=== PATIENT | male | born 1960 | race Caucasian/White ===

== ENCOUNTER 2018-02-04 12:48 | Inpatient (IN) | payer OTHER ==
[~2018-02-04] VITALS: Ht 162.6 cm; Wt 67.6 kg
[~2018-02-04 12:48] MED LIST: AMOX-358 PO; ATOR40TA70 PO; BENZ-13 PO; CITALOPRAM; FLUT9.9S NS; GEMF600T3 PO; GLIP5TAB26 PO; HCTZ; HYDR25TA4 PO; LORA1TAB59 PO; MECL12.579 PO; METFORMIN; PARVASTATIN
--- NOTE | 2018-02-04 13:12 | Diagnostic Imaging Report ---
INDICATION: Slurred speech and dizziness with right-sided weakness. TECHNIQUE: Axial imaging through the brain was performed without contrast. COMPARISON: Correlation is made with prior head CT from 10/13/2010. FINDINGS: Ventricular size is stable. There is some subtle low density identified in the left batres radiata, more prominent than prior CT. Acuity is indeterminate. No sulcal effacement is seen. There is no midline shift. No acute intra-axial or extra-axial hemorrhage is detected. IMPRESSION: No acute intracranial hemorrhage is seen. There is a small area of low density in the left batres radiata. Possibility of subacute ischemia at this location cannot be entirely excluded, and MRI of the brain could be performed for further evaluation. Dictated by: Dictated on workstation # [id number]
[2018-02-04 13:27] LABS: BASOPHILS # (AUTO) 0.1 10^3/uL (0.0-0.1); BASOPHILS % (AUTO) 1 % (0-10); EOSINOPHILS # (AUTO) 0.1 10^3/uL (0.0-0.3); EOSINOPHILS % (AUTO) 1 % (0-10); HEMATOCRIT 51 % (40-54); HEMOGLOBIN 18.3 G/DL (13.3-17.7); LYMPHOCYTES # (AUTO) 1.8 X 10^3 (1.0-4.0); LYMPHOCYTES % (AUTO) 19 % (12-44); MEAN CORPUSCULAR HEMOGLOBIN 31 PG (25-34); MEAN CORPUSCULAR HGB CONC 36 G/DL (32-36); MEAN CORPUSCULAR VOLUME 85 FL (80-99); MEAN PLATELET VOLUME 9.8 FL (7.4-10.4); MONOCYTES # (AUTO) 0.6 X 10^3 (0.0-1.0); MONOCYTES % (AUTO) 6 % (0-12); NEUTROPHILS # (AUTO) 7.2 X 10^3 (1.8-7.8); NEUTROPHILS % (AUTO) 74 % (42-75); PLATELET COUNT 348 10^3/uL (130-400); RED BLOOD COUNT 5.95 10^6/uL (4.35-5.85); RED CELL DISTRIBUTION WIDTH 12.8 % (10.0-14.5); WHITE BLOOD COUNT 9.8 10^3/uL (4.3-11.0)
[2018-02-04 13:37] LABS: INR 0.9 (0.8-1.4); PROTHROMBIN TIME PATIENT 12.5 SEC (12.2-14.7)
[2018-02-04 13:40] LABS: FIBRIN DEGRADATION PRODUCTS 0.29 UG/ML (0.00-0.49)
[2018-02-04 13:43] LABS: ALANINE AMINOTRANSFERASE 26 U/L (0-55); ALBUMIN 4.4 GM/DL (3.2-4.5); ALKALINE PHOSPHATASE 132 U/L (40-136); BILIRUBIN,TOTAL 0.7 MG/DL (0.1-1.0); BUN/CREATININE RATIO 11; CALCIUM 9.6 MG/DL (8.5-10.1); CARBON DIOXIDE 23 MMOL/L (21-32); CHLORIDE 104 MMOL/L (98-107); CREATININE SERUM 0.93 MG/DL (0.60-1.30); GFR ESTIMATED > 60; GLUCOSE 327 MG/DL (70-105); SODIUM 137 MMOL/L (135-145); TOTAL PROTEIN 7.7 GM/DL (6.4-8.2)
--- NOTE | 2018-02-04 13:49 | Diagnostic Imaging Report ---
INDICATION: Dizziness and right-sided weakness. TIME OF EXAM: 1:27 p.m. COMPARISON: Comparison is made with prior study from 09/20/2011. FINDINGS: The heart size is normal. The pulmonary vascularity is unremarkable. The lungs are clear. No infiltrate, effusion or pneumothorax is detected. IMPRESSION: No acute cardiopulmonary process is detected. Dictated by: Dictated on workstation # [id number]
[2018-02-04 14:05] LABS: BILIRUBIN,URINE NEGATIVE (NEGATIVE); CLARITY,URINE CLEAR; COLOR,URINE YELLOW; GLUCOSE, URINE (UA) 4+ (NEGATIVE); KETONES,URINE NEGATIVE (NEGATIVE); LEUKOCYTE ESTERASE ,URINE 1+ (NEGATIVE); NITRITE,URINE NEGATIVE (NEGATIVE); PH,URINE 5 (5-9); PROTEIN,URINE 2+ (NEGATIVE); UROBILINOGEN,URINE NORMAL (NORMAL)
[2018-02-04] MEDS ORDERED: NS 250 ML (IVPB) BAG IV ONE (14:30)
[2018-02-04] MEDS ORDERED: IOHEXOL 350 MG/ML 100 ML (OMNIPAQUE 350) VIAL IV ONE (14:30)
[2018-02-04] MEDS ORDERED: CATHETER FLUSH 10 ML SYR IV PRN (14:30)
[2018-02-04 14:31] LABS: BACTERIA,URINE NEGATIVE /HPF; WBC,URINE RARE /HPF
--- NOTE | 2018-02-04 15:12 | Diagnostic Imaging Report ---
PROCEDURE: MR imaging of the brain without contrast. TECHNIQUE: Multiplanar, multisequence MR imaging of the brain was performed without contrast. INDICATION: Slurred speech and weakness. COMPARISON: Correlation is made with CT study of the brain performed earlier the same day. FINDINGS: Diffusion-weighted images do show a small area of diffusion restriction in the left batres radiata, corresponding with the area of low density on CT earlier the same day. This measures approximately 13 mm. No other areas of diffusion restriction are seen. The normal expected flow-voids within the carotid siphons are seen. There is no midline shift. No acute intra-axial or extra-axial hemorrhage is detected. Corpus callosum is unremarkable. The sella and parasellar structures are unremarkable. 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 No acute intracranial hemorrhage is detected. Results were called to Dr. Rick prior to this dictation. Dictated by: Dictated on workstation # [id number]
--- NOTE | 2018-02-04 15:19 | ED Neurological Problem ---
General Chief Complaint: Neuro-Stroke Like Symptoms Stated Complaint: DIZZY, R ARM PAIN Nursing Triage Note: BROUGHT BACK TO ROOM 03 BY ADAM LIM. PT STATES WHEN HE LEFT WORK YESTERDAY AT 1500 HE WS DIZZY WITH SOME RIGHT SIDED WEAKNESS AND SLURRED SPEECH THAT SEEMS TO HAVE GOTTEN WORSE. Nursing Sepsis Screen: No Definite Risk Source: patient Exam Limitations: no limitations History of Present Illness Date Seen by Provider: Feb 04, 2018 Time Seen by Provider: 12:56 Initial Comments This 57-year-old gentleman presents to the emergency room with complaints of dizziness, right arm weakness, slurred speech, and disequilibrium. He first noticed symptoms around 13:00 yesterday when he was going home from work. Symptoms seem to have worsened since then. He is now having difficulty walking. He denies any drug or alcohol use. Stroke activation was paged. Allergies and Home Medications Allergies Coded Allergies: No Known Drug Allergies (Verified , 08/14/08) Home Medications Amoxicillin/Potassium Clav 1 Each Tablet, 1 EACH PO BID Prescribed by: MARSHA ELLIOTT on 09/15/17757 Benzonatate 100 Mg Capsule, 1-2 TAB PO TID Prescribed by: MARSHA ELLIOTT on 09/15/17757 Fluticasone Propionate 9.9 Ml Wilson.susp, 2 SPRAYS NS BID Prescribed by: MARSHA ELLIOTT on 09/15/17757 Loratadine/Pseudoephedrine 1 Each Tab.er.12h, 1 EACH PO BID Prescribed by: MARSHA ELLIOTT on 09/15/17757 Patient Home Medication List Home Medication List Reviewed: Yes Constitutional: no symptoms reported Eyes: No Symptoms Reported Ears, Nose, Mouth, Throat: no symptoms reported Respiratory: no symptoms reported Cardiovascular: no symptoms reported Gastrointestinal: no symptoms reported Genitourinary: no symptoms reported Musculoskeletal: no symptoms reported Skin: no symptoms reported Psychiatric/Neurological: See HPI Endocrine: No Symptoms Reported Past Lxircho-Mogoqp-Spwiki Hx Patient Social History Alcohol Use: Rarely Uses Alcohol Beverage of Choice: Beer Recreational Drug Use: No Smoking Status: Current Everyday Smoker Type Used: Cigarettes Recent Foreign Travel: No Contact w/Someone Who Travel: No Recent Infectious Disease Expo: No Immunizations Up To Date Date of Influenza Vaccine: Aug 08, 2017 Surgeries History of Surgeries: Yes (RIGHT KNEE SCOPE) Surgeries: Abdominal, Adenoidectomy, Tonsillectomy Respiratory History of Respiratory Disorde: Yes (Tobaccoism) Cardiovascular History of Cardiac Disorders: Yes Cardiac Disorders: Hypertension Neurological History of Neurological Disord: No Reproductive System Hx Reproductive Disorders: No Sexually Transmitted Disease: No Genitourinary History of Genitourinary Disor: No Gastrointestinal History of Gastrointestinal Di: No Musculoskeletal History of Musculoskeletal Dis: No Endocrine History of Endocrine Disorders: Yes (Borderline diabetes, not treated) Cancer History of Cancer: No Psychosocial History of Psychiatric Problem: No Integumentary History of Skin or Integumenta: No Blood Transfusions History of Blood Disorders: No Physical Exam Vital Signs Vital Signs - First Documented 02/04/18 12:55 Temp 98.0 Pulse 97 B/P (MAP) 110/99 (103) Pulse Ox 99 Capillary Refill : Less Than 3 Seconds General Appearance: WD/WN, no apparent distress HEENT: PERRL/EOMI, normal ENT inspection, pharynx normal Neck: normal inspection Respiratory: lungs clear, normal breath sounds, no respiratory distress, no accessory muscle use Cardiovascular: no edema, no murmur, tachycardia Gastrointestinal: non tender, soft Extremities: normal inspection, no pedal edema Neurologic/Psychiatric: alert, normal mood/affect, oriented x 3, motor weakness (Right upper extremity) Crainal Nerves: normal hearing, PERRL, abnormal speech (Subtle slurring of speech) Coordination/Gait: abnormal gait (Disequilibrium), ABN nose to finger (R) Motor/Sensory: no sensory deficit, weak motor strength LUE, weak motor strength RLE Skin: normal color, warm/dry Stroke NIH Stroke Scale Assessment Select: Initial Level of Consciousness: 0=Alert (0), Level of Consciousness- Questions: 0=Answers both month/age (0), LOC Commands: 0=Performs both tasks (0) , Visual Camara: 0=No visual loss (0), Facial Movement (Facial Paresis): 0= Normal symmetrical mnt (0), Motor Function-Arms Right: 0=No drift (0), Motor Function-Arms Left: 0=No drift (0), Motor Function-Legs Right: 0=No drift (0), Motor Function-Legs Left: 0=No drift (0), Limb Ataxia: 1=Present in one limb (1) , Sensory: 0=Normal:no loss (0), Best Language: 0=No aphasia (0), Dysarthria: 1= Mild to moderate loss (1), Extinction & Inattention: 0=No abnormality (0), Total : 2 Progress/Results/Core Measures Results/Orders Lab Results Laboratory Tests Test 02/04/18 13:11 02/04/18 13:19 02/04/18 14:00 Range/Units White Blood Count 9.8 4.3-11.0 10^3/uL Red Blood Count 5.95 H 4.35-5.85 10^6/uL Hemoglobin 18.3 H 13.3-17.7 G/DL Hematocrit 51 40-54 % Mean Corpuscular Volume 85 80-99 FL Mean Corpuscular Hemoglobin 31 25-34 PG Mean Corpuscular Hemoglobin Concent 36 32-36 G/DL Red Cell Distribution Width 12.8 10.0-14.5 % Platelet Count 348 130-400 10^3/uL Mean Platelet Volume 9.8 7.4-10.4 FL Neutrophils (%) (Auto) 74 42-75 % Lymphocytes (%) (Auto) 19 12-44 % Monocytes (%) (Auto) 6 0-12 % Eosinophils (%) (Auto) 1 0-10 % Basophils (%) (Auto) 1 0-10 % Neutrophils # (Auto) 7.2 1.8-7.8 X 10^3 Lymphocytes # (Auto) 1.8 1.0-4.0 X 10^3 Monocytes # (Auto) 0.6 0.0-1.0 X 10^3 Eosinophils # (Auto) 0.1 0.0-0.3 10^3/uL Basophils # (Auto) 0.1 0.0-0.1 10^3/uL Prothrombin Time 12.5 12.2-14.7 SEC INR Comment 0.9 0.8-1.4 Activated Partial Thromboplast Time 35 24-35 SEC D-Dimer 0.29 0.00-0.49 UG/ML Sodium Level 137 135-145 MMOL/L Potassium Level 4.0 3.6-5.0 MMOL/L Chloride Level 104 98-107 MMOL/L Carbon Dioxide Level 23 21-32 MMOL/L Anion Gap 10 5-14 MMOL/L Blood Urea Nitrogen 10 7-18 MG/DL Creatinine 0.93 0.60-1.30 MG/DL Estimat Glomerular Filtration Rate > 60 BUN/Creatinine Ratio 11 Glucose Level 327 H 70-105 MG/DL Calcium Level 9.6 8.5-10.1 MG/DL Total Bilirubin 0.7 0.1-1.0 MG/DL Aspartate Amino Transf (AST/SGOT) 15 5-34 U/L Alanine Aminotransferase (ALT/SGPT) 26 0-55 U/L Alkaline Phosphatase 132 40-136 U/L Troponin I < 0.30 <0.30 NG/ML Total Protein 7.7 6.4-8.2 GM/DL Albumin 4.4 3.2-4.5 GM/DL Glucometer 294 H 70-110 MG/DL Urine Color YELLOW Urine Clarity CLEAR Urine pH 5 5-9 Urine Specific [place] 1.020 1.016-1.022 Urine Protein 2+ H NEGATIVE Urine Glucose (UA) 4+ H NEGATIVE Urine Ketones NEGATIVE NEGATIVE Urine Nitrite NEGATIVE NEGATIVE Urine Bilirubin NEGATIVE NEGATIVE Urine Urobilinogen NORMAL NORMAL MG/DL Urine Leukocyte Esterase 1+ H NEGATIVE Urine RBC (Auto) 1+ H NEGATIVE Urine RBC NONE /HPF Urine WBC RARE /HPF Urine Squamous Epithelial Cells NONE /HPF Urine Crystals NONE /LPF Urine Bacteria NEGATIVE /HPF Urine Casts NONE /LPF Urine Mucus NEGATIVE /LPF Urine Culture Indicated NO My Orders Orders - CHIDI RICK MD Cbc With Automated Diff (02/04/18 12:56) Protime With Inr (02/04/18 12:56) Partial Thromboplastin Time (02/04/18 12:56) Comprehensive Metabolic Panel (02/04/18 12:56) Fibrin Degradation Products (02/04/18 12:56) Troponin I (02/04/18 12:56) Ua Culture If Indicated (02/04/18 12:56) Chest 1 View, Ap/Pa Only (02/04/18 12:56) Ekg Tracing (02/04/18 12:56) Nothing By Mouth (02/04/18 Dinner) Accucheck Stat ONCE (02/04/18 12:56) Saline Lock/Iv-Start (02/04/18 12:56) Saline Lock/Iv-Start (02/04/18 12:56) Vital Signs Stroke Patient Q15M (02/04/18 12:56) Ct Head Wo-R/O Stroke (02/04/18 12:56) O2 (02/04/18 12:56) Intake & Output 06,14,22 (02/04/18 12:56) Monitor-Rhythm Ecg Trace Only (02/04/18 12:56) Dysphagia Screening Tool (02/04/18 12:56) Mri Brain W/O Contrast (02/04/18 14:16) Ct Angio Head/Neck (02/04/18 14:16) Iohexol Injection (Omnipaque 350 Mg/Ml 1 (02/04/18 14:30) Sodium Chloride Flush (Catheter Flush Sy (02/04/18 14:30) Ns (Ivpb) (Sodium Chloride 0.9%) (02/04/18 14:30) Pharmacy Communication (Pharmacy Communi (02/04/18 14:20) Aspirin Tablet (Aspirin Tablet) (02/04/18 15:45) Ondansetron Injection (Zofran Injectio (02/04/18 18:19) Ns Iv 1000 Ml (Sodium Chloride 0.9%) (02/04/18 18:28) Ondansetron Injection (Zofran Injectio (02/04/18 18:45) Medications Given in ED Current Medications Medications Dose Ordered Sig/Dory Route Start Time Stop Time Status Last Admin Dose Admin Aspirin 325 mg ONCE ONCE PO 02/04/18 15:45 02/04/18 15:46 DC 02/04/18 15:46 325 MG Iohexol 100 ml ONCE ONCE IV 02/04/18 14:30 02/04/18 14:31 DC 02/04/18 15:25 75 ML Ondansetron HCl 4 mg ONCE ONCE IVP 02/04/18 18:30 02/04/18 18:31 DC 02/04/18 18:25 4 MG Ondansetron HCl 4 mg ONCE ONCE IVP 02/04/18 18:45 02/04/18 18:46 DC 02/04/18 18:47 4 MG Sodium Chloride 10 ml NEEDED PRN IV 02/04/18 14:30 02/04/18 15:25 10 ML Sodium Chloride 250 ml ONCE ONCE IV 02/04/18 14:30 02/04/18 14:31 DC 02/04/18 15:25 80 ML Vital Signs/I&O Vital Sign - Last 12Hours 02/04/18 02/04/18 12:55 17:53 Temp 98.0 Pulse 97 117 B/P (MAP) 110/99 (103) 125/89 (101) 108/45 (66) Pulse Ox 99 Blood Pressure Mean: 103 Point of Care Testing Finger Stick Blood Glucose: 294 Progress Note : Progress Note Stroke activation was paged upon patient assessment. Patient was not a TPA candidate as he was nearly 24 hours out from symptom onset and his NIH stroke score was very low. CT did suggest a possible stroke. See report for details. No intracranial hemorrhage was identified. I consulted Dr. Griffin, stroke neurologist at [facility]. She recommended further imaging with MRA of the head and neck and MRI of the brain. I discussed these options with Dr. Parikh in radiology. Based on equipment available at this facility, he believes CT angiogram of head and neck along with MRI of the brain would provide better images for interpretation. The studies were ordered. Stroke was confirmed but no large vessel thrombus was identified. CT angiogram of the neck revealed a left subclavian artery stenosis. This was severe in nature and blood pressures on each arm were checked. Blood pressure on the right was 125/89, on the left 108/45. Case was reviewed with Dr. Holland at [facility]. He states this does not need to be emergently addressed. However, a steal phenomenon from the vertebral artery may result with exertion of the left upper extremity. This was addressed on admission orders in regard to physical therapy. Outpatient referral is recommended. Patient did develop some of vomiting during his ER stay and was treated with Zofran. Patient was noted to be tachycardic. This may be related to hypovolemia from diuresing secondary to hyperglycemia. IV fluids were initiated. Despite instructing patient on not attempting to move without assistance. He did fall in the bathroom. He injured his head against the wall and his left shoulder. Imaging of the left shoulder and CT of the head were obtained. No acute injuries were identified. ECG Initial ECG Impression Date: Feb 04, 2018 Initial ECG Impression Time: 13:02 Initial ECG Rate: 118 Initial ECG Rhythm: S.Tach Comment Sinus tachycardia with no ST elevation or depression. No abnormal intervals or axis deviation. Diagnostic Imaging Diagonstic Imaging: CT Plain Films/CT/US/NM/MRI: head Comments CT head viewed by me and report reviewed. See report below: NAME: CORBIN JACINTO [facility] REC#: [id number] PT STATUS: REG ER : 1960 PHYSICIAN: CHIDI RICK MD ADMIT DATE: 02/04/18/ER Signed Date of Exam: 02/04/18 CT HEAD WO-R/O STROKE INDICATION: Slurred speech and dizziness with right-sided weakness. TECHNIQUE: Axial imaging through the brain was performed without contrast. COMPARISON: Correlation is made with prior head CT from 10/13/2010. FINDINGS: Ventricular size is stable. There is some subtle low density identified in the left batres radiata, more prominent than prior CT. Acuity is indeterminate. No sulcal effacement is seen. There is no midline shift. No acute intra-axial or extra-axial hemorrhage is detected. IMPRESSION: No acute intracranial hemorrhage is seen. There is a small area of low density in the left batres radiata. Possibility of subacute ischemia at this location cannot be entirely excluded, and MRI of the brain could be performed for further evaluation. Dictated by: Dictated on workstation # [id number] Dict: 02/04/18 1306 Trans: 02/04/18 1317 Interpreted by: JONES PARIKH MD Electronically signed by: JONES PARIKH MD 02/04/18 1317 Diagonstic Imaging: Xray Plain Films/CT/US/NM/MRI: chest Comments Chest x-ray viewed by me and report reviewed. See report below: NAME: CORBIN JACINTO [facility] REC#: [id number] PT STATUS: REG ER : 1960 PHYSICIAN: CHIDI RICK MD ADMIT DATE: 02/04/18/ER Signed Date of Exam:02/04/18 CHEST 1 VIEW, AP/PA ONLY INDICATION: Dizziness and right-sided weakness. TIME OF EXAM: 1:27 p.m. COMPARISON: Comparison is made with prior study from 09/20/2011. FINDINGS: The heart size is normal. The pulmonary vascularity is unremarkable. The lungs are clear. No infiltrate, effusion or pneumothorax is detected. IMPRESSION: No acute cardiopulmonary process is detected. Dictated by: Dictated on workstation # [id number] Dict: 02/04/18 1347 Trans: 02/04/18 1407 [id number] Interpreted by: JONES PARIKH MD Electronically signed by: JONES PARIKH MD 02/04/18 1407 Diagonstic Imaging: MRI Plain Films/CT/US/NM/MRI: head Comments MRI brain discussed with the radiologist and report reviewed. See report below: NAME: CORBIN JACINTO [facility] REC#: [id number] PT STATUS: REG ER : 1960 PHYSICIAN: CHIDI RICK MD ADMIT DATE: 02/04/18/ER Draft Date of Exam:02/04/18 MRI BRAIN W/O CONTRAST PROCEDURE: MR imaging of the brain without contrast. TECHNIQUE: Multiplanar, multisequence MR imaging of the brain was performed without contrast. INDICATION: Slurred speech and weakness. COMPARISON: Correlation is made with CT study of the brain performed earlier the same day. FINDINGS: Diffusion-weighted images do show a small area of diffusion restriction in the left batres radiata, corresponding with the area of low density on CT earlier the same day. This measures approximately 13 mm. No other areas of diffusion restriction are seen. The normal expected flow-voids within the carotid siphons are seen. There is no midline shift. No acute intra-axial or extra-axial hemorrhage is detected. Corpus callosum is unremarkable. The sella and parasellar structures are unremarkable. 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 No acute intracranial hemorrhage is detected. Results were called to Dr. Rick prior to this dictation. Dictated on workstation # [id number] Dict: 02/04/18 1505 Trans: 02/04/18 1512 [facility] [id number] Interpreted by: JONES PARIKH MD Diagonstic Imaging: CT Plain Films/CT/US/NM/MRI: other (Angiogram head and neck) Comments CT angiogram head and neck report reviewed. See report below: NAME: CORBIN JACINTO [facility] REC#: [id number] PT STATUS: REG ER : 1960 PHYSICIAN: CHIDI RICK MD ADMIT DATE: 02/04/18/ER Signed Date of Exam: 02/04/18 CT ANGIO HEAD/NECK CLINICAL INDICATION: Patient with slurred speech, dizziness and right-sided weakness. 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 EXAMS: 1: Head CT with and without IV contrast. 2: CT angiogram of the head and neck performed with 100 cc of Omnipaque 350 IV contrast. Sagittal and coronal MIP reformations were created for better visualization of vascular anatomy. COMPARISON: MRI of the brain performed without IV contrast and head CT without contrast dated 02/04/2018. FINDINGS: Head CT: There is interval evolution of the small area of low attenuation in the posterior limb of left internal capsule/batres radiata related to the patient's history of acute cerebral infarct. There is no abnormal IV contrast enhancement. There are no other areas concerning for acute cerebral infarct. The brain parenchymal volume appears appropriate for patient's age. There is no hydrocephalus or intraventricular hemorrhage. Basal cisterns are unremarkable. Extracranial soft tissue, skull, and orbits are unremarkable. There is minimal mucosal thickening involving the left maxillary sinuses. Temporal bone structures show no significant abnormality. CT angiogram: There is dense contrast bolus within the right subclavian vein and superior vena cava which obscures portions of the mediastinum and adjacent vessels. 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 There is a roughly 1.4 cm segment of severe stenosis involving the proximal left subclavian artery. Distally, the remainder of the left subclavian artery is patent. There is suspected artifact involving the proximal right CCA versus mural thrombus causing mild narrowing seen on series 8, images 35 through 37. Remainder of the right CCA, cervical right ICA, and right ECA are patent. The left CCA is patent. There is less than 50% stenosis involving the proximal left ICA bulb region. The remainder of the left ICA is patent. The cervical bilateral vertebral arteries are patent. Relatively dominant right vertebral artery is seen. The bilateral petrous and cavernous carotid artery portions of the bilateral ICA are patent. Prominent bilateral posterior communicating arteries are seen. There is slightly smaller caliber bilateral P1 [employer] seen. The bilateral [employer], SCA, basilar artery, and intradural vertebral arteries are patent. There is slightly smaller caliber post PICA left vertebral artery seen. The bilateral A1 ACAs, anterior communicating artery, and A2 ACAs and their distal branches are patent. The visualized [place] vascular structures are patent. The bilateral MCA and their branches are patent. The dural venous sinuses show no significant abnormality. The neck soft tissue structures show no significant abnormality. There is emphysematous lung disease seen. There is cervical spine degenerative disease with levoscoliosis of the upper thoracic spine. There is no significant bony central spinal canal or neuroforaminal narrowing. IMPRESSION: 1: Interval evolution of the small acute cerebral infarct involving the left posterior internal capsule region/bartes radiata. There is no associated IV contrast enhancement. 2: CT angiogram of the neck shows a short segment of severe stenosis involving the proximal left subclavian artery. 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 The right subclavian artery and right vertebral artery is patent. 3: There is motion artifact versus vascular plaque involving the proximal right CCA with mild narrowing. 4: Otherwise, the remainder of the [place] and neck major arteries shows no significant abnormality. Dictated by: Dictated on workstation # [id number] Dict: 02/04/181658 Trans: 02/04/181729 Interpreted by: SIENA NICE MD Electronically signed by: SIENA NICE MD 02/04/181729 Diagonstic Imaging: Xray Comments Shoulder x-ray viewed by me and report reviewed. See report below: NAME: CORBIN JACINTO [facility] REC#: [id number] PT STATUS: REG ER : 1960 PHYSICIAN: ARELY WARNER ADMIT DATE: 02/04/18/ER Signed Date of Exam: 02/04/18 SHOULDER, LEFT, 3 VIEWS EXAM: Shoulder, left, 3 views. INDICATION: Fall. Left shoulder injury. COMPARISON: None. FINDINGS: No fracture or malalignment. Mild degenerative changes in the left acromioclavicular and glenohumeral joints. Soft tissue shadows are unremarkable. IMPRESSION: No acute radiographic findings in the left shoulder. Dictated by: Dictated on workstation # [id number] Dict: 02/04/18 1718 Trans: 02/04/181816 Interpreted by: GWEN DUMONT MD Electronically signed by: GWEN DUMONT MD 02/04/181816 Diagonstic Imaging: CT Plain Films/CT/US/NM/MRI: c-spine, head Comments CT head and cervical spine report reviewed. See report below: NAME: CORBIN JACINTO [facility] REC#: [id number] PT STATUS: REG ER : 1960 PHYSICIAN: ARELY WARNER ADMIT DATE: 02/04/18/ER Signed Date of Exam: 02/04/18 CT HEAD/CERVICAL SPINE WO PROCEDURE: CT head and CT cervical spine without contrast. TECHNIQUE: Multiple contiguous axial images were obtained through the brain and cervical spine without the use of intravenous contrast. Sagittal and coronal reformations through the cervical spine were then performed. INDICATION: Fall. Head injury. COMPARISON: CT head without contrast 10/13/2010. FINDINGS: CT head: No CT evidence of acute infarction. No intracranial hemorrhage, mass effect, hydrocephalus or extra-axial fluid collection. Osseous structures are intact. The paranasal sinuses and mastoids are clear. Intracranial vascular calcifications. CT cervical spine: Moderate right apex cervical curvature may be positional. There is minimal anterolisthesis of C4 on C5. Facet arthropathy is greatest at this level. Alignment is otherwise unremarkable. Vertebral body heights are preserved. No fractures. No high-grade spinal canal narrowing is evident on this noncontrast exam. Mild scattered neuroforaminal narrowing. Visualized paravertebral soft tissues are unremarkable. IMPRESSION: No acute intracranial CT or cervical spine findings. Dictated by: Dictated on workstation # [id number] Dict: 02/04/181705 Trans: 02/04/181816 Interpreted by: GWEN DUMONT MD Electronically signed by: GWEN DUMONT MD 02/04/181816 Departure Communication (Admissions) Time/Spoke to Admitting Phy: 18:[address] Kahn Impression Impression: Primary Impression: CVA (cerebral vascular accident) Qualified Codes: I63.40 - Cerebral infarction due to embolism of unspecified cerebral artery Additional Impressions: Right sided weakness Dysarthria Hyperglycemia Stenosis of left subclavian artery Fall on same level Qualified Codes: W18.30XA - Fall on same level, unspecified, initial encounter Disposition: ADMITTED INPATIENT Condition: Stable Admissions Decision to Admit Reason: Admit from ER (General) Decision to Admit/Date: Feb 04, 2018 Time/Decision to Admit Time: 18:20 Departure-Patient Inst. Referrals: CORBIN MENDOZA MD (PCP/Family) Primary Care Physician CHIDI RICK MD Feb 04, 2018 15:19
[2018-02-04] MEDS ORDERED: ASPIRIN 325 MG (5 GR) TABLET PO ONE (15:45)
--- NOTE | 2018-02-04 17:15 | Diagnostic Imaging Report ---
PROCEDURE: CT head and CT cervical spine without contrast. TECHNIQUE: Multiple contiguous axial images were obtained through the brain and cervical spine without the use of intravenous contrast. Sagittal and coronal reformations through the cervical spine were then performed. INDICATION: Fall. Head injury. COMPARISON: CT head without contrast 10/13/2010. FINDINGS: CT head: No CT evidence of acute infarction. No intracranial hemorrhage, mass effect, hydrocephalus or extra-axial fluid collection. Osseous structures are intact. The paranasal sinuses and mastoids are clear. Intracranial vascular calcifications. CT cervical spine: Moderate right apex cervical curvature may be positional. There is minimal anterolisthesis of C4 on C5. Facet arthropathy is greatest at this level. Alignment is otherwise unremarkable. Vertebral body heights are preserved. No fractures. No high-grade spinal canal narrowing is evident on this noncontrast exam. Mild scattered neuroforaminal narrowing. Visualized paravertebral soft tissues are unremarkable. IMPRESSION: No acute intracranial CT or cervical spine findings. Dictated by: Dictated on workstation # [id number]
--- NOTE | 2018-02-04 17:22 | Diagnostic Imaging Report ---
EXAM: Shoulder, left, 3 views. INDICATION: Fall. Left shoulder injury. COMPARISON: None. FINDINGS: No fracture or malalignment. Mild degenerative changes in the left acromioclavicular and glenohumeral joints. Soft tissue shadows are unremarkable. IMPRESSION: No acute radiographic findings in the left shoulder. Dictated by: Dictated on workstation # [id number]
--- NOTE | 2018-02-04 17:23 | Diagnostic Imaging Report ---
CLINICAL INDICATION: Patient with slurred speech, dizziness and right-sided weakness. 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 EXAMS: 1: Head CT with and without IV contrast. 2: CT angiogram of the head and neck performed with 100 cc of Omnipaque 350 IV contrast. Sagittal and coronal MIP reformations were created for better visualization of vascular anatomy. COMPARISON: MRI of the brain performed without IV contrast and head CT without contrast dated 02/04/2018. FINDINGS: Head CT: There is interval evolution of the small area of low attenuation in the posterior limb of left internal capsule/batres radiata related to the patient's history of acute cerebral infarct. There is no abnormal IV contrast enhancement. There are no other areas concerning for acute cerebral infarct. The brain parenchymal volume appears appropriate for patient's age. There is no hydrocephalus or intraventricular hemorrhage. Basal cisterns are unremarkable. Extracranial soft tissue, skull, and orbits are unremarkable. There is minimal mucosal thickening involving the left maxillary sinuses. Temporal bone structures show no significant abnormality. CT angiogram: There is dense contrast bolus within the right subclavian vein and superior vena cava which obscures portions of the mediastinum and adjacent vessels. 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 There is a roughly 1.4 cm segment of severe stenosis involving the proximal left subclavian artery. Distally, the remainder of the left subclavian artery is patent. There is suspected artifact involving the proximal right CCA versus mural thrombus causing mild narrowing seen on series 8, images 35 through 37. Remainder of the right CCA, cervical right ICA, and right ECA are patent. The left CCA is patent. There is less than 50% stenosis involving the proximal left ICA bulb region. The remainder of the left ICA is patent. The cervical bilateral vertebral arteries are patent. Relatively dominant right vertebral artery is seen. The bilateral petrous and cavernous carotid artery portions of the bilateral ICA are patent. Prominent bilateral posterior communicating arteries are seen. There is slightly smaller caliber bilateral P1 LOG TUMBLER seen. The bilateral LOG TUMBLER, SCA, basilar artery, and intradural vertebral arteries are patent. There is slightly smaller caliber post PICA left vertebral artery seen. The bilateral A1 ACAs, anterior communicating artery, and A2 ACAs and their distal branches are patent. The visualized [place] vascular structures are patent. The bilateral MCA and their branches are patent. The dural venous sinuses show no significant abnormality. The neck soft tissue structures show no significant abnormality. There is emphysematous lung disease seen. There is cervical spine degenerative disease with levoscoliosis of the upper thoracic spine. There is no significant bony central spinal canal or neuroforaminal narrowing. IMPRESSION: 1: Interval evolution of the small acute cerebral infarct involving the left posterior internal capsule region/batres radiata. There is no associated IV contrast enhancement. 2: CT angiogram of the neck shows a short segment of severe stenosis involving the proximal left subclavian artery. 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 The right subclavian artery and right vertebral artery is patent. 3: There is motion artifact versus vascular plaque involving the proximal right CCA with mild narrowing. 4: Otherwise, the remainder of the [place] and neck major arteries shows no significant abnormality. Dictated by: Dictated on workstation # [id number]
[2018-02-04 17:53] VITALS: BP_SYST 108; BP_SYST 125; BP_DIAS 45; BP_DIAS 89
[2018-02-04] MEDS ORDERED: ONDANSETRON 4 MG/2 ML (SDV) Z0FRAN ONE (18:19)
[2018-02-04] MEDS ORDERED: NS IV 1000 ML 1,000 ML IV SCH (18:28)
[2018-02-04] MEDS ORDERED: ONDANSETRON 4 MG/2 ML (SDV) Z0FRAN IVP ONE ×3 (18:30→20:45)
[2018-02-04 20:50] VITALS: BP_SYST 151; BP_SYST 157; BP_DIAS 83
[2018-02-04] MEDS ORDERED: MILK OF MAGNESIA 400 MG/5 ML 30 ML UDC NG PRN (21:15)
[2018-02-04] MEDS ORDERED: BISACODYL 10 MG SUPP (DULCOLAX) PR PRN (21:15)
[2018-02-04] MEDS ORDERED: ACETAMINOPHEN 650 MG SUPP (TYLENOL) PR PRN (21:15)
[2018-02-04] MEDS ORDERED: MILK OF MAGNESIA 400 MG/5 ML 30 ML UDC PO PRN (21:15)
[2018-02-04] MEDS: NS IV 1000 ML IV SCH (21:31)
[2018-02-04] MEDS: ONDANSETRON 4 MG/2 ML (SDV) Z0FRAN IV PRN (21:36)
[2018-02-05] VITALS (7 sets, daily range): BP systolic 101–122; BP diastolic 57–69
[2018-02-05] MEDS ORDERED: ACET-1783 PO (01:46)
[2018-02-05] MEDS ORDERED: ASPI500T15 PO (01:46)
[2018-02-05] MEDS: NS IV 1000 ML IV SCH ×2 (05:03→14:14)
[2018-02-05 06:33] LABS: BASOPHILS # (AUTO) 0.1 10^3/uL (0.0-0.1); BASOPHILS % (AUTO) 1 % (0-10); EOSINOPHILS # (AUTO) 0.1 10^3/uL (0.0-0.3); EOSINOPHILS % (AUTO) 1 % (0-10); HEMATOCRIT 48 % (40-54); LYMPHOCYTES # (AUTO) 1.9 X 10^3 (1.0-4.0); LYMPHOCYTES % (AUTO) 15 % (12-44); MEAN CORPUSCULAR HEMOGLOBIN 31 PG (25-34); MEAN CORPUSCULAR HGB CONC 36 G/DL (32-36); MEAN CORPUSCULAR VOLUME 88 FL (80-99); MEAN PLATELET VOLUME 10.3 FL (7.4-10.4); MONOCYTES # (AUTO) 0.7 X 10^3 (0.0-1.0); MONOCYTES % (AUTO) 6 % (0-12); NEUTROPHILS # (AUTO) 9.8 X 10^3 (1.8-7.8); NEUTROPHILS % (AUTO) 78 % (42-75); PLATELET COUNT 328 10^3/uL (130-400); RED BLOOD COUNT 5.46 10^6/uL (4.35-5.85); WHITE BLOOD COUNT 12.5 10^3/uL (4.3-11.0)
[2018-02-05] MEDS: inSUlin ASPART (NovoLOG) 1 UNIT/0.01 ML (CHARGE PER UNIT) SC SCH ×4 (06:36→22:00)
[2018-02-05 07:09] LABS: BUN/CREATININE RATIO 12; CALCIUM 8.2 MG/DL (8.5-10.1); CARBON DIOXIDE 24 MMOL/L (21-32); CHLORIDE 107 MMOL/L (98-107); CHOLESTEROL 233 MG/DL (< 200); CREATININE SERUM 0.78 MG/DL (0.60-1.30); GFR ESTIMATED > 60; GLUCOSE 237 MG/DL (70-105); HDL CHOLESTEROL 27 MG/DL (40-60); POTASSIUM 3.9 MMOL/L (3.6-5.0); SODIUM 137 MMOL/L (135-145); TRIGLYCERIDES 316 MG/DL (<150); VLDL CHOLESTEROL 63 MG/DL (5-40)
[2018-02-05] MEDS: ACETAMINOPHEN 325 MG TAB (TYLENOL) PO PRN (08:39)
[2018-02-05] MEDS: FAMOTIDINE 20 MG (PEPCID) TABLET PO SCH ×2 (08:39→20:31)
[2018-02-05] MEDS: DOCUSATE SODIUM 100 MG (COLACE) CAP PO SCH ×2 (08:39→20:32)
[2018-02-05] MEDS: ASPIRIN E.C. 325 MG (ECOTRIN) TABLET PO SCH (08:40)
--- NOTE | 2018-02-05 08:54 | History & Physicial (CHS) ---
HPI History of Present Illness: 57-year-old male presents to the emergency department during the p.m. of February 04, 2018 with worsening dizziness. He also was noted to have right arm weakness as well as slurred speech and not being very stable on his feet. He first noticed his symptoms at approximately 1300 on April 05, 2018 after he went home from work at [employer]. He has no history of stroke. He is seen by Dr. De León at [facility] Source: patient Exam Limitations: clinical condition Date seen by provider: Feb 05, 2018 Time Seen by Provider: 08:20 Attending Physician Chalino Mahmood MD PCP Corbin De León MD Consult Date of Admission Feb 04, 2018 at 20:17 Home Medications Home Medications Reviewed patient Home Medication Reconciliation performed by pharmacy medication reconciliations fire control technician b and/or nursing. Patients Allergies have been reviewed. Allergies Coded Allergies: No Known Drug Allergies (Verified , 08/14/08) [id number] Hx Patient Social History Marrital Status: single Alcohol Use: Rarely Uses Recreational Drug Use: No Smoking Status: Current Everyday Smoker Type Used: Cigarettes Recent Foreign Travel: No Contact w/other who traveled: No Recent Hopitalizations: Yes Recent Infectious Disease Expo: No Physical Abuse Screen: No Sexual Abuse: No Immunizations Up To Date Date of Influenza Vaccine: Aug 08, 2017 Family Medical History Family History: Congenital heart disease Diabetes mellitus 19 FATHER 19 MOTHER Review of Systems (CHC) Constitutional: see HPI Reviewed Test Results Reviewed Test Results Lab Laboratory Tests Test 02/04/18 13:11 02/04/18 13:19 02/04/18 14:00 02/05/18 06:07 Range/Units White Blood Count 9.8 4.3-11.0 10^3/uL Red Blood Count 5.95 H 4.35-5.85 10^6/uL Hemoglobin 18.3 H 13.3-17.7 G/DL Hematocrit 51 40-54 % Mean Corpuscular Volume 85 80-99 FL Mean Corpuscular Hemoglobin 31 25-34 PG Mean Corpuscular Hemoglobin Concent 36 32-36 G/DL Red Cell Distribution Width 12.8 10.0-14.5 % Platelet Count 348 130-400 10^3/uL Mean Platelet Volume 9.8 7.4-10.4 FL Neutrophils (%) (Auto) 74 42-75 % Lymphocytes (%) (Auto) 19 12-44 % Monocytes (%) (Auto) 6 0-12 % Eosinophils (%) (Auto) 1 0-10 % Basophils (%) (Auto) 1 0-10 % Neutrophils # (Auto) 7.2 1.8-7.8 X 10^3 Lymphocytes # (Auto) 1.8 1.0-4.0 X 10^3 Monocytes # (Auto) 0.6 0.0-1.0 X 10^3 Eosinophils # (Auto) 0.1 0.0-0.3 10^3/uL Basophils # (Auto) 0.1 0.0-0.1 10^3/uL Prothrombin Time 12.5 12.2-14.7 SEC INR Comment 0.9 0.8-1.4 Activated Partial Thromboplast Time 35 24-35 SEC D-Dimer 0.29 0.00-0.49 UG/ML Sodium Level 137 135-145 MMOL/L Potassium Level 4.0 3.6-5.0 MMOL/L Chloride Level 104 98-107 MMOL/L Carbon Dioxide Level 23 21-32 MMOL/L Anion Gap 10 5-14 MMOL/L Blood Urea Nitrogen 10 7-18 MG/DL Creatinine 0.93 0.60-1.30 MG/DL Estimat Glomerular Filtration Rate > 60 BUN/Creatinine Ratio 11 Glucose Level 327 H 70-105 MG/DL Calcium Level 9.6 8.5-10.1 MG/DL Total Bilirubin 0.7 0.1-1.0 MG/DL Aspartate Amino Transf (AST/SGOT) 15 5-34 U/L Alanine Aminotransferase (ALT/SGPT) 26 0-55 U/L Alkaline Phosphatase 132 40-136 U/L Troponin I < 0.30 <0.30 NG/ML Total Protein 7.7 6.4-8.2 GM/DL Albumin 4.4 3.2-4.5 GM/DL Glucometer 294 H 233 H 70-110 MG/DL Urine Color YELLOW Urine Clarity CLEAR Urine pH 5 5-9 Urine Specific [place] 1.020 1.016-1.022 Urine Protein 2+ H NEGATIVE Urine Glucose (UA) 4+ H NEGATIVE Urine Ketones NEGATIVE NEGATIVE Urine Nitrite NEGATIVE NEGATIVE Urine Bilirubin NEGATIVE NEGATIVE Urine Urobilinogen NORMAL NORMAL MG/DL Urine Leukocyte Esterase 1+ H NEGATIVE Urine RBC (Auto) 1+ H NEGATIVE Urine RBC NONE /HPF Urine WBC RARE /HPF Urine Squamous Epithelial Cells NONE /HPF Urine Crystals NONE /LPF Urine Bacteria NEGATIVE /HPF Urine Casts NONE /LPF Urine Mucus NEGATIVE /LPF Urine Culture Indicated NO Test 02/05/18 06:10 Range/Units White Blood Count 12.5 H 4.3-11.0 10^3/uL Red Blood Count 5.46 4.35-5.85 10^6/uL Hemoglobin 17.0 13.3-17.7 G/DL Hematocrit 48 40-54 % Mean Corpuscular Volume 88 80-99 FL Mean Corpuscular Hemoglobin 31 25-34 PG Mean Corpuscular Hemoglobin Concent 36 32-36 G/DL Red Cell Distribution Width 13.0 10.0-14.5 % Platelet Count 328 130-400 10^3/uL Mean Platelet Volume 10.3 7.4-10.4 FL Neutrophils (%) (Auto) 78 H 42-75 % Lymphocytes (%) (Auto) 15 12-44 % Monocytes (%) (Auto) 6 0-12 % Eosinophils (%) (Auto) 1 0-10 % Basophils (%) (Auto) 1 0-10 % Neutrophils # (Auto) 9.8 H 1.8-7.8 X 10^3 Lymphocytes # (Auto) 1.9 1.0-4.0 X 10^3 Monocytes # (Auto) 0.7 0.0-1.0 X 10^3 Eosinophils # (Auto) 0.1 0.0-0.3 10^3/uL Basophils # (Auto) 0.1 0.0-0.1 10^3/uL Sodium Level 137 135-145 MMOL/L Potassium Level 3.9 3.6-5.0 MMOL/L Chloride Level 107 98-107 MMOL/L Carbon Dioxide Level 24 21-32 MMOL/L Anion Gap 6 5-14 MMOL/L Blood Urea Nitrogen 9 7-18 MG/DL Creatinine 0.78 0.60-1.30 MG/DL Estimat Glomerular Filtration Rate > 60 BUN/Creatinine Ratio 12 Glucose Level 237 H 70-105 MG/DL Calcium Level 8.2 L 8.5-10.1 MG/DL Triglycerides Level 316 H <150 MG/DL Cholesterol Level 233 H < 200 MG/DL LDL Cholesterol Direct 159 H 1-129 MG/DL VLDL Cholesterol 63 H 5-40 MG/DL HDL Cholesterol 27 L 40-60 MG/DL Radiology NAME: CORBIN JACINTO [facility] REC#: [id number] PT STATUS: REG ER : 1960 PHYSICIAN: CHIDI VALVERDE MD ADMIT DATE: 02/04/18/ER Signed Date of Exam: 02/04/18 CT ANGIO HEAD/NECK CLINICAL INDICATION: Patient with slurred speech, dizziness and right-sided weakness. 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 EXAMS: 1: Head CT with and without IV contrast. 2: CT angiogram of the head and neck performed with 100 cc of Omnipaque 350 IV contrast. Sagittal and coronal MIP reformations were created for better visualization of vascular anatomy. COMPARISON: MRI of the brain performed without IV contrast and head CT without contrast dated 02/04/2018. FINDINGS: Head CT: There is interval evolution of the small area of low attenuation in the posterior limb of left internal capsule/batres radiata related to the patient's history of acute cerebral infarct. There is no abnormal IV contrast enhancement. There are no other areas concerning for acute cerebral infarct. The brain parenchymal volume appears appropriate for patient's age. There is no hydrocephalus or intraventricular hemorrhage. Basal cisterns are unremarkable. Extracranial soft tissue, skull, and orbits are unremarkable. There is minimal mucosal thickening involving the left maxillary sinuses. Temporal bone structures show no significant abnormality. CT angiogram: There is dense contrast bolus within the right subclavian vein and superior vena cava which obscures portions of the mediastinum and adjacent vessels. 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 There is a roughly 1.4 cm segment of severe stenosis involving the proximal left subclavian artery. Distally, the remainder of the left subclavian artery is patent. There is suspected artifact involving the proximal right CCA versus mural thrombus causing mild narrowing seen on series 8, images 35 through 37. Remainder of the right CCA, cervical right ICA, and right ECA are patent. The left CCA is patent. There is less than 50% stenosis involving the proximal left ICA bulb region. The remainder of the left ICA is patent. The cervical bilateral vertebral arteries are patent. Relatively dominant right vertebral artery is seen. The bilateral petrous and cavernous carotid artery portions of the bilateral ICA are patent. Prominent bilateral posterior communicating arteries are seen. There is slightly smaller caliber bilateral P1 FINANCIAL RETIREMENT PLAN SPECIALIST seen. The bilateral FINANCIAL RETIREMENT PLAN SPECIALIST, SCA, basilar artery, and intradural vertebral arteries are patent. There is slightly smaller caliber post PICA left vertebral artery seen. The bilateral A1 ACAs, anterior communicating artery, and A2 ACAs and their distal branches are patent. The visualized [place] vascular structures are patent. The bilateral MCA and their branches are patent. The dural venous sinuses show no significant abnormality. The neck soft tissue structures show no significant abnormality. There is emphysematous lung disease seen. There is cervical spine degenerative disease with levoscoliosis of the upper thoracic spine. There is no significant bony central spinal canal or neuroforaminal narrowing. IMPRESSION: 1: Interval evolution of the small acute cerebral infarct involving the left posterior internal capsule region/batres radiata. There is no associated IV contrast enhancement. 2: CT angiogram of the neck shows a short segment of severe stenosis involving the proximal left subclavian artery. 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 The right subclavian artery and right vertebral artery is patent. 3: There is motion artifact versus vascular plaque involving the proximal right CCA with mild narrowing. 4: Otherwise, the remainder of the [place] and neck major arteries shows no significant abnormality. Dictated by: Dictated on workstation # [id number] Dict: 02/04/18 1659 Trans: 02/04/181729 Interpreted by: SIENA NICE MD Electronically signed by: SIENA NICE MD 02/04/18 6526 Physical Exam-(CHC) Physical Exam Vital Signs VS - Last 72 Hours, by Label 02/04/18 02/04/18 02/04/18 02/04/18 12:55 17:53 20:50 20:50 Temp 98.0 99.1 Pulse 97 117 114 Resp 20 B/P (MAP) 110/99 (103) 125/89 (101) 157/83 (107) 108/45 (66) Pulse Ox 99 95 O2 Delivery Room Air Room Air 02/04/18 02/04/18 02/04/18 02/05/18 20:50 20:50 23:30 00:00 Temp 99.1 98.2 Pulse 114 113 114 Resp 20 20 18 B/P (MAP) 151/83 (105) 147/85 107/57 (74) Pulse Ox 95 95 94 O2 Delivery Room Air Room Air Room Air Room Air 02/05/18 02/05/18 02/05/18 01:00 04:00 07:00 Temp 97.6 Pulse 116 98 77 Resp 18 B/P (MAP) 101/67 (78) Pulse Ox 94 O2 Delivery Room Air Capillary Refill : Less Than 3 Seconds General Appearance: no apparent distress (And he does have slurred speech) Eyes: Bilateral Eye Normal Inspection HEENT: other (Tongue is offset) Neck: supple Respiratory: lungs clear Cardiovascular: regular rate, rhythm (And he has no ectopy) Gastrointestinal: soft Rectal: deferred Neurologic/Psychiatric: gusset ripper II-XII nml as tested, alert, oriented x 3, motor weakness (Of the right upper extremity especially with regard to the flexion and extension of forearm and lesser degree of the upper extremity arm) Assessment/Plan Assessment/Plan Admission Dx 1. CVA -Stroke unit at contacted by ER physician. He was beyond the intervention range. -Continue with daily aspirin 2. Right upper extremity weakness -Physical therapy and occupational therapy consultation 3. Dysarthria secondary to number 1 -Speech therapy if necessary 4. Hyperglycemia -Monitor glucose 5. Left subclavian steal -The ramifications of this were explained to patient on admission and he should avoid any strenuous activity of the left upper extremity to avoid any decreased blood flow to the cerebrum Admission Status: Observation Reason for Inpatient Admission: Further evaluation of a new onset CVA Assessment & Plan 1. CVA 2. Right upper extremity weakness 3. Dysarthria secondary to number 1 4. Hyperglycemia Clinical Quality Measures DVT/VTE Risk/Contraindication: Risk Factor Score Per Nursin RFS Level Per Nursing on Admit: 4+=Very High CHALINO MAHMOOD MD Feb 05, 2018 08:54
--- NOTE | 2018-02-05 09:28 | Occupational Therapy Eval ---
OT Evaluation-General/PLF Medical Diagnosis Admission Date Feb 04, 2018 at 20:17 Medical Diagnosis: CVA Onset Date: Feb 04, 2018 Therapy Diagnosis Therapy Diagnosis: weakness, impaired self care skills Height/Weight Height (Feet): 5 Height (Inches): 4.00 Weight (Pounds): 149 Weight (Ounces): 0.9 Precautions Precautions/Isolations: Fall Prevention, Standard Precautions Referral Physician: Femi Medical History Pertinent Medical History: HTN Additional Medical History right knee scope Current History Pt presented to ED with c/o dizziness, right UE weakness, and disequilibrium Reviewed History: Yes Social History Home: Apartment (2nd floor) Current Living Status: roommate Entry Into Home: Stairs With Railing Steps Into Home: 20 ADL-Prior Level of Function ADL PLOF Comments Pt reports being independent with self and mobility. 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 Does not use any assistive devices. DME/Equipment: Tub/Shower Drive Self: Yes OT Current Status Subjective Pt sitting in chair, agrees to treatment. Pt reports 4/10 pain in right UE. Mental Status/Objective Patient Orientation: Person, Place, Situation Attachments: IV Current Glasses/Contacts: Yes Hand Dominance: Right Upper Extremity ROM Pt is using left UE functionally. Right UE: active shoulder flexion/abduction ~60degrees; elbow flexion/extension grossly functional, but slow movement; mildly decreased forearm supination and wrist flex/ext. Pt able to flex/ext fingers functionally. All movements are slow with decreased coordination. Pt uses compensatory movements during ROM testing. Upper Extremity Coordination Decreased right UE Upper Extremity Sensation Pt reports "tingling" in right hand, but intact to light touch ADL-Treatment ADL-Current Pt sitting in chair. Able to doff sock with SBA, but requires assist to don right sock. Pt able to hold comb in right hand, but unable to reach head to comb hair. Uses left hand to comb hair, but requires minimal assistance to reach right side. Pt washes face with set up using left hand. Sit to stand with minimal assistance for safety, cues to push up from chair. Pt has decreased balance once standing. Pt sitting in chair with needs met and telesitter in room after session. Functional [place] Measure 0=Not Assessed/NA 4=Minimal Assistance 1=Total Assistance 5=Supervision or Setup 2=Maximal Assistance 6=Modified [place] 3=Moderate Assistance 7=Complete IndependenceIRFPAI Quality Coding Scale 6 Independent with activity with or without an assistive device 5 Patient requires set up or clean up by helper. Patient completes activity by themselves 4 Supervision or touching assist (CGA). [place] provide cues , steadying assist 3 The helper provides less than half the effort to complete the activity 2 The helper provides more than half the effort to complete the activity 1 Dependent. The helper does all the effort to complete an activity 7 Patient refused to complete or attempt activity 9 The patient did not perform the activity before the current illness or injury 88 Not attempted due to Medical conditions or safety concerns Education OT Patient Education: Rehab process Teaching Recipient: Patient Teaching Methods: Discussion Response to Teaching: Verbalize Understanding OT Short Term Goals Short Term Goals 1=Demonstrate adherence to instructed precautions during ADL tasks. 2=Patient will verbalize/demonstrate understanding of assistive devices/ modifications for ADL. 3=Patient will improve strength/tolerance for activity to enable patient to perform ADL's. OT Wardrobe Technician Goals Wardrobe Technician Goals Time Frame: Feb 19, 2018 Eating (FIM): 6 Grooming(FIM): 6 Upper Body Dressing(FIM): 6 Lower Body Dressing(FIM): 5 Toilet/Commode Transfer(FIM): 6 Additional Goals: 2-Verbalize Understanding, 3-ImproveStrength/[place] 1=Demonstrate adherence to instructed precautions during ADL tasks. 2=Patient will verbalize/demonstrate understanding of assistive devices/ modifications for ADL. 3=Patient will improve strength/tolerance for activity to enable patient to perform ADL's. OT Education/Plan Problem List/Assessment Assessment: Decreased UE Strength, Dependent Transfers, Impaired Coordination, Impaired Funct Balance, Impaired I ADL's, Impaired Self-Care Skills Pt demonstrates decreased active ROM/strength right UE impacting ability to perform functional tasks. Pt also has decreased balance. Pt to benefit from skilled OT intervention for ADL training, transfers, ROM/strengthening, and safety education to improve level of function and allow safe discharge. Discharge Recommendations Plan/Recommendations: Continue POC Treatment Plan/Plan of Care Patient would benefit from OT for education, treatment and training to promote independence in ADL's, mobility, safety and/or upper extremity function for ADL' s. Plan of Care: ADL Retraining, Functional Mobility, UE Funct Exercise/Act Treatment Duration: Feb 19, 2018 Frequency: 5 times per week Estimated Hrs Per Day: .25 hour per day Agreement: Yes Rehab Potential: Good Time/GCodes Start Time: 08:53 Stop Time: 09:14 Total Time Billed (hr/min): 21 Billed Treatment Time 1 visit, TAL(21minutes) BRENDAN VANG OT Feb 05, 2018 09:28
--- NOTE | 2018-02-05 10:05 | Physical Therapy Evaluation ---
PT Evaluation-General Medical Diagnosis Admission Date Feb 04, 2018 at 20:17 Medical Diagnosis: CVA Onset Date: Feb 04, 2018 Therapy Diagnosis Therapy Diagnosis: abnormality of gait Height/Weight Height (Feet): 5 Height (Inches): 4.00 Weight (Pounds): 149 Weight (Ounces): 0.9 Precautions Precautions/Isolations: Fall Prevention, Standard Precautions Weight Bear Status Right Lower Extremity: Right Weight Bearing/Tolerated Left Lower Extremity: Left Full Weight Bearing Referral Physician: Femi Reason for Referral: Evaluation/Treatment Medical History Pertinent Medical History: HTN Reviewed History: Yes Social History Home: Apartment Current Living Status: roommate Entry Into Home: Stairs With Railing PT Steps Into Home: 20 Prior/Core FIM Prior Level of Function Functional [place] Measure 0=Not Assessed/NA 4=Minimal Assistance 1=Total Assistance 5=Supervision or Setup 2=Maximal Assistance 6=Modified [place] 3=Moderate Assistance 7=Complete [place] Bed Mobility: 7 Transfers (B,C,W/C) (FIM): 7 Gait: 7 Locomotion: 7 PT Evaluation-Current Subjective Patient states that he had a stroke yesterday. States that he still has some dizziness. 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 (R) Strength Lower Extremities 4/5 Dorsiflexion on (R) Sensory Hand Dominance: Right Transfers Functional [place] Measure 0=Not Assessed/NA 4=Minimal Assistance 1=Total Assistance 5=Supervision or Setup 2=Maximal Assistance 6=Modified [place] 3=Moderate Assistance 7=Complete [place] Transfers (B, C, W/C) (FIM): 4 Scootin Rollin Supine to/from Sit: 4 Sit to/from Stand: 5 Gait Mode of Locomotion: Walk Anticipated Mode of Locomotion: Walk Gait (FIM): 1 Distance (FIM): 1=up to 49 ft Distance: 20' Gait Level of Assist: 4 Gait Persons Needed: 1 Gait Assistive Device: FWW Comments/Gait Description patient had considerable instability and had one episode of LOB that required min assist to keep from falling Balance Sitting Static: Normal Sitting Dynamic: Good Standing Static: Fair Standing Dynamic: Poor Assessment/Needs Patient with a diagnosis of CVA. He has significant weakness and pain in the right shoulder and arm. He also has gait and balance limitations with a high fall risk. Rehab Potential: Good PT Short Term Goals Short Term Goals Time Frame: Feb 12, 2018 Transfers (B,C,W/C) (FIM): 5 Gait (FIM): 5 Distance (FIM): 3=150 ft Gait Level of Assist: 5 Gait Assistive Device: FWW PT Correction Goals Excavating Machine Operator Goals PT Excavating Machine Operator Goals Time Frame: Feb 19, 2018 Transfers (B,C,W/C) (FIM): 6 Gait (FIM): 6 Gait distance (FIM): 3=150 ft Distance: 500' Gait Level of Assist: 6 Gait Assistive Device: FWW PT Plan Problem List Problem List: Activity Tolerance, Functional Strength, Safety, Balance, Gait, Transfer, Bed Mobility, ROM Treatment/Plan Treatment Plan: Continue Plan of Care Treatment Plan: Bed Mobility, Functional Activity Clark, Functional Strength, Gait, Safety, Therapeutic Exercise, Transfers Treatment Duration: Feb 19, 2018 Frequency: 11 times per week Estimated Hrs Per Day: .5 hour per day Patient and/or Family Agrees t: Yes Time/GCodes Time In: 934 Time Out: 954 Total Billed Treatment Time: 20 Total Billed Treatment 1Tamara low complexity VALERI WINSTON PT Feb 05, 2018 10:05
[2018-02-05] MEDS: ONDANSETRON 4 MG/2 ML (SDV) Z0FRAN IV PRN (20:31)
[2018-02-05] MEDS: ASPIRIN 300 MG (5 GR) SUPPOSITORY PR SCH (21:50)
[2018-02-05] MEDS: DOCUSATE SODIUM 10 MG/ML 10 ML UDC (COLACE) NG SCH ×2 (21:51→21:52)
[2018-02-06] MEDS: NS IV 1000 ML IV SCH (02:36)
--- OUTSIDE RECORDS SUMMARY | 2018-02-06 03:44 | XMS REPORT | Continuity of Care Document ---
Author Author [facility] Address Unknown Phone Unavailable Allergies Active Description Code Type Severity Reaction Onset Reported/Identified Relationship to Patient Clinical Status Yes No Known Drug Allergies [id number] Drug Allergy Unknown N/A 08/14/2008 Medications There is no data. Problems Date Dx Coded Attending Type Code Diagnosis Diagnosed By 04/20/2011 237.70 NEUROFIBROMATOSIS 04/20/2011 401.9 HYPERTENSION ( SYSTEMIC) 04/20/2011 CORBIN MENDOZA MD 237.70 NEUROFIBROMATOSIS 04/20/2011 CORBIN MENDOZA MD 401.9 HYPERTENSION (SYSTEMIC) 04/20/2011 CORBIN MENDOZA MD 237.70 NEUROFIBROMATOSIS 04/20/2011 CORBIN MENDOZA MD 401.9 HYPERTENSION (SYSTEMIC) 04/20/2011 CORBIN MENDOZA MD 237.70 NEUROFIBROMATOSIS 04/20/2011 CORBIN MENDOZA MD 401.9 HYPERTENSION (SYSTEMIC) 04/20/2011 CORBIN MENDOZA MD 237.70 NEUROFIBROMATOSIS 04/20/2011 CORBIN MENDOZA MD 401.9 HYPERTENSION (SYSTEMIC) 04/20/2011 CORBIN MENDOZA MD 237.70 NEUROFIBROMATOSIS 04/20/2011 CORBIN MENDOZA MD 401.9 HYPERTENSION (SYSTEMIC) 04/20/2011 CORBIN MENDOZA MD 237.70 NEUROFIBROMATOSIS 04/20/2011 CORBIN MENDOZA MD 401.9 HYPERTENSION (SYSTEMIC) 04/28/2011 790.29 Other Abnormal Glucose 04/28/2011 CORBIN MENDOZA MD 790.29 Other Abnormal Glucose 04/28/2011 CORBIN MENDOZA MD 790.29 Other Abnormal Glucose 04/28/2011 CORBIN MENDOZA MD 790.29 Other Abnormal Glucose 04/28/2011 CORBIN MENDOZA MD 790.29 Other Abnormal Glucose 04/28/2011 CORBIN MENDOZA MD 790.29 Other Abnormal Glucose 04/28/2011 CORBIN MENDOZA MD 790.29 Other Abnormal Glucose 04/29/2011 250.00 DIABETES MELLITUS TYPE 2 04/29/2011 REJI PERDOMO, CORBIN 250.00 DIABETES MELLITUS TYPE 2 04/29/2011 REJI PERDOMO, CORBIN 250.00 DIABETES MELLITUS TYPE 2 04/29/2011 REJI PERDOMO, CORBIN 250.00 DIABETES MELLITUS TYPE 2 04/29/2011 REJI PERDOMO, CORBIN 250.00 DIABETES MELLITUS TYPE 2 04/29/2011 REJI PERDOMO, CORBIN 250.00 DIABETES MELLITUS TYPE 2 04/29/2011 REJI PERDOMO, CORBIN 250.00 DIABETES MELLITUS TYPE 2 06/29/2011 272.4 OTHER AND UNSPECIFIED HYPERLIPIDEMIA 06/29/2011 311 DEPRESSIVE DISORDER NOT ELSEWHERE CLASSIFIED 06/29/2011 CORBIN MENDOZA MD 272.4 OTHER AND UNSPECIFIED HYPERLIPIDEMIA 06/29/2011 CORBIN MENDOZA MD 311 DEPRESSIVE DISORDER NOT ELSEWHERE CLASSIFIED 06/29/2011 CORBIN MENDOZA MD 272.4 OTHER AND UNSPECIFIED HYPERLIPIDEMIA 06/29/2011 CORBIN MENDOZA MD 311 DEPRESSIVE DISORDER NOT ELSEWHERE CLASSIFIED 06/29/2011 CORBIN MENDOZA MD 272.4 OTHER AND UNSPECIFIED HYPERLIPIDEMIA 06/29/2011 CORBIN MENDOZA MD 311 DEPRESSIVE DISORDER NOT ELSEWHERE CLASSIFIED 06/29/2011 CORBIN MENDOZA MD 272.4 OTHER AND UNSPECIFIED HYPERLIPIDEMIA 06/29/2011 CORBIN MENDOZA MD 311 DEPRESSIVE DISORDER NOT ELSEWHERE CLASSIFIED 06/29/2011 CORBIN MENDOZA MD 272.4 OTHER AND UNSPECIFIED HYPERLIPIDEMIA 06/29/2011 CORBIN MENDOZA MD 311 DEPRESSIVE DISORDER NOT ELSEWHERE CLASSIFIED 06/29/2011 CORBIN MENDOZA MD 272.4 OTHER AND UNSPECIFIED HYPERLIPIDEMIA 06/29/2011 CORBIN MENDOZA MD 311 DEPRESSIVE DISORDER NOT ELSEWHERE CLASSIFIED 09/21/2011 386.30 Labyrinthitis Unspecified 09/21/2011 CORBIN MENDOZA MD 386.30 Labyrinthitis Unspecified 09/21/2011 CORBIN MENDOZA MD 386.30 Labyrinthitis Unspecified 09/21/2011 CORBIN MENDOZA MD 386.30 Labyrinthitis Unspecified 09/21/2011 CORBIN MENDOZA MD 386.30 Labyrinthitis Unspecified 09/21/2011 CORBIN MENDOZA MD 386.30 Labyrinthitis Unspecified 09/21/2011 CORBIN MENDOZA MD 386.30 Labyrinthitis Unspecified 11/16/2011 465.9 Acute Upper Respiratory Infections Of Unspecified Site 11/16/2011 REJI PERDOMO, CORBIN 465.9 Acute Upper Respiratory Infections Of Unspecified Site 11/16/2011 CORBIN MENDOZA MD 465.9 Acute Upper Respiratory Infections Of Unspecified Site 11/16/2011 REJI PERDOMO, CORBIN 465.9 Acute Upper Respiratory Infections Of Unspecified Site 11/16/2011 REJI PERDOMO, CORBIN 465.9 Acute Upper Respiratory Infections Of Unspecified Site 11/16/2011 CORBIN MENDOZA MD 465.9 Acute Upper Respiratory Infections Of Unspecified Site 11/16/2011 CORBIN MENDOZA MD 465.9 Acute Upper Respiratory Infections Of Unspecified Site 10/04/2012 386.30 LABYRINTHITIS UNSPECIFIED 10/04/2012 REJI PERDOMO, CORBIN 386.30 LABYRINTHITIS UNSPECIFIED 10/04/2012 REJI PERDOMO, CORBIN 386.30 LABYRINTHITIS UNSPECIFIED 10/04/2012 REJI PERDOMO, CORBIN 386.30 LABYRINTHITIS UNSPECIFIED 10/04/2012 REJI PERDOMO, CORBIN 386.30 LABYRINTHITIS UNSPECIFIED 10/04/2012 REJI PERDOMO, CORBIN 386.30 LABYRINTHITIS UNSPECIFIED 10/04/2012 REJI PERDOMO, CORBIN 386.30 LABYRINTHITIS UNSPECIFIED 02/09/2014 CORBIN MENDOZA MD 578.1 BLOOD IN STOOL 02/09/2014 CORBIN MENDOZA MD 578.1 BLOOD IN STOOL 02/16/2014 LALO PERDOMO, RONNI Sewell Ot 211.3 BENIGN NEOPLASM LG BOWEL 02/16/2014 LALO PERDOMO, RONNI Sewell Ot 600.00 HYPERTROPHY (BENIGN) OF PROSTATE W/O URI 02/16/2014 LALO PERDOMO, RONNI Sewell Ot V76.51 SCREEN MAL NEOP-COLON 09/15/2017 MARSHA ELLIOTT DO Ot F17.210 NICOTINE DEPENDENCE, CIGARETTES, UNCOMPL 09/15/2017 MARSHA ELLIOTT DO Ot J06.9 ACUTE UPPER RESPIRATORY INFECTION, UNSPE 09/15/2017 MARSHA ELLIOTT DO Ot R05 COUGH 09/15/2017 MARSHA ELLIOTT DO Ot Z90.89 ACQUIRED ABSENCE OF OTHER ORGANS 09/15/2017 Ot 250.00 DIAB HARRY WO COMPL, TYPE II OR UNSPEC TY 09/15/2017 LALO PERDOMO, RONNI Sewell Ot V72.84 EXAM PRE-OPERATIVE NOS 09/17/2017 MARSHA ELLIOTT DO Ot F17.210 NICOTINE DEPENDENCE, CIGARETTES, UNCOMPL 09/17/2017 MARSHA ELLIOTT DO Ot J06.9 ACUTE UPPER RESPIRATORY INFECTION, UNSPE 09/17/2017 MARSHA ELLIOTT DO Ot R05 COUGH 09/17/2017 MARSHA ELLIOTT DO Ot Z90.89 ACQUIRED ABSENCE OF OTHER ORGANS Procedures Code Description [place] [address] A1C (IN-HOUSE) 10/04/2012 07197 MICRO ALBUMIN-IN HOUSE 01/23/2013 64360 A1C (IN-HOUSE) 01/23/2013 49393 ROUTINE VENIPUNCTURE 01/23/2013 78334 CMP 01/23/2013 22112 LIPID PANEL 01/23/2013 1897147 GFR CALC (RESULT ONLY) 01/23/2013 04792 ROUTINE VENIPUNCTURE 10/09/2013 51497 A1C (IN-HOUSE) 10/09/2013 2782995 GFR CALC (RESULT ONLY) 10/09/2013 63497 CMP 10/09/2013 36391 LIPID PANEL 10/09/2013 78171 ROUTINE VENIPUNCTURE 02/09/2014 35739 A1C (IN-HOUSE) 02/09/2014 29186 MICRO ALBUMIN-IN HOUSE 02/09/2014 Internal Gupta, Ronni 02/09/2014 52240 CBC 02/09/2014 85214 MICRO ALBUMIN-IN HOUSE 07/17/2014 82822 A1C (IN-HOUSE) 07/17/2014 Results Test Result Range Influenza virus A and B antigen detection - 09/15/17 07:25 FLU RESULT NEGATIVE FOR INFLUENZA A AND B ANTIGENS BY IA NRG Encounters ACCT No. Visit Date/Time Discharge Status Pt. Type Provider Facility Loc./Unit Complaint [id number] 07/17/2014 08:47:00 07/17/2014 23:59:59 CLS Outpatient CORBIN MENDOZA MD [id number] 02/09/2014 08:50:00 02/09/2014 23:59:59 CLS Outpatient CORBIN MENDOZA MD [id number] 10/09/2013 08:41:00 10/09/2013 23:59:59 CLS Outpatient CORBIN MENDOZA MD [id number] 05/15/2013 14:11:00 05/15/2013 23:59:59 CLS Outpatient CORBIN MENDOZA MD [id number] 01/23/2013 08:52:00 01/23/2013 23:59:59 CLS Outpatient CORBIN MENDOZA MD [id number] 10/04/2012 08:59:00 10/04/2012 23:59:59 CLS Outpatient [id number] 06/14/2012 08:51:00 06/14/2012 23:59:59 CLS Outpatient CORBIN MENDOZA MD [id number] 09/15/2017 07:04:00 09/15/2017 08:06:00 DIS Emergency LEXI DO, MARSHA K [facility] ER RUNNY NOSE,COUGH [id number] 04/06/2016 15:55:00 04/06/2016 23:59:59 CLS Outpatient MIMA AMES APRN [facility] QUICK [id number] 05/19/2015 12:09:00 05/19/2015 23:59:59 CLS Outpatient ARNALDO MAHMOOD [facility] QUICK [id number] 02/16/2014 07:41:00 02/16/2014 10:55:00 DIS Outpatient RONNI GUPTA MD [facility] SDC HEMATOCHEZIA [id number] 02/15/2014 07:18:00 02/15/2014 23:59:59 CLS Outpatient RONNI GUPTA MD [facility] PREOP HEMATOCHEZIA [id number] 09/01/2012 07:53:00 Document Registration
--- OUTSIDE RECORDS SUMMARY | 2018-02-06 04:01 | XMS REPORT | Continuity of Care Document ---
Author Author [facility] Address Unknown Phone Unavailable Allergies Active Description Code Type Severity Reaction Onset Reported/Identified Relationship to Patient Clinical Status Yes No Known Drug Allergies [id number] Drug Allergy Unknown N/A 08/14/2008 Medications There [...] Procedures Code Description [place] [address] A1C (IN-HOUSE) 10/04/2012 03856 MICRO ALBUMIN-IN HOUSE 01/23/2013 58787 A1C (IN-HOUSE) 01/23/2013 04674 ROUTINE VENIPUNCTURE 01/23/2013 06646 CMP 01/23/2013 58560 LIPID PANEL 01/23/2013 8431736 GFR CALC (RESULT ONLY) 01/23/2013 16181 ROUTINE VENIPUNCTURE 10/09/2013 49712 A1C (IN-HOUSE) 10/09/2013 8134139 GFR CALC (RESULT ONLY) 10/09/2013 08349 CMP 10/09/2013 27273 LIPID PANEL 10/09/2013 75707 ROUTINE VENIPUNCTURE 02/09/2014 41130 A1C (IN-HOUSE) 02/09/2014 99545 MICRO ALBUMIN-IN HOUSE 02/09/2014 Internal Gupta, Ronni 02/09/2014 39505 CBC 02/09/2014 34142 MICRO ALBUMIN-IN HOUSE 07/17/2014 32763 A1C (IN-HOUSE) 07/17/2014 Results Test Result Range Influenza virus A and B antigen detection - 09/15/17 07:25 FLU RESULT NEGATIVE FOR INFLUENZA A AND B ANTIGENS BY IA NRG Encounters ACCT No. Visit Date/Time Discharge Status Pt. Type Provider Facility Loc./Unit Complaint [id number] 07/17/2014 08:47:00 07/17/2014 23:59:59 CLS Outpatient CORBIN MENDOZA MD [id number] 02/09/2014 08:50:00 02/09/2014 23:59:59 CLS Outpatient CORBIN MENDOZA MD [id number] 10/09/2013 08:41:00 10/09/2013 23:59:59 CLS Outpatient CORBIN MENDOZA MD [id number] 05/15/2013 14:11:00 05/15/2013 23:59:59 CLS Outpatient CORBIN MENDOZA MD [id number] 01/23/2013 08:52:00 01/23/2013 23:59:59 CLS Outpatient CORBIN MENDOZA MD [id number] 10/04/2012 08:59:00 10/04/2012 23:59:59 CLS Outpatient [id number] 06/14/2012 08:51:00 06/14/2012 23:59:59 CLS Outpatient CORBIN MENDOZA MD [id number] 09/15/2017 07:04:00 09/15/2017 08:06:00 DIS Emergency LEXI DO, MARSHA K [facility] ER RUNNY NOSE,COUGH [id number] 04/06/2016 15:55:00 04/06/2016 23:59:59 CLS Outpatient MIMA AMES APRN [facility] QUICK [id number] 05/19/2015 12:09:00 05/19/2015 23:59:59 CLS Outpatient ARNALDO MAHMOOD [facility] QUICK [id number] 02/16/2014 07:41:00 02/16/2014 10:55:00 DIS Outpatient RONNI GUPTA MD [facility] SDC HEMATOCHEZIA [id number] 02/15/2014 07:18:00 02/15/2014 23:59:59 CLS Outpatient RONNI GUPTA MD [facility] PREOP HEMATOCHEZIA [id number] 09/01/2012 07:53:00 Document Registration
[2018-02-06 04:10] VITALS: BP 120/57
[2018-02-06] MEDS: inSUlin ASPART (NovoLOG) 1 UNIT/0.01 ML (CHARGE PER UNIT) SC SCH ×4 (06:00→19:27)
[2018-02-06] MEDS: ONDANSETRON 4 MG/2 ML (SDV) Z0FRAN IV PRN (06:32)
[2018-02-06 08:00] VITALS: BP 105/58
[2018-02-06] MEDS: ACETAMINOPHEN 325 MG TAB (TYLENOL) PO PRN (08:48)
[2018-02-06] MEDS: ASPIRIN E.C. 325 MG (ECOTRIN) TABLET PO SCH (08:48)
[2018-02-06] MEDS: FAMOTIDINE 20 MG (PEPCID) TABLET PO SCH ×2 (08:48→20:14)
[2018-02-06] MEDS: DOCUSATE SODIUM 100 MG (COLACE) CAP PO SCH ×2 (08:48→20:14)
--- NOTE | 2018-02-06 09:36 | Progress Note (SOAP) ---
Subjective Subjective/Events-last exam Patient did not sleep very well last night. He does not report any progression of upper extremity weakness especially on the right side. He is able to walk but he doesn't do by himself. Review of Systems Date Seen by Provider: Feb 06, 2018 Time Seen by Provider: 08:10 Objective Exam Last Set of Vital Signs Vital Signs Date Time Temp Pulse Resp B/P (MAP) Pulse Ox O2 Delivery O2 Flow Rate FiO2 02/06/18 07:00 104 02/06/18 04:10 98.0 16 120/57 (78) 94 Room Air Capillary Refill : NONE I&O Intake and Output 02/06/18 00:00 Intake Total 2195 ml Output Total 2100 ml Balance 95 ml Intake Oral 1195 ml IV Total 1000 ml Output Urine Total 2100 ml # Voids 1 # Bowel Movements 1 # Emeses 2 General: No Acute Distress Neck: Supple Lungs: Clear to Auscultation Heart: Regular Rate Extremities: Other Neuro: Other (Similar strength to the right upper extremity with regard to forearm flexion and extension as well as arm abduction) Results/Procedures Lab Laboratory Tests 02/05/18 11:18: Glucometer 394H 02/05/18 15:19: Glucometer 228H 02/05/18 21:23: Glucometer 223H 02/06/18 05:51: Glucometer 171H Radiology NAME: [facility]BIN [facility] REC#: [id number] PT STATUS: REG ER : 1960 PHYSICIAN: CHIDI VALVERDE MD ADMIT DATE: 02/04/18/ER Signed Date of Exam: 02/04/18 CT ANGIO HEAD/NECK CLINICAL INDICATION: Patient with slurred speech, dizziness and right-sided weakness. 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 EXAMS: 1: Head CT with and without IV contrast. 2: CT angiogram of the head and neck performed with 100 cc of Omnipaque 350 IV contrast. Sagittal and coronal MIP reformations were created for better visualization of vascular anatomy. COMPARISON: MRI of the brain performed without IV contrast and head CT without contrast dated 02/04/2018. FINDINGS: Head CT: There is interval evolution of the small area of low attenuation in the posterior limb of left internal capsule/batres radiata related to the patient's history of acute cerebral infarct. There is no abnormal IV contrast enhancement. There are no other areas concerning for acute cerebral infarct. The brain parenchymal volume appears appropriate for patient's age. There is no hydrocephalus or intraventricular hemorrhage. Basal cisterns are unremarkable. Extracranial soft tissue, skull, and orbits are unremarkable. There is minimal mucosal thickening involving the left maxillary sinuses. Temporal bone structures show no significant abnormality. CT angiogram: There is dense contrast bolus within the right subclavian vein and superior vena cava which obscures portions of the mediastinum and adjacent vessels. 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 There is a roughly 1.4 cm segment of severe stenosis involving the proximal left subclavian artery. Distally, the remainder of the left subclavian artery is patent. There is suspected artifact involving the proximal right CCA versus mural thrombus causing mild narrowing seen on series 8, images 35 through 37. Remainder of the right CCA, cervical right ICA, and right ECA are patent. The left CCA is patent. There is less than 50% stenosis involving the proximal left ICA bulb region. The remainder of the left ICA is patent. The cervical bilateral vertebral arteries are patent. Relatively dominant right vertebral artery is seen. The bilateral petrous and cavernous carotid artery portions of the bilateral ICA are patent. Prominent bilateral posterior communicating arteries are seen. There is slightly smaller caliber bilateral P1 VISCERA WASHER seen. The bilateral VISCERA WASHER, SCA, basilar artery, and intradural vertebral arteries are patent. There is slightly smaller caliber post PICA left vertebral artery seen. The bilateral A1 ACAs, anterior communicating artery, and A2 ACAs and their distal branches are patent. The visualized point lay ira of Martins vascular structures are patent. The bilateral MCA and their branches are patent. The dural venous sinuses show no significant abnormality. The neck soft tissue structures show no significant abnormality. There is emphysematous lung disease seen. There is cervical spine degenerative disease with levoscoliosis of the upper thoracic spine. There is no significant bony central spinal canal or neuroforaminal narrowing. IMPRESSION: 1: Interval evolution of the small acute cerebral infarct involving the left posterior internal capsule region/batres radiata. There is no associated IV contrast enhancement. 2: CT angiogram of the neck shows a short segment of severe stenosis involving the proximal left subclavian artery. 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 The right subclavian artery and right vertebral artery is patent. 3: There is motion artifact versus vascular plaque involving the proximal right CCA with mild narrowing. 4: Otherwise, the remainder of the point lay ira of Martins and neck major arteries shows no significant abnormality. Dictated by: Dictated on workstation # [id number] Dict: 02/04/18 1659 Trans: 02/04/18 1730 Interpreted by: SIENA NICE MD Electronically signed by: SIENA NICE MD 02/04/18 1738 Assessment/Plan Assessment/Plan Assessment & Plan 1. CVA -Patient was not in timeframe for any medication treatment other than aspirin 2. Right upper extremity weakness -PT and OT continue -Evaluate for rehabilitation 3. Dysarthria secondary to number 1 -May be slightly better today on February 06 -He is eating fairly well 4. Hyperglycemia 02/06 hemoglobin A1c is pending 5. Hyperlipidemia -Patient may possibly need to go on statin medications as he has taken these in the past. Clinical Quality Measures DVT/VTE Risk/Contraindication: Risk Factor Score Per Nursin RFS Level Per Nursing on Admit: 4+=Very High CORINA MAHMOOD MD Feb 06, 2018 09:36
[2018-02-06] MEDS: ASPIRIN 300 MG (5 GR) SUPPOSITORY PR SCH (10:15)
[2018-02-06] MEDS: DOCUSATE SODIUM 10 MG/ML 10 ML UDC (COLACE) NG SCH ×2 (10:15→20:15)
[2018-02-06 12:00] VITALS: BP 121/66
[2018-02-06] MEDS ORDERED: IBUPROFEN 600 MG (MOTRIN) TAB PO PRN (14:45)
[2018-02-06 16:50] VITALS: BP 105/61
[2018-02-06 21:20] VITALS: BP 115/70
[2018-02-06] MEDS: ZOLPIDEM 5 MG (AMBIEN) TAB PO PRN (22:09)
[2018-02-07] VITALS: BP 104/67
[2018-02-07 04:00] VITALS: BP 110/77
[2018-02-07] MEDS: inSUlin ASPART (NovoLOG) 1 UNIT/0.01 ML (CHARGE PER UNIT) SC SCH ×4 (06:24→20:59)
[2018-02-07 08:00] VITALS: BP 92/56
[2018-02-07] MEDS: FAMOTIDINE 20 MG (PEPCID) TABLET PO SCH ×2 (09:06→20:08)
[2018-02-07] MEDS: ASPIRIN E.C. 325 MG (ECOTRIN) TABLET PO SCH (09:06)
[2018-02-07] MEDS: DOCUSATE SODIUM 100 MG (COLACE) CAP PO SCH ×2 (09:06→20:08)
--- NOTE | 2018-02-07 09:41 | Physical Therapy Daily Note ---
PT Daily Note-Current Subjective Patient continues to c/o dizziness. Agrees to PT. Pain Numeric Pain Scale: 0-No Pain Location: No Pain Reported Mental Status Patient Orientation: Normal For Age Transfers Functional [place] Measure 0=Not Assessed/NA 4=Minimal Assistance 1=Total Assistance 5=Supervision or Setup 2=Maximal Assistance 6=Modified [place] 3=Moderate Assistance 7=Complete IndependenceIRFPAI Quality Coding Scale 6 Independent with activity with or without an assistive device 5 Patient requires set up or clean up by helper. Patient completes activity by themselves 4 Supervision or touching assist (CGA). [place] provide cues , steadying assist 3 The helper provides less than half the effort to complete the activity 2 The helper provides more than half the effort to complete the activity 1 Dependent. The helper does all the effort to complete an activity 7 Patient refused to complete or attempt activity 9 The patient did not perform the activity before the current illness or injury 88 Not attempted due to Medical conditions or safety concerns Transfers (B, C, W/C) (FIM): 4 Scootin Sit to/from Stand: 4 minimal assist due to right lean and decreased proprioception Weight Bearing Right Lower Extremity: Right Weight Bearing/Tolerated Left Lower Extremity: Left Full Weight Bearing Gait Training Gait (FIM): 4 Distance (FIM): 3=150 ft Distance: 175' Gait Level of Assist: 4 Gait Persons Needed: 1 Gait Assistive Device: FWW noted diminished proprioception and right lean. Increase c/o dizziness during gait with FWW requiring assistance to sit in w/c and return to room with RN present to perform vitals. Exercises Seated Therapy Exercises: Ankle pumps, Long arc quads, Hip flexion, Hip abd/add Seated Reps: 15 (2 sets ) Assessment Noted increase right LE and UE tone with mobility and exercise. Patient continues to c/o dizziness and is unstable in stand. From a PT standpoint, patient would benefit from ARU to ensure safe return to home. PT Short Term Goals Short Term Goals Time Frame: Feb 12, 2018 Transfers (B,C,W/C) (FIM): 5 Gait (FIM): 5 Distance (FIM): 3=150 ft Gait Level of Assist: 5 Gait Assistive Device: FWW PT Half-Way Goals Tool And Die Engineer Goals PT Half-Way Goals Time Frame: Feb 19, 2018 Transfers (B,C,W/C) (FIM): 6 Gait (FIM): 6 Gait distance (FIM): 3=150 ft Distance: 500' Gait Level of Assist: 6 Gait Assistive Device: FWW PT Plan Treatment/Plan Treatment Plan: Continue Plan of Care Treatment Plan: Bed Mobility, Functional Activity Clark, Functional Strength, Gait, Safety, Therapeutic Exercise, Transfers Treatment Duration: Feb 19, 2018 Frequency: 11 times per week Estimated Hrs Per Day: .5 hour per day Patient and/or Family Agrees t: Yes Discharge Recommendations Therapy D/C Recommendations: Acute Rehab Time/GCodes Time In: 840 Time Out: 903 Total Billed Treatment Time: 23 Total Billed Treatment 1 visit GT 15 min EX 8 min BEN RILEY PT Feb 07, 2018 09:41
[2018-02-07] MEDS: ONDANSETRON 4 MG/2 ML (SDV) Z0FRAN IV PRN (09:48)
[2018-02-07] MEDS: DOCUSATE SODIUM 10 MG/ML 10 ML UDC (COLACE) NG SCH ×2 (10:23→20:55)
[2018-02-07] MEDS: ASPIRIN 300 MG (5 GR) SUPPOSITORY PR SCH (10:23)
--- NOTE | 2018-02-07 11:20 | ST Cognitive Linguistic Eval ---
Speech Evaluation-General Medical Diagnosis CVA Onset Date: Feb 04, 2018 Therapy Diagnosis Therapy Diagnosis: Moderate Dysarthria Precautions Precautions/Isolations: Fall Prevention, Standard Precautions Referral Referring Physician: Dr. Kahn Reason for Referral: Evaluation/Treatment Speech and Language Evaluation Medical History Pertinent Medical History: HTN Current History The patient was admitted on 02/04/18 with a diagnosis of CVA. Upon admission, the patient was experienced slurred speech and right sided weakness. Reviewed History: Yes Social History Current Living Status: roommate Speech PLF-Current Status Prior Level of Function Per patient, "I have always had some speech problems but it is worse now." Subjective The patient was sitting upright in bed upon entrance. The patient greeted the clinician appropriately and was agreeable to participation in the speech and language evaluation. Language Eval: Auditory Comprehends Simple Yes/No Ques: Functional Indent/Objects Multiple [place]: Functional Ident/Pics in Multiple [place]: Functional Follows 1-Step Commands: Functional Follows General Conversations: Functional Language Eval: Verbal Language Completes Spontaneous Greeting: Functional Produces Auto, Serial Info: Functional Imitates Simple Words/Phrases: Functional Word Finding: Mild Requests Basic Needs: Functional States Basic Personal Info: Functional Language Evaluation: Reading The patient stated "I couldn't really read before this. So I can't read what I can't read" in response by a request by the clinician to read single words. Cognitive Patient Orientation The patient is independently oriented to self, location, month, day of week, and year. Objective Oral Motor/Speech Production The patient demonstrated mild right sided facial weakness, including reduced right labial retraction. Slight lingual deviation to the right was noted upon protrusion. The patient is approximately 80% intelligible in known contexts and demonstrates imprecise articulation. Impression Moderate dysarthria characterized by reduced right labial strength and imprecise articulation. Speech Short Term Goals Short Term Goals Short Term Goals 1. The patient will complete oromotor exercises with 80% accuracy and mild clinician verbal cueing. Time Frame-STG: Five Days Speech Driver License Technician Goals Assisted Goals 1. The patient will demonstrate improved expressive communication for increased comprehension by conversational partners. Time Frame: Three Weeks Speech-Plan Treatment Plan Speech Therapy Treatment Plan: Continue Plan of Care Continue skilled speech pathology to target functional oral motor strength. Treatment Duration: Feb 28, 2018 Frequency: 3 times per week Estimated Hrs Per Day: .25 hour per day Rehab Potential: Good Safety Risks/Education Teaching Recipient: Patient Teaching Methods: Discussion Response to Teaching: Verbalize Understanding Education Topics Provided: Results, Recommendations, Plan of Care Time Speech Therapy Time In: 10:45 Speech Therapy Time Out: 11:00 Total Billed Time: 15 Billed Treatment Time 1, SALVADOR SOTOMAYOR Feb 07, 2018 11:20
[2018-02-07 12:00] VITALS: BP 117/70
--- NOTE | 2018-02-07 12:59 | Occupational Ther Daily Note ---
OT Current Status-Daily Note Subjective Pt seen in room, up in recliner, agreeable to OT. No pain mentioned except some occasional discomfort in R shoulder. Appearance Alert, cooperative Mental Status/Objective Functional [place] Measure 0=Not Assessed/NA 4=Minimal Assistance 1=Total Assistance 5=Supervision or Setup 2=Maximal Assistance 6=Modified [place] 3=Moderate Assistance 7=Complete [place] ADL-Treatment Pt was able to take 5 bites from a banana placed in his R hand. He struggled a little to get his hand to his mouth but was able to hold on to banana with just a little assistance from his L hand. He was encouraged to try to get 5 bites per meal with R hand, depending on what he orders for meals. Functional [place] Measure 0=Not Assessed/NA 4=Minimal Assistance 1=Total Assistance 5=Supervision or Setup 2=Maximal Assistance 6=Modified [place] 3=Moderate Assistance 7=Complete IndependenceIRFPAI Quality Coding Scale 6 Independent with activity with or without an assistive device 5 Patient requires set up or clean up by helper. Patient completes activity by themselves 4 Supervision or touching assist (CGA). [place] provide cues , steadying assist 3 The helper provides less than half the effort to complete the activity 2 The helper provides more than half the effort to complete the activity 1 Dependent. The helper does all the effort to complete an activity 7 Patient refused to complete or attempt activity 9 The patient did not perform the activity before the current illness or injury 88 Not attempted due to Medical conditions or safety concerns Other Treatment Worked on active ROM with skilled facilitation to R UE. He was able to lift R arm to approx 90 degrees actively but was able to briefly hold R shoulder in full flexion and control arm coming back down. He demonstrated R elbow flex against gravity and elbow extension with gravity eliminated. He had difficulty with full supination but was able to isolate wrist extension with finger flexion and wrist flexion with finger extension (although not full range). Pt has increased tone in R UE and demonstrated some overflow movements with L side of body and some substitution. To increase functional use R UE for ADLs and other activities. Pt left up in recliner, all needs met. Education OT Patient Education: Purpose of tx/functional activities Teaching Recipient: Patient Teaching Methods: Discussion Response to Teaching: Verbalize Understanding OT Short Term Goals Short Term Goals Transfers (B,C,W/C) (FIM): 5 1=Demonstrate adherence to instructed precautions during ADL tasks. 2=Patient will verbalize/demonstrate understanding of assistive devices/ modifications for ADL. 3=Patient will improve strength/tolerance for activity to enable patient to perform ADL's. OT [place] Kiln Operator Goals Fpc Goals Time Frame: Feb 19, 2018 Eating (FIM): 6 Groomin Upper Body Dressing(FIM): 6 Lower Body Dressing(FIM): 5 Toilet/Commode Transfer(FIM): 6 Additional Goals: 2-Verbalize Understanding, 3-ImproveStrength/[place] 1=Demonstrate adherence to instructed precautions during ADL tasks. 2=Patient will verbalize/demonstrate understanding of assistive devices/ modifications for ADL. 3=Patient will improve strength/tolerance for activity to enable patient to perform ADL's. OT Education/Plan Problem List/Assessment Pt demonstrates decreased active ROM/strength right UE impacting ability to perform functional tasks. Pt also has decreased balance. Pt to benefit from skilled OT intervention for ADL training, transfers, ROM/strengthening, and safety education to improve level of function and allow safe discharge. Discharge Recommendations Plan/Recommendations: Continue POC Treatment Plan/Plan of Care Patient would benefit from OT for education, treatment and training to promote independence in ADL's, mobility, safety and/or upper extremity function for ADL' s. Plan of Care: ADL Retraining, Functional Mobility, UE Funct Exercise/Act Treatment Duration: Feb 19, 2018 Frequency: 5 times per week Estimated Hrs Per Day: .25 hour per day Agreement: Yes Rehab Potential: Good Time/GCodes Start Time: 12:30 Stop Time: 12:54 Total Time Billed (hr/min): 24 Billed Treatment Time visit, 24 minutes neuromotor BRADEN TRUJILLO OT Feb 07, 2018 12:59
[2018-02-07] MEDS ORDERED: ATOR40TA PO (13:00)
[2018-02-07] MEDS ORDERED: ASPI325T32 PO (13:00)
[2018-02-07] MEDS ORDERED: METF500T8 PO (13:00)
--- NOTE | 2018-02-07 13:09 | Progress Note (SOAP) ---
Subjective Subjective/Events-last exam Corbin is doing better day by day. He is still having quite a bit of right sided weakness. He got dizzy working with PT this morning and had to sit down briefly. Review of Systems Date Seen by Provider: Feb 07, 2018 Time Seen by Provider: 09:30 Pulmonary: No Dyspnea Cardiovascular: No: Chest Pain Objective Exam Last Set of Vital Signs Vital Signs Date Time Temp Pulse Resp B/P (MAP) Pulse Ox O2 Delivery O2 Flow Rate FiO2 02/07/18 12:00 98.1 93 20 117/70 (86) 94 Room Air Capillary Refill : NONE I&O Intake and Output 02/07/18 00:00 Intake Total 3330 ml Output Total 2200 ml Balance 1130 ml Intake Oral 1330 ml IV Total 2000 ml Output Urine Total 2200 ml # Voids 2 # Bowel Movements 1 General: Alert, Oriented X3, Cooperative, No Acute Distress Lungs: Clear to Auscultation, Normal Air Movement Heart: Regular Rate, Normal S1, Normal S2, No Murmurs, Gallops, Rubs Abdomen: Normal Bowel Sounds, Soft, No Tenderness, No Hepatosplenomegaly, No Masses Extremities: No Clubbing, No Cyanosis, No Edema Neuro: Other (significant right sided weakness, lalito the RUE) Psych/Mental Status: Mental Status NL, Mood NL Results/Procedures Lab Laboratory Tests 02/06/18 15:35: Glucometer 152H 02/06/18 17:40: Glucometer 194H 02/07/18 05:34: Glucometer 220H 02/07/18 10:34: Glucometer 272H Radiology NAME: CORBIN JACINTO MED REC#: [id number] PT STATUS: REG ER : 1960 PHYSICIAN: CHIDI VALVERDE MD ADMIT DATE: 02/04/18/ER Signed Date of Exam: 02/04/18 CT ANGIO HEAD/NECK CLINICAL INDICATION: Patient with slurred speech, dizziness and right-sided weakness. 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 EXAMS: 1: Head CT with and without IV contrast. 2: CT angiogram of the head and neck performed with 100 cc of Omnipaque 350 IV contrast. Sagittal and coronal MIP reformations were created for better visualization of vascular anatomy. COMPARISON: MRI of the brain performed without IV contrast and head CT without contrast dated 02/04/2018. FINDINGS: Head CT: There is interval evolution of the small area of low attenuation in the posterior limb of left internal capsule/batres radiata related to the patient's history of acute cerebral infarct. There is no abnormal IV contrast enhancement. There are no other areas concerning for acute cerebral infarct. The brain parenchymal volume appears appropriate for patient's age. There is no hydrocephalus or intraventricular hemorrhage. Basal cisterns are unremarkable. Extracranial soft tissue, skull, and orbits are unremarkable. There is minimal mucosal thickening involving the left maxillary sinuses. Temporal bone structures show no significant abnormality. CT angiogram: There is dense contrast bolus within the right subclavian vein and superior vena cava which obscures portions of the mediastinum and adjacent vessels. 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 There is a roughly 1.4 cm segment of severe stenosis involving the proximal left subclavian artery. Distally, the remainder of the left subclavian artery is patent. There is suspected artifact involving the proximal right CCA versus mural thrombus causing mild narrowing seen on series 8, images 35 through 37. Remainder of the right CCA, cervical right ICA, and right ECA are patent. The left CCA is patent. There is less than 50% stenosis involving the proximal left ICA bulb region. The remainder of the left ICA is patent. The cervical bilateral vertebral arteries are patent. Relatively dominant right vertebral artery is seen. The bilateral petrous and cavernous carotid artery portions of the bilateral ICA are patent. Prominent bilateral posterior communicating arteries are seen. There is slightly smaller caliber bilateral P1 NURSE RESEARCHER seen. The bilateral NURSE RESEARCHER, SCA, basilar artery, and intradural vertebral arteries are patent. There is slightly smaller caliber post PICA left vertebral artery seen. The bilateral A1 ACAs, anterior communicating artery, and A2 ACAs and their distal branches are patent. The visualized [place] vascular structures are patent. The bilateral MCA and their branches are patent. The dural venous sinuses show no significant abnormality. The neck soft tissue structures show no significant abnormality. There is emphysematous lung disease seen. There is cervical spine degenerative disease with levoscoliosis of the upper thoracic spine. There is no significant bony central spinal canal or neuroforaminal narrowing. IMPRESSION: 1: Interval evolution of the small acute cerebral infarct involving the left posterior internal capsule region/batres radiata. There is no associated IV contrast enhancement. 2: CT angiogram of the neck shows a short segment of severe stenosis involving the proximal left subclavian artery. 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 The right subclavian artery and right vertebral artery is patent. 3: There is motion artifact versus vascular plaque involving the proximal right CCA with mild narrowing. 4: Otherwise, the remainder of the [place] and neck major arteries shows no significant abnormality. Dictated by: Dictated on workstation # [id number] Dict: 02/04/18 1659 Trans: 02/04/18 173 Interpreted by: SIENA NICE MD Electronically signed by: SIENA NICE MD 02/04/18 5246 Assessment/Plan Assessment/Plan Assessment & Plan 1. CVA -Patient was not in timeframe for any medication treatment other than aspirin 4/2 - for secondary stroke prevention, will use aspirin 325mg; start atorvastatin 40mg HS 2. Right upper extremity weakness -PT and OT continue -Evaluate for rehabilitation 4/2 - plan for now is discharge to IRU in the morning 3. Dysarthria secondary to number 1 -May be slightly better today on February 06 -He is eating fairly well 4/2 - doing fairly well with this, will continue working with OT/speech 4. Hyperglycemia 02/06 hemoglobin A1c is pending /2 - hgb a1c still pending for some reason; he is on SSI Novolog; I added metformin xl 500mg BID, can be increased in the coming days/weeks; will need a diabetic visit for microalbumin, education, etc at clinic. 5. Hyperlipidemia -Patient may possibly need to go on statin medications as he has taken these in the past. 4/2 - atorvastatin started today Clinical Quality Measures DVT/VTE Risk/Contraindication: Risk Factor Score Per Nursin RFS Level Per Nursing on Admit: 4+=Very High Stroke: Quality Measures-Stroke Pt: Antithrombotic therapy by EOD 2, Assessed for Rehab (PT,OT,ARU,etc), D/C'd on Antithrombotic, D/C'd on statin (for LDL>=70), Lipid panel ordered, Smoking Cessation, VTE Pt refused Thrombolytic Therp: ADRIAN Kitchen MD Feb 07, 2018 1:09 pm
--- NOTE | 2018-02-07 13:19 | Physical Therapy Daily Note ---
PT Daily Note-Current Subjective Patient agrees to PT. Pain Numeric Pain Scale: 0-No Pain Location: No Pain Reported Mental Status Patient Orientation: Normal For Age Transfers Functional [place] Measure 0=Not Assessed/NA 4=Minimal Assistance 1=Total Assistance 5=Supervision or Setup 2=Maximal Assistance 6=Modified [place] 3=Moderate Assistance 7=Complete IndependenceIRFPAI Quality Coding Scale 6 Independent with activity with or without an assistive device 5 Patient requires set up or clean up by helper. Patient completes activity by themselves 4 Supervision or touching assist (CGA). [place] provide cues , steadying assist 3 The helper provides less than half the effort to complete the activity 2 The helper provides more than half the effort to complete the activity 1 Dependent. The helper does all the effort to complete an activity 7 Patient refused to complete or attempt activity 9 The patient did not perform the activity before the current illness or injury 88 Not attempted due to Medical conditions or safety concerns Transfers (B, C, W/C) (FIM): 4 Sit to/from Stand: 4 Weight Bearing Right Lower Extremity: Right Weight Bearing/Tolerated Left Lower Extremity: Left Full Weight Bearing Gait Training Gait (FIM): 4 Distance (FIM): 3=150 ft Distance: 150' Gait Level of Assist: 4 Gait Persons Needed: 1 Gait Assistive Device: FWW slightly improved gait sequence with FWW with minimal deviation to right Assessment Patient's lunch just arrived and he ceased treatment. PT to increase activity as tolerated by patient. PT Short Term Goals Short Term Goals Time Frame: Feb 12, 2018 Transfers (B,C,W/C) (FIM): 5 Gait (FIM): 5 Distance (FIM): 3=150 ft Gait Level of Assist: 5 Gait Assistive Device: FWW PT [facility] Goals [facility] Goals PT Make Up Man Goals Time Frame: Feb 19, 2018 Transfers (B,C,W/C) (FIM): 6 Gait (FIM): 6 Gait distance (FIM): 3=150 ft Distance: 500' Gait Level of Assist: 6 Gait Assistive Device: FWW PT Plan Treatment/Plan Treatment Plan: Continue Plan of Care Treatment Plan: Bed Mobility, Functional Activity [place], Functional Strength, Gait, Safety, Therapeutic Exercise, Transfers Treatment Duration: Feb 19, 2018 Frequency: 11 times per week Estimated Hrs Per Day: .5 hour per day Patient and/or Family Agrees t: Yes Discharge Recommendations Therapy D/C Recommendations: Acute Rehab Time/GCodes Time In: 1300 Time Out: 1313 Total Billed Treatment Time: 13 Total Billed Treatment 1 visit GT 13 min BEN RILEY PT Feb 07, 2018 13:19
[2018-02-07 16:35] VITALS: BP 115/56
[2018-02-07] MEDS: metFORMIN XR 500 MG (GLUCOPHAGE XR) TAB PO SCH (17:07)
[2018-02-07 20:05] VITALS: BP 109/52
[2018-02-07] MEDS: ATORVASTATIN 40 MG (LIPITOR) TABLET PO SCH (20:08)
[2018-02-07] MEDS: ZOLPIDEM 5 MG (AMBIEN) TAB PO PRN (22:20)
[2018-02-08] VITALS: BP 118/74
[2018-02-08 04:00] VITALS: BP 139/79
[2018-02-08] MEDS: inSUlin ASPART (NovoLOG) 1 UNIT/0.01 ML (CHARGE PER UNIT) SC SCH ×4 (05:58→20:21)
[2018-02-08] MEDS: metFORMIN XR 500 MG (GLUCOPHAGE XR) TAB PO SCH ×2 (06:09→16:51)
[2018-02-08 08:00] VITALS: BP 108/79
[2018-02-08] MEDS: ASPIRIN E.C. 325 MG (ECOTRIN) TABLET PO SCH (08:52)
[2018-02-08] MEDS: DOCUSATE SODIUM 100 MG (COLACE) CAP PO SCH ×2 (08:52→20:21)
[2018-02-08] MEDS: FAMOTIDINE 20 MG (PEPCID) TABLET PO SCH ×2 (08:52→20:21)
[2018-02-08] MEDS: DOCUSATE SODIUM 10 MG/ML 10 ML UDC (COLACE) NG SCH ×2 (10:00→19:46)
--- NOTE | 2018-02-08 10:44 | Physical Therapy Daily Note ---
PT Daily Note-Current Subjective Patient agrees to PT. Pain Numeric Pain Scale: 0-No Pain Location: No Pain Reported Mental Status Patient Orientation: Normal For Age Transfers Functional [place] Measure 0=Not Assessed/NA 4=Minimal Assistance 1=Total Assistance 5=Supervision or Setup 2=Maximal Assistance 6=Modified [place] 3=Moderate Assistance 7=Complete IndependenceIRFPAI Quality Coding Scale 6 Independent with activity with or without an assistive device 5 Patient requires set up or clean up by helper. Patient completes activity by themselves 4 Supervision or touching assist (CGA). [place] provide cues , steadying assist 3 The helper provides less than half the effort to complete the activity 2 The helper provides more than half the effort to complete the activity 1 Dependent. The helper does all the effort to complete an activity 7 Patient refused to complete or attempt activity 9 The patient did not perform the activity before the current illness or injury 88 Not attempted due to Medical conditions or safety concerns Transfers (B, C, W/C) (FIM): 4 Scootin Rollin Supine to/from Sit: 5 Sit to/from Stand: 4 Weight Bearing Right Lower Extremity: Right Weight Bearing/Tolerated Left Lower Extremity: Left Full Weight Bearing Gait Training Gait (FIM): 4 Distance (FIM): 3=150 ft Distance: 225' Gait Level of Assist: 4 Gait Persons Needed: 1 Gait Assistive Device: FWW unsteady gait sequence with ambulation with noted diminished proprioception and coordination right LE Exercises Supine Ex: Ankle pumps, Quad Set, Heel Slides, Straight leg raise, Hip abd/add Supine Reps: 15 Seated Therapy Exercises: Ankle pumps, Long arc quads Seated Reps: 15 Assessment Patient is progressing slowly with treatment plan. He continues c/o dizziness in stand. PT Short Term Goals Short Term Goals Time Frame: Feb 12, 2018 Transfers (B,C,W/C) (FIM): 5 Gait (FIM): 5 Distance (FIM): 3=150 ft Gait Level of Assist: 5 Gait Assistive Device: FWW PT Driver Trainer Goals Driver Trainer Goals PT Driver Trainer Goals Time Frame: Feb 19, 2018 Transfers (B,C,W/C) (FIM): 6 Gait (FIM): 6 Gait distance (FIM): 3=150 ft Distance: 500' Gait Level of Assist: 6 Gait Assistive Device: FWW PT Plan Treatment/Plan Treatment Plan: Continue Plan of Care Treatment Plan: Bed Mobility, Functional Activity [place], Functional Strength, Gait, Safety, Therapeutic Exercise, Transfers Treatment Duration: Feb 19, 2018 Frequency: 11 times per week Estimated Hrs Per Day: .5 hour per day Patient and/or Family Agrees t: Yes Time/GCodes Time In: 950 Time Out: 1013 Total Billed Treatment Time: 23 Total Billed Treatment 1 visit EX 10 min GT 13 min BEN RILEY PT Feb 08, 2018 10:44
--- NOTE | 2018-02-08 11:57 | Occupational Ther Daily Note ---
OT Current Status-Daily Note Subjective Pt agreeable to treatment. Mental Status/Objective Functional [place] Measure 0=Not Assessed/NA 4=Minimal Assistance 1=Total Assistance 5=Supervision or Setup 2=Maximal Assistance 6=Modified [place] 3=Moderate Assistance 7=Complete [place] ADL-Treatment Functional [place] Measure 0=Not Assessed/NA 4=Minimal Assistance 1=Total Assistance 5=Supervision or Setup 2=Maximal Assistance 6=Modified [place] 3=Moderate Assistance 7=Complete IndependenceIRFPAI Quality Coding Scale 6 Independent with activity with or without an assistive device 5 Patient requires set up or clean up by helper. Patient completes activity by themselves 4 Supervision or touching assist (CGA). [place] provide cues , steadying assist 3 The helper provides less than half the effort to complete the activity 2 The helper provides more than half the effort to complete the activity 1 Dependent. The helper does all the effort to complete an activity 7 Patient refused to complete or attempt activity 9 The patient did not perform the activity before the current illness or injury 88 Not attempted due to Medical conditions or safety concerns Other Treatment Pt supine to sit with supervision. Sit to stand and transfer to chair with minimal assistance using FWW. Pt worked on active ROM of right UE with skilled facilitation. Pt demonstrates active shoulder movement to about 90 degrees. but requires cues to decrease compensatory movements. AAROM to achieve functional shoulder ROM. Pt performed elbow flex/ext x10 reps. Pt able to fully pronate forearm, but requires assist for supination. Pt demonstrates active wrist flex/ ext, but not full ROM. Requires AAROM for wrist movements. Pt worked on finger flexion and extension, has some difficulty with extension. Pt has some increased tone in right UE. Pt worked on grasp/release with right hand. With increased time pt is able to machine pecan picker and release small bottle with right hand. Pt encouraged to attempt using right UE during functional tasks. Pt sitting in chair with needs met and telesitter in room after session. OT Short Term Goals Short Term Goals Transfers (B,C,W/C) (FIM): 5 1=Demonstrate adherence to instructed precautions during ADL tasks. 2=Patient will verbalize/demonstrate understanding of assistive devices/ modifications for ADL. 3=Patient will improve strength/tolerance for activity to enable patient to perform ADL's. OT Toll Operator Goals Toll Operator Goals Time Frame: Feb 19, 2018 Eating (FIM): 6 Groomin Upper Body Dressing(FIM): 6 Lower Body Dressing(FIM): 5 Toilet/Commode Transfer(FIM): 6 Additional Goals: 2-Verbalize Understanding, 3-ImproveStrength/[place] 1=Demonstrate adherence to instructed precautions during ADL tasks. 2=Patient will verbalize/demonstrate understanding of assistive devices/ modifications for ADL. 3=Patient will improve strength/tolerance for activity to enable patient to perform ADL's. OT Education/Plan Problem List/Assessment Pt demonstrates decreased active ROM/strength right UE impacting ability to perform functional tasks. Pt also has decreased balance. Pt to benefit from skilled OT intervention for ADL training, transfers, ROM/strengthening, and safety education to improve level of function and allow safe discharge. Discharge Recommendations Plan/Recommendations: Continue POC Treatment Plan/Plan of Care Patient would benefit from OT for education, treatment and training to promote independence in ADL's, mobility, safety and/or upper extremity function for ADL' s. Plan of Care: ADL Retraining, Functional Mobility, UE Funct Exercise/Act Treatment Duration: Feb 19, 2018 Frequency: 5 times per week Estimated Hrs Per Day: .25 hour per day Agreement: Yes Rehab Potential: Good Time/GCodes Start Time: 11:20 Stop Time: 11:44 Total Time Billed (hr/min): 24 Billed Treatment Time 1 visit, NM(24minutes) BRENDAN VANG OT Feb 08, 2018 11:57
[2018-02-08 12:00] VITALS: BP 134/83
--- NOTE | 2018-02-08 14:36 | Physical Therapy Daily Note ---
PT Daily Note-Current Subjective Patient agrees to PT. Review exercise program. Pain Numeric Pain Scale: 0-No Pain Location: No Pain Reported Mental Status Patient Orientation: Normal For Age Transfers Functional [place] Measure 0=Not Assessed/NA 4=Minimal Assistance 1=Total Assistance 5=Supervision or Setup 2=Maximal Assistance 6=Modified [place] 3=Moderate Assistance 7=Complete IndependenceIRFPAI Quality Coding Scale 6 Independent with activity with or without an assistive device 5 Patient requires set up or clean up by helper. Patient completes activity by themselves 4 Supervision or touching assist (CGA). [place] provide cues , steadying assist 3 The helper provides less than half the effort to complete the activity 2 The helper provides more than half the effort to complete the activity 1 Dependent. The helper does all the effort to complete an activity 7 Patient refused to complete or attempt activity 9 The patient did not perform the activity before the current illness or injury 88 Not attempted due to Medical conditions or safety concerns Transfers (B, C, W/C) (FIM): 4 Scootin Sit to/from Stand: 4 Weight Bearing Right Lower Extremity: Right Weight Bearing/Tolerated Left Lower Extremity: Left Full Weight Bearing Gait Training Gait (FIM): 4 Distance (FIM): 3=150 ft Distance: 225' Gait Level of Assist: 4 Gait Assistive Device: FWW patient continues to have NBOS due to diminished proprioception right side and increased tone Exercises Seated Therapy Exercises: Ankle pumps, Long arc quads Seated Reps: 20 Assessment Patient continues to make slow progress. PT to increase activity as tolerated by patient. Patient would benefit from ARU to ensure maximum recovery to return to home and work. PT Short Term Goals Short Term Goals Time Frame: Feb 12, 2018 Transfers (B,C,W/C) (FIM): 5 Gait (FIM): 5 Distance (FIM): 3=150 ft Gait Level of Assist: 5 Gait Assistive Device: FWW PT Mcfp Goals Estate Conservator Goals PT Mcfp Goals Time Frame: Feb 19, 2018 Transfers (B,C,W/C) (FIM): 6 Gait (FIM): 6 Gait distance (FIM): 3=150 ft Distance: 500' Gait Level of Assist: 6 Gait Assistive Device: FWW PT Plan Treatment/Plan Treatment Plan: Continue Plan of Care Treatment Plan: Bed Mobility, Functional Activity [place], Functional Strength, Gait, Safety, Therapeutic Exercise, Transfers Treatment Duration: Feb 19, 2018 Frequency: 11 times per week Estimated Hrs Per Day: .5 hour per day Patient and/or Family Agrees t: Yes Time/GCodes Time In: 1330 Time Out: 1341 Total Billed Treatment Time: 11 Total Billed Treatment 1 visit GT 11 min BEN RILEY PT Feb 08, 2018 14:36
[2018-02-08 16:28] VITALS: BP 100/60
[2018-02-08 19:27] VITALS: BP 133/53
[2018-02-08] MEDS: ATORVASTATIN 40 MG (LIPITOR) TABLET PO SCH (20:21)
[2018-02-08] MEDS: ZOLPIDEM 5 MG (AMBIEN) TAB PO PRN (20:21)
[2018-02-08] MEDS ORDERED: inSUlin DETERMIR 1 UNIT/0.01 ML (LEVEMIR) CHARGE PER UNIT SQ SCH (21:00)
--- NOTE | 2018-02-08 23:12 | Progress Note (SOAP) ---
Subjective Subjective/Events-last exam No new complaints. Working w/ PT/OT. Waiting on acceptance from IRF/waiting on approval from insurance. Review of Systems Date Seen by Provider: Feb 08, 2018 Time Seen by Provider: 13:55 Objective Exam Last Set of Vital Signs Vital Signs Date Time Temp Pulse Resp B/P (MAP) Pulse Ox O2 Delivery O2 Flow Rate FiO2 02/08/18 19:27 97.1 102 18 133/53 (79) 95 Room Air Capillary Refill : Less Than 3 Seconds I&O Intake and Output 02/08/18 00:00 Intake Total 1020 ml Output Total 1301 ml Balance -281 ml Intake Oral 1020 ml Output Urine Total 1300 ml Stool Total 1 ml General: Alert, Oriented X3, Cooperative, No Acute Distress Lungs: Clear to Auscultation Heart: Regular Rate Neuro: Other (R facial droop resulting in slurred speech) Psych/Mental Status: Mood NL Results/Procedures Lab Laboratory Tests 02/08/18 05:50: Glucometer 173H 02/08/18 09:39: Glucometer 319H 02/08/18 15:14: Glucometer 245H 02/08/18 19:31: Glucometer 258H Radiology NAME: CORBIN JACINTO MED REC#: [id number] PT STATUS: REG ER : 1960 PHYSICIAN: CHIDI VALVERDE MD ADMIT DATE: 02/04/18/ER Signed Date of Exam: 02/04/18 CT ANGIO HEAD/NECK CLINICAL INDICATION: Patient with slurred speech, dizziness and right-sided weakness. 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 EXAMS: 1: Head CT with and without IV contrast. 2: CT angiogram of the head and neck performed with 100 cc of Omnipaque 350 IV contrast. Sagittal and coronal MIP reformations were created for better visualization of vascular anatomy. COMPARISON: MRI of the brain performed without IV contrast and head CT without contrast dated 02/04/2018. FINDINGS: Head CT: There is interval evolution of the small area of low attenuation in the posterior limb of left internal capsule/batres radiata related to the patient's history of acute cerebral infarct. There is no abnormal IV contrast enhancement. There are no other areas concerning for acute cerebral infarct. The brain parenchymal volume appears appropriate for patient's age. There is no hydrocephalus or intraventricular hemorrhage. Basal cisterns are unremarkable. Extracranial soft tissue, skull, and orbits are unremarkable. There is minimal mucosal thickening involving the left maxillary sinuses. Temporal bone structures show no significant abnormality. CT angiogram: There is dense contrast bolus within the right subclavian vein and superior vena cava which obscures portions of the mediastinum and adjacent vessels. 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 There is a roughly 1.4 cm segment of severe stenosis involving the proximal left subclavian artery. Distally, the remainder of the left subclavian artery is patent. There is suspected artifact involving the proximal right CCA versus mural thrombus causing mild narrowing seen on series 8, images 35 through 37. Remainder of the right CCA, cervical right ICA, and right ECA are patent. The left CCA is patent. There is less than 50% stenosis involving the proximal left ICA bulb region. The remainder of the left ICA is patent. The cervical bilateral vertebral arteries are patent. Relatively dominant right vertebral artery is seen. The bilateral petrous and cavernous carotid artery portions of the bilateral ICA are patent. Prominent bilateral posterior communicating arteries are seen. There is slightly smaller caliber bilateral P1 COMMISSION ASSOCIATE seen. The bilateral COMMISSION ASSOCIATE, SCA, basilar artery, and intradural vertebral arteries are patent. There is slightly smaller caliber post PICA left vertebral artery seen. The bilateral A1 ACAs, anterior communicating artery, and A2 ACAs and their distal branches are patent. The visualized [place] vascular structures are patent. The bilateral MCA and their branches are patent. The dural venous sinuses show no significant abnormality. The neck soft tissue structures show no significant abnormality. There is emphysematous lung disease seen. There is cervical spine degenerative disease with levoscoliosis of the upper thoracic spine. There is no significant bony central spinal canal or neuroforaminal narrowing. IMPRESSION: 1: Interval evolution of the small acute cerebral infarct involving the left posterior internal capsule region/batres radiata. There is no associated IV contrast enhancement. 2: CT angiogram of the neck shows a short segment of severe stenosis involving the proximal left subclavian artery. 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 The right subclavian artery and right vertebral artery is patent. 3: There is motion artifact versus vascular plaque involving the proximal right CCA with mild narrowing. 4: Otherwise, the remainder of the [place] and neck major arteries shows no significant abnormality. Dictated by: Dictated on workstation # [id number] Dict: 02/04/18 165 Trans: 02/04/18 173 Interpreted by: SIENA NICE MD Electronically signed by: SIENA NICE MD 02/04/18 4433 Assessment/Plan Assessment/Plan Assessment & Plan 1. CVA -Patient was not in timeframe for any medication treatment other than aspirin 42 - for secondary stroke prevention, will use aspirin 325mg; start atorvastatin 40mg HS 2. Right upper extremity weakness -PT and OT continue -Evaluate for rehabilitation 02/07 - plan for now is discharge to IRU in the morning 02/08 - awaiting insurance approval for DC to IRU 3. Dysarthria secondary to number 1 -May be slightly better today on February 06 -He is eating fairly well 02/07 - doing fairly well with this, will continue working with OT/speech 4. DM Type 2 02/06 hemoglobin A1c is pending 02/07 - hgb a1c still pending for some reason; he is on SSI Novolog; I added metformin xl 500mg BID, can be increased in the coming days/weeks; will need a diabetic visit for microalbumin, education, etc at clinic. 02/08 - A1c 11.6%; start Levemir 30 units qhs and Novolg 10 units w/ meals; continue metformin and SSI Novolog for correction. 5. Hyperlipidemia -Patient may possibly need to go on statin medications as he has taken these in the past. 02/07 - atorvastatin started today Clinical Quality Measures DVT/VTE Risk/Contraindication: Risk Factor Score Per Nursin RFS Level Per Nursing on Admit: 4+=Very High Stroke: Quality Measures-Stroke Pt: Antithrombotic therapy by EOD 2, Assessed for Rehab (PT,OT,ARU,etc), D/C'd on Antithrombotic, D/C'd on statin (for LDL>=70), Lipid panel ordered, Smoking Cessation, VTE Pt refused Thrombolytic Therp: LINA Alvarado DO Feb 08, 2018 23:11
[2018-02-09] VITALS: BP 160/78
[2018-02-09 04:00] VITALS: BP 129/78
[2018-02-09] MEDS: inSUlin ASPART (NovoLOG) 1 UNIT/0.01 ML (CHARGE PER UNIT) SC SCH ×5 (06:44→15:29)
[2018-02-09] MEDS: metFORMIN XR 500 MG (GLUCOPHAGE XR) TAB PO SCH (06:44)
[2018-02-09 08:00] VITALS: BP 124/69
[2018-02-09] MEDS: DOCUSATE SODIUM 100 MG (COLACE) CAP PO SCH (08:49)
[2018-02-09] MEDS: FAMOTIDINE 20 MG (PEPCID) TABLET PO SCH (08:49)
[2018-02-09] MEDS: ASPIRIN E.C. 325 MG (ECOTRIN) TABLET PO SCH (08:49)
--- NOTE | 2018-02-09 10:49 | Physical Therapy Daily Note ---
PT Daily Note-Current Subjective "am I doing better?" Hopes to transfer to ARU soon. Mental Status Patient Orientation: Person, Place, Time, Situation Transfers Functional [place] Measure 0=Not Assessed/NA 4=Minimal Assistance 1=Total Assistance 5=Supervision or Setup 2=Maximal Assistance 6=Modified [place] 3=Moderate Assistance 7=Complete IndependenceIRFPAI Quality Coding Scale 6 Independent with activity with or without an assistive device 5 Patient requires set up or clean up by helper. Patient completes activity by themselves 4 Supervision or touching assist (CGA). [place] provide cues , steadying assist 3 The helper provides less than half the effort to complete the activity 2 The helper provides more than half the effort to complete the activity 1 Dependent. The helper does all the effort to complete an activity 7 Patient refused to complete or attempt activity 9 The patient did not perform the activity before the current illness or injury 88 Not attempted due to Medical conditions or safety concerns Transfers (B, C, W/C) (FIM): 4 Sit to/from Stand: 4 CGA with transfers with skilled cues for safety and sequencing; unsteady with initial standing and requires assist to maintain balance. Weight Bearing Right Lower Extremity: Right Weight Bearing/Tolerated Left Lower Extremity: Left Full Weight Bearing Gait Training Gait (FIM): 3 Distance (FIM): 3=150 ft Gait Assistive Device: FWW Pt ambulated x 200 ft with FWW requiring min assist consistently but occas mod assist for balance maintenance. Close min assist with turning due to balance deficits. Narrow [place]IO with occas scissoring of the right LE as well as unsteady gait. Pt also has to place right UE on the walker, unable to lift with just the right UE. Decreased safety awareness during gait and due to balance disturbance and uncoordinated use of the right LE, fall risk is noted. Assessment Current Status: Good Progress Gait distance is progressing but continues to require assist with transfers and with ambulation for safety purposes. Unable to ambulate or transfer without assist. PT Short Term Goals Short Term Goals Time Frame: Feb 12, 2018 Transfers (B,C,W/C) (FIM): 5 Gait (FIM): 5 Distance (FIM): 3=150 ft Gait Level of Assist: 5 Gait Assistive Device: FWW PT Medical Imaging Technologist Goals Medical Imaging Technologist Goals PT Medical Imaging Technologist Goals Time Frame: Feb 19, 2018 Transfers (B,C,W/C) (FIM): 6 Gait (FIM): 6 Gait distance (FIM): 3=150 ft Distance: 500' Gait Level of Assist: 6 Gait Assistive Device: FWW PT Plan Problem List Problem List: Activity Tolerance, Functional Strength, Safety, Balance, Gait, Transfer, Bed Mobility Treatment/Plan Treatment Plan: Continue Plan of Care Treatment Plan: Bed Mobility, Functional Activity [place], Functional Strength, Gait, Safety, Therapeutic Exercise, Transfers Treatment Duration: Feb 19, 2018 Frequency: 11 times per week Estimated Hrs Per Day: .5 hour per day Patient and/or Family Agrees t: Yes Safety Risks/Education Patient Education: Transfer Techniques, Safety Issues Teaching Recipient: Patient Teaching Methods: Discussion Response to Teaching: Reinforcement Needed Discharge Recommendations Therapy D/C Recommendations: Acute Rehab Time/GCodes Time In: 1025 Time Out: 1049 Total Billed Treatment Time: 23 Total Billed Treatment visit GT 23 ALEE HOWARD PT Feb 09, 2018 10:49
--- NOTE | 2018-02-09 11:41 | Occupational Ther Daily Note ---
OT Current Status-Daily Note Subjective Pt sitting in chair, agrees to treatment. States he feels he is doing a little better. Mental Status/Objective Functional [place] Measure 0=Not Assessed/NA 4=Minimal Assistance 1=Total Assistance 5=Supervision or Setup 2=Maximal Assistance 6=Modified [place] 3=Moderate Assistance 7=Complete [place] Other Treatment Pt completed right UE activity to promote increased active ROM and strength. Pt performed ROM exercises x10 reps. Pt demonstrates active shoulder ROM to ~90 degrees, but requires AAROM for remainder. Pt performed active elbow flex/ext with slow movement. Pronation/supination exercises with assist for increased supination. Pt does not have full active wrist flex/ext, but improved from previous treatment. Finger flex/ext x10 reps. Pt has full flexion, but requires minimal assistance to achieve extension. During exercises pt requires cues to decrease compensatory movements of right UE. Pt fatigues quickly and requires rest breaks during activity. Pt completed cone stacking activity to promote ROM, reaching, and grasp release skills. Pt able to stack 7 cones with increased time. Pt has decreased coordination of right UE. Pt tends to attempt assisting right UE with left UE. Pt has difficulty with grasp/release skills, requires minimal assistance to complete task. Pt sitting in chair with needs met after session, telesitter in room. OT Short Term Goals Short Term Goals Transfers (B,C,W/C) (FIM): 5 1=Demonstrate adherence to instructed precautions during ADL tasks. 2=Patient will verbalize/demonstrate understanding of assistive devices/ modifications for ADL. 3=Patient will improve strength/tolerance for activity to enable patient to perform ADL's. OT Custodial Goals Cable Machine Operator Goals Time Frame: Feb 19, 2018 Eating (FIM): 6 Grooming(FIM): 6 Upper Body Dressing(FIM): 6 Lower Body Dressing(FIM): 5 Toilet/Commode Transfer(FIM): 6 Additional Goals: 2-Verbalize Understanding, 3-ImproveStrength/[place] 1=Demonstrate adherence to instructed precautions during ADL tasks. 2=Patient will verbalize/demonstrate understanding of assistive devices/ modifications for ADL. 3=Patient will improve strength/tolerance for activity to enable patient to perform ADL's. OT Education/Plan Problem List/Assessment Pt demonstrates decreased active ROM/strength right UE impacting ability to perform functional tasks. Pt also has decreased balance. Pt to benefit from skilled OT intervention for ADL training, transfers, ROM/strengthening, and safety education to improve level of function and allow safe discharge. Discharge Recommendations Plan/Recommendations: Continue POC Treatment Plan/Plan of Care Patient would benefit from OT for education, treatment and training to promote independence in ADL's, mobility, safety and/or upper extremity function for ADL' s. Plan of Care: ADL Retraining, Functional Mobility, UE Funct Exercise/Act Treatment Duration: Feb 19, 2018 Frequency: 5 times per week Estimated Hrs Per Day: .25 hour per day Agreement: Yes Rehab Potential: Good Time/GCodes Start Time: 10:55 Stop Time: 11:20 Total Time Billed (hr/min): 25 Billed Treatment Time 1 visit, NMx2(25minutes) BRENDAN VANG OT Feb 09, 2018 11:41
[2018-02-09 12:00] VITALS: BP 112/52
[2018-02-09] MEDS ORDERED: INSU100V16 SC (14:52)
[2018-02-09] MEDS ORDERED: INSU100V5 SQ (14:52)
[2018-02-09] MEDS ORDERED: IBUP-1773 PO (14:52)
[2018-02-09] MEDS ORDERED: ACET325T49 PO (14:52)
--- NOTE | 2018-02-09 14:54 | Discharge Instructions ---
ADRIAN WELSH MD 02/07/18 1304: Discharge [facility] Discharge Medications New, Converted or Re-Newed RX: Transmitted to Pharmacy New Medications: Acetaminophen (Acetaminophen) 325 Mg Tablet 650 MG PO Q4H PRN for PAIN-MILD, #90 TAB 0 Refills Aspirin (Aspirin EC) 325 Mg Tablet. 325 MG PO DAILY, #30 TAB 1 Refill MAY PURCHASE OVER THE COUNTER. Atorvastatin Calcium (Lipitor) 40 Mg Tablet 40 MG PO HS, #30 TAB 1 Refill Ibuprofen (Ibuprofen) 600 Mg Tablet 600 MG PO Q6HR PRN for PAIN-MODERATE TO SEVERE, #60 TAB 0 Refills Insulin Aspart (Novolog) 100 Unit/1 Ml Susp 10 UNIT SC WM, #1 VIAL 3 Refills Insulin Determir (Levemir) 1,000 Units/10 Ml Soln 30 UNIT SQ HS, #1 EA 3 Refills Metformin HCl (Metformin HCl ER) 500 Mg Tab.er.24h 500 MG PO BID@07,17, #60 TAB 1 Refill Patient Instructions Goal/Follow Up Appt: [facility] WILL ARRANGE A FOLLOW UP APPOINTMENT WITH DR MENDOZA WHEN YOU ARE SOON TO BE DISCHARGED FROM THE INPATIENT REHAB UNIT. KINDLY ASK THE INPATIENT REHAB STAFF TO SCHEDULE AN APPOINTMENT FOR YOU PRIOR TO DISCHARGE. Patient Instructions: -YOU WILL NEED TO TAKE AN ASPIRIN 325MG EVERY DAY TO PREVENT FUTURE STROKES. "ENTERIC-COATED" ASPIRIN IS BEST IT IS LESS IRRITATING TO THE STOMACH LINING. -YOU HAVE HIGH CHOLESTEROL, SO ATORVASTATIN WAS STARTED. THIS WILL HELP PREVENT ANOTHER STROKE WELL. -YOU APPEAR TO HAVE DIABETES. WE HAVE STARTED METFORMIN. DR MENDOZA WILL DECIDE IF YOU NEED ADDITIONAL MEDICATIONS TO TREAT THE DIABETES AT YOUR FOLLOW UP APPOINTMENT. -YOU SHOULD SEE A VASCULAR SURGEON AT DISCHARGE; DR MENDOZA CAN MAKE THE REFERRAL FOR YOU. I RECOMMEND DR BALES AT [facility] IN [place]. HE HAS THE MOST EXPERIENCE FOR YOUR CONDITION. [facility] to [facility] --PER IRU STAFF Activity & Diet Discharge Diet: ADA Diet Activity as Tolerated: Yes Copy Copies To 1: CORBIN MENDOZA MD, LINDA K DO 02/09/18 1304: Discharge [facility] Discharge Medications New Medications: Acetaminophen (Acetaminophen) 325 Mg Tablet 650 MG PO Q4H PRN for PAIN-MILD, #90 TAB 0 Refills Aspirin (Aspirin EC) 325 Mg Tablet. 325 MG PO DAILY, #30 TAB 1 Refill MAY PURCHASE OVER THE COUNTER. Atorvastatin Calcium (Lipitor) 40 Mg Tablet 40 MG PO HS, #30 TAB 1 Refill Ibuprofen (Ibuprofen) 600 Mg Tablet 600 MG PO Q6HR PRN for PAIN-MODERATE TO SEVERE, #60 TAB 0 Refills Insulin Aspart (Novolog) 100 Unit/1 Ml Susp 10 UNIT SC WM, #1 VIAL 3 Refills Insulin Determir (Levemir) 1,000 Units/10 Ml Soln 30 UNIT SQ HS, #1 EA 3 Refills Metformin HCl (Metformin HCl ER) 500 Mg Tab.er.24h 500 MG PO BID@07,17, #60 TAB 1 Refill Copy Copies To 1: CORBIN MENDOZA MD, JULIE A MD Feb 07, 2018 13:04 LINA SEVILLA DO Feb 09, 2018 14:54
--- NOTE | 2018-02-09 14:56 | Discharge Summary ---
Diagnosis/Chief Complaint Date of Admission Feb 04, 2018 at 20:17 Date of Discharge Admission Diagnosis Admission Diagnosis 1. CVA 2. Right upper extremity weakness 3. Dysarthria secondary to number 1 4. Hyperglycemia Discharge Diagnosis 1. CVA -Patient was not in timeframe for any medication treatment other than aspirin 02/07 - for secondary stroke prevention, will use aspirin 325mg; start atorvastatin 40mg HS 2. Right upper extremity weakness -PT and OT continue -Evaluate for rehabilitation 02/07 - plan for now is discharge to IRU in the morning 02/08 - awaiting insurance approval for DC to IRU 02/09 - approved for transfer to IRU 3. Dysarthria secondary to number 1 -May be slightly better today on February 06 -He is eating fairly well 02/07 - doing fairly well with this, will continue working with OT/speech 4. DM Type 2 02/06 hemoglobin A1c is pending 02/07 - hgb a1c still pending for some reason; he is on SSI Novolog; I added metformin xl 500mg BID, can be increased in the coming days/weeks; will need a diabetic visit for microalbumin, education, etc at clinic. 02/08 - A1c 11.6%; start Levemir 30 units qhs and Novolg 10 units w/ meals; continue metformin and SSI Novolog for correction. 02/09 - BS improving on current dose; FBS this am 138; 2h pp 144 - continue current regimen. 5. Hyperlipidemia -Patient may possibly need to go on statin medications as he has taken these in the past. 02/07 - atorvastatin started today Disp: DC to IRU today. Will f/u with Dr. Mendoza when DC'd from IRU. Chief Complaint/HPI Chief Complaint/HPI 57-year-old male presents to the emergency department during the p.m. of February 04, 2018 with worsening dizziness. He also was noted to have right arm weakness as well as slurred speech and not being very stable on his feet. He first noticed his symptoms at approximately 1300 on April 05, 2018 after he went home from work at [employer]. He has no history of stroke. He is seen by Dr. Mendoza at [facility] Discharge Summary-Simple/Stand Consultations Discharge Physical Examination Allergies: Coded Allergies: No Known Drug Allergies (Verified , 08/14/08) Vitals & I&Os Vital Sign - Last 12Hours Date Time Temp Pulse Resp B/P (MAP) Pulse Ox O2 Delivery O2 Flow Rate FiO2 02/09/18 08:00 97.6 84 20 124/69 (87) 98 Room Air Intake and Output 02/09/18 00:00 Intake Total 1295 ml Output Total 525 ml Balance 770 ml General Appearance: Alert, Oriented X3, Cooperative Psych/Mental Status: Mood NL Hospital Course See final discharge diagnosis. Radiology Reviewed NAME: CORBIN JACINTO [facility] REC#: [id number] PT STATUS: REG ER : 1960 PHYSICIAN: CHIDI VALVERDE MD ADMIT DATE: 02/04/18/ER Signed Date of Exam: 02/04/18 CT ANGIO HEAD/NECK CLINICAL INDICATION: Patient with slurred speech, dizziness and right-sided weakness. 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 EXAMS: 1: Head CT with and without IV contrast. 2: CT angiogram of the head and neck performed with 100 cc of Omnipaque 350 IV contrast. Sagittal and coronal MIP reformations were created for better visualization of vascular anatomy. COMPARISON: MRI of the brain performed without IV contrast and head CT without contrast dated 02/04/2018. FINDINGS: Head CT: There is interval evolution of the small area of low attenuation in the posterior limb of left internal capsule/batres radiata related to the patient's history of acute cerebral infarct. There is no abnormal IV contrast enhancement. There are no other areas concerning for acute cerebral infarct. The brain parenchymal volume appears appropriate for patient's age. There is no hydrocephalus or intraventricular hemorrhage. Basal cisterns are unremarkable. Extracranial soft tissue, skull, and orbits are unremarkable. There is minimal mucosal thickening involving the left maxillary sinuses. Temporal bone structures show no significant abnormality. CT angiogram: There is dense contrast bolus within the right subclavian vein and superior vena cava which obscures portions of the mediastinum and adjacent vessels. 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 There is a roughly 1.4 cm segment of severe stenosis involving the proximal left subclavian artery. Distally, the remainder of the left subclavian artery is patent. There is suspected artifact involving the proximal right CCA versus mural thrombus causing mild narrowing seen on series 8, images 35 through 37. Remainder of the right CCA, cervical right ICA, and right ECA are patent. The left CCA is patent. There is less than 50% stenosis involving the proximal left ICA bulb region. The remainder of the left ICA is patent. The cervical bilateral vertebral arteries are patent. Relatively dominant right vertebral artery is seen. The bilateral petrous and cavernous carotid artery portions of the bilateral ICA are patent. Prominent bilateral posterior communicating arteries are seen. There is slightly smaller caliber bilateral P1 CHIEF PHYSICAL THERAPIST seen. The bilateral CHIEF PHYSICAL THERAPIST, SCA, basilar artery, and intradural vertebral arteries are patent. There is slightly smaller caliber post PICA left vertebral artery seen. The bilateral A1 ACAs, anterior communicating artery, and A2 ACAs and their distal branches are patent. The visualized [place] vascular structures are patent. The bilateral MCA and their branches are patent. The dural venous sinuses show no significant abnormality. The neck soft tissue structures show no significant abnormality. There is emphysematous lung disease seen. There is cervical spine degenerative disease with levoscoliosis of the upper thoracic spine. There is no significant bony central spinal canal or neuroforaminal narrowing. IMPRESSION: 1: Interval evolution of the small acute cerebral infarct involving the left posterior internal capsule region/batres radiata. There is no associated IV contrast enhancement. 2: CT angiogram of the neck shows a short segment of severe stenosis involving the proximal left subclavian artery. 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 The right subclavian artery and right vertebral artery is patent. 3: There is motion artifact versus vascular plaque involving the proximal right CCA with mild narrowing. 4: Otherwise, the remainder of the [place] and neck major arteries shows no significant abnormality. Dictated by: Dictated on workstation # [id number] Dict: 02/04/18 1659 Trans: 02/04/18 1730 Interpreted by: SIENA NICE MD Electronically signed by: SIENA NICE MD 02/04/18 1736 Discharge Instructions to patient/family Please see electronic discharge instructions given to patient. Discharge Medications Reviewed and agree with Discharge Medication list on patient's Discharge Instruction sheet Discharge Medications New Medications: Acetaminophen (Acetaminophen) 325 Mg Tablet 650 MG PO Q4H PRN for PAIN-MILD, #90 TAB 0 Refills MAY PURCHASE OVER THE COUNTER Aspirin (Aspirin EC) 325 Mg Tablet. 325 MG PO DAILY, #30 TAB 1 Refill MAY PURCHASE OVER THE COUNTER. Atorvastatin Calcium (Lipitor) 40 Mg Tablet 40 MG PO HS, #30 TAB 1 Refill Ibuprofen (Ibuprofen) 600 Mg Tablet 600 MG PO Q6HR PRN for PAIN-MODERATE TO SEVERE, #60 TAB 0 Refills MAY PURCHASE OVER THE COUNTER Insulin Aspart (Novolog) 100 Unit/1 Ml Susp 10 UNIT SC WM, #1 VIAL 3 Refills Insulin Determir (Levemir) 1,000 Units/10 Ml Soln 30 UNIT SQ HS, #1 EA 3 Refills Metformin HCl (Metformin HCl ER) 500 Mg Tab.er.24h 500 MG PO BID@07,17, #60 TAB 1 Refill Clinical Quality Measures DVT/VTE Risk/Contraindication: Risk Factor Score Per Nursin RFS Level Per Nursing on Admit: 4+=Very High Stroke: Quality Measures-Stroke Pt: Antithrombotic therapy by EOD 2, Assessed for Rehab (PT,OT,ARU,etc), D/C'd on Antithrombotic, D/C'd on statin (for LDL>=70), Lipid panel ordered, Smoking Cessation, VTE Pt refused Thrombolytic Therp: No Copy Copies To 1: CORBIN MENDOZA MD, LINDA K DO Feb 09, 2018 14:56
[2018-02-09 15:51] VITALS: BP 112/52
== END 2018-02-09 15:25 | DRG 66 ==
LOC: EDUNIT# 12:48 → ER 12:50 → 4TH 20:17
PROVIDERS: ADMIT Family Medicine; ATTEND Family Medicine
DX: I63.9 Cerebral infarction, unspecified (principal); G83.21 Monoplegia of upper limb affecting right dominant side; R47.1 Dysarthria and anarthria; I70.8 Atherosclerosis of other arteries; I10 Essential (primary) hypertension; E78.5 Hyperlipidemia, unspecified; E11.65 Type 2 diabetes mellitus with hyperglycemia; F17.210 Nicotine dependence, cigarettes, uncomplicated; S49.92XA Unspecified injury of left shoulder and upper arm, initial encounter; W01.0XXA Fall on same level from slipping, tripping and stumbling without subsequent striking against object, initial encounter; Y92.231 Patient bathroom in hospital as the place of occurrence of the external cause
CPT/HCPCS: 36415; 70450; 70496; 70498; 70551; 71045; 72125; 73030; 80048; 80053; 80061; 81000; 82962; 83036; 84484; 85025; 85379; 85610; 85730; 93005; 93041; 94664; 96361; 96374; 96376

== ENCOUNTER 2018-02-09 14:55 | Inpatient (IN) | payer OTHER ==
[~2018-02-09] VITALS: Ht 160 cm; Wt 68.5 kg
[~2018-02-09 14:55] MED LIST changes: +ACET-1783 PO; +ACET325T49 PO; +ASPI325T32 PO; +ASPI500T15 PO; +ATOR40TA PO; +IBUP-1773 PO; +INSU100V16 SC; +INSU100V5 SQ; +METF500T8 PO
--- NOTE | 2018-02-09 16:00 | Occupational Therapy Eval ---
OT Evaluation-General/PLF Medical Diagnosis Admission Date 02-09-18 Medical Diagnosis: CVA Onset Date: Feb 04, 2018 Therapy Diagnosis Therapy Diagnosis: Weakness, right sided Height/Weight Height (Feet): 5 Height (Inches): 4.00 Weight (Pounds): 149 Weight (Ounces): 0.9 Weight Bear Status Weight Bearing Restriction: Weight Bearing/Tolerated Referral Physician: Dr. ellsworth Referral Reason: Activity Tolerance, Self Care, Evaluation/Treatment, Strengthening/ROM Medical History Pertinent Medical History: HTN Current History Pt. states that he began to have trouble controlling his phone with his hand. Called a friend. Was able to walk down 20 stairs. Came to ER. Reviewed History: Yes Social History Home: Apartment Current Living Status: Roommate Entry Into Home: Stairs With Railing Steps Into Home: 20 ADL-Prior Level of Function ADL PLOF Comments Pt. was independent with daily tasks. 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 Appearance Pt. up in chair. Agrees to treatment. Mental Status/Objective Patient Orientation: Person, Place Attachments: IV Current Hand Dominance: Right Upper Extremity ROM Pt. able to exhibit 90 degrees right UE. Full ROM in left Upper Extremity Coordination Right- impaired Upper Extremity Sensation intact Upper Extremity Strength 3/5 right hand 2+/5 right shoulder 4/5 left UE ADL-Treatment Functional [place] Measure 0=Not Assessed/NA 4=Minimal Assistance 1=Total Assistance 5=Supervision or Setup 2=Maximal Assistance 6=Modified [place] 3=Moderate Assistance 7=Complete IndependenceIRFPAI Quality Coding Scale 6 Independent with activity with or without an assistive device 5 Patient requires set up or clean up by helper. Patient completes activity by themselves 4 Supervision or touching assist (CGA). [place] provide cues , steadying assist 3 The helper provides less than half the effort to complete the activity 2 The helper provides more than half the effort to complete the activity 1 Dependent. The helper does all the effort to complete an activity 7 Patient refused to complete or attempt activity 9 The patient did not perform the activity before the current illness or injury 88 Not attempted due to Medical conditions or safety concerns Lower Body Dressing (FIM): 2 (Max assist. Unable to reach feet to don socks.) Lower Body Dressing (QC): 2 On/Off Footwear (QC): 2 Other Treatments OT/PT co-treat for partial session. Pt. demonstrates weakness and decreased balance at times. OT facilitated UE strengthening with hand and arm exercises, as well as ADL training. PT facilitated transfer training and mobility. Education OT Patient Education: Correct positioning, Exercise program, Modified ADL techniques, Progress toward Goal/Update tx plan, Purpose of tx/functional activities, Reviewed precautions, Rehab process, Transfer techniques Teaching Recipient: Patient Teaching Methods: Demonstration Response to Teaching: Verbalize Understanding, Return Demonstration OT Short Term Goals Short Term Goals 1=Demonstrate adherence to instructed precautions during ADL tasks. 2=Patient will verbalize/demonstrate understanding of assistive devices/ modifications for ADL. 3=Patient will improve strength/tolerance for activity to enable patient to perform ADL's. OT Snf Goals Housing Officer Goals Time Frame: Feb 23, 2018 Eating (FIM): 6 Eating (QC): 6 Groomin Oral Hygiene (QC): 6 Bathing(FIM): 5 Shower/Bathe Self (QC): 4 Upper Body Dressing(FIM): 6 Upper Body Dressing (QC): 6 Lower Body Dressing(FIM): 6 Lower Body Dressing (QC): 6 On/Off Footwear (QC): 6 Toileting(FIM): 6 Toileting Hygiene (QC): 6 Transfers (B,C,W/C) (FIM): 6 Toilet/Commode Transfer(FIM): 6 Toilet/Commode Transfer (QC): 6 Shower Transfer(FIM): 5 Additional Goals: 1-Demonstrate ADL Tasks, 2-Verbalize Understanding, 3- ImproveStrength/[place] 1=Demonstrate adherence to instructed precautions during ADL tasks. 2=Patient will verbalize/demonstrate understanding of assistive devices/ modifications for ADL. 3=Patient will improve strength/tolerance for activity to enable patient to perform ADL's. OT Education/Plan Problem List/Assessment Assessment: Decreased Activ Tolerance, Decreased UE Strength, Dependent Transfers, Impaired Bed Mobility, Impaired Coordination, Impaired Funct Balance , Impaired I ADL's, Impaired Self-Care Skills, Restricted Funct UE ROM Discharge Recommendations Plan/Recommendations: Continue POC Therapy D/C Recommendations: Home w/ Family Support, Occupational Therapy Home Care, Scheduled Assistance Equpiment Recommendations-D/C: Extended Bath Bench, Hip Kit Target Placement Home with home health and roommate. Treatment Plan/Plan of Care Treatment,Training & Education: Yes Patient would benefit from OT for education, treatment and training to promote independence in ADL's, mobility, safety and/or upper extremity function for ADL' s. Plan of Care: ADL Retraining, Functional Mobility, UE Funct Exercise/Act Treatment Duration: Feb 23, 2018 Frequency: At least 5 of 7 days/Wk (IRF) Estimated Hrs Per Day: 1.5 hours per day Agreement: Yes Rehab Potential: Good Time/GCodes Start Time: 15:25 Stop Time: 16:20 Total Time Billed (hr/min): 45 Billed Treatment Time 3329-6412 1, EVM x 10minutes, FA x 15minutes [id number] PT eval, no charge [id number] FA x 20 minutes, co-treat- please see above note for designated roles. RASHEL RODRIGES OT Feb 09, 2018 16:00
--- NOTE | 2018-02-09 16:45 | Physical Therapy Evaluation ---
PT Evaluation-General Medical Diagnosis Admission Date 02/09/2018 Medical Diagnosis: CVA Onset Date: Feb 04, 2018 Therapy Diagnosis Therapy Diagnosis: weakness; abn gait Height/Weight Height (Feet): 5 Height (Inches): 3.00 Weight (Pounds): 150 Weight (Ounces): 0.0 Precautions Precautions/Isolations: Fall Prevention, Standard Precautions, Pressure Ulcer Referral Physician: Dr. ellsworth Reason for Referral: Evaluation/Treatment Medical History Pertinent Medical History: HTN Current History CVA on 02/04/2018; right sided weakness Reviewed History: Yes Social History Home: Apartment Current Living Status: Roommate Entry Into Home: Stairs With Railing PT Steps Into Home: 20 Prior/Core FIM Prior Level of Function Functional [place] Measure 0=Not Assessed/NA 4=Minimal Assistance 1=Total Assistance 5=Supervision or Setup 2=Maximal Assistance 6=Modified [place] 3=Moderate Assistance 7=Complete [place] Bed Mobility: 7 Transfers (B,C,W/C) (FIM): 7 Gait: 7 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 PT Evaluation-Current Subjective Agreeable to PT. No complaints at this time. Pain Numeric Pain Scale: 0-No Pain Location: No Pain Reported Objective Patient Orientation: Person, Place, Time, Situation Problem Solving: Fair ROM/Strength ROM Lower Extremities WFL Strenght Lower Extremities Left LE strength WNL Right LE strength: hip flexion 3/5, quads 3/5; hamstrings 3/5, DF 2/5 Integumentary/Posture Integumentary Intact Bowel Incontinence: No Bladder Incontinence: No Posture Normal and symmetrical; slight rounded shoulders Neuromuscular (Tone, Coordination, Reflexes) Decreased coordination right LE; reflexed symmetrical LE's but seem to be very brisk. Sensory Vision: Wears Glasses Hearing: Functional Hand Dominance: Right Sensation Right Lower Extremit: Intact Sensation Left Lower Extremity: Intact Transfers Functional [place] Measure 0=Not Assessed/NA 4=Minimal Assistance 1=Total Assistance 5=Supervision or Setup 2=Maximal Assistance 6=Modified [place] 3=Moderate Assistance 7=Complete IndependenceIRFPAI Quality Coding Scale 6 Independent with activity with or without an assistive device 5 Patient requires set up or clean up by helper. Patient completes activity by themselves 4 Supervision or touching assist (CGA). [place] provide cues , steadying assist 3 The helper provides less than half the effort to complete the activity 2 The helper provides more than half the effort to complete the activity 1 Dependent. The helper does all the effort to complete an activity 7 Patient refused to complete or attempt activity 9 The patient did not perform the activity before the current illness or injury 88 Not attempted due to Medical conditions or safety concerns Transfers (B, C, W/C) (FIM): 4 Roll Left to Right (QC): 4 Supine to/from Sit: 4 Sit to/from Stand: 4 bed t/f WC(FIM only if WC use): 4 Sit to Lying (QC): 4 Lying to Sitting/Side of Bed(Q: 5 Sit to Stand (QC): 4 Chair/Aqi-vq-Bgpuf Xfer(QC): 4 Car Transfer (QC): 3 Slightly impulsive; requires cues for safety. Needs min assist for balance with initial standing at times. Gait Does the Patient Walk?: Yes Mode of Locomotion: Walk Anticipated Mode of Locomotion: Walk Gait (FIM): 2 Distance (FIM): 2=371-24 ft Walk 10 feet (QC): 4 Walk 50 ft with 2 Turns(QC): 4 Walk 150 ft (QC): 88 Walking 10ft/uneven surface-QC: 4 Distance: 120 ft Gait Level of Assist: 4 Gait Persons Needed: 1 Gait Assistive Device: FWW Comments/Gait Description Narrow [place]DEL[place]IO with occas scissoring of R LE; unsteady at times with assist to maintain balance at times. Slightly impulsive. Wheelchair Training Does the Pt Use a Wheelchair?: No Stairs Stairs (FIM): 1 #of Steps: 1 Level of Assist: 3 1 Step (curb) (QC): 3 4 Steps (QC): 88 Assistive Device: Walker 12 Steps (QC): 88 Balance Sitting Static: Good Sitting Dynamic: Good Standing Static: Fair Standing Dynamic: Fair Picking up an Object (QC): 3 Treatment Co treat with OT to address functional safety with OT discussing self care and ADL"s as PT addressed functional balance and safety awareness. Worked on balance tasks which involved the skill of 2 clinicians to focus on the right UE as well as balance in standing. Assessment/Needs Post CVA with residual right sided weakness that impairs gait, balance, transfers and functional safety. He requires assist with transfers and gait and needs skilled cues for safety. He has an altered gait pattern that limits mobiltiy. 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 He is an excellent candidate for ARu to address deficits as a result of CVA. Rehab Potential: Good PT Short Term Goals Short Term Goals Time Frame: Feb 16, 2018 Transfers (B,C,W/C) (FIM): 5 Gait (FIM): 5 Stairs (FIM): 5 PT Half-Way Goals Bank Guard Goals PT Half-Way Goals Time Frame: Mar 02, 2018 Transfers (B,C,W/C) (FIM): 7 Sit to Lying (QC): 6 Lying-Sitting on Side/Bed(QC): 6 Sit to Stand (QC): 6 Rollin Roll Left to Right (QC): 6 Chair/Xnh-oz-Xrizj Xfer(QC): 6 Car Transfer (QC): 6 Does the Patient Walk: Yes Gait (FIM): 6 Gait distance (FIM): 3=150 ft Walk 10 feet (QC): 6 Walk 10ft-Uneven Surface(QC): 6 Walk 50ft with 2 Turns (QC): 6 Walk 150 ft (QC): 6 Gait Assistive Device: FWW Does the Pt use WC or Scooter?: No Stairs (FIM): 7 # of Steps: 20 1 Step (curb) (QC): 6 4 Steps (QC): 6 12 Steps (QC): 6 Stairs Level Of Assist: 6 Picking up an Object (QC): 6 PT Plan Problem List Problem List: Activity Tolerance, Functional Strength, Safety, Balance, Gait, Transfer, Bed Mobility Treatment/Plan Treatment Plan: Continue Plan of Care Treatment Plan: Bed Mobility, Education, Functional Activity [place], Functional Strength, Group Therapy, Gait, Safety, Therapeutic Exercise, Transfers Treatment Duration: Mar 02, 2018 Frequency: At least 5 of 7 days/Wk (IRF) Estimated Hrs Per Day: 1.5 hours per day Patient and/or Family Agrees t: Yes Safety Risks/Education Patient Education: Transfer Techniques, Safety Issues Teaching Recipient: Patient Teaching Methods: Discussion Response to Teaching: Reinforcement Needed Time/GCodes Time In: 1550 Time Out: 1620 Total Billed Treatment Time: 30 Total Billed Treatment visit EVM 10 FA 20 Co treat with OT 20 ALEE HOWARD PT Feb 09, 2018 16:45
--- OUTSIDE RECORDS SUMMARY | 2018-02-09 17:27 | XMS REPORT | Continuity of Care Document ---
Author Author [facility] of [facility] Address Unknown Phone Unavailable Allergies Active Description Code Type Severity Reaction Onset Reported/Identified Relationship to Patient Clinical Status Yes No Known Drug Allergies [id number] Drug Allergy Unknown N/A 08/14/2008 Medications There [...] Procedures Code [place] [address] A1C (IN-HOUSE) 10/04/2012 50293 MICRO ALBUMIN-IN HOUSE 01/23/2013 37123 A1C (IN-HOUSE) 01/23/2013 35545 ROUTINE VENIPUNCTURE 01/23/2013 49832 CMP 01/23/2013 41342 LIPID PANEL 01/23/2013 [id number] GFR CALC (RESULT ONLY) 01/23/2013 28768 ROUTINE VENIPUNCTURE 10/09/2013 13546 A1C (IN-HOUSE) 10/09/2013 [id number] GFR CALC (RESULT ONLY) 10/09/2013 30752 CMP 10/09/2013 00489 LIPID PANEL 10/09/2013 55392 ROUTINE VENIPUNCTURE 02/09/2014 87051 A1C (IN-HOUSE) 02/09/2014 40391 MICRO ALBUMIN-IN HOUSE 02/09/2014 Internal Gupta, Ronni 02/09/2014 86511 CBC 02/09/2014 57073 MICRO ALBUMIN-IN HOUSE 07/17/2014 00956 A1C (IN-HOUSE) 07/17/2014 Results Test Result Range Influenza virus A and B antigen detection - 09/15/17 07:25 FLU RESULT NEGATIVE FOR INFLUENZA A AND B ANTIGENS BY WI NR Complete blood count (CBC) with automated white blood cell (WBC) differential - 02/04/18 13:11 Blood leukocytes automated count (number/volume) 9.8 10*3/uL 4.3-11.0 Blood erythrocytes automated count (number/volume) 5.95 10*6/uL 4.35-5.85 Venous blood hemoglobin measurement (mass/volume) 18.3 g/dL 13.3-17.7 Blood hematocrit (volume fraction) 51 % 40-54 Automated erythrocyte mean corpuscular volume 85 [foz_us] 80-99 Automated erythrocyte mean corpuscular hemoglobin (mass per erythrocyte) 31 pg 25-34 Automated erythrocyte mean corpuscular hemoglobin concentration measurement ( mass/volume) 36 g/dL 32-36 Automated erythrocyte distribution width ratio 12.8 % 10.0-14.5 Automated blood platelet count (count/volume) 348 10*3/uL 130-400 Automated blood platelet mean volume measurement 9.8 [foz_us] 7.4-10.4 Automated blood neutrophils/100 leukocytes 74 % 42-75 Automated blood lymphocytes/100 leukocytes 19 % 12-44 Blood monocytes/100 leukocytes 6 % 0-12 Automated blood eosinophils/100 leukocytes 1 % 0-10 Automated blood basophils/100 leukocytes 1 % 0-10 Blood neutrophils automated count (number/volume) 7.2 10*3 1.8-7.8 Blood lymphocytes automated count (number/volume) 1.8 10*3 1.0-4.0 Blood monocytes automated count (number/volume) 0.6 10*3 0.0-1.0 Automated eosinophil count 0.1 10*3/uL 0.0-0.3 Automated blood basophil count (count/volume) 0.1 10*3/uL 0.0-0.1 PT panel in platelet poor plasma by coagulation assay - 02/04/18 13:11 Prothrombin time (PT) in platelet poor plasma by coagulation assay 12.5 s 12.2-14.7 INR in platelet poor plasma or blood by coagulation assay 0.9 0.8-1.4 Activated partial thromboplastin time (aPTT) in platelet poor plasma bycoagulation assay - 02/04/18 13:11 Activated partial thromboplastin time (aPTT) in platelet poor plasma bycoagulation assay 35 s 24-35 Fibrin D-dimer FEU measurement in platelet poor plasma (mass/volume) - 13:11 Fibrin D-dimer FEU measurement in platelet poor plasma (mass/volume) 0.29 ug/mL 0.00-0.49 Comprehensive metabolic panel - 02/04/18 13:11 Serum or plasma sodium measurement (moles/volume) 137 mmol/L 135-145 Serum or plasma potassium measurement (moles/volume) 4.0 mmol/L 3.6-5.0 Serum or plasma chloride measurement (moles/volume) 104 mmol/L 98-107 Carbon dioxide 23 mmol/L 21-32 Serum or plasma anion gap determination (moles/volume) 10 mmol/L 5-14 Serum or plasma urea nitrogen measurement (mass/volume) 10 mg/dL 7-18 Serum or plasma creatinine measurement (mass/volume) 0.93 mg/dL 0.60-1.30 Serum or plasma urea nitrogen/creatinine mass ratio 11 NRG Serum or plasma creatinine measurement with calculation of estimated glomerular filtration rate > NRG Serum or plasma glucose measurement (mass/volume) 327 mg/dL 70-105 Serum or plasma calcium measurement (mass/volume) 9.6 mg/dL 8.5-10.1 Serum or plasma total bilirubin measurement (mass/volume) 0.7 mg/dL 0.1-1.0 Serum or plasma alkaline phosphatase measurement (enzymatic activity/volume) 132 U/L 40-136 Serum or plasma aspartate aminotransferase measurement (enzymatic activity/ volume) 15 U/L 5-34 Serum or plasma alanine aminotransferase measurement (enzymatic activity/volume ) 26 U/L 0-55 Serum or plasma protein measurement (mass/volume) 7.7 g/dL 6.4-8.2 Serum or plasma albumin measurement (mass/volume) 4.4 g/dL 3.2-4.5 Serum or plasma troponin i.cardiac measurement (mass/volume) - 02/04/18 13:11 Serum or plasma troponin i.cardiac measurement (mass/volume) < ng/ mL <0.30 Capillary blood glucose measurement by glucometer (mass/volume) - 02/04/18 13: 19 Capillary blood glucose measurement by glucometer (mass/volume) 294 mg/dL 70-110 Complete urinalysis with reflex to culture - 02/04/18 14:00 Urine color determination YELLOW NRG Urine clarity determination CLEAR NRG Urine pH measurement by test strip 5 5-9 Specific gravity of urine by test strip 1.020 1.016- 1.022 Urine protein assay by test strip, semi-quantitative 2+ NEGATIVE Urine glucose detection by automated test strip 4+ NEGATIVE Erythrocytes detection in urine sediment by light microscopy 1+ NEGATIVE Urine ketones detection by automated test strip NEGATIVE NEGATIVE Urine nitrite detection by test strip NEGATIVE NEGATIVE Urine total bilirubin detection by test strip NEGATIVE NEGATIVE Urine urobilinogen measurement by automated test strip (mass/volume) NORMAL NORMAL Urine leukocyte esterase detection by dipstick 1+ NEGATIVE Automated urine sediment erythrocyte count by microscopy (number/high power field) NONE NRG Automated urine sediment leukocyte count by microscopy (number/high power field ) RARE NRG Bacteria detection in urine sediment by light microscopy NEGATIVE NRG Squamous epithelial cells detection in urine sediment by light microscopy NONE NRG Crystals detection in urine sediment by light microscopy NONE NRG Casts detection in urine sediment by light microscopy NONE NRG Mucus detection in urine sediment by light microscopy NEGATIVE NRG Complete urinalysis with reflex to culture NO NRG Capillary blood glucose measurement by glucometer (mass/volume) - 02/05/18 06: 07 Capillary blood glucose measurement by glucometer (mass/volume) 233 mg/dL 70-110 Complete blood count (CBC) with automated white blood cell (WBC) differential - 02/05/18 06:10 Blood leukocytes automated count (number/volume) 12.5 10*3/uL 4.3-11.0 Blood erythrocytes automated count (number/volume) 5.46 10*6/uL 4.35-5.85 Venous blood hemoglobin measurement (mass/volume) 17.0 g/dL 13.3-17.7 Blood hematocrit (volume fraction) 48 % 40-54 Automated erythrocyte mean corpuscular volume 88 [foz_us] 80-99 Automated erythrocyte mean corpuscular hemoglobin (mass per erythrocyte) 31 pg 25-34 Automated erythrocyte mean corpuscular hemoglobin concentration measurement ( mass/volume) 36 g/dL 32-36 Automated erythrocyte distribution width ratio 13.0 % 10.0-14.5 Automated blood platelet count (count/volume) 328 10*3/uL 130-400 Automated blood platelet mean volume measurement 10.3 [foz_us] 7.4-10.4 Automated blood neutrophils/100 leukocytes 78 % 42-75 Automated blood lymphocytes/100 leukocytes 15 % 12-44 Blood monocytes/100 leukocytes 6 % 0-12 Automated blood eosinophils/100 leukocytes 1 % 0-10 Automated blood basophils/100 leukocytes 1 % 0-10 Blood neutrophils automated count (number/volume) 9.8 10*3 1.8-7.8 Blood lymphocytes automated count (number/volume) 1.9 10*3 1.0-4.0 Blood monocytes automated count (number/volume) 0.7 10*3 0.0-1.0 Automated eosinophil count 0.1 10*3/uL 0.0-0.3 Automated blood basophil count (count/volume) 0.1 10*3/uL 0.0-0.1 Whole blood basic metabolic panel - 02/05/18 06:10 Serum or plasma sodium measurement (moles/volume) 137 mmol/L 135-145 Serum or plasma potassium measurement (moles/volume) 3.9 mmol/L 3.6-5.0 Serum or plasma chloride measurement (moles/volume) 107 mmol/L 98-107 Carbon dioxide 24 mmol/L 21-32 Serum or plasma anion gap determination (moles/volume) 6 mmol/L 5-14 Serum or plasma urea nitrogen measurement (mass/volume) 9 mg/dL 7-18 Serum or plasma creatinine measurement (mass/volume) 0.78 mg/dL 0.60-1.30 Serum or plasma urea nitrogen/creatinine mass ratio 12 NRG Serum or plasma creatinine measurement with calculation of estimated glomerular filtration rate > NRG Serum or plasma glucose measurement (mass/volume) 237 mg/dL 70-105 Serum or plasma calcium measurement (mass/volume) 8.2 mg/dL 8.5-10.1 Lipid 1996 panel - 02/05/18 06:10 Serum or plasma triglyceride measurement (mass/volume) 316 mg/dL <150 Serum or plasma cholesterol measurement (mass/volume) 233 mg/dL < 200 Serum or plasma cholesterol in HDL measurement (mass/volume) 27 mg/ dL 40-60 Cholesterol in LDL [mass/volume] in serum or plasma by direct assay 159 mg/dL 1-129 Serum or plasma cholesterol in VLDL measurement (mass/volume) 63 mg/ dL 5-40 Hemoglobin A1c - 02/05/18 06:10 Blood hemoglobin A1C measurement (mass/volume) 11.6 % 4.0 -5.6 MEAN BLOOD GLUCOSE 286 % <=126 Capillary blood glucose measurement by glucometer (mass/volume) - 02/05/18 11: 18 Capillary blood glucose measurement by glucometer (mass/volume) 394 mg/dL 70-110 Capillary blood glucose measurement by glucometer (mass/volume) - 02/05/18 15: 19 Capillary blood glucose measurement by glucometer (mass/volume) 228 mg/dL 70-110 Capillary blood glucose measurement by glucometer (mass/volume) - 02/05/18 21: 23 Capillary blood glucose measurement by glucometer (mass/volume) 223 mg/dL 70-110 Capillary blood glucose measurement by glucometer (mass/volume) - 02/06/18 05: 51 Capillary blood glucose measurement by glucometer (mass/volume) 171 mg/dL 70-110 Capillary blood glucose measurement by glucometer (mass/volume) - 02/06/18 11: 04 Capillary blood glucose measurement by glucometer (mass/volume) 220 mg/dL 70-110 Capillary blood glucose measurement by glucometer (mass/volume) - 02/06/18 15: 35 Capillary blood glucose measurement by glucometer (mass/volume) 152 mg/dL 70-110 Capillary blood glucose measurement by glucometer (mass/volume) - 02/06/18 17: 40 Capillary blood glucose measurement by glucometer (mass/volume) 194 mg/dL 70-110 Capillary blood glucose measurement by glucometer (mass/volume) - 02/07/18 05: 34 Capillary blood glucose measurement by glucometer (mass/volume) 220 mg/dL 70-110 Capillary blood glucose measurement by glucometer (mass/volume) - 02/07/18 10: 34 Capillary blood glucose measurement by glucometer (mass/volume) 272 mg/dL 70-110 Capillary blood glucose measurement by glucometer (mass/volume) - 02/07/18 14: 53 Capillary blood glucose measurement by glucometer (mass/volume) 279 mg/dL 70-110 Capillary blood glucose measurement by glucometer (mass/volume) - 02/07/18 20: 29 Capillary blood glucose measurement by glucometer (mass/volume) 206 mg/dL 70-110 Capillary blood glucose measurement by glucometer (mass/volume) - 02/08/18 05: 50 Capillary blood glucose measurement by glucometer (mass/volume) 173 mg/dL 70-110 Capillary blood glucose measurement by glucometer (mass/volume) - 02/08/18 09: 39 Capillary blood glucose measurement by glucometer (mass/volume) 319 mg/dL 70-110 Capillary blood glucose measurement by glucometer (mass/volume) - 02/08/18 15: 14 Capillary blood glucose measurement by glucometer (mass/volume) 245 mg/dL 70-110 Capillary blood glucose measurement by glucometer (mass/volume) - 02/08/18 19: 31 Capillary blood glucose measurement by glucometer (mass/volume) 258 mg/dL 70-110 Capillary blood glucose measurement by glucometer (mass/volume) - 02/09/18 05: 22 Capillary blood glucose measurement by glucometer (mass/volume) 138 mg/dL 70-110 Capillary blood glucose measurement by glucometer (mass/volume) - 02/09/18 11: 03 Capillary blood glucose measurement by glucometer (mass/volume) 144 mg/dL 70-110 Capillary blood glucose measurement by glucometer (mass/volume) - 02/09/18 15: 23 Capillary blood glucose measurement by glucometer (mass/volume) 148 mg/dL 70-110 Encounters ACCT No. Visit Date/Time Discharge Status Pt. Type Provider Facility Loc./Unit Complaint [id number] 07/17/2014 08:47:00 07/17/2014 23:59:59 CLS Outpatient CORBIN MENDOZA MD [id number] 02/09/2014 08:50:00 02/09/2014 23:59:59 CLS Outpatient CORBIN MENDOZA MD [id number] 10/09/2013 08:41:00 10/09/2013 23:59:59 CLS Outpatient CORBIN MENDOZA MD [id number] 05/15/2013 14:11:00 05/15/2013 23:59:59 CLS Outpatient CORBIN MENDOZA MD [id number] 01/23/2013 08:52:00 01/23/2013 23:59:59 CLS Outpatient CORBIN MENDOZA MD [id number] 10/04/2012 08:59:00 10/04/2012 23:59:59 CLS Outpatient [id number] 06/14/2012 08:51:00 06/14/2012 23:59:59 CLS Outpatient CORBIN MENDOZA MD [id number] 09/15/2017 07:04:00 09/15/2017 08:06:00 DIS Emergency LEXI MARSHA [facility] ER RUNNY NOSE,COUGH [id number] 04/06/2016 15:55:00 04/06/2016 23:59:59 CLS Outpatient MIMA AMES APRN [facility] QUICK [id number] 05/19/2015 12:09:00 05/19/2015 23:59:59 CLS Outpatient ARNALDO MAHMOOD [facility] QUICK [id number] 02/16/2014 07:41:00 02/16/2014 10:55:00 DIS Out[facility] [id number] 02/15/2014 07:18:00 02/15/2014 23:59:59 CLS Outpatient RONNI GUPTA MD [facility] PREOP HEMATOCHEZIA [id number] 02/04/2018 13:28:00 Document Registration [id number] 09/01/2012 07:53:00 Document Registration
--- NOTE | 2018-02-09 17:49 | HISTORY AND PHYSICAL ---
DATE OF SERVICE: 02/09/2018 ADMISSION HISTORY AND PHYSICAL CHIEF COMPLAINT: Difficulty with walking. 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 Stroke activation was activated. The patient was not a TPA candidate. CT did suggest a possible stroke. MRI of the brain was not done. A CT angiogram of the neck revealed the left subclavian artery stenosis. This was severe in nature and blood pressure in each arm was checked. It was not felt to be needed to be emergently addressed. The patient was felt clinically to have sustained a left middle cerebral artery distribution stroke with right hemiparesis and some word finding difficulty. The patient was admitted, therapy was begun. The patient was felt to be appropriate for inpatient rehabilitation. Currently, he requires assistance for his ADLs and mobility skills.He is max assist for lower body dressing.He is min assist for Transfers and gait with FWW. PAST MEDICAL HISTORY: Hypertension, diabetes mellitus, hyperlipidemia and nicotine dependence. PAST SURGICAL HISTORY: Noncontributory. ALLERGIES: No known medication allergies. FAMILY HISTORY: Noncontributory. SOCIAL HISTORY: Single, lives with a roommate in a second floor apartment in [place], [place]. 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 REVIEW OF SYSTEMS: Ten-point review of systems is significant for some difficulty with speech, dysarthria and right-sided weakness. MEDICATIONS: Tylenol 650 mg p.o. q.4 hours as needed for pain, ASA 325 mg p.o. daily, Lipitor 40 mg p.o. each day at bedtime, ibuprofen 600 mg p.o. q.6 hours p.r.n. pain, NovoLog insulin 30 units subcu with meals, Levemir insulin 30 units subcu at bedtime, metformin 500 mg p.o. b.i.d. PHYSICAL EXAMINATION: GENERAL: Significant for pleasant male, appearing his stated age, somewhat short stature, in no acute distress, sitting in a chair. VITAL SIGNS: Within normal limits. He is afebrile. HEENT: Vision, speech and hearing significant for mild dysarthria, word finding difficulty. Hearing and vision grossly intact. No oral lesion is noted. NECK: Supple without mass. HEART: Regular rhythm. CHEST: Clear. ABDOMEN: Obese, soft and benign. Bowel sounds present. EXTREMITIES: No leg edema, no calf tenderness. MUSCULOSKELETAL: He has functional passive range of motion in all 4 extremities. NEUROLOGIC: He has 4/5 strength LUE RT hand 3/5 RT shoulder 2+/5 LLE Functional strength RT LE 3/5 except DF 2/5. Cognition is grossly intact. Sensation grossly intact to touch.He is RT hand dominant IMPRESSION: 1. 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 2. Hypertension, controlled with medication. 3. Diabetes mellitus 2, controlled with medication. PLAN: The patient will have a comprehensive program of inpatient stroke rehabilitation with goal of maximizing level of functional independence prior to discharge home with home healthcare and roommate. The patient will have PT and OT 90 minutes per day each discipline, 5 days a week for 14 days for gait strengthening, conditioning, ADLs, any patient family caregiver training necessary, adaptive equipment and training necessary. Speech therapy to do speech, swallow, cognitive screen and treat as indicated 3 to 5 days a week for 1 to 2 weeks. Rehabilitation nursing to assist with bowel, bladder, skin care, medication administration and pain management. Social service to assist with discharge planning, community reentry. [facility] their schedule. Dr. De León is listed as PCP. ESTIMATED LENGTH OF STAY: 14 days. PROGNOSIS: Rehab prognosis appears good for goal of discharging home with home health and roommate, modified independent to supervision for ADLs and mobility skills. DIET: Carb consistent. CODE STATUS: Full code. Job ID: [id number] DocumentID: [id number] Dictated Date: 02/09/2018 16:44:24 Woodworking Machine Setter Date: 02/09/2018 17:30:21 Dictated By: NICOLAS WALLER MD [facility]
[2018-02-09] MEDS ORDERED: ACETAMINOPHEN 325 MG TABLET PO PRN (18:15)
[2018-02-09] MEDS ORDERED: ONDANSETRON 4 MG/2 ML (SDV) Z0FRAN IV PRN (18:15)
[2018-02-09] MEDS ORDERED: ACETAMINOPHEN 650 MG SUPP (TYLENOL) PR PRN (18:15)
[2018-02-09] MEDS ORDERED: BISACODYL 10 MG SUPP (DULCOLAX) PR PRN (18:15)
[2018-02-09] MEDS ORDERED: MILK OF MAGNESIA 400 MG/5 ML 30 ML UDC NG PRN (18:15)
[2018-02-09] MEDS ORDERED: IBUPROFEN 600 MG (MOTRIN) TAB PO PRN (18:15)
--- NOTE | 2018-02-09 18:15 | PM&R Post Admission Assessment ---
Post Admission Physician Asses The preadmission screen agrees with the post admission assessment that the patient is a good candidate for inpatient rehabilitation. The patient will have a comprehensive program of inpatient rehabilitation with a goal of maximizing level of functional independence prior to discharge home with [facility]. The patient will have PT/OT ninety minutes per day, each discipline , five days a week for gait, strengthening, conditioning, balance, ADLs, any patient/family/caregiver training as necessary. Speech therapy to do cognitive assessment and treat as indicated. Rehabilitation nursing to assist with bowel, bladder, skin, medication administration, pain management. Deployment Engineer to assist with discharge planning, community reentry. SCD's for DVT prophylaxis. He appears to be well motivated to participate in three hours of therapy a day. He should be able to tolerate three hours of therapy a day from a medical standpoint. He should benefit from the three hours of therapy a day. He has a reasonable discharge plan, reasonable discharge rehabilitation goals and a supportive family. He has various comorbidities that need to be closely monitored with medications and treatments adjusted on a daily basis as needed. These include: DM HTN Barriers to discharge for this patient who had been independent prior to this are for him to be modified independent to supervision for ADLs and mobility skills prior to discharge home with [facility], so as to lessen the burden of the caregivers. Risks for this patient include: 1. Fall 2. Fracture 3. DVT 4. Pulmonary embolism 5. Poorly controlled DM 6. Skin breakdown 7. Contractures 8. Poorly controlled pain 9. Urinary retention 10. UTI 11. Respiratory infection 12. Aspiration 13, Poorly controlled HTN Estimated Length of Stay: 18 days Prognosis: Rehab prognosis appears good for goal of discharge home with [facility] modified independent to supervision for ADLs and mobility skills. [facility] CODE 01.1 Etiologic DX Acute nonhemorragic infarct involving the left batres radiata NICOLAS WALLER MD Feb 09, 2018 18:15
[2018-02-09 18:58] VITALS: BP 93/71
[2018-02-09] MEDS: DOCUSATE SODIUM 100 MG (COLACE) CAP PO SCH (20:18)
[2018-02-09] MEDS: FAMOTIDINE 20 MG (PEPCID) TABLET PO SCH (20:19)
[2018-02-09] MEDS: ATORVASTATIN 40 MG (LIPITOR) TABLET PO SCH (20:19)
[2018-02-09] MEDS ORDERED: DOCUSATE SODIUM 10 MG/ML 10 ML UDC (COLACE) NG SCH (21:00)
[2018-02-09] MEDS: inSUlin DETERMIR 1 UNIT/0.01 ML (LEVEMIR) CHARGE PER UNIT SQ SCH (21:19)
[2018-02-09] MEDS: ZOLPIDEM 5 MG (AMBIEN) TAB PO PRN (23:57)
[2018-02-10] MEDS: metFORMIN XR 500 MG (GLUCOPHAGE XR) TAB PO SCH ×2 (06:28→17:48)
[2018-02-10] MEDS: inSUlin ASPART (NovoLOG) 1 UNIT/0.01 ML (CHARGE PER UNIT) SC SCH ×3 (06:29→17:49)
[2018-02-10 06:46] VITALS: BP 132/86
[2018-02-10] MEDS: ASPIRIN E.C. 325 MG (ECOTRIN) TABLET PO SCH (09:14)
[2018-02-10] MEDS: FAMOTIDINE 20 MG (PEPCID) TABLET PO SCH ×2 (09:14→20:46)
[2018-02-10] MEDS: DOCUSATE SODIUM 100 MG (COLACE) CAP PO SCH ×2 (09:14→20:46)
--- NOTE | 2018-02-10 10:48 | PM & R (SOAP) Progress Note ---
Subjective Time Seen by Provider: 09:40 Subjective/Events-last exam Patient was seen in his room this AM Patient Min assist for transfers Objective Exam Last Set of Vital Signs Vital Signs Date Time Temp Pulse Resp B/P (MAP) Pulse Ox O2 Delivery O2 Flow Rate FiO2 02/10/18 09:00 Room Air 02/10/18 06:46 97.8 94 18 132/86 (101) 95 Capillary Refill : I&O Intake and Output 02/10/18 00:00 Intake Total 500 ml Balance 500 ml Intake Oral 500 ml # Voids 2 Daily Weight Change No General: Alert, Oriented X3, Cooperative, No Acute Distress HEENT: Atraumatic, PERRLA, EOMI, Mucous Memb Moist/Swan Neck: Supple, No JVD Lungs: Clear to Auscultation Heart: Regular Rate Abdomen: Normal Bowel Sounds, Soft, No Tenderness Extremities: No Edema Neuro: Other (RT HP) Results Lab Laboratory Tests 02/09/18 21:01: Glucometer 278H 02/10/18 05:20: Glucometer 103 02/10/18 09:16: Glucometer 99 Assessment/Plan Assessment Left Cva with RT HP HTN DM Plan Continue PT/OT Progressing well with therapies F/U with [facility] NICOLAS Escudero MD Feb 10, 2018 10:48
--- NOTE | 2018-02-10 11:22 | Physical Therapy Daily Note ---
PT Daily Note-Current Subjective Pt reports he's feeling good and ready for therapy. Mental Status Patient Orientation: Normal For Age Transfers Functional [place] Measure 0=Not Assessed/NA 4=Minimal Assistance 1=Total Assistance 5=Supervision or Setup 2=Maximal Assistance 6=Modified [place] 3=Moderate Assistance 7=Complete IndependenceIRFPAI Quality Coding Scale 6 Independent with activity with or without an assistive device 5 Patient requires set up or clean up by helper. Patient completes activity by themselves 4 Supervision or touching assist (CGA). [place] provide cues , steadying assist 3 The helper provides less than half the effort to complete the activity 2 The helper provides more than half the effort to complete the activity 1 Dependent. The helper does all the effort to complete an activity 7 Patient refused to complete or attempt activity 9 The patient did not perform the activity before the current illness or injury 88 Not attempted due to Medical conditions or safety concerns Transfers (B, C, W/C) (FIM): 4 Gait Training Gait (FIM): 4 Distance: 200 Gait Level of Assist: 4 Gait Persons Needed: 1 Gait Assistive Device: FWW (worked on ambulation using FWW and (I) of device. Needs occasional steadying assist for balance when fatigued. ) Ambulated through slalom course, 180 degree turn both using device and no device. Stair Training Stair Training: Handrails/: 1 handrail #of Steps: 12 Stairs: Pattern: Step to Level of Assist: 4 needs verbal cues for sequence and to avoid toe drag Exercises Supine Ex: Bridging, Ankle pumps, Short Arc Quads, D1 F/E UE, D2 F/E UE Standing: Braiding, Floor clock, Heel/toe raises, 3 way Ex=Flex, Abd, Ext, Side steps Standing Reps: 10 NuStep Minutes: 10 NuStep Workload: 5 Assessment Current Status: Good Progress Patient progressing with gait stability and tolerance. He was progressed this visit to gait without assistive device. Currently a FWW is recommended but shows progress to advance to (I) gait. PT Short Term Goals Short Term Goals Time Frame: Feb 16, 2018 Transfers (B,C,W/C) (FIM): 5 Gait (FIM): 5 Stairs (FIM): 5 PT Head Of It Goals Head Of It Goals PT Mcfp Goals Time Frame: Mar 02, 2018 Transfers (B,C,W/C) (FIM): 7 Sit to Lying (QC): 6 Lying-Sitting on Side/Bed(QC): 6 Sit to Stand (QC): 6 Rollin Roll Left to Right (QC): 6 Chair/Vti-pj-Iealm Xfer(QC): 6 Car Transfer (QC): 6 Does the Patient Walk: Yes Gait (FIM): 6 Gait distance (FIM): 3=150 ft Walk 10 feet (QC): 6 Walk 10ft-Uneven Surface(QC): 6 Walk 50ft with 2 Turns (QC): 6 Walk 150 ft (QC): 6 Gait Assistive Device: FWW Does the Pt use WC or Scooter?: No Stairs (FIM): 7 # of Steps: 20 1 Step (curb) (QC): 6 4 Steps (QC): 6 12 Steps (QC): 6 Stairs Level Of Assist: 6 Picking up an Object (QC): 6 PT Plan Treatment/Plan Treatment Plan: Continue Plan of Care Treatment Plan: Bed Mobility, Education, Functional Activity Clark, Functional Strength, Group Therapy, Gait, Safety, Therapeutic Exercise, Transfers Treatment Duration: Mar 02, 2018 Frequency: At least 5 of 7 days/Wk (IRF) Estimated Hrs Per Day: 1.5 hours per day Patient and/or Family Agrees t: Yes Time/GCodes Time In: 1001 Time Out: 1105 Total Billed Treatment Time: 64 Total Billed Treatment visit, gait 30 min, ex 15 min, NM 15min SHADE MONTES PT Feb 10, 2018 11:22
--- NOTE | 2018-02-10 13:41 | Physical Therapy Daily Note ---
PT Daily Note-Current Subjective Patient agrees to PT. Pain Numeric Pain Scale: 0-No Pain Location: No Pain Reported Transfers Functional [place] Measure 0=Not Assessed/NA 4=Minimal Assistance 1=Total Assistance 5=Supervision or Setup 2=Maximal Assistance 6=Modified [place] 3=Moderate Assistance 7=Complete IndependenceIRFPAI Quality Coding Scale 6 Independent with activity with or without an assistive device 5 Patient requires set up or clean up by helper. Patient completes activity by themselves 4 Supervision or touching assist (CGA). [place] provide cues , steadying assist 3 The helper provides less than half the effort to complete the activity 2 The helper provides more than half the effort to complete the activity 1 Dependent. The helper does all the effort to complete an activity 7 Patient refused to complete or attempt activity 9 The patient did not perform the activity before the current illness or injury 88 Not attempted due to Medical conditions or safety concerns Transfers (B, C, W/C) (FIM): 4 Scootin Sit to/from Stand: 4 Sit to Stand (QC): 4 Gait Training Does the Patient Walk?: Yes Gait (FIM): 4 Distance (FIM): 3=150 ft Distance: 200' x 4 Walk 10 feet (QC): 4 Walk 50 ft with 2 Turns(QC): 4 Walk 150 ft (QC): 4 Gait Level of Assist: 4 Gait Assistive Device: FWW right LE lag with gait with skilled verbal instruction to clear foot Exercises Seated Therapy Exercises: Ankle pumps, Long arc quads, Hip flexion Seated Reps: 15 (2# weight bilaterally) Standing: Heel/toe raises, 3 way Ex=Flex, Abd, Ext, Marching, Mini squats Standing Reps: 15 (2# weight bilaterally) Assessment Patient is progressing with treatment plan. He continues to have some right neglect and diminished proprioception, however, is improving. PT Short Term Goals Short Term Goals Time Frame: Feb 16, 2018 Transfers (B,C,W/C) (FIM): 5 Gait (FIM): 5 Stairs (FIM): 5 PT Senior Care Goals Milking Machine Technician Goals PT Senior Care Goals Time Frame: Mar 02, 2018 Transfers (B,C,W/C) (FIM): 7 Sit to Lying (QC): 6 Lying-Sitting on Side/Bed(QC): 6 Sit to Stand (QC): 6 Rollin Roll Left to Right (QC): 6 Chair/Kuc-ax-Totnd Xfer(QC): 6 Car Transfer (QC): 6 Does the Patient Walk: Yes Gait (FIM): 6 Gait distance (FIM): 3=150 ft Walk 10 feet (QC): 6 Walk 10ft-Uneven Surface(QC): 6 Walk 50ft with 2 Turns (QC): 6 Walk 150 ft (QC): 6 Gait Assistive Device: FWW Does the Pt use WC or Scooter?: No Stairs (FIM): 7 # of Steps: 20 1 Step (curb) (QC): 6 4 Steps (QC): 6 12 Steps (QC): 6 Stairs Level Of Assist: 6 Picking up an Object (QC): 6 PT Plan Treatment/Plan Treatment Plan: Continue Plan of Care Treatment Plan: Bed Mobility, Education, Functional Activity Clark, Functional Strength, Group Therapy, Gait, Safety, Therapeutic Exercise, Transfers Treatment Duration: Mar 02, 2018 Frequency: At least 5 of 7 days/Wk (IRF) Estimated Hrs Per Day: 1.5 hours per day Patient and/or Family Agrees t: Yes Time/GCodes Time In: 1300 Time Out: 1330 Total Billed Treatment Time: 30 Total Billed Treatment 1 visit EX 15 min GT 15 min BEN RILEY PT Feb 10, 2018 13:41
--- NOTE | 2018-02-10 15:15 | Individualized Plan of Care ---
Individualized Plan of Care Rehab Nursing IPOC Order Admission Date Feb 09, 2018 at 16:30 Current Orders Orders Admission Order(Inpt,Obs,Sdc) (02/09/18 16:47) Admission Arrival Bed Request (02/09/18 16:47) Patient Visit (02/09/18 ) Pt Eval Moderate Complexity (02/09/18 ) Functional Activities, Ea 15 (02/09/18 ) Vital Signs: Routine (Ord) 08,16,00 (02/09/18 17:58) Sequential Compression Device 08,20 (02/09/18 17:58) Director Writing-Inpt Rehab (02/09/18 17:58) Rehab Nursing Orders-Ipoc (02/09/18 17:58) Physical Therapy Rehab Orders (02/09/18 17:58) Occupational Therapy Rehab Ord (02/09/18 17:58) Speech Therapy Rehab Orders (02/09/18 17:58) Turn And Reposition Q2HR (02/09/18 17:58) Intake & Output 06,14,22 (02/09/18 17:58) Weekly Weight (Lbs) WEEK (02/09/18 17:58) Code/Resuscitation (02/09/18 18:04) Accucheck 2 Hr Postpr & Fastin 0930,1430,1930 (02/09/18 18:04) Incentive Spirometry (Nursing) Q2H (02/09/18 18:04) Acetaminophen Tablet/Caplet (Tylenol T (02/09/18 18:15) Acetaminophen Suppository (Tylenol Suppo (02/09/18 18:15) Aspirin Enteric Coated Tablet (Ecotrin T (02/10/18 09:00) Atorvastatin Tablet (Lipitor) (02/09/18 21:00) Bisacodyl Suppository (Dulcolax Supposit (02/09/18 18:15) Docusate Sodium Capsule (Colace Capsule) (02/09/18 21:00) Docusate Sodium Oral Solution (Colace Or (02/09/18 21:00) Famotidine Tablet (Pepcid Tablet) (02/09/18 21:00) Ibuprofen Tablet (Motrin Tablet) (02/09/18 18:15) Magnesium Hydroxide Oral Susp (Mom Oral (02/09/18 18:15) Ondansetron Injection (Zofran Injectio (02/09/18 18:15) Zolpidem Tablet (Ambien Tablet) (02/09/18 18:15) Insulin Aspart (Novolog) (Novolog (Charg (02/10/18 07:00) Insulin Determir (Per Unit) (Levemir (Pe (02/09/18 21:00) Metformin Xr Tablet (Glucophage Xr Table (02/10/18 07:00) Pharmacy Communication (Pharmacy Communi (02/09/18 18:15) Consult Physician (02/09/18 18:08) Cho 60g/M 3snack (16-2000 Morgan) (02/09/18 Lunch) Patient Visit (02/10/18 ) Exercise Therap, Ea 15 Min (02/10/18 ) Ex Neuromuscular, Ea 15 Min (02/10/18 ) Gait Training, Ea 15 Min (02/10/18 ) Rehab Nursing Orders: Diseage Management, Edu in Press Rel Techn, Hydration Management, Nutrition Management, Pain Management Other Nursing Orders: Monitor for urinary retention and constipation PT IPOC Problem List: Activity Tolerance, Functional Strength, Safety, Balance, Gait, Transfer, Bed Mobility Treatment Plan: Continue Plan of Care Bed Mobility, Education, Functional Activity Clark, Functional Strength, Group Therapy, Gait, Safety, Therapeutic Exercise, Transfers Treatment Duration: Mar 02, 2018 Frequency: At least 5 of 7 days/Wk (IRF) Estimated Hrs Per Day: 1.5 hours per day OT IPOC Problems: Decreased Activ Tolerance, Decreased UE Strength, Dependent Transfers , Impaired Bed Mobility, Impaired Coordination, Impaired Funct Balance, Impaired I ADL's, Impaired Self-Care Skills, Restricted Funct UE ROM OT Treatment, Training and Edu: Yes Plan of Care: ADL Retraining, Functional Mobility, UE Funct Exercise/Act Treatment Duration: Feb 23, 2018 Frequency: At least 5 of 7 days/Wk (IRF) Estimated Hrs Per Day: 1.[address] IPOC Speech Therapy Treatment Plan: Continue Plan of Care Treatment Duration: Feb 14, 2018 Frequency: 1 time per week Estimated Hrs Per Day: .25 hour per day Director Writing/Case Mgmt Director Writing/Case Managemen: Discharge Planning, Patient/Family Counseling Physician IPOC Medical Issues being managed closely and that require the 24 hour availability of a physician: HTN DM IGC CODE 01.1 Etiologic DX 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 Medical Issues: Bowel/Bladder Function, DVT Prophylaxis, Falls Precautions, Infection Protection, Other (List) (as per above) Brief Synthesis of Preadmission Screen, Post-Admission Evaluation, and Therapy Evaluations: 57 yo male who had been Independent and 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
--- NOTE | 2018-02-10 15:40 | Occupational Ther Daily Note ---
OT Current Status-Daily Note Subjective No pain reported. Appearance Pt. sitting up in chair. Agrees to treatment. Mental Status/Objective Patient Orientation: Person, Place Functional [place] Measure 0=Not Assessed/NA 4=Minimal Assistance 1=Total Assistance 5=Supervision or Setup 2=Maximal Assistance 6=Modified [place] 3=Moderate Assistance 7=Complete [place] Attachments: IV ADL-Treatment Functional [place] Measure 0=Not Assessed/NA 4=Minimal Assistance 1=Total Assistance 5=Supervision or Setup 2=Maximal Assistance 6=Modified [place] 3=Moderate Assistance 7=Complete IndependenceIRFPAI Quality Coding Scale 6 Independent with activity with or without an assistive device 5 Patient requires set up or clean up by helper. Patient completes activity by themselves 4 Supervision or touching assist (CGA). [place] provide cues , steadying assist 3 The helper provides less than half the effort to complete the activity 2 The helper provides more than half the effort to complete the activity 1 Dependent. The helper does all the effort to complete an activity 7 Patient refused to complete or attempt activity 9 The patient did not perform the activity before the current illness or injury 88 Not attempted due to Medical conditions or safety concerns Grooming (FIM): 4 (Pt. required min assist to thoroughly brush hair.) Oral Hygiene (QC): 9 Bathing (FIM): 4 (Min assist to dry bottom.) Shower/Bathe Self (QC): 4 Upper Body (FIM): 3 (Mod assist to don shirt.) Upper Body Dressing (QC): 3 Lower Body Dressing (FIM): 3 (Mod assist overall to don his underwear and pants. Pt. able to don slipper socks.) Lower Body Dressing (QC): 3 On/Off Footwear (QC): 5 Transfers (B, C, W/C) (FIM): 4 (CGA to ambulate with walker.) Toilet/Commode Transfer (FIM): 4 Toilet Transfer (QC): 4 Shower Transfer(FIM): 4 Other Treatment After ADLs, pt. ambulated to therapy gym. Tolerated gentle PROM to right UE in all planes. OT ranged right shoulder to end point. Pt. does exhibit increased tone with movement. Ambulated back to room. All needs met. Education OT Patient Education: Correct positioning, Exercise program, Modified ADL techniques, Progress toward Goal/Update tx plan, Purpose of tx/functional activities, Reviewed precautions, Rehab process, Transfer techniques Teaching Recipient: Patient Teaching Methods: Demonstration, Discussion Response to Teaching: Verbalize Understanding, Return Demonstration OT Short Term Goals Short Term Goals Transfers (B,C,W/C) (FIM): 5 1=Demonstrate adherence to instructed precautions during ADL tasks. 2=Patient will verbalize/demonstrate understanding of assistive devices/ modifications for ADL. 3=Patient will improve strength/tolerance for activity to enable patient to perform ADL's. OT Senior Living Goals Senior Living Goals Time Frame: Feb 23, 2018 Eating (FIM): 7 Eating (QC): 6 Groomin Oral Hygiene (QC): 6 Bathing(FIM): 5 Shower/Bathe Self (QC): 4 Upper Body Dressing(FIM): 6 Upper Body Dressing (QC): 6 Lower Body Dressing(FIM): 6 Lower Body Dressing (QC): 6 On/Off Footwear (QC): 6 Toileting(FIM): 6 Toileting Hygiene (QC): 6 Transfers (B,C,W/C) (FIM): 6 Toilet/Commode Transfer(FIM): 6 Toilet/Commode Transfer (QC): 6 Shower Transfer(FIM): 5 Additional Goals: 1-Demonstrate ADL Tasks, 2-Verbalize Understanding, 3- ImproveStrength/Clark 1=Demonstrate adherence to instructed precautions during ADL tasks. 2=Patient will verbalize/demonstrate understanding of assistive devices/ modifications for ADL. 3=Patient will improve strength/tolerance for activity to enable patient to perform ADL's. OT Education/Plan Problem List/Assessment Assessment: Decreased Activ Tolerance, Decreased UE Strength, Dependent Transfers, Impaired Coordination, Impaired Funct Balance, Impaired I ADL's, Impaired Self-Care Skills, Restricted Funct UE ROM Discharge Recommendations Plan/Recommendations: Continue POC Therapy D/C Recommendations: Home Independently, Occupational Therapy Home Care Target Placement Pt. states that his goal is to return to apartment situation with his roommate. Treatment Plan/Plan of Care Treatment,Training & Education: Yes Patient would benefit from OT for education, treatment and training to promote independence in ADL's, mobility, safety and/or upper extremity function for ADL' s. Plan of Care: ADL Retraining, Functional Mobility, UE Funct Exercise/Act Treatment Duration: Feb 23, 2018 Frequency: At least 5 of 7 days/Wk (IRF) Estimated Hrs Per Day: 1.5 hours per day Agreement: Yes Rehab Potential: Good Time/GCodes Start Time: 08:15 Stop Time: 09:15 Total Time Billed (hr/min): 60 Billed Treatment Time 1, ADL x 45minutes, FA x 15minutes RASHEL RODRIGES OT Feb 10, 2018 15:40
--- NOTE | 2018-02-10 15:48 | Occupational Ther Daily Note ---
OT Current Status-Daily Note Subjective No pain reported. Appearance Pt. up in chair. Agrees to work with OT. Mental Status/Objective Patient Orientation: Person, Place, Time, Situation Functional [place] Measure 0=Not Assessed/NA 4=Minimal Assistance 1=Total Assistance 5=Supervision or Setup 2=Maximal Assistance 6=Modified [place] 3=Moderate Assistance 7=Complete [place] Attachments: IV ADL-Treatment Functional [place] Measure 0=Not Assessed/NA 4=Minimal Assistance 1=Total Assistance 5=Supervision or Setup 2=Maximal Assistance 6=Modified [place] 3=Moderate Assistance 7=Complete IndependenceIRFPAI Quality Coding Scale 6 Independent with activity with or without an assistive device 5 Patient requires set up or clean up by helper. Patient completes activity by themselves 4 Supervision or touching assist (CGA). [place] provide cues , steadying assist 3 The helper provides less than half the effort to complete the activity 2 The helper provides more than half the effort to complete the activity 1 Dependent. The helper does all the effort to complete an activity 7 Patient refused to complete or attempt activity 9 The patient did not perform the activity before the current illness or injury 88 Not attempted due to Medical conditions or safety concerns Transfers (B, C, W/C) (FIM): 4 (CGA to ambulate with walker.) Pt. ambulated with CGA to therapy gym. Completed fine motor tasks with picking up checkers with right hand. Pt. able to do this but it was slow and difficult. Pt. also ambulated back to room and tried on several different pairs of pants, as his friends had brought them in and he wanted to make sure they fit. Pt. required mod assist overall to don sweatpants and jeans. All needs met in room. Education OT Patient Education: Correct positioning, Exercise program, Modified ADL techniques, Progress toward Goal/Update tx plan, Purpose of tx/functional activities, Reviewed precautions, Rehab process, Transfer techniques Teaching Recipient: Patient Teaching Methods: Demonstration, Discussion Response to Teaching: Verbalize Understanding, Return Demonstration OT Short Term Goals Short Term Goals Transfers (B,C,W/C) (FIM): 5 1=Demonstrate adherence to instructed precautions during ADL tasks. 2=Patient will verbalize/demonstrate understanding of assistive devices/ modifications for ADL. 3=Patient will improve strength/tolerance for activity to enable patient to perform ADL's. OT Career Transition Specialist Goals Fdc Goals Time Frame: Feb 23, 2018 Eating (FIM): 7 Eating (QC): 6 Groomin Oral Hygiene (QC): 6 Bathing(FIM): 5 Shower/Bathe Self (QC): 4 Upper Body Dressing(FIM): 6 Upper Body Dressing (QC): 6 Lower Body Dressing(FIM): 6 Lower Body Dressing (QC): 6 On/Off Footwear (QC): 6 Toileting(FIM): 6 Toileting Hygiene (QC): 6 Transfers (B,C,W/C) (FIM): 6 Toilet/Commode Transfer(FIM): 6 Toilet/Commode Transfer (QC): 6 Shower Transfer(FIM): 5 Additional Goals: 1-Demonstrate ADL Tasks, 2-Verbalize Understanding, 3- ImproveStrength/[place] 1=Demonstrate adherence to instructed precautions during ADL tasks. 2=Patient will verbalize/demonstrate understanding of assistive devices/ modifications for ADL. 3=Patient will improve strength/tolerance for activity to enable patient to perform ADL's. OT Education/Plan Problem List/Assessment Assessment: Decreased Activ Tolerance, Dependent Transfers, Impaired Funct Balance, Impaired I ADL's, Impaired Self-Care Skills Discharge Recommendations Plan/Recommendations: Continue POC Therapy D/C Recommendations: Home Independently, Occupational Therapy Home Care Treatment Plan/Plan of Care Treatment,Training & Education: Yes Patient would benefit from OT for education, treatment and training to promote independence in ADL's, mobility, safety and/or upper extremity function for ADL' s. Plan of Care: ADL Retraining, Functional Mobility, UE Funct Exercise/Act Treatment Duration: Feb 23, 2018 Frequency: At least 5 of 7 days/Wk (IRF) Estimated Hrs Per Day: 1.5 hours per day Agreement: Yes Rehab Potential: Good Time/GCodes Start Time: 13:30 Stop Time: 14:00 Total Time Billed (hr/min): 30 Billed Treatment Time 1, ADL x 15minutes, Ex x 15minutes RASHEL RODRIGES OT Feb 10, 2018 15:48
--- NOTE | 2018-02-10 16:43 | Consultation (CH[facility]) ---
HPI History of Present Illness: Pt doing well with therapy. BS improved. Date seen by provider: Feb 10, 2018 Time Seen by Provider: 11:30 Attending Physician Suresh Mart MD PCP Devan De León MD Consult Date of Admission Feb 09, 2018 at 16:30 Home Medications Home Medications Reviewed patient Home Medication Reconciliation performed by pharmacy medication reconciliations centrifugal chiller technician and/or nursing. Patients Allergies have been reviewed. Allergies Coded Allergies: No Known Drug Allergies (Verified , 08/14/08) ABG-Rvfvdo-Dpbtbm Hx Patient Social History Alcohol Use: Occasionally Uses Recreational Drug Use: No Smoking Status: Current Everyday Smoker Type Used: Cigarettes Recent Foreign Travel: No Contact w/other who traveled: No Recent Hopitalizations: Yes Recent Infectious Disease Expo: No Physical Abuse Screen: No Sexual Abuse: No Immunizations Up To Date Date of Influenza Vaccine: Aug 08, 2017 Family Medical History Family History: Congenital heart disease Diabetes mellitus 19 FATHER 19 MOTHER Review of Systems ([facility]) Constitutional: see HPI Physical Exam-([facility]) Physical Exam Vital Signs VS - Last 72 Hours, by Label 02/09/18 02/09/18 02/09/18 02/09/18 16:49 18:58 19:07 21:00 Temp 98.3 Pulse 105 Resp 14 B/P (MAP) 93/71 (78) Pulse Ox 94 O2 Delivery Room Air Room Air Room Air 02/10/18 02/10/18 06:46 09:00 Temp 97.8 Pulse 94 Resp 18 B/P (MAP) 132/86 (101) Pulse Ox 95 O2 Delivery Room Air Room Air Capillary Refill : General Appearance: WD/WN, no apparent distress Neurologic/Psychiatric: alert, normal mood/affect, oriented x 3 Assessment/Plan Assessment/Plan Assessment & Plan 1. CVA -Patient was not in timeframe for any medication treatment other than aspirin 2 - for secondary stroke prevention, will use aspirin 325mg; start atorvastatin 40mg HS 02/10 - doing well with therapy in IRU 2. Right upper extremity weakness -PT and OT continue -Evaluate for rehabilitation 02/07 - plan for now is discharge to IRU in the morning 02/08 - awaiting insurance approval for DC to IRU 02/09 - approved for transfer to IRU 3. Dysarthria secondary to number 1 -May be slightly better today on February 06 -He is eating fairly well 02/07 - doing fairly well with this, will continue working with OT/speech 4. DM Type 2 02/06 hemoglobin A1c is pending 02/07 - hgb a1c still pending for some reason; he is on SSI Novolog; I added metformin xl 500mg BID, can be increased in the coming days/weeks; will need a diabetic visit for microalbumin, education, etc at clinic. 02/08 - A1c 11.6%; start Levemir 30 units qhs and Novolg 10 units w/ meals; continue metformin and SSI Novolog for correction. 02/09 - BS improving on current dose; FBS this am 138; 2h pp 144 - continue current regimen. 02/10 - continue current regimen and monitor BS 5. Hyperlipidemia -Patient may possibly need to go on statin medications as he has taken these in the past. 02/07 - atorvastatin started today Clinical Quality Measures DVT/VTE Risk/Contraindication: Risk Factor Score Per Nursin RFS Level Per Nursing on Admit: 4+=Very High LINA SEVILLA DO Feb 10, 2018 16:43
[2018-02-10 17:59] VITALS: BP 113/68
[2018-02-10] MEDS: ATORVASTATIN 40 MG (LIPITOR) TABLET PO SCH (20:46)
[2018-02-10] MEDS: inSUlin DETERMIR 1 UNIT/0.01 ML (LEVEMIR) CHARGE PER UNIT SQ SCH (20:46)
[2018-02-10] MEDS: ZOLPIDEM 5 MG (AMBIEN) TAB PO PRN (23:22)
[2018-02-11 06:00] VITALS: BP 110/70
[2018-02-11] MEDS: metFORMIN XR 500 MG (GLUCOPHAGE XR) TAB PO SCH ×2 (06:22→17:45)
[2018-02-11] MEDS: inSUlin ASPART (NovoLOG) 1 UNIT/0.01 ML (CHARGE PER UNIT) SC SCH ×3 (06:22→17:42)
--- NOTE | 2018-02-11 07:55 | PM & R (SOAP) Progress Note ---
Subjective Time Seen by Provider: 07:30 Subjective/Events-last exam Patient was seen in his room this AM Patient min assist for transfers Progressing well with therapies Accucheks noted Review of Systems Neurological: Weakness Objective Exam Last Set of Vital Signs Vital Signs Date Time Temp Pulse Resp B/P (MAP) Pulse Ox O2 Delivery O2 Flow Rate FiO2 02/11/18 06:00 96.9 73 16 110/70 (83) 100 Room Air Capillary Refill : I&O Intake and Output 02/11/18 00:00 Intake Total 450 ml Balance 450 ml Intake Oral 450 ml # Voids 2 General: Alert, Oriented X3, Cooperative, No Acute Distress HEENT: Atraumatic, PERRLA, EOMI, Mucous Memb Moist/[place] Neck: Supple, No JVD Lungs: Clear to Auscultation Heart: Regular Rate Abdomen: Normal Bowel Sounds, Soft, No Tenderness Extremities: No Edema Neuro: Other (RT HP) Results Lab Laboratory Tests 02/09/18 21:01: Glucometer 278H 02/10/18 05:20: Glucometer 103 02/10/18 09:16: Glucometer 99 02/10/18 14:23: Glucometer 119H 02/10/18 20:45: Glucometer 99 02/11/18 05:43: Glucometer 88 Assessment/Plan Assessment Left Cva with RT HP HTN DM Plan Continue PT/OT Progressing well with therapies F/U with [facility] prn Appreciate NICOLAS Mora MD Feb 11, 2018 07:55
[2018-02-11] MEDS: ASPIRIN E.C. 325 MG (ECOTRIN) TABLET PO SCH (09:08)
[2018-02-11] MEDS: DOCUSATE SODIUM 100 MG (COLACE) CAP PO SCH ×2 (09:08→21:34)
[2018-02-11] MEDS: FAMOTIDINE 20 MG (PEPCID) TABLET PO SCH ×2 (09:08→21:34)
--- NOTE | 2018-02-11 11:02 | Physical Therapy Daily Note ---
PT Daily Note-Current Subjective Patient just complete with OT. Pain Numeric Pain Scale: 0-No Pain Location: No Pain Reported Mental Status Patient Orientation: Normal For Age Transfers Functional [place] Measure 0=Not Assessed/NA 4=Minimal Assistance 1=Total Assistance 5=Supervision or Setup 2=Maximal Assistance 6=Modified [place] 3=Moderate Assistance 7=Complete IndependenceIRFPAI Quality Coding Scale 6 Independent with activity with or without an assistive device 5 Patient requires set up or clean up by helper. Patient completes activity by themselves 4 Supervision or touching assist (CGA). [place] provide cues , steadying assist 3 The helper provides less than half the effort to complete the activity 2 The helper provides more than half the effort to complete the activity 1 Dependent. The helper does all the effort to complete an activity 7 Patient refused to complete or attempt activity 9 The patient did not perform the activity before the current illness or injury 88 Not attempted due to Medical conditions or safety concerns Transfers (B, C, W/C) (FIM): 5 Scootin Rollin Roll Left to Right (QC): 6 Supine to/from Sit: 5 Sit to/from Stand: 5 Sit to Lying (QC): 5 Sit to Stand (QC): 5 Chair/Fmd-tw-Zdduh Xfer(QC): 5 Bed to/from Chair: 5 Car Transfer (QC): 5 Gait Training Does the Patient Walk?: Yes Gait (FIM): 5 Distance (FIM): 3=150 ft Distance: 800' x 2/250' x 2 Walk 10 feet (QC): 5 Walk 50 ft with 2 Turns(QC): 5 Walk 150 ft (QC): 5 Walking 10ft/uneven surface-QC: 5 Gait Level of Assist: 5 Gait Persons Needed: 1 Gait Assistive Device: FWW close SBA for safety. Patient continues to display right LE lag with self correction. Exercises Seated Therapy Exercises: Ankle pumps, Long arc quads Seated Reps: 25 (3 sets 2# bilaterally) Standin way Ex=Flex, Abd, Ext, Mini squats Standing Reps: 25 (3 sets with 2# weights bilaterally) NuStep Minutes: 10 NuStep Workload: 5 (to increase functional strength and mobility) Assessment Patient is progressing with treatment plan and is highly motivated with progress. PT to increase activity as tolerated by patient. PT Short Term Goals Short Term Goals Time Frame: Feb 16, 2018 Transfers (B,C,W/C) (FIM): 5 Gait (FIM): 5 Stairs (FIM): 5 PT Websphere Administrator Goals Alf Goals PT Websphere Administrator Goals Time Frame: Mar 02, 2018 Transfers (B,C,W/C) (FIM): 7 Sit to Lying (QC): 6 Lying-Sitting on Side/Bed(QC): 6 Sit to Stand (QC): 6 Rollin Roll Left to Right (QC): 6 Chair/Ixz-aq-Zsglm Xfer(QC): 6 Car Transfer (QC): 6 Does the Patient Walk: Yes Gait (FIM): 6 Gait distance (FIM): 3=150 ft Walk 10 feet (QC): 6 Walk 10ft-Uneven Surface(QC): 6 Walk 50ft with 2 Turns (QC): 6 Walk 150 ft (QC): 6 Gait Assistive Device: FWW Does the Pt use WC or Scooter?: No Stairs (FIM): 7 # of Steps: 20 1 Step (curb) (QC): 6 4 Steps (QC): 6 12 Steps (QC): 6 Stairs Level Of Assist: 6 Picking up an Object (QC): 6 PT Plan Treatment/Plan Treatment Plan: Continue Plan of Care Treatment Plan: Bed Mobility, Education, Functional Activity Clark, Functional Strength, Group Therapy, Gait, Safety, Therapeutic Exercise, Transfers Treatment Duration: Mar 02, 2018 Frequency: At least 5 of 7 days/Wk (IRF) Estimated Hrs Per Day: 1.5 hours per day Patient and/or Family Agrees t: Yes Time/GCodes Time In: 1000 Time Out: 1100 Total Billed Treatment Time: 60 Total Billed Treatment 1 visit EX x 2 30 min GT x 2 30 min BEN RILEY PT Feb 11, 2018 11:02
--- NOTE | 2018-02-11 13:35 | Occupational Ther Daily Note ---
OT Current Status-Daily Note Subjective Pt sitting in chair, agrees to treatment. No c/o pain. Mental Status/Objective Functional [place] Measure 0=Not Assessed/NA 4=Minimal Assistance 1=Total Assistance 5=Supervision or Setup 2=Maximal Assistance 6=Modified [place] 3=Moderate Assistance 7=Complete [place] ADL-Treatment Pt declined shower this morning, states "maybe tomorrow." Pt donned socks with set up and increased time, but requires assist to tie shoes. Sit to stand with supervision. Gait to restroom with FWW. Grooming tasks completed standing at sink. Pt washed face with SBA. Minimal assistance to thoroughly comb hair using left UE. Functional [place] Measure 0=Not Assessed/NA 4=Minimal Assistance 1=Total Assistance 5=Supervision or Setup 2=Maximal Assistance 6=Modified [place] 3=Moderate Assistance 7=Complete IndependenceIRFPAI Quality Coding Scale 6 Independent with activity with or without an assistive device 5 Patient requires set up or clean up by helper. Patient completes activity by themselves 4 Supervision or touching assist (CGA). [place] provide cues , steadying assist 3 The helper provides less than half the effort to complete the activity 2 The helper provides more than half the effort to complete the activity 1 Dependent. The helper does all the effort to complete an activity 7 Patient refused to complete or attempt activity 9 The patient did not perform the activity before the current illness or injury 88 Not attempted due to Medical conditions or safety concerns Grooming (FIM): 4 Other Treatment Gait to therapy gym with FWW, occasional cues for safety. Pt completed right UE exercises to increase AROM and strength. Pt performed shoulder ROM with assist to achieve full ROM. Pt completed active elbow flex/ext x10 with increased time. Assist required for forearm supination. Pt completed AAROM x10 for wrist flex/ext. Finger flex/ext x10 with minimal assistance to achieve full finger extension. Pt completed cone stacking activity with right UE to promote reaching , ROM, and grasp/release skills. Pt able to stack cones with increased time and effort. Arm arc activity on shortest setting with right UE to increase active ROM. Pt has some difficulty with task and requires cues to decreased compensatory movements, but does not require any assistance. Pt completed fine motor task of picking up checkers and placing in container using right hand. Pt has slow movements and has some difficulty task, but is able to complete with increased time. Pt performed tabletop peg activity with right hand to increase coordination/manipulation skills. Pt able to place large pegs into pegboard with increased time and effort. Pt fatigues with activity and requires occasional rest breaks throughout treatment. Pt returned to room, sitting in chair with needs met after session. OT Short Term Goals Short Term Goals Transfers (B,C,W/C) (FIM): 5 1=Demonstrate adherence to instructed precautions during ADL tasks. 2=Patient will verbalize/demonstrate understanding of assistive devices/ modifications for ADL. 3=Patient will improve strength/tolerance for activity to enable patient to perform ADL's. OT Half-Way Goals Engine Boss Goals Time Frame: Feb 23, 2018 Eating (FIM): 7 Eating (QC): 6 Groomin Oral Hygiene (QC): 6 Bathing(FIM): 5 Shower/Bathe Self (QC): 4 Upper Body Dressing(FIM): 6 Upper Body Dressing (QC): 6 Lower Body Dressing(FIM): 6 Lower Body Dressing (QC): 6 On/Off Footwear (QC): 6 Toileting(FIM): 6 Toileting Hygiene (QC): 6 Transfers (B,C,W/C) (FIM): 6 Toilet/Commode Transfer(FIM): 6 Toilet/Commode Transfer (QC): 6 Shower Transfer(FIM): 5 Additional Goals: 1-Demonstrate ADL Tasks, 2-Verbalize Understanding, 3- ImproveStrength/[place] 1=Demonstrate adherence to instructed precautions during ADL tasks. 2=Patient will verbalize/demonstrate understanding of assistive devices/ modifications for ADL. 3=Patient will improve strength/tolerance for activity to enable patient to perform ADL's. OT Education/Plan Discharge Recommendations Plan/Recommendations: Continue POC Treatment Plan/Plan of Care Patient would benefit from OT for education, treatment and training to promote independence in ADL's, mobility, safety and/or upper extremity function for ADL' s. Plan of Care: ADL Retraining, Functional Mobility, UE Funct Exercise/Act Treatment Duration: Feb 23, 2018 Frequency: At least 5 of 7 days/Wk (IRF) Estimated Hrs Per Day: 1.5 hours per day Agreement: Yes Rehab Potential: Good Time/GCodes Start Time: 09:00 Stop Time: 10:00 Total Time Billed (hr/min): 60 Billed Treatment Time 1 visit, ADL(15minutes), EX(15minutes), FAx2(30minutes) BRENDAN VANG OT Feb 11, 2018 13:35
--- NOTE | 2018-02-11 13:51 | ST Cognitive Linguistic Eval ---
Speech Evaluation-General Medical Diagnosis CVA Onset Date: Feb 04, 2018 Therapy Diagnosis Therapy Diagnosis: Mild Dysarthria; Mild Cognitive Impairment Precautions Precautions/Isolations: Fall Prevention, Standard Precautions, Pressure Ulcer Referral Referring Physician: Dr. Suresh Mart Reason for Referral: Evaluation/Treatment Cognitive Evaluation Medical History Pertinent Medical History: HTN Current History The patient experienced a CVA on 02/04/2018 and was admitted to [facility]. He was transferred to the rehabilitation unit for additional strengthening. Reviewed History: Yes Social History Current Living Status: Roommate Speech PLF-Current Status Prior Level of Function The patient reported "some problems with my speech" prior to the CVA. Subjective The patient was seated upright in recliner upon entrance. The patient greeted the clinician appropriately and was agreeable to participation in the cognitive , speech, and language evaluation. Language Eval: Auditory Comprehends Simple Yes/No Ques: Functional Indent/Objects Multiple [place]: Functional Ident/Pics in Multiple [place]: Functional Follows 1-Step Commands: Functional Follows Complex Directions: Mild (Repetition and additional time required for complex or multi-step direction following.) Follows General Conversations: Functional (Intermittent repetition required for increased comprehension of discussed material.) Language Eval: Verbal Language Completes Spontaneous Greeting: Functional Produces Auto, Serial Info: Functional Imitates Simple Words/Phrases: Functional Word Finding: Functional (The patient is able to name fifteen animals in a one minute time frame.) Requests Basic Needs: Functional States Basic Personal Info: Functional Expresses Complex Ideas: Mild Language Evaluation: Reading Per patient, "I couldn't read before, don't expect me to read now!" Cognitive Patient Orientation The patient is independently oriented to self, location, month, day of week, and month. Objective Cognitive Domain Attention: Mild (The patient requires redirection to task, as well as, conversational topic.) Memory: Mild (The patient required category cueing for recall of three of three items.) Problem Solving: Mild (The patient displays poor safety awareness, requiring consistent prompting for walker and standing safety.) Objective Oral Motor/Speech Production The patient displays minimal lingual deviation to the right upon protrusion. Additionally, a slightly right labial droop is noted. Imprecise articulation is observed throughout conversation. The patient is approximately 80% intelligible in known contexts and less than 50% intelligible in unknown contexts. To note, the patient is known to this department and displays a speech impairment with reduced intelligibility prior to the current CVA. Impression The patient displays mild dysarthria and mild cognitive impairment demonstrate through poor problem solving and reduced attention. Communication/Social Cognition Comprehension: 4 Expression: 5 Social Interaction: 5 Problem Solvin Memory: 4 Speech Patient Assess Expression of Ideas/Wants: Exhibits (3) Understanding [place] Content: Usually Understands (3) Brief Interview-Mental Status: Yes Repetition of Three Words: Three (3) Temporal Orientation: Year: Correct (3) Temporal Orientation: Month: Accurate within 5 days(2) Temporal Orientation: Day: Correct (1) Recall : Wear to say "Sock": Yes,after cueing (1) Recall : Color: Yes, no cue required (2) Recall : Bed: Yes, no cue required (2) Speech Short Term Goals Short Term Goals Short Term Goals 1. The patient will recall and demonstrate intelligibility strategies with 80% accuracy and mild clinician cueing. 2. The patient will demonstrate oral motor exercises with 80% accuracy and mild clinician verbal cueing and direct modeling. 3. The patient will recall safety strategies for mobility, transfers, and ambulation with 90% accuracy and mild clincian verbal cueing. Time Frame-STG: One Week Speech Usp Goals Usp Goals The patient will improve expressive communication and intelligibility to increase function and safety in the least restrictive setting. Time Frame: Two Weeks Comprehension: 5 Expression: 5 Social Interaction: 6 Problem Solvin Memory: 5 Speech-Plan Treatment Plan Speech Therapy Treatment Plan: Continue Plan of Care Continue skilled speech pathology to target functional expressive communication and safety problem solving/awareness. Treatment Duration: Feb 25, 2018 Frequency: 3 times per week Estimated Hrs Per Day: .5 hour per day Rehab Potential: Fair Safety Risks/Education Teaching Recipient: Patient Teaching Methods: Discussion Response to Teaching: Verbalize Understanding Education Topics Provided: Results, Recommendations, Plan of Care Time Speech Therapy Time In: 08:45 Speech Therapy Time Out: 09:00 Total Billed Time: 15 Billed Treatment Time 1, SALVADOR SOTOMAYOR Feb 11, 2018 13:50
--- NOTE | 2018-02-11 14:59 | Therapy Group Daily Note ---
Therapy Daily Group Note Patient Education Topic Energy Cons Exercises LE Seated Exercise, UE Exercise Other/Notes Pt ambulated with FWW to OT/PT group in [facility]. Group consisted of introductions (name, place living, word association with 'wind'), socialization , ARU description/expectation, seated UE/LE exercises, education topic energy conservation/work simplification, pt stories about medical diagnoses and words of encouragement. Pt was able to introduce self appropriately and actively listened to peers. Pt was able to complete UE/LE seated exercises. Pt contributed to conversations during discussions to demonstrated knowledge of educational topics. Pt was able to give one word of encouragement to fellow patients. After therapy, sat in recliner with call light/phone in reach. All needs met in room. Start Time: 13:00 Stop Time: 14:15 Total Billed Treatment Time: 75 Total Billed Treatment 1-GRP ALEE GILBERT Feb 11, 2018 14:59
[2018-02-11 18:40] VITALS: BP 110/72
[2018-02-11] MEDS: ATORVASTATIN 40 MG (LIPITOR) TABLET PO SCH (21:34)
[2018-02-11] MEDS: inSUlin DETERMIR 1 UNIT/0.01 ML (LEVEMIR) CHARGE PER UNIT SQ SCH (21:35)
[2018-02-11] MEDS: ZOLPIDEM 5 MG (AMBIEN) TAB PO PRN (23:29)
[2018-02-12 05:57] VITALS: BP 107/83
[2018-02-12] MEDS: inSUlin ASPART (NovoLOG) 1 UNIT/0.01 ML (CHARGE PER UNIT) SC SCH ×3 (06:20→17:19)
[2018-02-12] MEDS: metFORMIN XR 500 MG (GLUCOPHAGE XR) TAB PO SCH ×2 (06:20→17:19)
[2018-02-12] MEDS: ASPIRIN E.C. 325 MG (ECOTRIN) TABLET PO SCH (08:11)
[2018-02-12] MEDS: FAMOTIDINE 20 MG (PEPCID) TABLET PO SCH ×2 (08:11→21:14)
[2018-02-12] MEDS: DOCUSATE SODIUM 100 MG (COLACE) CAP PO SCH ×2 (08:11→21:14)
--- NOTE | 2018-02-12 09:54 | Physical Therapy Daily Note ---
PT Daily Note-Current Subjective Pt agreeable to treatment. Mental Status Patient Orientation: Normal For Age Transfers Functional [place] Measure 0=Not Assessed/NA 4=Minimal Assistance 1=Total Assistance 5=Supervision or Setup 2=Maximal Assistance 6=Modified [place] 3=Moderate Assistance 7=Complete IndependenceIRFPAI Quality Coding Scale 6 Independent with activity with or without an assistive device 5 Patient requires set up or clean up by helper. Patient completes activity by themselves 4 Supervision or touching assist (CGA). [place] provide cues , steadying assist 3 The helper provides less than half the effort to complete the activity 2 The helper provides more than half the effort to complete the activity 1 Dependent. The helper does all the effort to complete an activity 7 Patient refused to complete or attempt activity 9 The patient did not perform the activity before the current illness or injury 88 Not attempted due to Medical conditions or safety concerns Transfers (B, C, W/C) (FIM): 4 Gait Training Gait (FIM): 4 Distance (FIM): 3=150 ft Distance: 500 Gait Persons Needed: 1 Gait Assistive Device: FWW Worked on gait training with FWW for long distance up to 500ft including obstacles, turns, and approach to chairs. Gait without device 150ft x 10 trials including obstacles, turns, and approach to chairs. Stair Training Stair Training: Handrails/: 1 handrail Stairs (FIM): 4 #of Steps: 20 Exercises Supine Ex: Bridging, Ankle pumps, Rolling, Lower trunk rotation, Heel Slides, Knee to chest, Short Arc Quads, D1 F/E UE, D2 F/E UE, Hip abd/add Supine Reps: 20 NuStep Minutes: 10 Assessment Current Status: Excellent Progress Pt progressing in regard to balance and isolated LE movements. He continues to have intermittent loss of balance during gait and stairs. Pt will benefit from continued therapy. PT Short Term Goals Short Term Goals Time Frame: Feb 16, 2018 Transfers (B,C,W/C) (FIM): 5 Gait (FIM): 5 Stairs (FIM): 5 PT Social Media Designer Goals Social Media Designer Goals PT Halfway Goals Time Frame: Mar 02, 2018 Transfers (B,C,W/C) (FIM): 7 Sit to Lying (QC): 6 Lying-Sitting on Side/Bed(QC): 6 Sit to Stand (QC): 6 Rollin Roll Left to Right (QC): 6 Chair/Xva-ky-Vjzno Xfer(QC): 6 Car Transfer (QC): 6 Does the Patient Walk: Yes Gait (FIM): 6 Gait distance (FIM): 3=150 ft Walk 10 feet (QC): 6 Walk 10ft-Uneven Surface(QC): 6 Walk 50ft with 2 Turns (QC): 6 Walk 150 ft (QC): 6 Gait Assistive Device: FWW Does the Pt use WC or Scooter?: No Stairs (FIM): 7 # of Steps: 20 1 Step (curb) (QC): 6 4 Steps (QC): 6 12 Steps (QC): 6 Stairs Level Of Assist: 6 Picking up an Object (QC): 6 PT Plan Treatment/Plan Treatment Plan: Continue Plan of Care Treatment Plan: Bed Mobility, Education, Functional Activity [place], Functional Strength, Group Therapy, Gait, Safety, Therapeutic Exercise, Transfers Treatment Duration: Mar 02, 2018 Frequency: At least 5 of 7 days/Wk (IRF) Estimated Hrs Per Day: 1.5 hours per day Patient and/or Family Agrees t: Yes Time/GCodes Time In: 854 Time Out: 50 Total Billed Treatment Time: 55 Total Billed Treatment visit, gait 35 min, ex 20 min SHADE MONTES PT Feb 12, 2018 09:54
--- NOTE | 2018-02-12 11:46 | Occupational Ther Daily Note ---
OT Current Status-Daily Note Subjective Pt seen in room, up in recliner, agreeable to OT. No pain mentioned. Appearance Alert, cooperative. A little impulsive Mental Status/Objective Functional [place] Measure 0=Not Assessed/NA 4=Minimal Assistance 1=Total Assistance 5=Supervision or Setup 2=Maximal Assistance 6=Modified [place] 3=Moderate Assistance 7=Complete [place] ADL-Treatment Pt seemed motivated to use R UE during ADLs, including washing hair, washing L arm, holding on to grab bar - needed some cues and a little assistance at times for placement. Pt walked with CGA and FWW to bathroom, showered and then walked back to recliner to dress. Functional [place] Measure 0=Not Assessed/NA 4=Minimal Assistance 1=Total Assistance 5=Supervision or Setup 2=Maximal Assistance 6=Modified [place] 3=Moderate Assistance 7=Complete IndependenceIRFPAI Quality Coding Scale 6 Independent with activity with or without an assistive device 5 Patient requires set up or clean up by helper. Patient completes activity by themselves 4 Supervision or touching assist (CGA). [place] provide cues , steadying assist 3 The helper provides less than half the effort to complete the activity 2 The helper provides more than half the effort to complete the activity 1 Dependent. The helper does all the effort to complete an activity 7 Patient refused to complete or attempt activity 9 The patient did not perform the activity before the current illness or injury 88 Not attempted due to Medical conditions or safety concerns Grooming (FIM): 5 (brushed hair with setup. Used R hand to help wash hair in shower. Washed face and hands in shower. ) Bathing (FIM): 4 (Washed and dried all parts but neded CGA when standing to wash bottom. Cues to use R hand to wash L arm (able to hold onto washcloth) and to hold on to grab bar. Also used R hand to rinse with hand held shower. Shower bench, grab bar, hand held shower. ) Upper Body (FIM): 5 (Setup to don t-shirt, while sitting) Lower Body Dressing (FIM): 4 (CGA when standing to pull pants up, FWW. Followed modified technique. Some difficulty putting L sock on but was able to lean forward to get it started. ) Shower Transfer(FIM): 4 (CGA, some skilled cues for technique and hand placement. Shower bench, grab bar, FWW) Other Treatment Pt got up from recliner with CGA (cue for hand placement) and walked to gym with CGA, FWW, no LOB but cues to watch where he was going. Able to get in and out of chair with arms without help but with cues for hand placement. Pt did 10 minutes bilat UE activity with arm bike set at 10W resistance but focus was on bilateral integration of R UE and coordination of R hand. His hand came off the device at least five times and more likely if he became distracted. Pt walked back to room with ANGELES, FWW and was left up in recliner, all needs met, his sister visiting. Education OT Patient Education: Modified ADL techniques, Purpose of tx/functional activities, Safety issues, Transfer techniques Teaching Recipient: Patient Teaching Methods: Demonstration, Discussion Response to Teaching: Verbalize Understanding, Return Demonstration, Reinforcement Needed OT Short Term Goals Short Term Goals Transfers (B,C,W/C) (FIM): 5 1=Demonstrate adherence to instructed precautions during ADL tasks. 2=Patient will verbalize/demonstrate understanding of assistive devices/ modifications for ADL. 3=Patient will improve strength/tolerance for activity to enable patient to perform ADL's. OT Chcf Goals Change Room Attendant Goals Time Frame: Feb 23, 2018 Eating (FIM): 7 Eating (QC): 6 Groomin Oral Hygiene (QC): 6 Bathing(FIM): 5 Shower/Bathe Self (QC): 4 Upper Body Dressing(FIM): 6 Upper Body Dressing (QC): 6 Lower Body Dressing(FIM): 6 Lower Body Dressing (QC): 6 On/Off Footwear (QC): 6 Toileting(FIM): 6 Toileting Hygiene (QC): 6 Transfers (B,C,W/C) (FIM): 6 Toilet/Commode Transfer(FIM): 6 Toilet/Commode Transfer (QC): 6 Shower Transfer(FIM): 5 Comprehension(FIM): 5 Expression (FIM): 5 Social Interaction(FIM): 6 Problem Solving(FIM): 5 Memory(FIM): 5 Additional Goals: 1-Demonstrate ADL Tasks, 2-Verbalize Understanding, 3- ImproveStrength/[place] 1=Demonstrate adherence to instructed precautions during ADL tasks. 2=Patient will verbalize/demonstrate understanding of assistive devices/ modifications for ADL. 3=Patient will improve strength/tolerance for activity to enable patient to perform ADL's. OT Education/Plan Discharge Recommendations Plan/Recommendations: Continue POC Treatment Plan/Plan of Care Patient would benefit from OT for education, treatment and training to promote independence in ADL's, mobility, safety and/or upper extremity function for ADL' s. Plan of Care: ADL Retraining, Functional Mobility, UE Funct Exercise/Act Treatment Duration: Feb 23, 2018 Frequency: At least 5 of 7 days/Wk (IRF) Estimated Hrs Per Day: 1.5 hours per day Agreement: Yes Rehab Potential: Fair Time/GCodes Start Time: 10:15 Stop Time: 11:10 Total Time Billed (hr/min): 55 Billed Treatment Time visit, 30 minutes ADL, 25 minutes neuromotor BRADEN TRUJILLO OT Feb 12, 2018 11:46
[2018-02-12 17:45] VITALS: BP 109/73
[2018-02-12] MEDS: ATORVASTATIN 40 MG (LIPITOR) TABLET PO SCH (21:14)
[2018-02-12] MEDS: inSUlin DETERMIR 1 UNIT/0.01 ML (LEVEMIR) CHARGE PER UNIT SQ SCH (21:18)
[2018-02-12] MEDS: ZOLPIDEM 5 MG (AMBIEN) TAB PO PRN (22:49)
[2018-02-13 06:05] VITALS: BP 138/87
[2018-02-13] MEDS: metFORMIN XR 500 MG (GLUCOPHAGE XR) TAB PO SCH ×2 (07:10→17:36)
[2018-02-13] MEDS: inSUlin ASPART (NovoLOG) 1 UNIT/0.01 ML (CHARGE PER UNIT) SC SCH ×3 (07:11→17:37)
[2018-02-13] MEDS: FAMOTIDINE 20 MG (PEPCID) TABLET PO SCH ×2 (07:48→20:13)
[2018-02-13] MEDS: ASPIRIN E.C. 325 MG (ECOTRIN) TABLET PO SCH (07:48)
[2018-02-13] MEDS: DOCUSATE SODIUM 100 MG (COLACE) CAP PO SCH ×2 (07:48→19:38)
[2018-02-13 18:05] VITALS: BP 120/75
[2018-02-13] MEDS: ATORVASTATIN 40 MG (LIPITOR) TABLET PO SCH (20:12)
[2018-02-13] MEDS: inSUlin DETERMIR 1 UNIT/0.01 ML (LEVEMIR) CHARGE PER UNIT SQ SCH (20:13)
[2018-02-13] MEDS: ZOLPIDEM 5 MG (AMBIEN) TAB PO PRN (22:05)
[2018-02-14 05:50] VITALS: BP 101/72
[2018-02-14] MEDS: metFORMIN XR 500 MG (GLUCOPHAGE XR) TAB PO SCH ×2 (06:08→17:48)
[2018-02-14] MEDS: inSUlin ASPART (NovoLOG) 1 UNIT/0.01 ML (CHARGE PER UNIT) SC SCH ×3 (06:50→17:48)
[2018-02-14] MEDS: DOCUSATE SODIUM 100 MG (COLACE) CAP PO SCH ×3 (08:52→21:02)
[2018-02-14] MEDS: FAMOTIDINE 20 MG (PEPCID) TABLET PO SCH ×2 (08:52→21:02)
[2018-02-14] MEDS: ASPIRIN E.C. 325 MG (ECOTRIN) TABLET PO SCH (08:53)
--- NOTE | 2018-02-14 10:02 | Speech Therapy Daily Note ---
Speech Daily Progress Note Subjective Date Seen by Provider: Feb 14, 2018 Time Seen by Provider: 09:30 The patient was seated upright in recliner upon entrance. The patient greeted the clinician appropriately and was agreeable to participation in the speech and language treatment session. Objective Oral Motor Exercises: Oral Motor Exercises were initiated on this date. The patient performed ten repetitions of each exercise with moderate clinician verbal cueing, including an initial direct model. The patient was encouraged to practice the exercises for two additional sessions throughout his day. A handout was provided for the patient to use in the clinician's absence. Intelligibility Strategies: Intelligibility strategies were introduced on this date. The patient verbalized comprehension of the strategies. The clinician stressed the importance of reducing his rate of speech, as well as, over- articulating as these are his two largest difficulties at this time. Assessment Assessment Current Status: Good Progress Treatment Plan Continue Plan of Care Communication Comprehension: 4 Expression: 5 Social Cognition Social Interaction: 5 Problem Solvin Memory: 4 Speech Short Term Goals Short Term Goals Short Term Goals 1. The patient will recall and demonstrate intelligibility strategies with 80% accuracy and mild clinician cueing. 2. The patient will demonstrate oral motor exercises with 80% accuracy and mild clinician verbal cueing and direct modeling. 3. The patient will recall safety strategies for mobility, transfers, and ambulation with 90% accuracy and mild clincian verbal cueing. Time Frame-STG: One Week Speech Usp Goals Usp Goals The patient will improve expressive communication and intelligibility to increase function and safety in the least restrictive setting. Time Frame: Two Weeks Comprehension: 5 Expression: 5 Social Interaction: 6 Problem Solvin Memory: 5 Speech-Plan Treatment Plan Speech Therapy Treatment Plan: Continue Plan of Care Continue skilled speech pathology to target improved intelligibility. Treatment Duration: Feb 25, 2018 Frequency: 3 times per week Estimated Hrs Per Day: .5 hour per day Rehab Potential: Fair Safety Risks/Education Teaching Recipient: Patient Teaching Methods: Demonstration, Handout, Discussion Response to Teaching: Verbalize Understanding, Return Demonstration, Reinforcement Needed Education Topics Provided: Intelligibility Strategies, Oral Motor Exercises Time Speech Therapy Time In: 09:30 Speech Therapy Time Out: 10:00 Total Billed Time: 30 Billed Treatment Time BERHANE Bo ELIZABETH Feb 14, 2018 10:02
--- NOTE | 2018-02-14 13:26 | Physical Therapy Daily Note ---
PT Daily Note-Current Subjective Agreeable to PT. no complaints. Pain Numeric Pain Scale: 0-No Pain Location: No Pain Reported Mental Status Patient Orientation: Person, Place, Time, Situation Transfers Functional [place] Measure 0=Not Assessed/NA 4=Minimal Assistance 1=Total Assistance 5=Supervision or Setup 2=Maximal Assistance 6=Modified [place] 3=Moderate Assistance 7=Complete IndependenceIRFPAI Quality Coding Scale 6 Independent with activity with or without an assistive device 5 Patient requires set up or clean up by helper. Patient completes activity by themselves 4 Supervision or touching assist (CGA). [place] provide cues , steadying assist 3 The helper provides less than half the effort to complete the activity 2 The helper provides more than half the effort to complete the activity 1 Dependent. The helper does all the effort to complete an activity 7 Patient refused to complete or attempt activity 9 The patient did not perform the activity before the current illness or injury 88 Not attempted due to Medical conditions or safety concerns Transfers (B, C, W/C) (FIM): 5 (skilled cues for hand placment.) Sit to/from Stand: 5 Gait Training Does the Patient Walk?: Yes Gait (FIM): 4 Distance (FIM): 3=150 ft Distance: 200 ft x 6 reps Gait Assistive Device: FWW CGA for safety; as he tires (after approx 150 ft) he tends to have decreased clearance of his right toes with decreased DF noted. He does clear but there is decreased clearance. With rest, this improves and he is aware of it and the risk of falls. Up/down the ramp of approx 50 ft with FWW with CGA. Worked on eccentric control with going down the ramp Stair Training Stair Training: Handrails/: 1 handrail Stairs (FIM): 4 #of Steps: 8 Reciprocal to go up and step to for descent. Exercises Standing: Hip Abduction, Hamstring curls, Heel/toe raises, Marching, Mini squats Standing Reps: 15 (2 sets) Working on strength as well as hip stabilization during stance. Also focused on standing DF to increase DF strength for improved gait. Assessment Current Status: Good Progress As he fatigues, his gait pattern becomes less safe, but he is aware and works to accommodate. Pt's mobility and safety are improving. PT Short Term Goals Short Term Goals Time Frame: Feb 16, 2018 Transfers (B,C,W/C) (FIM): 5 (met) Gait (FIM): 5 Stairs (FIM): 5 PT Mcc Goals Mcc Goals PT Paper Twister Goals Time Frame: Mar 02, 2018 Transfers (B,C,W/C) (FIM): 7 Sit to Lying (QC): 6 Lying-Sitting on Side/Bed(QC): 6 Sit to Stand (QC): 6 Rollin Roll Left to Right (QC): 6 Chair/Gly-zd-Xohit Xfer(QC): 6 Car Transfer (QC): 6 Does the Patient Walk: Yes Gait (FIM): 6 Gait distance (FIM): 3=150 ft Walk 10 feet (QC): 6 Walk 10ft-Uneven Surface(QC): 6 Walk 50ft with 2 Turns (QC): 6 Walk 150 ft (QC): 6 Gait Assistive Device: FWW Does the Pt use WC or Scooter?: No Stairs (FIM): 7 # of Steps: 20 1 Step (curb) (QC): 6 4 Steps (QC): 6 12 Steps (QC): 6 Stairs Level Of Assist: 6 Picking up an Object (QC): 6 PT Plan Problem List Problem List: Activity Tolerance, Functional Strength, Safety, Balance, Gait, Transfer, Bed Mobility Treatment/Plan Treatment Plan: Continue Plan of Care Treatment Plan: Bed Mobility, Education, Functional Activity Clark, Functional Strength, Group Therapy, Gait, Safety, Therapeutic Exercise, Transfers Treatment Duration: Mar 02, 2018 Frequency: At least 5 of 7 days/Wk (IRF) Estimated Hrs Per Day: 1.5 hours per day Patient and/or Family Agrees t: Yes Safety Risks/Education Patient Education: Gait Training, Transfer Techniques, Safety Issues Teaching Recipient: Patient Teaching Methods: Demonstration, Discussion Response to Teaching: Reinforcement Needed Time/GCodes Time In: 1045 Time Out: 1145 Total Billed Treatment Time: 60 Total Billed Treatment visit GT 45 EX 15 ALEE HOWARD PT Feb 14, 2018 13:26
--- NOTE | 2018-02-14 14:05 | Occupational Ther Daily Note ---
OT Current Status-Daily Note Subjective No pain reported. Appearance Pt. is up in chair. Agrees to shower. Mental Status/Objective Patient Orientation: Person, Place Functional [place] Measure 0=Not Assessed/NA 4=Minimal Assistance 1=Total Assistance 5=Supervision or Setup 2=Maximal Assistance 6=Modified [place] 3=Moderate Assistance 7=Complete [place] ADL-Treatment Functional [place] Measure 0=Not Assessed/NA 4=Minimal Assistance 1=Total Assistance 5=Supervision or Setup 2=Maximal Assistance 6=Modified [place] 3=Moderate Assistance 7=Complete IndependenceIRFPAI Quality Coding Scale 6 Independent with activity with or without an assistive device 5 Patient requires set up or clean up by helper. Patient completes activity by themselves 4 Supervision or touching assist (CGA). [place] provide cues , steadying assist 3 The helper provides less than half the effort to complete the activity 2 The helper provides more than half the effort to complete the activity 1 Dependent. The helper does all the effort to complete an activity 7 Patient refused to complete or attempt activity 9 The patient did not perform the activity before the current illness or injury 88 Not attempted due to Medical conditions or safety concerns Grooming (FIM): 5 Bathing (FIM): 5 (SBA in shower.) Shower/Bathe Self (QC): 4 Upper Body (FIM): 5 Upper Body Dressing (QC): 4 Lower Body Dressing (FIM): 4 Lower Body Dressing (QC): 4 (Pt. required min assist to get left sock on.) On/Off Footwear (QC): 4 Transfers (B, C, W/C) (FIM): 4 (CGA at times in stance with walker.) Shower Transfer(FIM): 4 Other Treatment After ADLs, pt. agreed to ambulate to therapy gym. Tolerated gentle PROM to right UE in all planes. Noted decreased sensitivity with end range, and increased AROM in wrist and fingers. Pt. then tolerated fine motor task with putting loom checker pieces in container, as well as digging out small beads from putting using right hand. Pt.tolerated this well. Has demonstrated increased movement since beginning of treatment. Education OT Patient Education: Correct positioning, Exercise program, Modified ADL techniques, Progress toward Goal/Update tx plan, Purpose of tx/functional activities, Reviewed precautions, Rehab process, Transfer techniques Teaching Recipient: Patient Teaching Methods: Demonstration, Discussion Response to Teaching: Verbalize Understanding, Return Demonstration OT Short Term Goals Short Term Goals Transfers (B,C,W/C) (FIM): 5 (met) 1=Demonstrate adherence to instructed precautions during ADL tasks. 2=Patient will verbalize/demonstrate understanding of assistive devices/ modifications for ADL. 3=Patient will improve strength/tolerance for activity to enable patient to perform ADL's. OT Steeplechase Jockey Goals Retirement Goals Time Frame: Feb 23, 2018 Eating (FIM): 7 Eating (QC): 6 Groomin Oral Hygiene (QC): 6 Bathing(FIM): 5 Shower/Bathe Self (QC): 4 Upper Body Dressing(FIM): 6 Upper Body Dressing (QC): 6 Lower Body Dressing(FIM): 6 Lower Body Dressing (QC): 6 On/Off Footwear (QC): 6 Toileting(FIM): 6 Toileting Hygiene (QC): 6 Transfers (B,C,W/C) (FIM): 6 Toilet/Commode Transfer(FIM): 6 Toilet/Commode Transfer (QC): 6 Shower Transfer(FIM): 5 Comprehension(FIM): 5 Expression (FIM): 5 Social Interaction(FIM): 6 Problem Solving(FIM): 5 Memory(FIM): 5 Additional Goals: 1-Demonstrate ADL Tasks, 2-Verbalize Understanding, 3- ImproveStrength/Clark 1=Demonstrate adherence to instructed precautions during ADL tasks. 2=Patient will verbalize/demonstrate understanding of assistive devices/ modifications for ADL. 3=Patient will improve strength/tolerance for activity to enable patient to perform ADL's. OT Education/Plan Problem List/Assessment Assessment: Decreased Activ Tolerance, Decreased UE Strength, Dependent Transfers, Impaired Coordination, Impaired Funct Balance, Impaired I ADL's, Impaired Self-Care Skills, Restricted Funct UE ROM Discharge Recommendations Plan/Recommendations: Continue POC Therapy D/C Recommendations: Home w/ Family Support, Occupational Therapy Home Care Treatment Plan/Plan of Care Treatment,Training & Education: Yes Patient would benefit from OT for education, treatment and training to promote independence in ADL's, mobility, safety and/or upper extremity function for ADL' s. Plan of Care: ADL Retraining, Functional Mobility, UE Funct Exercise/Act Treatment Duration: Feb 23, 2018 Frequency: At least 5 of 7 days/Wk (IRF) Estimated Hrs Per Day: 1.5 hours per day Agreement: Yes Rehab Potential: Good Time/GCodes Start Time: 08:30 Stop Time: 09:30 Total Time Billed (hr/min): 60 Billed Treatment Time 1, ADL x 45minutes, Ex x 15minutes RASHEL RODRIGES OT Feb 14, 2018 14:05
--- NOTE | 2018-02-14 15:22 | Physical Therapy Daily Note ---
PT Daily Note-Current Subjective Agreeable. No complaints. Pain Numeric Pain Scale: 0-No Pain Location: No Pain Reported Mental Status Patient Orientation: Person, Place, Time, Situation Transfers Functional [place] Measure 0=Not Assessed/NA 4=Minimal Assistance 1=Total Assistance 5=Supervision or Setup 2=Maximal Assistance 6=Modified [place] 3=Moderate Assistance 7=Complete IndependenceIRFPAI Quality Coding Scale 6 Independent with activity with or without an assistive device 5 Patient requires set up or clean up by helper. Patient completes activity by themselves 4 Supervision or touching assist (CGA). [place] provide cues , steadying assist 3 The helper provides less than half the effort to complete the activity 2 The helper provides more than half the effort to complete the activity 1 Dependent. The helper does all the effort to complete an activity 7 Patient refused to complete or attempt activity 9 The patient did not perform the activity before the current illness or injury 88 Not attempted due to Medical conditions or safety concerns Transfers (B, C, W/C) (FIM): 5 Supine to/from Sit: 5 Sit to/from Stand: 5 Gait Training Does the Patient Walk?: Yes Gait (FIM): 4 Distance (FIM): 3=150 ft Distance: 200 ft x 2 Gait Assistive Device: FWW Pt also walked into his bathroom with FWW with CGA and toileted; SBA for toilet transfer and management of clothing with CGA. Pt required CGA as he stood at the sink to wash his hands. Exercises NuStep Minutes: 15 NuStep Workload: 2 Assessment Current Status: Good Progress Pt making functional gains in regards to transfers and gait. Continues to required CGA for safety with gait due to decreased safety and fall risk with DF strength deficits on the right. He has good follow through of learned information and is motivated to make progress. PT Short Term Goals Short Term Goals Time Frame: Feb 16, 2018 Transfers (B,C,W/C) (FIM): 5 (met) Gait (FIM): 5 Stairs (FIM): 5 PT Half-Way Goals Gear Coding Machine Operator Goals PT Gear Coding Machine Operator Goals Time Frame: Mar 02, 2018 Transfers (B,C,W/C) (FIM): 7 Sit to Lying (QC): 6 Lying-Sitting on Side/Bed(QC): 6 Sit to Stand (QC): 6 Rollin Roll Left to Right (QC): 6 Chair/Srf-ls-Cookb Xfer(QC): 6 Car Transfer (QC): 6 Does the Patient Walk: Yes Gait (FIM): 6 Gait distance (FIM): 3=150 ft Walk 10 feet (QC): 6 Walk 10ft-Uneven Surface(QC): 6 Walk 50ft with 2 Turns (QC): 6 Walk 150 ft (QC): 6 Gait Assistive Device: FWW Does the Pt use WC or Scooter?: No Stairs (FIM): 7 # of Steps: 20 1 Step (curb) (QC): 6 4 Steps (QC): 6 12 Steps (QC): 6 Stairs Level Of Assist: 6 Picking up an Object (QC): 6 PT Plan Problem List Problem List: Activity Tolerance, Functional Strength, Safety Treatment/Plan Treatment Plan: Continue Plan of Care Treatment Plan: Bed Mobility, Education, Functional Activity Clark, Functional Strength, Group Therapy, Gait, Safety, Therapeutic Exercise, Transfers Treatment Duration: Mar 02, 2018 Frequency: At least 5 of 7 days/Wk (IRF) Estimated Hrs Per Day: 1.5 hours per day Patient and/or Family Agrees t: Yes Time/GCodes Time In: 1430 Time Out: 1500 Total Billed Treatment Time: 30 Total Billed Treatment visit EX 15 GT 15 ALEE HOWARD PT Feb 14, 2018 15:22
[2018-02-14 16:14] VITALS: BP 102/68
--- NOTE | 2018-02-14 20:25 | PM & R (SOAP) Progress Note ---
Subjective Time Seen by Provider: 20:15 Subjective/Events-last exam Patient was seen in his room this evening Patient SBA for transfers Objective Exam Last Set of Vital Signs Vital Signs Date Time Temp Pulse Resp B/P (MAP) Pulse Ox O2 Delivery O2 Flow Rate FiO2 02/14/18 16:14 97.4 86 18 102/68 (79) 99 Room Air Capillary Refill : I&O Intake and Output 02/14/18 00:00 Intake Total 1100 ml Balance 1100 ml Intake Oral 1100 ml # Voids 7 # Bowel Movements 6 General: Alert, Oriented X3, Cooperative, No Acute Distress HEENT: Atraumatic, PERRLA, EOMI, Mucous Memb Moist/[place] Neck: Supple, No JVD Lungs: Clear to Auscultation Heart: Regular Rate Abdomen: Normal Bowel Sounds, Soft, No Tenderness Extremities: No Edema Neuro: Other (RT HP) Results Lab Laboratory Tests 02/12/18 05:15: Glucometer 103 02/12/18 09:50: Glucometer 84 02/12/18 14:36: Glucometer 64L 02/12/18 15:07: Glucometer 92 02/12/18 19:45: Glucometer 74 02/12/18 21:13: Glucometer 185H 02/13/18 05:15: Glucometer 65L 02/13/18 06:24: Glucometer 155H 02/13/18 10:19: Glucometer 80 02/13/18 14:25: Glucometer 89 02/13/18 20:11: Glucometer 204H 02/14/18 05:11: Glucometer 89 02/14/18 10:53: Glucometer 127H 02/14/18 15:04: Glucometer 88 Assessment/Plan Assessment Left Cva with RT HP HTN DM Dyspepsia Plan Continue PT/OT Progressing well with therapies [facility]n Appreciate Dr Corbett note Team Conference 02-16-18 NICOLAS WALLER MD Feb 14, 2018 20:25
[2018-02-14] MEDS: ATORVASTATIN 40 MG (LIPITOR) TABLET PO SCH (21:02)
[2018-02-14] MEDS: ANTACID SUSP 30 ML UDC (MYLANTA) PO PRN (21:02)
[2018-02-14] MEDS: inSUlin DETERMIR 1 UNIT/0.01 ML (LEVEMIR) CHARGE PER UNIT SQ SCH (21:03)
[2018-02-14] MEDS: ZOLPIDEM 5 MG (AMBIEN) TAB PO PRN (22:48)
[2018-02-15 06:00] VITALS: BP 98/67
[2018-02-15] MEDS: metFORMIN XR 500 MG (GLUCOPHAGE XR) TAB PO SCH ×2 (06:44→17:08)
[2018-02-15] MEDS: inSUlin ASPART (NovoLOG) 1 UNIT/0.01 ML (CHARGE PER UNIT) SC SCH ×3 (06:45→18:04)
[2018-02-15] MEDS: ASPIRIN E.C. 325 MG (ECOTRIN) TABLET PO SCH (08:01)
[2018-02-15] MEDS: FAMOTIDINE 20 MG (PEPCID) TABLET PO SCH ×2 (08:01→20:39)
[2018-02-15] MEDS: DOCUSATE SODIUM 100 MG (COLACE) CAP PO SCH ×2 (08:01→20:39)
--- NOTE | 2018-02-15 08:14 | PM & R (SOAP) Progress Note ---
Subjective Time Seen by Provider: 07:45 Subjective/Events-last exam Patient was seen in his room this AM Patient SBA for transfers Progressing well with therapies with good neurological return.Patient suurounded by snacks as his birthday was yesterday Objective Exam Last Set of Vital Signs Vital Signs Date Time Temp Pulse Resp B/P (MAP) Pulse Ox O2 Delivery O2 Flow Rate FiO2 02/15/18 06:00 97.7 86 18 98/67 (77) 98 Room Air Capillary Refill : I&O Intake and Output 02/15/18 00:00 Intake Total 1330 ml Balance 1330 ml Intake Oral 1330 ml # Voids 6 # Bowel Movements 1 General: Alert, Oriented X3, Cooperative, No Acute Distress HEENT: Atraumatic, PERRLA, EOMI, Mucous Memb Moist/[place] Neck: Supple, No JVD Lungs: Clear to Auscultation Heart: Regular Rate Abdomen: Normal Bowel Sounds, Soft, No Tenderness Extremities: No Edema Neuro: Other (RT HP) Results Lab Laboratory Tests 02/12/18 09:50: Glucometer 84 02/12/18 14:36: Glucometer 64L 02/12/18 15:07: Glucometer 92 02/12/18 19:45: Glucometer 74 02/12/18 21:13: Glucometer 185H 02/13/18 05:15: Glucometer 65L 02/13/18 06:24: Glucometer 155H 02/13/18 10:19: Glucometer 80 02/13/18 14:25: Glucometer 89 02/13/18 20:11: Glucometer 204H 02/14/18 05:11: Glucometer 89 02/14/18 10:53: Glucometer 127H 02/14/18 15:04: Glucometer 88 02/14/18 21:11: Glucometer 191H 02/15/18 06:42: Glucometer 89 Assessment/Plan Assessment Left Cva with RT HP HTN DM Dyspepsia-improved Plan Continue PT/OT Progressing well with therapies F/U with [facility] prn Appreciate Dr Corbett note Team Conference tomorrow 02-16-18 NICOLAS WALLER MD Feb 15, 2018 08:14
--- NOTE | 2018-02-15 12:00 | Occupational Ther Daily Note ---
OT Current Status-Daily Note Subjective Pt. reports no pain. Appearance Pt. is sitting in chair. Agrees to work with OT. Mental Status/Objective Patient Orientation: Person, Place Functional [place] Measure 0=Not Assessed/NA 4=Minimal Assistance 1=Total Assistance 5=Supervision or Setup 2=Maximal Assistance 6=Modified [place] 3=Moderate Assistance 7=Complete [place] ADL-Treatment Functional [place] Measure 0=Not Assessed/NA 4=Minimal Assistance 1=Total Assistance 5=Supervision or Setup 2=Maximal Assistance 6=Modified [place] 3=Moderate Assistance 7=Complete IndependenceIRFPAI Quality Coding Scale 6 Independent with activity with or without an assistive device 5 Patient requires set up or clean up by helper. Patient completes activity by themselves 4 Supervision or touching assist (CGA). [place] provide cues , steadying assist 3 The helper provides less than half the effort to complete the activity 2 The helper provides more than half the effort to complete the activity 1 Dependent. The helper does all the effort to complete an activity 7 Patient refused to complete or attempt activity 9 The patient did not perform the activity before the current illness or injury 88 Not attempted due to Medical conditions or safety concerns Upper Body Dressing (QC): 5 (Pt. changed shirt with set up.) Transfers (B, C, W/C) (FIM): 4 (CGA to ambulate with pt. using walker.) Pt. ambulated with walker to therapy gym. Tolerated 10 minutes on armbike to increase overall strength. Pt. then participated in series of fine motor tasks with right UE, including pegs in peg board and resistive clothespins. After this task, pt. completed right shoulder stretch and self range with putting pillow case on right hand, and flexing right shoulder at tabletop level. Pt. also practiced horizontal movements at tabletop level as well. Pt. then completed arm arc with moving rings on arc to increase overall strength and endurance. Tolerated treatment well. All needs met back in room. Education OT Patient Education: Correct positioning, Modified ADL techniques, Progress toward Goal/Update tx plan, Purpose of tx/functional activities, Reviewed precautions, Rehab process, Transfer techniques Teaching Recipient: Patient Teaching Methods: Demonstration, Discussion Response to Teaching: Verbalize Understanding, Return Demonstration OT Short Term Goals Short Term Goals Transfers (B,C,W/C) (FIM): 5 (met) 1=Demonstrate adherence to instructed precautions during ADL tasks. 2=Patient will verbalize/demonstrate understanding of assistive devices/ modifications for ADL. 3=Patient will improve strength/tolerance for activity to enable patient to perform ADL's. OT Software Development Leader Goals Software Development Leader Goals Time Frame: Feb 23, 2018 Eating (FIM): 7 Eating (QC): 6 Groomin Oral Hygiene (QC): 6 Bathing(FIM): 5 Shower/Bathe Self (QC): 4 Upper Body Dressing(FIM): 6 Upper Body Dressing (QC): 6 Lower Body Dressing(FIM): 6 Lower Body Dressing (QC): 6 On/Off Footwear (QC): 6 Toileting(FIM): 6 Toileting Hygiene (QC): 6 Transfers (B,C,W/C) (FIM): 6 Toilet/Commode Transfer(FIM): 6 Toilet/Commode Transfer (QC): 6 Shower Transfer(FIM): 5 Comprehension(FIM): 5 Expression (FIM): 5 Social Interaction(FIM): 6 Problem Solving(FIM): 5 Memory(FIM): 5 Additional Goals: 1-Demonstrate ADL Tasks, 2-Verbalize Understanding, 3- ImproveStrength/Clark 1=Demonstrate adherence to instructed precautions during ADL tasks. 2=Patient will verbalize/demonstrate understanding of assistive devices/ modifications for ADL. 3=Patient will improve strength/tolerance for activity to enable patient to perform ADL's. OT Education/Plan Problem List/Assessment Assessment: Decreased Activ Tolerance, Decreased UE Strength, Impaired Coordination, Impaired Funct Balance, Impaired I ADL's, Impaired Self-Care Skills, Restricted Funct UE ROM Discharge Recommendations Plan/Recommendations: Continue POC Therapy D/C Recommendations: Home w/ Family Support, Occupational Therapy Home Care Treatment Plan/Plan of Care Treatment,Training & Education: Yes Patient would benefit from OT for education, treatment and training to promote independence in ADL's, mobility, safety and/or upper extremity function for ADL' s. Plan of Care: ADL Retraining, Functional Mobility, UE Funct Exercise/Act Treatment Duration: Feb 23, 2018 Frequency: At least 5 of 7 days/Wk (IRF) Estimated Hrs Per Day: 1.5 hours per day Agreement: Yes Rehab Potential: Good Time/GCodes Start Time: 10:00 Stop Time: 11:00 Total Time Billed (hr/min): 60 Billed Treatment Time 1, Ex x 30minutes, FA x 30minutes RASHEL RODRIGES OT Feb 15, 2018 12:00
--- NOTE | 2018-02-15 12:02 | Physical Therapy Daily Note ---
PT Daily Note-Current Subjective Patient in recliner pre tx, agrees to PT, no complaints of pain. Appearance Patient in recliner post tx with nurse call, phone, tray, all needs met. Mental Status Patient Orientation: Person, Place, Situation Transfers Functional [place] Measure 0=Not Assessed/NA 4=Minimal Assistance 1=Total Assistance 5=Supervision or Setup 2=Maximal Assistance 6=Modified [place] 3=Moderate Assistance 7=Complete IndependenceIRFPAI Quality Coding Scale 6 Independent with activity with or without an assistive device 5 Patient requires set up or clean up by helper. Patient completes activity by themselves 4 Supervision or touching assist (CGA). [place] provide cues , steadying assist 3 The helper provides less than half the effort to complete the activity 2 The helper provides more than half the effort to complete the activity 1 Dependent. The helper does all the effort to complete an activity 7 Patient refused to complete or attempt activity 9 The patient did not perform the activity before the current illness or injury 88 Not attempted due to Medical conditions or safety concerns Transfers (B, C, W/C) (FIM): 5 Scootin Rollin Supine to/from Sit: 6 Sit to/from Stand: 5 Bed to/from Chair: 5 Gait Training Gait (FIM): 4 Distance: 500', 200' Gait Level of Assist: 4 Gait Persons Needed: 1 Gait Assistive Device: FWW Patient is SBA most of the time but needs CGA when turning or when he gets fatigued. When he gets fatigued he has a limp from decreased right LE stance time, has decreased foot clearance, and decreased knee flexion. Exercises Supine Ex: Ankle pumps, Quad Set, Glut sets, Heel Slides, Short Arc Quads, Straight leg raise, Hip abd/add Supine Reps: 20 LAQ alternating with 2# ankle weights for 5 min NuStep Minutes: 15 NuStep Workload: 5 Treatments bed mobility and transfers, ambulation, functional strengthening Assessment Current Status: Fair Progress improving endurance PT Short Term Goals Short Term Goals Time Frame: Feb 16, 2018 Transfers (B,C,W/C) (FIM): 5 (met) Gait (FIM): 5 Stairs (FIM): 5 PT Warehouse Assistant Goals Assisted Goals PT Warehouse Assistant Goals Time Frame: Mar 02, 2018 Transfers (B,C,W/C) (FIM): 7 Sit to Lying (QC): 6 Lying-Sitting on Side/Bed(QC): 6 Sit to Stand (QC): 6 Rollin Roll Left to Right (QC): 6 Chair/Equ-ej-Gzgck Xfer(QC): 6 Car Transfer (QC): 6 Does the Patient Walk: Yes Gait (FIM): 6 Gait distance (FIM): 3=150 ft Walk 10 feet (QC): 6 Walk 10ft-Uneven Surface(QC): 6 Walk 50ft with 2 Turns (QC): 6 Walk 150 ft (QC): 6 Gait Assistive Device: FWW Does the Pt use WC or Scooter?: No Stairs (FIM): 7 # of Steps: 20 1 Step (curb) (QC): 6 4 Steps (QC): 6 12 Steps (QC): 6 Stairs Level Of Assist: 6 Picking up an Object (QC): 6 PT Plan Problem List Problem List: Activity Tolerance, Functional Strength, Safety, Balance, Gait, Transfer Treatment/Plan Treatment Plan: Continue Plan of Care Treatment Plan: Bed Mobility, Education, Functional Activity Clark, Functional Strength, Group Therapy, Gait, Safety, Therapeutic Exercise, Transfers Treatment Duration: Mar 02, 2018 Frequency: At least 5 of 7 days/Wk (IRF) Estimated Hrs Per Day: 1.5 hours per day Patient and/or Family Agrees t: Yes Safety Risks/Education Patient Education: Gait Training, Transfer Techniques, Correct Positioning, Safety Issues Teaching Recipient: Patient Teaching Methods: Demonstration, Discussion Response to Teaching: Reinforcement Needed Time/GCodes Time In: 1100 Time Out: 1200 Total Billed Treatment Time: 60 Total Billed Treatment 1 visit GT 30' EX 30' ANA MARÍA SALAS PT Feb 15, 2018 12:02
--- NOTE | 2018-02-15 12:13 | Speech Therapy Daily Note ---
Speech Daily Progress Note Subjective Date Seen by Provider: Feb 15, 2018 Time Seen by Provider: 09:15 The pt was up in chair, pleasant and cooperative for all speech therapy tasks. Objective Pt completed OMEs 10x10 with min direction for correct completion. Pt able to recall 2/4 intelligibility strategies. Intelligibility task completed with use of strategies, pt required cues to slow-down and over-exaggerate sounds. POWERHOUSE HELPER requested repetition 4 times within a 5 minute time period to be understood by this POWERHOUSE HELPER. Communication Comprehension: 4 Expression: 5 Social Cognition Social Interaction: 5 Problem Solvin Memory: 4 Speech Short Term Goals Short Term Goals Short Term Goals 1. The patient will recall and demonstrate intelligibility strategies with 80% accuracy and mild clinician cueing. 2. The patient will demonstrate oral motor exercises with 80% accuracy and mild clinician verbal cueing and direct modeling. 3. The patient will recall safety strategies for mobility, transfers, and ambulation with 90% accuracy and mild clincian verbal cueing. Time Frame-STG: One Week Speech Quality Assurance/R&D Lab Technician Goals Longterm Goals The patient will improve expressive communication and intelligibility to increase function and safety in the least restrictive setting. Time Frame: Two Weeks Comprehension: 5 Expression: 5 Social Interaction: 6 Problem Solvin Memory: 5 Speech-Plan Treatment Plan Speech Therapy Treatment Plan: Continue Plan of Care Continue POC. Treatment Duration: Feb 25, 2018 Frequency: 3 times per week Estimated Hrs Per Day: .5 hour per day Rehab Potential: Good Time Speech Therapy Time In: 09:15 Speech Therapy Time Out: 09:45 Total Billed Time: 30 Billed Treatment Time 1, ANIYA VOSS Feb 15, 2018 12:13
--- NOTE | 2018-02-15 13:58 | Occupational Ther Daily Note ---
OT Current Status-Daily Note Subjective No pain reported. Appearance Pt. sitting up in chair. Agrees to treatment. Mental Status/Objective Patient Orientation: Person, Place Functional [place] Measure 0=Not Assessed/NA 4=Minimal Assistance 1=Total Assistance 5=Supervision or Setup 2=Maximal Assistance 6=Modified [place] 3=Moderate Assistance 7=Complete [place] ADL-Treatment Functional [place] Measure 0=Not Assessed/NA 4=Minimal Assistance 1=Total Assistance 5=Supervision or Setup 2=Maximal Assistance 6=Modified [place] 3=Moderate Assistance 7=Complete IndependenceIRFPAI Quality Coding Scale 6 Independent with activity with or without an assistive device 5 Patient requires set up or clean up by helper. Patient completes activity by themselves 4 Supervision or touching assist (CGA). [place] provide cues , steadying assist 3 The helper provides less than half the effort to complete the activity 2 The helper provides more than half the effort to complete the activity 1 Dependent. The helper does all the effort to complete an activity 7 Patient refused to complete or attempt activity 9 The patient did not perform the activity before the current illness or injury 88 Not attempted due to Medical conditions or safety concerns Transfers (B, C, W/C) (FIM): 4 (CGA with ambulation using walker. Pt. occassionally would "catch" his right foot.) Pt. ambulated to therapy laundry room to check on laundry. However, pt.'s clothes not done yet. Ambulated to therapy gym. Pt. given large plastic ball. Worked on tossing and catching. At first, pt. had difficulty with quick reaction using right UE. However, was able to do it after awhile. Then worked on holding ball between both hands, and leaning forward, emphasizing pelvic anterior tilt. Completed trunk rotation exercises with ball, and then tossing ball back and forth between hands. Tolerated this well. All needs met back in room. Education OT Patient Education: Correct positioning, Exercise program, Modified ADL techniques, Progress toward Goal/Update tx plan, Purpose of tx/functional activities, Reviewed precautions, Rehab process, Transfer techniques Teaching Recipient: Patient Teaching Methods: Demonstration, Discussion Response to Teaching: Verbalize Understanding, Return Demonstration OT Short Term Goals Short Term Goals Transfers (B,C,W/C) (FIM): 5 (met) 1=Demonstrate adherence to instructed precautions during ADL tasks. 2=Patient will verbalize/demonstrate understanding of assistive devices/ modifications for ADL. 3=Patient will improve strength/tolerance for activity to enable patient to perform ADL's. OT Deck Engineer Goals Deck Engineer Goals Time Frame: Feb 23, 2018 Eating (FIM): 7 Eating (QC): 6 Groomin Oral Hygiene (QC): 6 Bathing(FIM): 5 Shower/Bathe Self (QC): 4 Upper Body Dressing(FIM): 6 Upper Body Dressing (QC): 6 Lower Body Dressing(FIM): 6 Lower Body Dressing (QC): 6 On/Off Footwear (QC): 6 Toileting(FIM): 6 Toileting Hygiene (QC): 6 Transfers (B,C,W/C) (FIM): 6 Toilet/Commode Transfer(FIM): 6 Toilet/Commode Transfer (QC): 6 Shower Transfer(FIM): 5 Comprehension(FIM): 5 Expression (FIM): 5 Social Interaction(FIM): 6 Problem Solving(FIM): 5 Memory(FIM): 5 Additional Goals: 1-Demonstrate ADL Tasks, 2-Verbalize Understanding, 3- ImproveStrength/[place] 1=Demonstrate adherence to instructed precautions during ADL tasks. 2=Patient will verbalize/demonstrate understanding of assistive devices/ modifications for ADL. 3=Patient will improve strength/tolerance for activity to enable patient to perform ADL's. OT Education/Plan Problem List/Assessment Assessment: Decreased Activ Tolerance, Decreased UE Strength, Dependent Transfers, Impaired Coordination, Impaired Funct Balance, Impaired I ADL's, Impaired Self-Care Skills, Restricted Funct UE ROM Discharge Recommendations Plan/Recommendations: Continue POC Therapy D/C Recommendations: Home w/ Family Support, Occupational Therapy Home Care Equpiment Recommendations-D/C: Extended Bath Bench Treatment Plan/Plan of Care Treatment,Training & Education: Yes Patient would benefit from OT for education, treatment and training to promote independence in ADL's, mobility, safety and/or upper extremity function for ADL' s. Plan of Care: ADL Retraining, Functional Mobility, UE Funct Exercise/Act Treatment Duration: Feb 23, 2018 Frequency: At least 5 of 7 days/Wk (IRF) Estimated Hrs Per Day: 1.5 hours per day Agreement: Yes Rehab Potential: Good Time/GCodes Start Time: 13:25 Stop Time: 13:55 Total Time Billed (hr/min): 30 Billed Treatment Time 1, FA x 2 RASHEL RODRIGES OT Feb 15, 2018 13:58
--- NOTE | 2018-02-15 15:06 | Physical Therapy Daily Note ---
PT Daily Note-Current Subjective Patient in recliner pre tx, agrees to PT, has no complaints of pain. Appearance Patient in recliner post tx with nurse call, phone, tray, all needs met. Mental Status Patient Orientation: Person, Place, Situation Transfers Functional [place] Measure 0=Not Assessed/NA 4=Minimal Assistance 1=Total Assistance 5=Supervision or Setup 2=Maximal Assistance 6=Modified [place] 3=Moderate Assistance 7=Complete IndependenceIRFPAI Quality Coding Scale 6 Independent with activity with or without an assistive device 5 Patient requires set up or clean up by helper. Patient completes activity by themselves 4 Supervision or touching assist (CGA). [place] provide cues , steadying assist 3 The helper provides less than half the effort to complete the activity 2 The helper provides more than half the effort to complete the activity 1 Dependent. The helper does all the effort to complete an activity 7 Patient refused to complete or attempt activity 9 The patient did not perform the activity before the current illness or injury 88 Not attempted due to Medical conditions or safety concerns Transfers (B, C, W/C) (FIM): 5 Sit to/from Stand: 6 Bed to/from Chair: 5 Gait Training Gait (FIM): 5 Distance: 300'x2 Gait Level of Assist: 5 Gait Persons Needed: 1 Gait Assistive Device: FWW No LOB or unsteadiness but still has limp on right side. Exercises NuStep Minutes: 15 NuStep Workload: 5 Treatments transfers, ambulation, functional strengthening Assessment Current Status: Fair Progress improving balance and endurance PT Short Term Goals Short Term Goals Time Frame: Feb 16, 2018 Transfers (B,C,W/C) (FIM): 5 (met) Gait (FIM): 5 Stairs (FIM): 5 PT Contracts Representative Goals Contracts Representative Goals PT Contracts Representative Goals Time Frame: Mar 02, 2018 Transfers (B,C,W/C) (FIM): 7 Sit to Lying (QC): 6 Lying-Sitting on Side/Bed(QC): 6 Sit to Stand (QC): 6 Rollin Roll Left to Right (QC): 6 Chair/Qdq-zn-Ndbui Xfer(QC): 6 Car Transfer (QC): 6 Does the Patient Walk: Yes Gait (FIM): 6 Gait distance (FIM): 3=150 ft Walk 10 feet (QC): 6 Walk 10ft-Uneven Surface(QC): 6 Walk 50ft with 2 Turns (QC): 6 Walk 150 ft (QC): 6 Gait Assistive Device: FWW Does the Pt use WC or Scooter?: No Stairs (FIM): 7 # of Steps: 20 1 Step (curb) (QC): 6 4 Steps (QC): 6 12 Steps (QC): 6 Stairs Level Of Assist: 6 Picking up an Object (QC): 6 PT Plan Problem List Problem List: Activity Tolerance, Functional Strength, Safety, Balance, Gait, Transfer Treatment/Plan Treatment Plan: Continue Plan of Care Treatment Plan: Bed Mobility, Education, Functional Activity Clark, Functional Strength, Group Therapy, Gait, Safety, Therapeutic Exercise, Transfers Treatment Duration: Mar 02, 2018 Frequency: At least 5 of 7 days/Wk (IRF) Estimated Hrs Per Day: 1.5 hours per day Patient and/or Family Agrees t: Yes Safety Risks/Education Patient Education: Gait Training, Transfer Techniques, Correct Positioning, Safety Issues Teaching Recipient: Patient Teaching Methods: Demonstration, Discussion Response to Teaching: Reinforcement Needed Time/GCodes Time In: 1430 Time Out: 1500 Total Billed Treatment Time: 30 Total Billed Treatment 1 visit EX 15' GT 15' ANA MARÍA SALAS PT Feb 15, 2018 15:06
[2018-02-15 17:27] VITALS: BP 113/77
[2018-02-15] MEDS: ATORVASTATIN 40 MG (LIPITOR) TABLET PO SCH (20:39)
[2018-02-15] MEDS: inSUlin DETERMIR 1 UNIT/0.01 ML (LEVEMIR) CHARGE PER UNIT SQ SCH (20:40)
[2018-02-15] MEDS: ZOLPIDEM 5 MG (AMBIEN) TAB PO PRN (23:40)
[2018-02-16 05:08] VITALS: BP 108/68
[2018-02-16] MEDS: metFORMIN XR 500 MG (GLUCOPHAGE XR) TAB PO SCH ×2 (06:36→17:44)
[2018-02-16] MEDS: inSUlin ASPART (NovoLOG) 1 UNIT/0.01 ML (CHARGE PER UNIT) SC SCH ×3 (06:37→17:45)
--- NOTE | 2018-02-16 08:14 | PM & R (SOAP) Progress Note ---
Subjective Time Seen by Provider: 07:50 Subjective/Events-last exam Patient was seen in his room this AM Patient SBA for transfers ,Progressing well with therapies Objective Exam Last Set of Vital Signs Vital Signs Date Time Temp Pulse Resp B/P (MAP) Pulse Ox O2 Delivery O2 Flow Rate FiO2 02/16/18 05:08 96.9 82 18 108/68 (81) 98 Room Air Capillary Refill : I&O Intake and Output 02/16/18 00:00 Intake Total 1100 ml Balance 1100 ml Intake Oral 1100 ml # Voids 6 # Bowel Movements 3 General: Alert, Oriented X3, Cooperative, No Acute Distress HEENT: Atraumatic, PERRLA, EOMI, Mucous Memb Moist/[place] Neck: Supple, No JVD Lungs: Clear to Auscultation Heart: Regular Rate Abdomen: Normal Bowel Sounds, Soft, No Tenderness Extremities: No Edema Neuro: Other (RT HP) Results Lab Laboratory Tests 02/13/18 10:19: Glucometer 80 02/13/18 14:25: Glucometer 89 02/13/18 20:11: Glucometer 204H 02/14/18 05:11: Glucometer 89 02/14/18 10:53: Glucometer 127H 02/14/18 15:04: Glucometer 88 02/14/18 21:11: Glucometer 191H 02/15/18 06:42: Glucometer 89 02/15/18 09:59: Glucometer 70 02/15/18 11:30: Glucometer 75 02/15/18 15:22: Glucometer 136H 02/15/18 20:37: Glucometer 188H 02/16/18 05:33: Glucometer 110 Assessment/Plan Assessment Left Cva with RT HP HTN DM Dyspepsia-improved Plan Continue PT/OT Progressing well with therapies F/U with [facility] prn Appreciate Dr Corbett note Team Conference later today-See report for full functional update and POC and NICOLAS HALEY MD Feb 16, 2018 08:14
[2018-02-16] MEDS: DOCUSATE SODIUM 100 MG (COLACE) CAP PO SCH ×2 (08:21→20:59)
[2018-02-16] MEDS: FAMOTIDINE 20 MG (PEPCID) TABLET PO SCH ×2 (08:21→20:59)
[2018-02-16] MEDS: ASPIRIN E.C. 325 MG (ECOTRIN) TABLET PO SCH (08:21)
--- NOTE | 2018-02-16 10:10 | Speech Therapy Daily Note ---
Speech Daily Progress Note Subjective Date Seen by Provider: Feb 16, 2018 Time Seen by Provider: 08:45 The patient was seated upright in recliner upon entrance. The patient greeted the clinician appropriately and was agreeable to participation in the speech and language treatment session. Objective Safety Problem Solving: The patient was provided pictures which displayed common safety errors in an everyday environment. The patient was asked to identify the safety concern and state an appropriate solution. The patient displayed high accuracy with this exercises, requiring minimal verbal prompting throughout the session. Safety precautions for his wheelchair and room were discussed in the detail. Per patient, "I know I'm supposed to reach back but I know that chair's not going anywhere." The clinician stated the importance of continuing to reach for chair as often chairs are unlocked or slide without warning. The patient was able to recall additional walker prompts, such as "I need to stay in the middle." Assessment Assessment Current Status: Good Progress Treatment Plan Continue Plan of Care Communication Comprehension: 4 Expression: 4 Social Cognition Social Interaction: 5 Problem Solvin Memory: 4 Speech Short Term Goals Short Term Goals Short Term Goals 1. The patient will recall and demonstrate intelligibility strategies with 80% accuracy and mild clinician cueing. 2. The patient will demonstrate oral motor exercises with 80% accuracy and mild clinician verbal cueing and direct modeling. 3. The patient will recall safety strategies for mobility, transfers, and ambulation with 90% accuracy and mild clincian verbal cueing. Time Frame-STG: One Week Speech Housekeeping Worker Goals Snf Goals The patient will improve expressive communication and intelligibility to increase function and safety in the least restrictive setting. Time Frame: Two Weeks Comprehension: 5 Expression: 5 Social Interaction: 6 Problem Solvin Memory: 5 Speech-Plan Treatment Plan Speech Therapy Treatment Plan: Continue Plan of Care Continue skilled speech pathology to target improved intelligibility. Treatment Duration: Feb 25, 2018 Frequency: 3 times per week Estimated Hrs Per Day: .5 hour per day Rehab Potential: Good Safety Risks/Education Teaching Recipient: Patient Teaching Methods: Discussion Response to Teaching: Verbalize Understanding, Reinforcement Needed Education Topics Provided: Safety Problem Solving Time Speech Therapy Time In: 08:45 Speech Therapy Time Out: 09:15 Total Billed Time: 30 Billed Treatment Time BetzyBERHANE ELIZABETH ST Feb 16, 2018 10:10
--- NOTE | 2018-02-16 11:56 | Physical Therapy Daily Note ---
PT Daily Note-Current Subjective Pt. smiles and agrees to Rx. States he really wants to get back to work. Pain Numeric Pain Scale: 0-No Pain Appearance pt. appears to have leg length discrepancy with L>R approx .5 in. Pt. states he had noted this prior to this admission Mental Status Patient Orientation: Normal For Age Transfers Functional [place] Measure 0=Not Assessed/NA 4=Minimal Assistance 1=Total Assistance 5=Supervision or Setup 2=Maximal Assistance 6=Modified [place] 3=Moderate Assistance 7=Complete IndependenceIRFPAI Quality Coding Scale 6 Independent with activity with or without an assistive device 5 Patient requires set up or clean up by helper. Patient completes activity by themselves 4 Supervision or touching assist (CGA). [place] provide cues , steadying assist 3 The helper provides less than half the effort to complete the activity 2 The helper provides more than half the effort to complete the activity 1 Dependent. The helper does all the effort to complete an activity 7 Patient refused to complete or attempt activity 9 The patient did not perform the activity before the current illness or injury 88 Not attempted due to Medical conditions or safety concerns Transfers (B, C, W/C) (FIM): 7 Scootin Rollin Supine to/from Sit: 7 Sit to/from Stand: 7 Gait Training Does the Patient Walk?: Yes Gait (FIM): 6 Distance (FIM): 3=150 ft (175x3) Gait Level of Assist: 6 Gait Persons Needed: 0 Gait Assistive Device: FWW needed instruction and reminders to DF on RLE for safer gait . heel strike and roll off toe etc reminders pt. was trialed at rail in hallway for gait with out device for balance etc 50ft no LOB SBA to CGA Exercises Supine Ex: Bridging, Ankle pumps, Quad Set, Rolling, Glut sets, Heel Slides, Short Arc Quads, Scooting, Straight leg raise, Hip abd/add Supine Reps: 15 Standing: Hip Abduction, Hamstring curls, Heel/toe raises, 3 way Ex=Flex, Abd, Ext, Mini squats, Sit to Stand Standing Reps: 15 strategic work on heels strike with standing exercise NuStep Minutes: 10 NuStep Workload: 5 Assessment Current Status: Good Progress gives full effort, states he had left knee issues previously and had a surgical procedure to shave it off, had some residual pain issues PT Short Term Goals Short Term Goals Time Frame: Feb 16, 2018 Transfers (B,C,W/C) (FIM): 5 (met) Gait (FIM): 5 Stairs (FIM): 5 PT Hydrogen Treater Goals Hydrogen Treater Goals PT Usp Goals Time Frame: Mar 02, 2018 Transfers (B,C,W/C) (FIM): 7 Sit to Lying (QC): 6 Lying-Sitting on Side/Bed(QC): 6 Sit to Stand (QC): 6 Rollin Roll Left to Right (QC): 6 Chair/Cyf-jf-Gsalh Xfer(QC): 6 Car Transfer (QC): 6 Does the Patient Walk: Yes Gait (FIM): 6 Gait distance (FIM): 3=150 ft Walk 10 feet (QC): 6 Walk 10ft-Uneven Surface(QC): 6 Walk 50ft with 2 Turns (QC): 6 Walk 150 ft (QC): 6 Gait Assistive Device: FWW Does the Pt use WC or Scooter?: No Stairs (FIM): 7 # of Steps: 20 1 Step (curb) (QC): 6 4 Steps (QC): 6 12 Steps (QC): 6 Stairs Level Of Assist: 6 Picking up an Object (QC): 6 PT Plan Treatment/Plan Treatment Plan: Continue Plan of Care Treatment Plan: Bed Mobility, Education, Functional Activity Clark, Functional Strength, Group Therapy, Gait, Safety, Therapeutic Exercise, Transfers Treatment Duration: Mar 02, 2018 Frequency: At least 5 of 7 days/Wk (IRF) Estimated Hrs Per Day: 1.5 hours per day Patient and/or Family Agrees t: Yes Safety Risks/Education Patient Education: Gait Training, Transfer Techniques, Correct Positioning, Disease Process, Safety Issues Teaching Recipient: Patient Teaching Methods: Demonstration, Discussion Response to Teaching: Verbalize Understanding, Return Demonstration, Reinforcement Needed Time/GCodes Time In: 1100 Time Out: 1200 Total Billed Treatment Time: 60 Total Billed Treatment 1,GT20m,EX25m,NM15m G Codes Necessary: NICKI Conteh PROJECTOR OPERATOR Feb 16, 2018 11:56
--- NOTE | 2018-02-16 13:07 | Occupational Ther Daily Note ---
OT Current Status-Daily Note Subjective No pain reported. Appearance Pt. up in chair. Agrees to spongebathe. Mental Status/Objective Patient Orientation: Person Functional [place] Measure 0=Not Assessed/NA 4=Minimal Assistance 1=Total Assistance 5=Supervision or Setup 2=Maximal Assistance 6=Modified [place] 3=Moderate Assistance 7=Complete [place] ADL-Treatment Functional [place] Measure 0=Not Assessed/NA 4=Minimal Assistance 1=Total Assistance 5=Supervision or Setup 2=Maximal Assistance 6=Modified [place] 3=Moderate Assistance 7=Complete IndependenceIRFPAI Quality Coding Scale 6 Independent with activity with or without an assistive device 5 Patient requires set up or clean up by helper. Patient completes activity by themselves 4 Supervision or touching assist (CGA). [place] provide cues , steadying assist 3 The helper provides less than half the effort to complete the activity 2 The helper provides more than half the effort to complete the activity 1 Dependent. The helper does all the effort to complete an activity 7 Patient refused to complete or attempt activity 9 The patient did not perform the activity before the current illness or injury 88 Not attempted due to Medical conditions or safety concerns Grooming (FIM): 6 (To brush hair. Pt. does not perform teeth as he has no teeth.) Bathing (FIM): 5 (Set up to bathe.) Shower/Bathe Self (QC): 4 Upper Body (FIM): 5 (Set up) Upper Body Dressing (QC): 5 Lower Body Dressing (FIM): 4 (CGA in stance to pull up pants.) Lower Body Dressing (QC): 4 On/Off Footwear (QC): 4 Transfers (B, C, W/C) (FIM): 4 (CGA in stance.) Education OT Patient Education: Correct positioning, Modified ADL techniques, Progress toward Goal/Update tx plan, Purpose of tx/functional activities, Reviewed precautions, Rehab process, Transfer techniques Teaching Recipient: Patient Teaching Methods: Demonstration Response to Teaching: Verbalize Understanding, Return Demonstration OT Short Term Goals Short Term Goals Transfers (B,C,W/C) (FIM): 5 (met) 1=Demonstrate adherence to instructed precautions during ADL tasks. 2=Patient will verbalize/demonstrate understanding of assistive devices/ modifications for ADL. 3=Patient will improve strength/tolerance for activity to enable patient to perform ADL's. OT Panel Coverer Goals Panel Coverer Goals Time Frame: Feb 23, 2018 Eating (FIM): 7 Eating (QC): 6 Groomin Oral Hygiene (QC): 6 Bathing(FIM): 5 Shower/Bathe Self (QC): 4 Upper Body Dressing(FIM): 6 Upper Body Dressing (QC): 6 Lower Body Dressing(FIM): 6 Lower Body Dressing (QC): 6 On/Off Footwear (QC): 6 Toileting(FIM): 6 Toileting Hygiene (QC): 6 Transfers (B,C,W/C) (FIM): 6 Toilet/Commode Transfer(FIM): 6 Toilet/Commode Transfer (QC): 6 Shower Transfer(FIM): 5 Comprehension(FIM): 5 Expression (FIM): 5 Social Interaction(FIM): 6 Problem Solving(FIM): 5 Memory(FIM): 5 Additional Goals: 1-Demonstrate ADL Tasks, 2-Verbalize Understanding, 3- ImproveStrength/Clark 1=Demonstrate adherence to instructed precautions during ADL tasks. 2=Patient will verbalize/demonstrate understanding of assistive devices/ modifications for ADL. 3=Patient will improve strength/tolerance for activity to enable patient to perform ADL's. OT Education/Plan Problem List/Assessment Assessment: Decreased Activ Tolerance, Impaired I ADL's Discharge Recommendations Plan/Recommendations: Continue POC Therapy D/C Recommendations: Home w/ Family Support, Occupational Therapy Home Care Treatment Plan/Plan of Care Treatment,Training & Education: Yes Patient would benefit from OT for education, treatment and training to promote independence in ADL's, mobility, safety and/or upper extremity function for ADL' s. Plan of Care: ADL Retraining, Functional Mobility, UE Funct Exercise/Act Treatment Duration: Feb 23, 2018 Frequency: At least 5 of 7 days/Wk (IRF) Estimated Hrs Per Day: 1.5 hours per day Agreement: Yes Rehab Potential: Good Time/GCodes Start Time: 10:10 Stop Time: 10:40 Total Time Billed (hr/min): 30 Billed Treatment Time 1, ADL x 2 RASHEL RODRIGES OT Feb 16, 2018 13:06
--- NOTE | 2018-02-16 13:14 | Occupational Ther Daily Note ---
OT Current Status-Daily Note Subjective No pain reported. Appearance Pt. up in chair. Agrees to work with OT. Mental Status/Objective Functional [place] Measure 0=Not Assessed/NA 4=Minimal Assistance 1=Total Assistance 5=Supervision or Setup 2=Maximal Assistance 6=Modified [place] 3=Moderate Assistance 7=Complete [place] ADL-Treatment Functional [place] Measure 0=Not Assessed/NA 4=Minimal Assistance 1=Total Assistance 5=Supervision or Setup 2=Maximal Assistance 6=Modified [place] 3=Moderate Assistance 7=Complete IndependenceIRFPAI Quality Coding Scale 6 Independent with activity with or without an assistive device 5 Patient requires set up or clean up by helper. Patient completes activity by themselves 4 Supervision or touching assist (CGA). [place] provide cues , steadying assist 3 The helper provides less than half the effort to complete the activity 2 The helper provides more than half the effort to complete the activity 1 Dependent. The helper does all the effort to complete an activity 7 Patient refused to complete or attempt activity 9 The patient did not perform the activity before the current illness or injury 88 Not attempted due to Medical conditions or safety concerns Eating (FIM): 7 (Pt. independent to open all packages and feed self.) Eating (QC): 6 Other Treatment OT assisted pt. to order lunch. Pt. ate lunch with independence. After eating , pt. completed series of fine motor tasks with right UE. Pt. practiced picking up quotation checker pieces, beading a string, flipping cards, and picking up stick pins. Pt. doing better with fine tip pinch. However, demonstrates difficulty with supination and lateral pinch with right hand. Pt. reports appropriate sensation in right UE. Pt. ambulated back to room after treatment. All needs met. Education OT Patient Education: Correct positioning, Exercise program, Modified ADL techniques, Progress toward Goal/Update tx plan, Purpose of tx/functional activities, Reviewed precautions, Rehab process, Transfer techniques Teaching Recipient: Patient, Significant Other Teaching Methods: Demonstration Response to Teaching: Verbalize Understanding, Return Demonstration OT Short Term Goals Short Term Goals Transfers (B,C,W/C) (FIM): 5 (met) 1=Demonstrate adherence to instructed precautions during ADL tasks. 2=Patient will verbalize/demonstrate understanding of assistive devices/ modifications for ADL. 3=Patient will improve strength/tolerance for activity to enable patient to perform ADL's. OT Software Consultant Goals Software Consultant Goals Time Frame: Feb 23, 2018 Eating (FIM): 7 Eating (QC): 6 Groomin Oral Hygiene (QC): 6 Bathing(FIM): 5 Shower/Bathe Self (QC): 4 Upper Body Dressing(FIM): 6 Upper Body Dressing (QC): 6 Lower Body Dressing(FIM): 6 Lower Body Dressing (QC): 6 On/Off Footwear (QC): 6 Toileting(FIM): 6 Toileting Hygiene (QC): 6 Transfers (B,C,W/C) (FIM): 6 Toilet/Commode Transfer(FIM): 6 Toilet/Commode Transfer (QC): 6 Shower Transfer(FIM): 5 Comprehension(FIM): 5 Expression (FIM): 5 Social Interaction(FIM): 6 Problem Solving(FIM): 5 Memory(FIM): 5 Additional Goals: 1-Demonstrate ADL Tasks, 2-Verbalize Understanding, 3- ImproveStrength/Lcark 1=Demonstrate adherence to instructed precautions during ADL tasks. 2=Patient will verbalize/demonstrate understanding of assistive devices/ modifications for ADL. 3=Patient will improve strength/tolerance for activity to enable patient to perform ADL's. OT Education/Plan Problem List/Assessment Assessment: Decreased Activ Tolerance, Decreased UE Strength, Impaired Coordination Discharge Recommendations Plan/Recommendations: Continue POC Therapy D/C Recommendations: Home w/ Family Support, Occupational Therapy Home Care Equpiment Recommendations-D/C: Extended Bath Bench Treatment Plan/Plan of Care Treatment,Training & Education: Yes Patient would benefit from OT for education, treatment and training to promote independence in ADL's, mobility, safety and/or upper extremity function for ADL' s. Plan of Care: ADL Retraining, Functional Mobility, UE Funct Exercise/Act Treatment Duration: Feb 23, 2018 Frequency: At least 5 of 7 days/Wk (IRF) Estimated Hrs Per Day: 1.5 hours per day Agreement: Yes Rehab Potential: Good Time/GCodes Start Time: 12:00 Stop Time: 12:45 Total Time Billed (hr/min): 45 Billed Treatment Time 1, ADL x 15minutes, FA x 30minutes RASHEL RODRIGES OT Feb 16, 2018 13:14
--- NOTE | 2018-02-16 14:50 | D/C HH Face to Face Order ---
D/C Face to Face Orders Instructions for Patient Patient Instructions/FollowUp: Dr. De León on 02/22/18 Physician to follow Patient: Dr. De León Discharge Diet for Home: ADA Diet Patient Data-Allergies,Ht & Wt Patient Allergies: Coded Allergies: No Known Drug Allergies (Verified , 08/14/08) Height (Feet): 5 Height (Inches): 3.00 Weight (Pounds): 150 Weight (Ounces): 1.0 Home Health Need/Face to Face Date of Face to Face: Feb 18, 2018 Clinical Findings: Generalized weakness and fatigue, Muscle weakness, Unsteady gait I have seen Pt [id number]: Yes Discharged To: Home Diagnosis/Conditions: CVA Patient is Homebound due to: [place] fall risk due to instabilty, Muscle weakness Homebound Status Due to the above stated illness, injury or surgical procedure (medical condition or diagnosis) and associated clinical findings, the patient is homebound because of his/her inability to leave home except with aid of a supportive device and/or person AND leaving the home requires a considerable and taxing effort or is medically contraindicated. Pt req the following assistanc: Walker Home Health Nursing Orders Home Health Services Order: Nursing Services, Churn Drill Operator-Evaluate & Treat, Physical Therapy-Evaluate & Treat RN to provide diabetes education and teaching. Home Health Infusion Therapy Line Type: Saline Lock Site Location: Forearm Therapy Orders Therapy Orders: OT (must have SN or PT order), Physical Therapy Therapy Specific Orders: Eval assistive deivces, Teach enviro modifications/ safety, Gait training, Increase strength/endurance Certify Stmt I certify that this patient is under my care and that I, a nurse practitioner or a physician; a commissary assistant working with me, had a face to face encounter that - meets the physician face to face encounter requirements with this patient as dated. I personally scribed for NICOLAS WALLER MD) on 02/16/18 at 14:50. Electronically submitted by Juanita Nettles ([id number]). I personally scribed for NICOLAS WALLER MD) on 02/18/18 at 09:38. Electronically submitted by Juanita Nettles ([id number]). NICOLAS WALLER MD Feb 16, 2018 14:50
--- NOTE | 2018-02-16 15:16 | Physical Therapy Daily Note ---
PT Daily Note-Current Subjective Pt in recliner upon arrival. Pt agrees to PT Rx. Pain Numeric Pain Scale: 0-No Pain Location: No Pain Reported Mental Status Patient Orientation: Person, Place, Time, Situation Transfers Functional [place] Measure 0=Not Assessed/NA 4=Minimal Assistance 1=Total Assistance 5=Supervision or Setup 2=Maximal Assistance 6=Modified [place] 3=Moderate Assistance 7=Complete IndependenceIRFPAI Quality Coding Scale 6 Independent with activity with or without an assistive device 5 Patient requires set up or clean up by helper. Patient completes activity by themselves 4 Supervision or touching assist (CGA). [place] provide cues , steadying assist 3 The helper provides less than half the effort to complete the activity 2 The helper provides more than half the effort to complete the activity 1 Dependent. The helper does all the effort to complete an activity 7 Patient refused to complete or attempt activity 9 The patient did not perform the activity before the current illness or injury 88 Not attempted due to Medical conditions or safety concerns Scootin Sit to/from Stand: 6 Sit to Stand (QC): 6 Gait Training Does the Patient Walk?: Yes Distance (FIM): 3=150 ft Distance: 175 Walk 10 feet (QC): 6 Walk 50 ft with 2 Turns(QC): 6 Walk 150 ft (QC): 6 Gait Level of Assist: 6 Gait Persons Needed: 1 Gait Assistive Device: FWW Pt ambulated backwards and side stepped, completed a figure eight x4, did 360 turning w/ FWW x3 no LOB or incident Stair Training Stair Training: Handrails/: 1 handrail #of Steps: 16 Stairs: Pattern: Step to Level of Assist: 4 Pt states he has about 20 steps at home with only one rail, SYSTEMS LEAD demonstrated ascending steps with FWW sideways in one hand and rail use at other Exercises Standing: Side steps Treatments Pt ambulated backwards and side stepped, completed a figure eight x4, did 360 turning w/ FWW x3. Pt completed 16 steps. Assessment Current Status: Good Progress Pt self motivated, pushes self and works hard during Rx. PT Short Term Goals Short Term Goals Time Frame: Feb 16, 2018 Transfers (B,C,W/C) (FIM): 5 (met) Gait (FIM): 5 Stairs (FIM): 5 PT Diabetes Nurse Goals Fpc Goals PT Diabetes Nurse Goals Time Frame: Mar 02, 2018 Transfers (B,C,W/C) (FIM): 7 Sit to Lying (QC): 6 Lying-Sitting on Side/Bed(QC): 6 Sit to Stand (QC): 6 Rollin Roll Left to Right (QC): 6 Chair/Upm-zw-Ojnos Xfer(QC): 6 Car Transfer (QC): 6 Does the Patient Walk: Yes Gait (FIM): 6 Gait distance (FIM): 3=150 ft Walk 10 feet (QC): 6 Walk 10ft-Uneven Surface(QC): 6 Walk 50ft with 2 Turns (QC): 6 Walk 150 ft (QC): 6 Gait Assistive Device: FWW Does the Pt use WC or Scooter?: No Stairs (FIM): 7 # of Steps: 20 1 Step (curb) (QC): 6 4 Steps (QC): 6 12 Steps (QC): 6 Stairs Level Of Assist: 6 Picking up an Object (QC): 6 PT Plan Treatment/Plan Treatment Plan: Continue Plan of Care Treatment Plan: Bed Mobility, Education, Functional Activity Clark, Functional Strength, Group Therapy, Gait, Safety, Therapeutic Exercise, Transfers Treatment Duration: Mar 02, 2018 Frequency: At least 5 of 7 days/Wk (IRF) Estimated Hrs Per Day: 1.5 hours per day Patient and/or Family Agrees t: Yes Safety Risks/Education Patient Education: Gait Training, Steps, Correct Positioning, Safety Issues Teaching Recipient: Patient Teaching Methods: Demonstration, Discussion Response to Teaching: Verbalize Understanding, Return Demonstration, Reinforcement Needed Time/GCodes Time In: 1430 Time Out: 1500 Total Billed Treatment Time: 30 Total Billed Treatment 1, FA x2 (30m) G Codes Necessary: NICKI Conteh SYSTEMS LEAD Feb 16, 2018 15:16
[2018-02-16 18:00] VITALS: BP 112/72
[2018-02-16] MEDS: ATORVASTATIN 40 MG (LIPITOR) TABLET PO SCH (20:59)
[2018-02-16] MEDS: inSUlin DETERMIR 1 UNIT/0.01 ML (LEVEMIR) CHARGE PER UNIT SQ SCH (20:59)
[2018-02-16] MEDS: ANTACID SUSP 30 ML UDC (MYLANTA) PO PRN (21:02)
[2018-02-16] MEDS: ZOLPIDEM 5 MG (AMBIEN) TAB PO PRN (23:31)
[2018-02-17 05:14] VITALS: BP 135/84
[2018-02-17] MEDS: metFORMIN XR 500 MG (GLUCOPHAGE XR) TAB PO SCH ×2 (06:11→17:36)
[2018-02-17] MEDS: inSUlin ASPART (NovoLOG) 1 UNIT/0.01 ML (CHARGE PER UNIT) SC SCH ×3 (06:12→17:36)
[2018-02-17] MEDS: ANTACID SUSP 30 ML UDC (MYLANTA) PO PRN (08:31)
[2018-02-17] MEDS: FAMOTIDINE 20 MG (PEPCID) TABLET PO SCH ×2 (08:43→20:37)
[2018-02-17] MEDS: DOCUSATE SODIUM 100 MG (COLACE) CAP PO SCH ×2 (08:43→20:37)
[2018-02-17] MEDS: ASPIRIN E.C. 325 MG (ECOTRIN) TABLET PO SCH (08:43)
--- NOTE | 2018-02-17 10:31 | Occupational Ther Daily Note ---
OT Current Status-Daily Note Subjective No pain reported. Appearance Pt. sitting up in chair. Had just finished breakfast. Agrees to work with OT. Mental Status/Objective Patient Orientation: Person, Place, Time Functional [place] Measure 0=Not Assessed/NA 4=Minimal Assistance 1=Total Assistance 5=Supervision or Setup 2=Maximal Assistance 6=Modified [place] 3=Moderate Assistance 7=Complete [place] ADL-Treatment Functional [place] Measure 0=Not Assessed/NA 4=Minimal Assistance 1=Total Assistance 5=Supervision or Setup 2=Maximal Assistance 6=Modified [place] 3=Moderate Assistance 7=Complete IndependenceIRFPAI Quality Coding Scale 6 Independent with activity with or without an assistive device 5 Patient requires set up or clean up by helper. Patient completes activity by themselves 4 Supervision or touching assist (CGA). [place] provide cues , steadying assist 3 The helper provides less than half the effort to complete the activity 2 The helper provides more than half the effort to complete the activity 1 Dependent. The helper does all the effort to complete an activity 7 Patient refused to complete or attempt activity 9 The patient did not perform the activity before the current illness or injury 88 Not attempted due to Medical conditions or safety concerns Grooming (FIM): 6 Bathing (FIM): 6 Shower/Bathe Self (QC): 6 Upper Body (FIM): 6 Upper Body Dressing (QC): 6 Lower Body Dressing (FIM): 6 Lower Body Dressing (QC): 6 On/Off Footwear (QC): 6 Toileting (FIM): 6 Toileting Hygiene (QC): 6 Transfers (B, C, W/C) (FIM): 6 (Pt. uses walker to complete all tasks.) Toilet/Commode Transfer (FIM): 6 Toilet Transfer (QC): 6 Other Treatment After ADLs, pt. agrees to ambulate to the kitchen area. Completed kitchen task. Retrieved items from high and low cabinet with walker. Pt. and OT talked about pt. getting a walker basket to retrieve items more safely. Pt. verbalizes understanding. boning room worker also informed of this. Ambulated to therapy gym. Completed 10 minutes on armbike to increase overall strength and endurance. Tolerated treatment well. Ambulated back to room. All needs met. Education OT Patient Education: Exercise program, Modified ADL techniques, Progress toward Goal/Update tx plan, Purpose of tx/functional activities, Reviewed precautions, Rehab process, Transfer techniques Teaching Recipient: Patient Teaching Methods: Demonstration, Discussion Response to Teaching: Verbalize Understanding, Return Demonstration OT Short Term Goals Short Term Goals Transfers (B,C,W/C) (FIM): 5 (met) 1=Demonstrate adherence to instructed precautions during ADL tasks. 2=Patient will verbalize/demonstrate understanding of assistive devices/ modifications for ADL. 3=Patient will improve strength/tolerance for activity to enable patient to perform ADL's. OT Wash Worker Goals Wash Worker Goals Time Frame: Feb 23, 2018 Eating (FIM): 7 Eating (QC): 6 Groomin Oral Hygiene (QC): 6 Bathing(FIM): 5 Shower/Bathe Self (QC): 4 Upper Body Dressing(FIM): 6 Upper Body Dressing (QC): 6 Lower Body Dressing(FIM): 6 Lower Body Dressing (QC): 6 On/Off Footwear (QC): 6 Toileting(FIM): 6 Toileting Hygiene (QC): 6 Transfers (B,C,W/C) (FIM): 6 Toilet/Commode Transfer(FIM): 6 Toilet/Commode Transfer (QC): 6 Shower Transfer(FIM): 5 Comprehension(FIM): 5 Expression (FIM): 5 Social Interaction(FIM): 6 Problem Solving(FIM): 5 Memory(FIM): 5 Additional Goals: 1-Demonstrate ADL Tasks, 2-Verbalize Understanding, 3- ImproveStrength/Clark 1=Demonstrate adherence to instructed precautions during ADL tasks. 2=Patient will verbalize/demonstrate understanding of assistive devices/ modifications for ADL. 3=Patient will improve strength/tolerance for activity to enable patient to perform ADL's. OT Education/Plan Discharge Recommendations Plan/Recommendations: Continue POC Therapy D/C Recommendations: Home w/ Family Support, Occupational Therapy Home Care Equpiment Recommendations-D/C: Extended Bath Bench, Walker Bag or Basket Treatment Plan/Plan of Care Treatment,Training & Education: Yes Patient would benefit from OT for education, treatment and training to promote independence in ADL's, mobility, safety and/or upper extremity function for ADL' s. Plan of Care: ADL Retraining, Functional Mobility, Group Exercise/Act as Ind, UE Funct Exercise/Act Treatment Duration: Feb 23, 2018 Frequency: At least 5 of 7 days/Wk (IRF) Estimated Hrs Per Day: 1.5 hours per day Agreement: Yes Rehab Potential: Good Time/GCodes Start Time: 07:00 Stop Time: 08:00 Total Time Billed (hr/min): 60 Billed Treatment Time 1, ADL x 45minutes, Ex x 15minutes RASHEL RODRIGES OT Feb 17, 2018 10:31
--- NOTE | 2018-02-17 11:47 | Speech Therapy Daily Note ---
Speech Daily Progress Note Subjective Date Seen by Provider: Feb 17, 2018 Time Seen by Provider: 08:45 The patient was seated upright in recliner upon entrance. The patient greeted the clinician and was agreeable to participation in the speech and language treatment session. Objective Oral Motor Exercises: Oral Motor Exercises were continued on this date. The patient performed ten repetitions of each exercise with mild clinician verbal cueing, including an initial direct model. The patient was encouraged to practice the exercises for two additional sessions throughout his day. Intelligibility Strategies: The patient was able to recall four of four intelligibility strategies, independently. The patient continues to require moderate verbal cueing for consistent demonstration, especially with reducing his rate of speech. Assessment Assessment Current Status: Good Progress Treatment Plan Continue Plan of Care Communication Comprehension: 5 (The patient understands basic needs (hungry, etc.), however, his impulsivity often reduces his demonstration of comprehension.) Expression: 5 Social Cognition Social Interaction: 6 Problem Solvin Memory: 5 Speech Short Term Goals Short Term Goals Short Term Goals 1. The patient will recall and demonstrate intelligibility strategies with 80% accuracy and mild clinician cueing. 2. The patient will demonstrate oral motor exercises with 80% accuracy and mild clinician verbal cueing and direct modeling. 3. The patient will recall safety strategies for mobility, transfers, and ambulation with 90% accuracy and mild clincian verbal cueing. Time Frame-STG: One Week Speech Wash Box Operator Goals [facility] Goals The patient will improve expressive communication and intelligibility to increase function and safety in the least restrictive setting. Time Frame: Two Weeks Comprehension: 5 (MET: The patient understands basic needs (hungry, etc.), however, his impulsivity often reduces his demonstration of comprehension.) Expression: 5 (MET: The patient expresses basic needs, however, due to dysarthria display reduced intelligibility.) Social Interaction: 6 (MET: The patient is consistently agreeable to therapy and appropriate with most social situtions.) Problem Solvin (NOT MET: The patient displays poor awareness and increased impulsivity which often interfers with accurate safety problem solving.) Memory: 5 (MET) Speech-Plan Treatment Plan Speech Therapy Treatment Plan: Continue Plan of Care Continue skilled speech pathology to target improved safety problem solving. Treatment Duration: Feb 25, 2018 Frequency: 3 times per week Estimated Hrs Per Day: .5 hour per day Rehab Potential: Good Safety Risks/Education Teaching Recipient: Patient Teaching Methods: Demonstration, Handout, Discussion Response to Teaching: Verbalize Understanding, Return Demonstration, Reinforcement Needed Education Topics Provided: Results, Recommendations, Plan of Care Time Speech Therapy Time In: 08:45 Speech Therapy Time Out: 09:15 Total Billed Time: 30 Billed Treatment Time 1, [place] NEW Feb 17, 2018 11:47
--- NOTE | 2018-02-17 11:50 | Therapy Team Discharge Summary ---
Therapy Discharge Summary Discharge Recommendations Date of Discharge Therapy D/C Recommendations: Home w/ Family Support, Occupational Therapy Home Care Occupational Therapy Decreased Activ Tolerance, Decreased UE Strength, Impaired Coordination Speech-Language Pathology The patient was recently admitted to [facility] following a CVA which resulted in right sided weakness and slurred speech. Skilled speech pathology focused on intelligibility strategies, oral motor exercises, and safety problem solving. The patient met comprehension, expression, and social interaction goals placed by ST. The patient continues to demonstrate impulsivity which does interfere with appropriate safety problem solving at times. At this time, the patient is discharged from skilled speech pathology services. Skilled speech pathology is not warranted post discharge due to the patient's baseline impulsivity, as well as, imprecise articulation. PT Fuel Operator Goals Fuel Operator Goals PT Nursing Home Goals Time Frame: Mar 02, 2018 Transfers (B,C,W/C) (FIM): 7 Roll Left to Right (QC): 6 Sit to Lying (QC): 6 Lying-Sitting on Side/Bed(QC): 6 Sit to Stand (QC): 6 Chair/Hyz-pq-Lzrsk Xfer(QC): 6 Car Transfer (QC): 6 Does the Patient Walk: Yes Gait (FIM): 6 Gait distance (FIM): 3=150 ft Walk 10 feet (QC): 6 Walk 10ft-Uneven Surface(QC): 6 Walk 50ft with 2 Turns (QC): 6 Walk 150 ft (QC): 6 Gait Assistive Device: FWW Does the Pt use WC or Scooter?: No Stairs (FIM): 7 # of Steps: 20 1 Step (curb) (QC): 6 4 Steps (QC): 6 12 Steps (QC): 6 Stairs Level Of Assist: 6 Picking up an Object (QC): 6 OT Nursing Home Goals Nursing Home Goals Time Frame: Feb 23, 2018 Eating (FIM): 7 Eating (QC): 6 Oral Hygiene (QC): 6 Grooming(FIM): 6 Bathing(FIM): 5 Shower/Bathe Self (QC): 4 Upper Body Dressing(FIM): 6 Upper Body Dressing (QC): 6 Lower Body Dressing(FIM): 6 Lower Body Dressing (QC): 6 On/Off Footwear (QC): 6 Toileting(FIM): 6 Toileting Hygiene (QC): 6 Transfers (B,C,W/C) (FIM): 6 Toilet/Commode Transfer(FIM): 6 Toilet/Commode Transfer (QC): 6 Shower Transfer(FIM): 5 Comprehension(FIM): 5 (MET: The patient understands basic needs (hungry, etc.) , however, his impulsivity often reduces his demonstration of comprehension.) Expression (FIM): 5 (MET: The patient expresses basic needs, however, due to dysarthria display reduced intelligibility.) Social Interaction(FIM): 6 (MET: The patient is consistently agreeable to therapy and appropriate with most social situtions.) Problem Solving(FIM): 5 (NOT MET: The patient displays poor awareness and increased impulsivity which often interfers with accurate safety problem solving.) Memory(FIM): 5 (MET) Additional Goals: 1-Demonstrate ADL Tasks, 2-Verbalize Understanding, 3- ImproveStrength/Clark 1=Demonstrate adherence to instructed precautions during ADL tasks. 2=Patient will verbalize/demonstrate understanding of assistive devices/ modifications for ADL. 3=Patient will improve strength/tolerance for activity to enable patient to perform ADL's. Speech Fuel Operator Goals Nursing Home Goals The patient will improve expressive communication and intelligibility to increase function and safety in the least restrictive setting. Time Frame: Two Weeks Comprehension: 5 (MET: The patient understands basic needs (hungry, etc.), however, his impulsivity often reduces his demonstration of comprehension.) Expression: 5 (MET: The patient expresses basic needs, however, due to dysarthria display reduced intelligibility.) Social Interaction: 6 (MET: The patient is consistently agreeable to therapy and appropriate with most social situtions.) Problem Solvin (NOT MET: The patient displays poor awareness and increased impulsivity which often interfers with accurate safety problem solving.) Memory: 5 (MET) SALVADOR CHAUDHARI Feb 17, 2018 11:50
--- NOTE | 2018-02-17 13:38 | Physical Therapy Daily Note ---
PT Daily Note-Current Subjective Agreeable to PT. Happy to be going home tomorrow. Pain Numeric Pain Scale: 0-No Pain Location: No Pain Reported Mental Status Patient Orientation: Person, Place, Time, Situation Transfers Functional Avinger Measure 0=Not Assessed/NA 4=Minimal Assistance 1=Total Assistance 5=Supervision or Setup 2=Maximal Assistance 6=Modified Avinger 3=Moderate Assistance 7=Complete IndependenceIRFPAI Quality Coding Scale 6 Independent with activity with or without an assistive device 5 Patient requires set up or clean up by helper. Patient completes activity by themselves 4 Supervision or touching assist (CGA). Franklin provide cues , steadying assist 3 The helper provides less than half the effort to complete the activity 2 The helper provides more than half the effort to complete the activity 1 Dependent. The helper does all the effort to complete an activity 7 Patient refused to complete or attempt activity 9 The patient did not perform the activity before the current illness or injury 88 Not attempted due to Medical conditions or safety concerns Transfers (B, C, W/C) (FIM): 7 Roll Left to Right (QC): 6 Sit to Lying (QC): 6 Sit to Stand (QC): 6 Chair/Agd-yi-Nkyru Xfer(QC): 6 Car Transfer (QC): 6 Gait Training Does the Patient Walk?: Yes Gait (FIM): 6 Distance (FIM): 3=150 ft Walk 10 feet (QC): 6 Walk 50 ft with 2 Turns(QC): 6 Walk 150 ft (QC): 6 Walking 10ft/uneven surface-QC: 6 Gait Assistive Device: FWW Occas cues for toe clearance R LE. Safe and steady gait with no noted LOB. Wheelchair Training Does the Pt Use a Wheelchair?: No Stair Training Stair Training: Handrails/: 1 handrail Stairs (FIM): 5 #of Steps: 20 1 Step (curb) (QC): 5 4 Steps (QC): 5 12 Steps (QC): 5 Stairs: Pattern: Step to Balance Picking up an Object (QC): 4 Assessment Current Status: Good Progress Pt making excellent gains. Meeting goals set at evaluation. PT Short Term Goals Short Term Goals Time Frame: Feb 16, 2018 Transfers (B,C,W/C) (FIM): 5 (met) Gait (FIM): 5 Stairs (FIM): 5 PT Automotive Project Engineer Goals Nursing Home Goals PT Nursing Home Goals Time Frame: Mar 02, 2018 Transfers (B,C,W/C) (FIM): 7 (met) Sit to Lying (QC): 6 (met) Lying-Sitting on Side/Bed(QC): 6 (met) Sit to Stand (QC): 6 (met) Rollin (met) Roll Left to Right (QC): 6 (met) Chair/Jfx-rj-Eniwj Xfer(QC): 6 (met) Car Transfer (QC): 6 (met) Does the Patient Walk: Yes Gait (FIM): 6 (met) Gait distance (FIM): 3=150 ft Walk 10 feet (QC): 6 (met) Walk 10ft-Uneven Surface(QC): 6 (met) Walk 50ft with 2 Turns (QC): 6 Walk 150 ft (QC): 6 (met) Gait Assistive Device: FWW Does the Pt use WC or Scooter?: No Stairs (FIM): 7 (scored a 5; unmet) # of Steps: 20 1 Step (curb) (QC): 6 (unmet) 4 Steps (QC): 6 (unmet) 12 Steps (QC): 6 (unmet) Stairs Level Of Assist: 6 Picking up an Object (QC): 6 (unmet) Recommend SBA on stairs for safety purposes. PT Plan Problem List Problem List: Activity Tolerance, Functional Strength, Safety Treatment/Plan Treatment Plan: Continue Plan of Care Treatment Plan: Bed Mobility, Education, Functional Activity Clark, Functional Strength, Group Therapy, Gait, Safety, Therapeutic Exercise, Transfers Treatment Duration: Mar 02, 2018 Frequency: At least 5 of 7 days/Wk (IRF) Estimated Hrs Per Day: 1.5 hours per day Patient and/or Family Agrees t: Yes Safety Risks/Education Patient Education: Transfer Techniques, Safety Issues Teaching Recipient: Patient Teaching Methods: Discussion Response to Teaching: Verbalize Understanding Discharge Recommendations Therapy D/C Recommendations: Physical Therapy Home Care Time/GCodes Time In: 915 Time Out: 1000 Total Billed Treatment Time: 45 Total Billed Treatment visit FA 45 ALEE HOWARD PT Feb 17, 2018 13:38
--- NOTE | 2018-02-17 14:41 | Therapy Group Daily Note ---
Therapy Daily Group Note Patient Education Topic Home Safety, Other List Below (handwashing) Exercises LE Standing Exercise, UE Exercise Other/Notes Pt ambulated with FWW to therapy gym for OT/PT group. Group consisted of introductions (name, place living, what you do in summer), socialization, UE/LE seated exercises, education for handwashing, handwashing quiz, education for home safety, home safety quiz and words of advice. Pt was able to introduce self appropriately and actively listen to peers while they introduced self. Pt completed UE/LE seated exercises by self without difficulty. Pt attentively listened to educational topics and was able to verbalize understanding through questions from quizzes. Pt contributed to peer discussions and interacted appropriately during group. Pt ambulated with FWW from gym to room. After group, pt sitting in recliner with call light/phone in reach. All needs met in room. Start Time: 13:00 Stop Time: 14:10 Total Billed Treatment Time: 70 Total Billed Treatment 1-GRP ALEE GILBERT Feb 17, 2018 14:41
[2018-02-17] MEDS ORDERED: FAMO20TA5 PO (17:54)
[2018-02-17] MEDS ORDERED: IBUP-1773 PO (17:54)
[2018-02-17] MEDS ORDERED: INSU100V16 SC (17:54)
[2018-02-17] MEDS ORDERED: INSU100V5 SQ (17:54)
[2018-02-17] MEDS ORDERED: ASPI325T32 PO (17:54)
[2018-02-17] MEDS ORDERED: ACET325T49 PO (17:54)
[2018-02-17] MEDS ORDERED: METF500T8 PO (17:54)
[2018-02-17] MEDS ORDERED: Zolpidem Tartrate PO (17:54)
[2018-02-17] MEDS ORDERED: ATOR40TA PO (17:54)
[2018-02-17 18:00] VITALS: BP 127/78
[2018-02-17] MEDS: inSUlin DETERMIR 1 UNIT/0.01 ML (LEVEMIR) CHARGE PER UNIT SQ SCH (20:37)
[2018-02-17] MEDS: ATORVASTATIN 40 MG (LIPITOR) TABLET PO SCH (20:37)
[2018-02-17] MEDS: ZOLPIDEM 5 MG (AMBIEN) TAB PO PRN (22:58)
[2018-02-18 05:49] VITALS: BP 101/75
[2018-02-18] MEDS: inSUlin ASPART (NovoLOG) 1 UNIT/0.01 ML (CHARGE PER UNIT) SC SCH ×2 (06:08→12:50)
[2018-02-18] MEDS: metFORMIN XR 500 MG (GLUCOPHAGE XR) TAB PO SCH (06:08)
[2018-02-18] MEDS: DOCUSATE SODIUM 100 MG (COLACE) CAP PO SCH (08:47)
[2018-02-18] MEDS: ASPIRIN E.C. 325 MG (ECOTRIN) TABLET PO SCH (08:47)
[2018-02-18] MEDS: FAMOTIDINE 20 MG (PEPCID) TABLET PO SCH (08:47)
[2018-02-18] MEDS ORDERED: [UNRECOGNIZED DRUG - CODE] MC (09:05)
--- NOTE | 2018-02-18 11:31 | Therapy Team Discharge Summary ---
Therapy Discharge Summary Discharge Recommendations Date of Discharge Therapy D/C Recommendations: Physical Therapy Home Care Physical Therapy Patient came to rehab following a CVA. Upon admission patient performed bed mobility and transfers with min assist, car transfer with min assist, ambulated 120' with a rolling walker with min assist, and went up and down 1 step using a rolling walker with mod assist. Patient has been performing bed mobility and transfer training, balance and endurance training, functional strengthening, stair training, gait training, and education. Patient has made good progress and has met all of his detention goals except for stairs. Now, patient performs bed mobility and transfers with mod I, ambulates 150' with a rolling walker with mod I (including 50' with at least 2 turns of 90 degrees and 10' over an uneven surface), performs a car transfer with mod I, and can go up and down 20 steps using 1 handrail with SBA. Patient is discharging from this facility today and will be discharged from PT at this time. Occupational Therapy Decreased Activ Tolerance, Decreased UE Strength, Impaired Coordination PT Software Quality Assurance Engineer Goals Software Quality Assurance Engineer Goals PT Software Quality Assurance Engineer Goals Time Frame: Mar 02, 2018 Transfers (B,C,W/C) (FIM): 7 (met) Roll Left to Right (QC): 6 (met) Sit to Lying (QC): 6 (met) Lying-Sitting on Side/Bed(QC): 6 (met) Sit to Stand (QC): 6 (met) Chair/Fdk-ma-Ejtnf Xfer(QC): 6 (met) Car Transfer (QC): 6 (met) Does the Patient Walk: Yes Gait (FIM): 6 (met) Gait distance (FIM): 3=150 ft Walk 10 feet (QC): 6 (met) Walk 10ft-Uneven Surface(QC): 6 (met) Walk 50ft with 2 Turns (QC): 6 Walk 150 ft (QC): 6 (met) Gait Assistive Device: FWW Does the Pt use WC or Scooter?: No Stairs (FIM): 7 (scored a 5; unmet) # of Steps: 20 1 Step (curb) (QC): 6 (unmet) 4 Steps (QC): 6 (unmet) 12 Steps (QC): 6 (unmet) Stairs Level Of Assist: 6 Picking up an Object (QC): 6 (unmet) OT Halfway Goals Halfway Goals Time Frame: Feb 23, 2018 Eating (FIM): 7 Eating (QC): 6 Oral Hygiene (QC): 6 Grooming(FIM): 6 Bathing(FIM): 5 Shower/Bathe Self (QC): 4 Upper Body Dressing(FIM): 6 Upper Body Dressing (QC): 6 Lower Body Dressing(FIM): 6 Lower Body Dressing (QC): 6 On/Off Footwear (QC): 6 Toileting(FIM): 6 Toileting Hygiene (QC): 6 Transfers (B,C,W/C) (FIM): 6 Toilet/Commode Transfer(FIM): 6 Toilet/Commode Transfer (QC): 6 Shower Transfer(FIM): 5 Comprehension(FIM): 5 (MET: The patient understands basic needs (hungry, etc.) , however, his impulsivity often reduces his demonstration of comprehension.) Expression (FIM): 5 (MET: The patient expresses basic needs, however, due to dysarthria display reduced intelligibility.) Social Interaction(FIM): 6 (MET: The patient is consistently agreeable to therapy and appropriate with most social situtions.) Problem Solving(FIM): 5 (NOT MET: The patient displays poor awareness and increased impulsivity which often interfers with accurate safety problem solving.) Memory(FIM): 5 (MET) Additional Goals: 1-Demonstrate ADL Tasks, 2-Verbalize Understanding, 3- ImproveStrength/Clark 1=Demonstrate adherence to instructed precautions during ADL tasks. 2=Patient will verbalize/demonstrate understanding of assistive devices/ modifications for ADL. 3=Patient will improve strength/tolerance for activity to enable patient to perform ADL's. Speech Software Quality Assurance Engineer Goals Software Quality Assurance Engineer Goals The patient will improve expressive communication and intelligibility to increase function and safety in the least restrictive setting. Time Frame: Two Weeks Comprehension: 5 (MET: The patient understands basic needs (hungry, etc.), however, his impulsivity often reduces his demonstration of comprehension.) Expression: 5 (MET: The patient expresses basic needs, however, due to dysarthria display reduced intelligibility.) Social Interaction: 6 (MET: The patient is consistently agreeable to therapy and appropriate with most social situtions.) Problem Solvin (NOT MET: The patient displays poor awareness and increased impulsivity which often interfers with accurate safety problem solving.) Memory: 5 (MET) ANA MARÍA SALAS PT Feb 18, 2018 11:31
--- NOTE | 2018-02-18 14:13 | Therapy Team Discharge Summary ---
Therapy Discharge Summary Discharge Recommendations Date of Discharge Therapy D/C Recommendations: Physical Therapy Home Care Occupational Therapy Pt admitted to ARU following acute hospitalization for CVA with right side deficits. On admission pt required max assist for LE dressing, mod assist for UE dressing, and min assist for transfers, grooming, and bathing. Skilled OT intervention focused on ADL training, transfers, strengthening, and home safety education. Pt made good progress with therapy and by discharge is completing basic ADLs and transfers with modified independence. Pt met goals for grooming, bathing, dressing, toilet transfer, and toileting. Pt is discharging from facility this date, will d/c ARU OT at this time. Decreased Activ Tolerance, Decreased UE Strength, Impaired Coordination PT Chief Program Officer Goals Nursing Home Goals PT Chief Program Officer Goals Time Frame: Mar 02, 2018 Transfers (B,C,W/C) (FIM): 7 (met) Roll Left to Right (QC): 6 (met) Sit to Lying (QC): 6 (met) Lying-Sitting on Side/Bed(QC): 6 (met) Sit to Stand (QC): 6 (met) Chair/Cdg-ba-Pxtpo Xfer(QC): 6 (met) Car Transfer (QC): 6 (met) Does the Patient Walk: Yes Gait (FIM): 6 (met) Gait distance (FIM): 3=150 ft Walk 10 feet (QC): 6 (met) Walk 10ft-Uneven Surface(QC): 6 (met) Walk 50ft with 2 Turns (QC): 6 Walk 150 ft (QC): 6 (met) Gait Assistive Device: FWW Does the Pt use WC or Scooter?: No Stairs (FIM): 7 (scored a 5; unmet) # of Steps: 20 1 Step (curb) (QC): 6 (unmet) 4 Steps (QC): 6 (unmet) 12 Steps (QC): 6 (unmet) Stairs Level Of Assist: 6 Picking up an Object (QC): 6 (unmet) OT Nursing Home Goals Nursing Home Goals Time Frame: Feb 23, 2018 Eating (FIM): 7 Eating (QC): 6 Oral Hygiene (QC): 6 Grooming(FIM): 6 Bathing(FIM): 5 Shower/Bathe Self (QC): 4 Upper Body Dressing(FIM): 6 Upper Body Dressing (QC): 6 Lower Body Dressing(FIM): 6 Lower Body Dressing (QC): 6 On/Off Footwear (QC): 6 Toileting(FIM): 6 Toileting Hygiene (QC): 6 Transfers (B,C,W/C) (FIM): 6 Toilet/Commode Transfer(FIM): 6 Toilet/Commode Transfer (QC): 6 Shower Transfer(FIM): 5 Comprehension(FIM): 5 (MET: The patient understands basic needs (hungry, etc.) , however, his impulsivity often reduces his demonstration of comprehension.) Expression (FIM): 5 (MET: The patient expresses basic needs, however, due to dysarthria display reduced intelligibility.) Social Interaction(FIM): 6 (MET: The patient is consistently agreeable to therapy and appropriate with most social situtions.) Problem Solving(FIM): 5 (NOT MET: The patient displays poor awareness and increased impulsivity which often interfers with accurate safety problem solving.) Memory(FIM): 5 (MET) Additional Goals: 1-Demonstrate ADL Tasks, 2-Verbalize Understanding, 3- ImproveStrength/Clark 1=Demonstrate adherence to instructed precautions during ADL tasks. 2=Patient will verbalize/demonstrate understanding of assistive devices/ modifications for ADL. 3=Patient will improve strength/tolerance for activity to enable patient to perform ADL's. Speech Chief Program Officer Goals Chief Program Officer Goals The patient will improve expressive communication and intelligibility to increase function and safety in the least restrictive setting. Time Frame: Two Weeks Comprehension: 5 (MET: The patient understands basic needs (hungry, etc.), however, his impulsivity often reduces his demonstration of comprehension.) Expression: 5 (MET: The patient expresses basic needs, however, due to dysarthria display reduced intelligibility.) Social Interaction: 6 (MET: The patient is consistently agreeable to therapy and appropriate with most social situtions.) Problem Solvin (NOT MET: The patient displays poor awareness and increased impulsivity which often interfers with accurate safety problem solving.) Memory: 5 (MET) BRENDAN VANG OT Feb 18, 2018 14:13
--- NOTE | 2018-02-18 14:37 | Therapy Group Daily Note ---
Therapy Daily Group Note Patient Education Topic Home Safety, Other List Below (What is a Stroke, S/S, Risk Factors, Prevention and BP & P Taken ) Exercises LE Seated Exercise, UE Exercise Other/Notes Pt ambulated to group w/ FWW. Group consisted of introductions and daily question (Name, Where From, Fastest you've ever driven in a car & in what type of car), UE/LE EX, Topic of Discussion "What is a Stroke, S/S, Risk Factors, Prevention". Pt actively participated in introductions, UE/LE EX, answered questions, spoke about how his stroke presented itself and what he did, and participated in the Topic Discussion. Per part of the Topic Discussion, pts BP & P were taken. BP 107/75 P 81 Pt returned to room at end of group. Start Time: 13:00 Stop Time: 14:00 Total Billed Treatment Time: 60 Total Billed Treatment 1, GRP ANA MARÍA SALAS PT Feb 18, 2018 14:37
[2018-02-18 15:57] VITALS: BP 101/75
--- NOTE | 2018-03-09 06:45 | DISCHARGE SUMMARY ---
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 The patient was not a TPA candidate. An MRI of the brain was not done, but the CT did suggest a possible stroke. A CT angiogram of the neck revealed a left subclavian artery stenosis. This was severe in nature. He was not felt to be needed to be emergently addressed. The patient was felt clinically to have sustained a left middle cerebral artery distribution stroke with right hemiparesis with some word finding difficulty. The patient was admitted and therapy was begun. The patient was felt to be appropriate for inpatient rehabilitation and he was transferred to IRU with the approval of his commercial insurance. PAST MEDICAL HISTORY: Hypertension, diabetes mellitus, hyperlipidemia, nicotine dependence. He had been independent prior to this and living with a roommate in an apartment in [place]. He works for the hospital in [employer] services. MEDICAL COURSE: The patient was afebrile during his stay and was having good neurologic return. His pulse was 77 on 02/18/2018, respirations 18, blood pressure 101/75, O2 sat 98% on room air. Glucometer readings from 02/17/2018 to 02/18/2018 varied between 72 and 150. The patient had some complaints of dyspepsia while on inpatient rehabilitation unit. Medications were provided. This improved. REHABILITATION COURSE: He progressed well with his therapies. He had increased strength and endurance and improved neurologic return. Speech therapy notes that the patient met comprehension, expression, social interaction goals placed by speech therapy, did continue to demonstrate some impulsivity, which interfered at times with appropriate safety problem solving. Upon discharge, he was supervision for comprehension and expression, modified independent for social interaction, supervision for problem solving and memory. PT notes upon admission, the patient performed bed mobility and transfers with min assist, car transfers with min assist, could ambulate up to 20 feet with a wheeled walker with min assist. Upon discharge, the patient was modified independent with bed mobility and transfers, can ambulate 50 feet with a wheeled walker with modified independence. Upon admission, the patient required max assist for lower body dressing, moderate assist for upper body dressing, min assist for transfers, grooming and bathing. The patient made good progress and by discharge was completing basic ADLs and transfers with modified independence. DISCHARGE INSTRUCTIONS: The patient will have followup with home health services and PCP. Continue current diet and home Accu-Cheks. DISCHARGE MEDICATIONS: Tylenol 650 mg p.o. q.4 hours p.r.n. mild pain, ASA 325 mg p.o. daily, Lipitor 40 mg p.o. at bedtime, Pepcid 20 mg p.o. b.i.d., ibuprofen 600 mg p.o. q.6 hours p.r.n. moderate pain. NovoLog insulin 7 units subQ with meals, Levemir insulin 30 units subQ at bedtime, metformin 500 mg p.o. b.i.d., Ambien 5 mg p.o. at bedtime p.r.n. insomnia. DISCHARGE DIAGNOSES: 1. 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 2. Left subclavian artery stenosis. 3. Hypertension, controlled with medication. 4. Diabetes mellitus type 2, controlled with medication. 5. Hyperlipidemia. 6. Nicotine dependence, currently abstaining. 7. Dyspepsia improved. 8. Long-term use insulin. CONDITION AT DISCHARGE: Improved and stable. PROGNOSIS: Rehab prognosis appears good for continued improvement at home with home health services. Return to independent living. Hopefully, at some point, he will be able to return to gainful employment. Job ID: [id number] DocumentID: [id number] Dictated Date: 03/08/2018 10:09:57 Architectural Wood Model Maker Date: 03/09/2018 06:44:57 Dictated By: NICOLAS WALLER MD
== END 2018-02-18 15:30 | disposition home health service (06) | DRG 57 ==
PROVIDERS: ADMIT Physical Medicine & Rehabilitation; ATTEND Physical Medicine & Rehabilitation
DX: I69.351 Hemiplegia and hemiparesis following cerebral infarction affecting right dominant side (principal); I69.320 Aphasia following cerebral infarction; I69.322 Dysarthria following cerebral infarction; I77.1 Stricture of artery; I10 Essential (primary) hypertension; E11.9 Type 2 diabetes mellitus without complications; E78.5 Hyperlipidemia, unspecified; F17.210 Nicotine dependence, cigarettes, uncomplicated; R10.13 Epigastric pain; Z79.4 Long term (current) use of insulin
CPT/HCPCS: 82962; 94664

== ENCOUNTER 2018-03-30 07:11 | Day surgery (SDC) | payer OTHER ==
[~2018-03-30] VITALS: Ht 154.9 cm; Wt 67.1 kg
[2018-03-30] VITALS (9 sets, daily range): BP systolic 107–145; BP diastolic 69–95
[~2018-03-30 07:11] MED LIST changes: +FAMO20TA5 PO; +LIDOCAINE 1% INJ 20 ML 20 ML VIAL ONE; +NS IV 1000 ML 3,000 ML ONE; +Zolpidem Tartrate PO; +[UNRECOGNIZED DRUG - CODE] MC
--- OUTSIDE RECORDS SUMMARY | 2018-03-30 07:16 | XMS REPORT | Continuity of Care Document ---
Author Author [facility] Address Unknown Phone Unavailable Allergies Active Description Code Type Severity Reaction Onset Reported/Identified Relationship to Patient Clinical Status Yes No Known Drug Allergies [id number] Drug Allergy Unknown N/A 08/14/2008 Medications There [...] MENDOZA MD 578.1 BLOOD IN STOOL 02/16/2014 CANDY PERDOMO, RONNI Sewell Ot 211.3 BENIGN NEOPLASM LG BOWEL 02/16/2014 CANDY PERDOMO, RONNI Sewell Ot 600.00 HYPERTROPHY (BENIGN) OF PROSTATE W/O URI 02/16/2014 CANDY PERDOMO, RONNI Sewell Ot V76.51 SCREEN MAL NEOP-COLON 09/15/2017 MARSHA ELLIOTT DO Ot F17.210 NICOTINE DEPENDENCE, CIGARETTES, UNCOMPL 09/15/2017 MARSHA ELLIOTT DO Ot J06.9 ACUTE UPPER RESPIRATORY INFECTION, UNSPE 09/15/2017 MARSHA ELLIOTT DO Ot R05 COUGH 09/15/2017 MARSHA ELLIOTT DO Ot Z90.89 ACQUIRED ABSENCE OF OTHER ORGANS 09/15/2017 Ot 250.00 DIAB HARRY WO COMPL, TYPE II OR UNSPEC TY 09/15/2017 CANDY PERDOMO, RONNI Sewell Ot V72.84 EXAM PRE-OPERATIVE NOS 09/17/2017 MARSHA ELLIOTT DO Ot F17.210 NICOTINE DEPENDENCE, CIGARETTES, UNCOMPL 09/17/2017 MARSHA ELLIOTT DO Ot J06.9 ACUTE UPPER RESPIRATORY INFECTION, UNSPE 09/17/2017 MARSHA ELLIOTT DO Ot R05 COUGH 09/17/2017 MARSHA ELLIOTT DO Ot Z90.89 ACQUIRED ABSENCE OF OTHER ORGANS 02/09/2018 CORINA MAHMOOD MD Ot E11.65 TYPE 2 DIABETES MELLITUS WITH HYPERGLYCE 02/09/2018 CORINA MAHMOOD MD, Ot E78.5 HYPERLIPIDEMIA, UNSPECIFIED 02/09/2018 CORINA MAHMOOD MD, Ot F17.210 NICOTINE DEPENDENCE, CIGARETTES, UNCOMPL 02/09/2018 CORINA MAHMOOD MD Ot G83.21 MONOPLEGIA OF UPPER LIMB AFFECTING RIGHT 02/09/2018 CORINA MAHMOOD MD, Ot I10 ESSENTIAL (PRIMARY) HYPERTENSION 02/09/2018 CORINA MAHMOOD MD Ot I63.9 CEREBRAL INFARCTION, UNSPECIFIED 02/09/2018 CORINA MAHMOOD MD Ot 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 02/09/2018 CORINA MAHMOOD MD, Ot R47.1 DYSARTHRIA AND ANARTHRIA 02/09/2018 CORINA MAHMOOD MD Ot S49.92XA UNSP INJURY OF LEFT SHOULDER AND UPPER A 02/09/2018 CORINA MAHMOOD MD Ot W01.0XXA FALL SAME LEV FROM SLIP/TRIP W/O STRIKE 02/09/2018 CORINA MAHMOOD MD Ot Y92.231 PATIENT BATHROOM IN HOSPITAL PLACE 02/18/2018 NICOLAS WALLER MD Ot E11.9 TYPE 2 DIABETES MELLITUS WITHOUT COMPLIC 02/18/2018 NICOLAS WALLER MD, Ot E78.5 HYPERLIPIDEMIA, UNSPECIFIED 02/18/2018 NICOLAS WALLER MD, Ot F17.210 NICOTINE DEPENDENCE, CIGARETTES, UNCOMPL 02/18/2018 NICOLAS WALLER MD Ot I10 ESSENTIAL (PRIMARY) HYPERTENSION 02/18/2018 NICOLAS WALLER MD Ot I69.320 APHASIA FOLLOWING CEREBRAL INFARCTION 02/18/2018 NICOLAS WALLER MD Ot I69.322 DYSARTHRIA FOLLOWING CEREBRAL INFARCTION 02/18/2018 NICOLAS WALLER MD Ot I69.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 02/18/2018 NICOLAS WALLER MD Ot I77.1 STRICTURE OF ARTERY 02/18/2018 NICOLAS WALLER MD Ot R10.13 EPIGASTRIC PAIN 02/18/2018 NICOLAS WALLER MD Ot Z79.4 JAIL (CURRENT) USE OF INSULIN 02/18/2018 NICOLAS WALLER MD Ot E11.9 TYPE 2 DIABETES MELLITUS WITHOUT COMPLIC 02/18/2018 NICOLAS WALLER MD Ot E78.5 HYPERLIPIDEMIA, UNSPECIFIED 02/18/2018 NICOLAS WALLER MD Ot F17.210 NICOTINE DEPENDENCE, CIGARETTES, UNCOMPL 02/18/2018 NICOLAS WALLER MD Ot I10 ESSENTIAL (PRIMARY) HYPERTENSION 02/18/2018 NICOLAS WALLER MD Ot I69.320 APHASIA FOLLOWING CEREBRAL INFARCTION 02/18/2018 NICOLAS WALLER MD Ot I69.322 DYSARTHRIA FOLLOWING CEREBRAL INFARCTION 02/18/2018 NICOLAS WALLER MD Ot I69.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 02/18/2018 NICOLAS WALLER MD Ot I77.1 STRICTURE OF ARTERY 02/18/2018 NICOLAS WALLER MD Ot R10.13 EPIGASTRIC PAIN 02/18/2018 NICOLAS WALLER MD Ot Z79.4 JAIL (CURRENT) USE OF INSULIN 03/07/2018 CORBIN MENDOZA MD Ot I69.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 03/24/2018 CORBIN MENDOZA MD Ot I69.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 Procedures Code [place] [address] A1C (IN-HOUSE) 10/04/2012 69545 MICRO ALBUMIN-IN HOUSE 01/23/2013 36862 A1C (IN-HOUSE) 01/23/2013 18023 ROUTINE VENIPUNCTURE 01/23/2013 10493 CMP 01/23/2013 43610 LIPID PANEL 01/23/2013 1202872 GFR CALC (RESULT ONLY) 01/23/2013 77850 ROUTINE VENIPUNCTURE 10/09/2013 27917 A1C (IN-HOUSE) 10/09/2013 6738914 GFR CALC (RESULT ONLY) 10/09/2013 14495 CMP 10/09/2013 84658 LIPID PANEL 10/09/2013 80680 ROUTINE VENIPUNCTURE 02/09/2014 98603 A1C (IN-HOUSE) 02/09/2014 75451 MICRO ALBUMIN-IN HOUSE 02/09/2014 Internal Candy, Ronni 02/09/2014 61681 CBC 02/09/2014 78229 MICRO ALBUMIN-IN HOUSE 07/17/2014 51638 A1C (IN-HOUSE) 07/17/2014 Results Test Result Range Influenza virus A and B antigen detection - 09/15/17 07:25 FLU RESULT NEGATIVE FOR INFLUENZA A AND B ANTIGENS BY [place] NR Complete blood count (CBC) with automated [...] or plasma troponin i.cardiac measurement (mass/volume) - 03/30/18 13:11 Serum or plasma troponin i.cardiac measurement [...] measurement by glucometer (mass/volume) 148 mg/dL 70-110 Capillary blood glucose measurement by glucometer (mass/volume) - 02/09/18 21: 01 Capillary blood glucose measurement by glucometer (mass/volume) 278 mg/dL 70-110 Capillary blood glucose measurement by glucometer (mass/volume) - 02/10/18 05: 20 Capillary blood glucose measurement by glucometer (mass/volume) 103 mg/dL 70-110 Capillary blood glucose measurement by glucometer (mass/volume) - 02/10/18 09: 16 Capillary blood glucose measurement by glucometer (mass/volume) 99 mg/dL 70-110 Capillary blood glucose measurement by glucometer (mass/volume) - 02/10/18 14: 23 Capillary blood glucose measurement by glucometer (mass/volume) 119 mg/dL 70-110 Capillary blood glucose measurement by glucometer (mass/volume) - 02/10/18 20: 45 Capillary blood glucose measurement by glucometer (mass/volume) 99 mg/dL 70-110 Capillary blood glucose measurement by glucometer (mass/volume) - 02/11/18 05: 43 Capillary blood glucose measurement by glucometer (mass/volume) 88 mg/dL 70-110 Capillary blood glucose measurement by glucometer (mass/volume) - 02/11/18 10: 50 Capillary blood glucose measurement by glucometer (mass/volume) 92 mg/dL 70-110 Capillary blood glucose measurement by glucometer (mass/volume) - 02/11/18 14: 49 Capillary blood glucose measurement by glucometer (mass/volume) 178 mg/dL 70-110 Capillary blood glucose measurement by glucometer (mass/volume) - 02/11/18 19: 56 Capillary blood glucose measurement by glucometer (mass/volume) 105 mg/dL 70-110 Capillary blood glucose measurement by glucometer (mass/volume) - 02/12/18 05: 15 Capillary blood glucose measurement by glucometer (mass/volume) 103 mg/dL 70-110 Capillary blood glucose measurement by glucometer (mass/volume) - 02/12/18 09: 50 Capillary blood glucose measurement by glucometer (mass/volume) 84 mg/dL 70-110 Capillary blood glucose measurement by glucometer (mass/volume) - 02/12/18 14: 36 Capillary blood glucose measurement by glucometer (mass/volume) 64 mg/dL 70-110 Capillary blood glucose measurement by glucometer (mass/volume) - 02/12/18 15: 07 Capillary blood glucose measurement by glucometer (mass/volume) 92 mg/dL 70-110 Capillary blood glucose measurement by glucometer (mass/volume) - 02/12/18 19: 45 Capillary blood glucose measurement by glucometer (mass/volume) 74 mg/dL 70-110 Capillary blood glucose measurement by glucometer (mass/volume) - 02/12/18 21: 13 Capillary blood glucose measurement by glucometer (mass/volume) 185 mg/dL 70-110 Capillary blood glucose measurement by glucometer (mass/volume) - 02/13/18 05: 15 Capillary blood glucose measurement by glucometer (mass/volume) 65 mg/dL 70-110 Capillary blood glucose measurement by glucometer (mass/volume) - 02/13/18 06: 24 Capillary blood glucose measurement by glucometer (mass/volume) 155 mg/dL 70-110 Capillary blood glucose measurement by glucometer (mass/volume) - 02/13/18 10: 19 Capillary blood glucose measurement by glucometer (mass/volume) 80 mg/dL 70-110 Capillary blood glucose measurement by glucometer (mass/volume) - 02/13/18 14: 25 Capillary blood glucose measurement by glucometer (mass/volume) 89 mg/dL 70-110 Capillary blood glucose measurement by glucometer (mass/volume) - 02/13/18 20: 11 Capillary blood glucose measurement by glucometer (mass/volume) 204 mg/dL 70-110 Capillary blood glucose measurement by glucometer (mass/volume) - 02/14/18 05: 11 Capillary blood glucose measurement by glucometer (mass/volume) 89 mg/dL 70-110 Capillary blood glucose measurement by glucometer (mass/volume) - 02/14/18 10: 53 Capillary blood glucose measurement by glucometer (mass/volume) 127 mg/dL 70-110 Capillary blood glucose measurement by glucometer (mass/volume) - 02/14/18 15: 04 Capillary blood glucose measurement by glucometer (mass/volume) 88 mg/dL 70-110 Capillary blood glucose measurement by glucometer (mass/volume) - 02/14/18 21: 11 Capillary blood glucose measurement by glucometer (mass/volume) 191 mg/dL 70-110 Capillary blood glucose measurement by glucometer (mass/volume) - 02/15/18 06: 42 Capillary blood glucose measurement by glucometer (mass/volume) 89 mg/dL 70-110 Capillary blood glucose measurement by glucometer (mass/volume) - 02/15/18 09: 59 Capillary blood glucose measurement by glucometer (mass/volume) 70 mg/dL 70-110 Capillary blood glucose measurement by glucometer (mass/volume) - 02/15/18 11: 30 Capillary blood glucose measurement by glucometer (mass/volume) 75 mg/dL 70-110 Capillary blood glucose measurement by glucometer (mass/volume) - 02/15/18 15: 22 Capillary blood glucose measurement by glucometer (mass/volume) 136 mg/dL 70-110 Capillary blood glucose measurement by glucometer (mass/volume) - 02/15/18 20: 37 Capillary blood glucose measurement by glucometer (mass/volume) 188 mg/dL 70-110 Capillary blood glucose measurement by glucometer (mass/volume) - 02/16/18 05: 33 Capillary blood glucose measurement by glucometer (mass/volume) 110 mg/dL 70-110 Capillary blood glucose measurement by glucometer (mass/volume) - 02/16/18 11: 27 Capillary blood glucose measurement by glucometer (mass/volume) 92 mg/dL 70-110 Capillary blood glucose measurement by glucometer (mass/volume) - 02/16/18 16: 00 Capillary blood glucose measurement by glucometer (mass/volume) 113 mg/dL 70-110 Capillary blood glucose measurement by glucometer (mass/volume) - 02/16/18 20: 56 Capillary blood glucose measurement by glucometer (mass/volume) 133 mg/dL 70-110 Capillary blood glucose measurement by glucometer (mass/volume) - 02/17/18 05: 08 Capillary blood glucose measurement by glucometer (mass/volume) 104 mg/dL 70-110 Capillary blood glucose measurement by glucometer (mass/volume) - 02/17/18 11: 28 Capillary blood glucose measurement by glucometer (mass/volume) 77 mg/dL 70-110 Capillary blood glucose measurement by glucometer (mass/volume) - 02/17/18 16: 31 Capillary blood glucose measurement by glucometer (mass/volume) 72 mg/dL 70-110 Capillary blood glucose measurement by glucometer (mass/volume) - 02/17/18 20: 36 Capillary blood glucose measurement by glucometer (mass/volume) 150 mg/dL 70-110 Capillary blood glucose measurement by glucometer (mass/volume) - 02/18/18 05: 04 Capillary blood glucose measurement by glucometer (mass/volume) 87 mg/dL 70-110 Capillary blood glucose measurement by glucometer (mass/volume) - 02/18/18 11: 36 Capillary blood glucose measurement by glucometer (mass/volume) 97 mg/dL 70-110 Encounters ACCT No. Visit Date/Time Discharge Status Pt. Type Provider Facility Loc./Unit Complaint [id number] 07/17/2014 08:47:00 07/17/2014 23:59:59 CLS Outpatient CORBIN MENDOZA MD [id number] 02/09/2014 08:50:00 02/09/2014 23:59:59 CLS Outpatient CORBIN MENDOZA MD [id number] 10/09/2013 08:41:00 10/09/2013 23:59:59 CLS Outpatient CORBIN MENDOZA MD [id number] 05/15/2013 14:11:00 05/15/2013 23:59:59 CLS Outpatient CORBIN MENDOZA MD [id number] 01/23/2013 08:52:00 01/23/2013 23:59:59 CLS Outpatient CORBIN MENDOZA MD [id number] 10/04/2012 08:59:00 10/04/2012 23:59:59 CLS Outpatient [id number] 06/14/2012 08:51:00 06/14/2012 23:59:59 CLS Outpatient CORBIN MENDOZA MD [id number] 03/24/2018 10:07:00 03/24/2018 23:59:59 CLS Outpatient CORBIN MENDOZA MD [facility] REHAB CVA [id number] 02/09/2018 16:30:00 02/18/2018 15:30:00 DIS Inpatient NICOLAS WALLER MD [facility] IRF CVA [id number] 02/04/2018 20:17:00 02/09/2018 15:25:00 DIS Inpatient CORINA MAHMOOD MD [facility] 4TH STROKE,L SIDED WEAKNESS, HYPERGLYCEMIA,FALL [id number] 09/15/2017 07:04:00 09/15/2017 08:06:00 DIS Emergency LEXI DO, MARSHA K [facility] ER RUNNY NOSE,COUGH [id number] 04/06/2016 15:55:00 04/06/2016 23:59:59 CLS Outpatient MIMA AMES APRN [facility] QUICK [id number] 05/19/2015 12:09:00 05/19/2015 23:59:59 CLS Outpatient ARNALDO MAHMOOD [facility] QUICK [id number] 02/16/2014 07:41:00 02/16/2014 10:55:00 DIS Outpatient RONNI MAY MD [facility] SDC HEMATOCHEZIA [id number] 02/15/2014 07:18:00 02/15/2014 23:59:59 CLS Outpatient RONNI MAY MD [facility] PREOP HEMATOCHEZIA [id number] 03/30/2018 10:00:00 PEN Preadmit BETINA HILLS MD [facility] CATH LEFT SUBCLAVIAN ARTERY STENOSIS [id number] 09/01/2012 07:53:00 Document Registration
[2018-03-30] MEDS ORDERED: NS IV 1000 ML 1,000 ML IV SCH (07:27)
[2018-03-30 07:50] LABS: HEMOGLOBIN 17.2 G/DL (13.3-17.7); MEAN PLATELET VOLUME 9.8 FL (7.4-10.4); RED BLOOD COUNT 5.59 10^6/uL (4.35-5.85); RED CELL DISTRIBUTION WIDTH 13.2 % (10.0-14.5); WHITE BLOOD COUNT 9.3 10^3/uL (4.3-11.0)
--- NOTE | 2018-03-30 08:06 | Diagnostic Imaging Report ---
INDICATION: Pre peripheral angiography. Time of exam 7:45 AM Comparison is made with prior study from 02/04/2018. The heart size is normal. The pulmonary vascularity is unremarkable. The lungs are clear. No infiltrate, effusion or pneumothorax is detected. Impression: No acute cardiopulmonary process is detected. Dictated by: Dictated on workstation # [id number]
[2018-03-30 08:10] LABS: ALANINE AMINOTRANSFERASE 16 U/L (0-55); ALBUMIN 4.5 GM/DL (3.2-4.5); ALKALINE PHOSPHATASE 94 U/L (40-136); BILIRUBIN,TOTAL 0.6 MG/DL (0.1-1.0); BUN/CREATININE RATIO 11; CALCIUM 9.5 MG/DL (8.5-10.1); CARBON DIOXIDE 25 MMOL/L (21-32); CHLORIDE 107 MMOL/L (98-107); CHOLESTEROL 154 MG/DL (< 200); CREATININE SERUM 0.83 MG/DL (0.60-1.30); GFR ESTIMATED > 60; GLUCOSE 116 MG/DL (70-105); HDL CHOLESTEROL 29 MG/DL (40-60); POTASSIUM 3.9 MMOL/L (3.6-5.0); SODIUM 141 MMOL/L (135-145); TOTAL PROTEIN 7.7 GM/DL (6.4-8.2); TRIGLYCERIDES 143 MG/DL (<150); VLDL CHOLESTEROL 29 MG/DL (5-40)
[2018-03-30] MEDS ORDERED: LISI10TA2 PO (08:26)
[2018-03-30] MEDS ORDERED: ZOLP5TAB7 PO (08:26)
[2018-03-30] MEDS ORDERED: ATOR40TA70 PO (08:26)
[2018-03-30] MEDS ORDERED: INSU100I29 SQ (08:26)
[2018-03-30] MEDS ORDERED: FAMO20TA3 PO (08:26)
[2018-03-30] MEDS ORDERED: INSU100V16 SQ (08:26)
[2018-03-30] MEDS ORDERED: ASPI-808 PO (08:26)
[2018-03-30] MEDS ORDERED: METF500T8 PO (08:26)
[2018-03-30] MEDS ORDERED: IBUP-30 PO (08:31)
[2018-03-30] MEDS ORDERED: HEParin 1000 UNIT/ML (10ML VIAL) FOR BOLUS ONE (08:50)
[2018-03-30] MEDS ORDERED: fentaNYL INJECTION 100 MCG/2 ML AMP ONE (11:03)
[2018-03-30] MEDS ORDERED: MIDAZOLAM 5 MG/5 ML (VERSED) VIAL ONE (11:03)
[2018-03-30] MEDS ORDERED: ASPIRIN 325 MG (5 GR) TABLET ONE (12:55)
[2018-03-30] MEDS ORDERED: CLOPIDOGREL 300 MG (PLAVIX) TABLET PO ONE (12:55)
[2018-03-30] MEDS ORDERED: NON-FORMULARY MEDICATION 1 EA EA (Zolpidem Tartrate 5 MG) PO PRN (13:00)
[2018-03-30] MEDS ORDERED: NS IV 1000 ML 1,000 ML ONE (13:00)
[2018-03-30] MEDS ORDERED: PATIENT MAY USE OWN MEDS, ALL PO SCH (13:00)
[2018-03-30] MEDS: NS IV 1000 ML 1,000 ML IV SCH (13:08)
--- NOTE | 2018-03-30 13:10 | Peripheral Report ---
Peripheral Report Physician (s)/Telecom Assistant (s) Physician BETINA HILLS MD Pre-Procedure Diagnosis Pre-Procedure Diagnosis: CVA Post-Procedure Note Procedure Start Date: March 30, 2018 Name of Procedure: Aortic Arch angiogram Selective left subclavian angiogram Stent to left subclavian artery Findings/Procedure Note PROCEDURE NOTE: After explaining the procedure to the patient, all pros and cons were explained , all questions were answered. The patient signed the consent and then he was placed on the cardiac catheterization laboratory. The patient was placed on the cardiac catheterization laboratory. Groin was prepped SL fashion local anesthesia was used. Sheath placed in the right femoral artery. Pigtail catheter was advanced to the aortic arch and aortic arch angiogram was done. Then I tried with the Lurdes right guide contrast of the left subclavian artery without success, I was able to use a diagnostic catheter with multipurpose 1 placed at the ostium of subclavian artery and angiogram was done. At that point I decided to proceed with pertains intervention. Patient was given 6000 units of heparin, bare wire was advanced into the subclavian artery and placed distally then a protection device NAV6 was deployed but the artery was too large for that protection device it was advanced distally, I proceeded with predilatation using Dumas 520 mm the balloon was occluding the subclavian artery without inflammation due to the severe stenosis, then I proceeded with deployment of a stent using Omnilink Elite 6x39 after deployment I decided to post-dilate, unable to advance a 6.0 balloon I exchanged the wire over multipurpose catheter and put the Storq wire then advanced Omnilink 620 balloon with multiple inflation up to 6.5 mm at the proximal and midportion angiogram showed excellent results with no residual stenosis. I used a long 7 Divehi sheath during the procedure exchanged into short 7 Divehi sheath then closure device deployed FINDINGS: Aortic arch angiogram: Normal aortic arch with mild calcification, the right subclavian artery and right carotid artery normal, the left carotid artery is normal, the left subclavian artery has severe stenosis at its proximal portion with a long segment. Left subclavian angiogram: Severe left subclavian artery stenosis at the long segment with sluggish flow beyond that segment especially at the vertebrobasilar artery, successful complex intervention with balloon angioplasty then stent deployment using Omnilink Elite 6x 39 mm expanded proximally to 6.5 mm under 15 harsh and distally 6.2 mm under 12 harsh with excellent result and no residual stenosis. CONCLUSIONS: 1. Severe stenosis/subtotal occlusion at the long segment of the left subclavian artery with sluggish flow beyond the lesion. Complex intervention with balloon angioplasty then stent deployment using Omnilink Elite 6x 39 mm expanded to 6.5 at the proximal and midportion under high pressure up to 15 harsh and 6.2 mm distally at 12 harsh with excellent result and significant improvement of the flow beyond the lesion 2. Normal aortic arch and right subclavian and left carotid artery with excellent results DISCUSSION AND RECOMMENDATIONS: I will continue maximizing medical therapy, patient was started on aspirin and Plavix Anesthesia Type: Conscious Sedation Estimated blood loss (mL): 20 ml Contrast Amount: 125 ml Total Radiation Dose: 483 mGy Post-Procedure Diagnosis Post-operative diagnosis: CVA Peripheral arterial disease Subclavian stenosis Hypertension Hyperlipidemia BETINA HILLS MD March 30, 2018 13:10
--- NOTE | 2018-03-30 13:11 | Cardiac Procedure Note-CS/ASA ---
Pre-Procedure Note Pre-Op Procedure Note H&P Reviewed The H&P was reviewed, patient examined and no changes noted. Date H&P Reviewed: March 30, 2018 Time H&P Reviewed: 11:00 Conscious Sedation Pre-Proced Time Reviewed: 11:00 ASA Class: 3 Airway Mallampati Classification: (red cliff appropriate class) I. II. III, IV Lungs Heart ASA score ASA 1: a normal healthy patient ASA 2: a patient with a mild systemic disease (mid diabetes, controlled hypertension, obesity x ASA 3: a patient with a severe systemic disease that limits activity (angina , COPD, prior Myocardial infarction) ASA 4: a patient with an incapacitating disease that is a constant threat to life (CHF, renal failure) ASA 5: a moribund patient not expected to survive 24 hrs. (ruptured aneurysm) ASA 6: a declared brain patient whose organs are being harvested. For emergent operations, add the letter E after the classification Grade 3 Sedation Plan: Analgesia, Amnesia, Plan communicated to team members, Discussed options with patient/fam, Discussed risks with patient/fam Note The patient is an appropriate candidate to undergo the planned procedure, sedation, and anesthesia. The patient immediately re-assessed prior to indication. BETINA HILLS MD March 30, 2018 13:11
[2018-03-30] MEDS ORDERED: INSULIN VIAL ASPART for PUMP 100 UNIT/ML VIAL SQ SCH ×2 (16:00→17:45)
[2018-03-30] MEDS ORDERED: ZOLPIDEM 5 MG (AMBIEN) TAB PO PRN ×2 (18:00→19:30)
[2018-03-30] MEDS ORDERED: inSUlin DETERMIR 1 UNIT/0.01 ML (LEVEMIR) CHARGE PER UNIT SQ SCH (21:00)
[2018-03-30] MEDS ORDERED: NON-FORMULARY MEDICATION 1 EA EA (Famotidine (Acid Reducer (FAMOTIDINE)) 20 MG) PO SCH (21:00)
[2018-03-30] MEDS ORDERED: NON-FORMULARY MEDICATION 1 EA EA (Insulin Detemir (Levemir Flextouch) 30 UNIT) SQ SCH (21:00)
[2018-03-30] MEDS ORDERED: FAMOTIDINE 20 MG (PEPCID) TABLET PO SCH (21:00)
[2018-03-31] VITALS: BP 123/80
[2018-03-31] MEDS: NS IV 1000 ML 1,000 ML IV SCH ×2 (00:35→08:18)
[2018-03-31 04:00] VITALS: BP 119/67
[2018-03-31 05:00] LABS: HEMOGLOBIN 16.2 G/DL (13.3-17.7); MEAN PLATELET VOLUME 10.1 FL (7.4-10.4); RED BLOOD COUNT 5.26 10^6/uL (4.35-5.85); RED CELL DISTRIBUTION WIDTH 13.1 % (10.0-14.5); WHITE BLOOD COUNT 12.6 10^3/uL (4.3-11.0)
[2018-03-31 05:29] LABS: BUN/CREATININE RATIO 11; CALCIUM 8.8 MG/DL (8.5-10.1); CARBON DIOXIDE 18 MMOL/L (21-32); CHLORIDE 108 MMOL/L (98-107); CREATININE SERUM 0.73 MG/DL (0.60-1.30); GFR ESTIMATED > 60; GLUCOSE 89 MG/DL (70-105); POTASSIUM 3.9 MMOL/L (3.6-5.0); SODIUM 139 MMOL/L (135-145)
--- NOTE | 2018-03-31 07:37 | Cardiology Progress Note ---
Subjective Date Seen by Provider: March 31, 2018 Time Seen by Provider: 07:36 Subjective/Events-last exam Patient is feeling well, groin is healing well, no change in status. Was walking in the hallway, still having some weakness from his recent stroke Review of Systems General: No Chills, No Night Sweats, No Fatigue, No Malaise, No Appetite, No Other HEENT: No Head Aches, No Visual Changes, No Eye Pain, No Ear Pain, No Dysphasia , No Sinus Congestion, No Post Nasal Drip, No Sore Throat, No Other Pulmonary: No Dyspnea, No Cough, No Pleuritic Chest Pain, No Other Cardiovascular: No: Chest Pain, Palpitations, Orthopnea, Paroxysmal Noc. Dyspnea, Edema, Lt Headedness, Other Objective-Cardiology Exam Last Set of Vital Signs Vital Signs 03/31/18 04:00 Temp 98.2 Pulse 84 Resp 21 B/P (MAP) 119/67 (84) Pulse Ox 99 O2 Delivery Room Air Capillary Refill : Less Than 3 Seconds I&O Intake and Output 03/31/18 00:00 Intake Total 2000 ml Balance 2000 ml Intake IV Total 2000 ml General: Alert, Oriented X3, Cooperative HEENT: Atraumatic, PERRLA Neck: Supple, No JVD, No Thyromegaly Lungs: Clear to Auscultation, Normal Air Movement Heart: Regular Rate, Normal S1, Normal S2, No Murmurs Abdomen: Normal Bowel Sounds, Soft, No Tenderness, No Hepatosplenomegaly, No Masses Extremities: No Clubbing, No Cyanosis, No Edema, Normal Pulses, No Tenderness/ Swelling Skin: No Rashes, No Breakdown, No Significant Lesion Neuro: Normal Speech, Strength at 5/5 X4 Ext, Normal Tone, Sensation Intact Psych/Mental Status: Mental Status NL, Mood NL Results Lab Laboratory Tests 03/30/18 07:43 03/31/18 03:11 A/P-Cardiology Admission Diagnosis Subclavian stenosis Peripheral arterial disease Hypertension CVA Assessment/Plan Severe left subclavian stenosis, status post stenting with excellent results Hypertension, controlled, CVA, recent, recovering Hyperlipidemia BETINA HILLS MD March 31, 2018 07:37
[2018-03-31] MEDS ORDERED: ASPI-983 PO (07:39)
[2018-03-31] MEDS ORDERED: CLOP75TA28 PO (07:39)
--- NOTE | 2018-03-31 07:39 | Discharge Inst-Post CATH ---
Discharge Inst-CATH Post Cardiac Cath D/C Inst Follow Up/Plan Hold metformin for [address] Sarmiento's office in 2-4 weeks CARDIAC CATH DISCHARGE INSTRUCTIONS *Hold Metformin for 48 hours post heart cath. ACTIVITY * Go Home directly and rest. * Limit activity of the leg (or wrist if it was used) for 7 days including aerobics, swimming, jogging, bicycling, etc. * Restrict stair-climbing for 7 days if possible, if not, climb up with your non -cath leg, then bring together on the same step. * Avoid lifting, pushing, pulling or excessive movement of the affected extremity for 7 days. * Customary sexual activity may be resumed after 2 days-use caution not to use a position that strains or causes pain to the affected extremity. * No driving for 24 hours. * NO SMOKING. * Avoid straining for bowel movements for 7 days. * Gentle walking on level ground is allowed. * Returning to work will depend on the type of procedure and the results. Your doctor will discuss this with you. CALL YOUR DOCTOR FOR ANY OF THE FOLLOWING: *If bleeding from the puncture site occurs- Apply gentle pressure to site with clean cloth and call your doctor or EMS. * If a knot or lump forms under the skin, increases in size, or causes pain. * If bruising appears to be worsening or moving further down your leg instead of disappearing. * Temperature above 101 F. CARE OF YOUR GROIN INCISION; * Bruising or purple discoloration of the skin near the puncture site is common. * You may shower only, no bathtub bathing for 5 days. Be careful to avoid slipping as your leg may feel stiff. * If a closure device was used on your femoral artery, please see the attached guide regarding care of the device and your leg. * REMOVE the dressing from your groin the next day after your procedure in the shower. CARE OF YOUR WRIST INCISION; * Bruising or purple discoloration of the skin near the puncture site is common. * You may shower. * DO NOT submerge wrist. * Remove dressing in 24 hours. BETINA SARMIENTO MD March 31, 2018 07:39
[2018-03-31 08:00] VITALS: BP 119/78
[2018-03-31] MEDS ORDERED: ASPIRIN E.C. 81 MG (ECOTRIN) TAB PO SCH (09:00)
[2018-03-31] MEDS ORDERED: CLOPIDOGREL 75 MG (PLAVIX) TABLET PO SCH (09:00)
[2018-03-31] MEDS ORDERED: ATORVASTATIN 40 MG (LIPITOR) TABLET PO SCH (09:00)
[2018-03-31] MEDS ORDERED: lisINopril 10 MG (PRINIVIL) TABLET PO SCH ×2 (09:00)
== END 2018-03-31 12:00 | disposition home or self-care (01) ==
LOC: CATH 07:11 → SURG 13:24 → ICU 16:00 → CATH 03-31 12:00
PROVIDERS: ATTEND Internal Medicine Cardiovascular Disease
DX: I70.8 Atherosclerosis of other arteries (principal); I10 Essential (primary) hypertension; E78.2 Mixed hyperlipidemia; E11.43 Type 2 diabetes mellitus with diabetic autonomic (poly)neuropathy; F17.210 Nicotine dependence, cigarettes, uncomplicated; I69.351 Hemiplegia and hemiparesis following cerebral infarction affecting right dominant side; Z79.82 Long term (current) use of aspirin; Z79.4 Long term (current) use of insulin; Z79.899 Other long term (current) drug therapy
CPT/HCPCS: 36225; 36415; 37236; 71045; 80048; 80053; 80061; 82962; 85027; 85610; 85730; 87081; 93005

== ENCOUNTER 2018-05-04 09:30 | Outpatient (RCR) | payer OTHER ==
[~2018-05-04 09:30] MED LIST changes: +ASPI-808 PO; +ASPI-983 PO; +CLOP75TA28 PO; +FAMO20TA3 PO; +IBUP-30 PO; +INSU100I29 SQ; +INSU100V16 SQ; -LIDOCAINE 1% INJ 20 ML 20 ML VIAL ONE; +LISI10TA2 PO; -NS IV 1000 ML 3,000 ML ONE; +ZOLP5TAB7 PO
== END 2018-05-24 | disposition home or self-care (01) ==
PROVIDERS: ATTEND Internal Medicine
DX: I69.351 Hemiplegia and hemiparesis following cerebral infarction affecting right dominant side (principal)

== ENCOUNTER → 2019-01-20 | Outpatient (CLI) | payer OTHER ==
[~2019-01-20] MED LIST changes: -BENZ-13 PO; +BENZ100C18 PO; +HOLD METFORMIN - RECEIVED CONTRAST 20 ML VIAL IV SCH
[2019-01-20 09:17] LABS: BUN/CREATININE RATIO 13; CARBON DIOXIDE 24 MMOL/L (21-32); CHLORIDE 105 MMOL/L (98-107); CREATININE SERUM 1.06 MG/DL (0.60-1.30); POTASSIUM 4.4 MMOL/L (3.6-5.0); SODIUM 139 MMOL/L (135-145)
[2019-01-20 09:18] LABS: CALCIUM 9.6 MG/DL (8.5-10.1); GFR ESTIMATED > 60; GLUCOSE 237 MG/DL (70-105)
[2019-01-20] MEDS: NS 100 ML (IVPB) BAG IV ONE (09:52)
[2019-01-20] MEDS: IOHEXOL 350 MG/ML 100 ML (OMNIPAQUE 350) VIAL IV ONE (09:52)
--- NOTE | 2019-01-20 10:05 | Diagnostic Imaging Report ---
PROCEDURE: CT head with and without contrast. TECHNIQUE: Multiple contiguous axial images were obtained through the brain before and after the administration of intravenous contrast. INDICATION: Dizziness. Comparison is made with prior head CT from 02/04/2018. The ventricles and sulci are within normal limits. No sulcal effacement, midline shift or hemorrhage is detected. There is an old lacunar infarct in the left basal ganglia and left batres radiata. This appears to have been subacute at the time of the head CT one year earlier. Cisterns are patent. No abnormal enhancement following contrast administration is identified. Visualized paranasal sinuses are clear. IMPRESSION: Old lacunar infarct left basal ganglia and batres radiata. No acute intracranial process is detected. Dictated by: Dictated on workstation # [id number]
== END ==
LOC: RAD 08:25
PROVIDERS: ATTEND Nurse Practitioner Primary Care
DX: I63.81 Other cerebral infarction due to occlusion or stenosis of small artery (principal)
CPT/HCPCS: 36415; 70470; 80048

== ENCOUNTER 2019-02-02 22:32 | Emergency (ER) | payer OTHER ==
[~2019-02-02] VITALS: Ht 154.9 cm; Wt 67.1 kg
[~2019-02-02 22:32] MED LIST changes: -HOLD METFORMIN - RECEIVED CONTRAST 20 ML VIAL IV SCH
--- OUTSIDE RECORDS SUMMARY | 2019-02-02 22:37 | XMS REPORT ---
Author Author LINA SEVILLA [facility] Address [address] [place] [address] Care Team Providers Care Garnett Mechanic Name Role Phone LINA SEVILLA Unavailable PROBLEMS Type Condition ICD9-CM Code [id number] Code Onset Dates Condition Status SNOMED Code Problem Hyperlipidemia E78.5 Active 40234933 Problem Gastroesophageal reflux disease, esophagitis presence not specified K21.9 Active 273778422 Problem Subclavian steal syndrome G45.8 Active 89478651 Problem Hypertension I10 Active 57340024 Problem Diabetes E11.9 Active 31665199 Problem Cerebrovascular accident (CVA) due to occlusion of left middle cerebral artery I63.512 Active 297691891 Problem Microalbuminuria R80.9 Active 887665124 ALLERGIES No Information ENCOUNTERS Encounter Location Date Diagnosis [facility] [address] [address] Aug, [facility] [address] [address] Aug, Allergic contact dermatitis due to plants, except food L23.7 [facility] [id number] [place] [address]- [address] Jul, [facility] [id number] [place] [address]- 1384 Jun, [facility] [address] [address] Jun, Diabetes E11.9 ; Hypertension I10 and Erythrocytosis D75.1 [facility] [address] [address] Jun, [facility] [address] [address] Apr, [facility] [address], [place] [address] Apr, [facility] [id number] [place] [address]781- 1455 Apr, Subclavian steal syndrome G45.8 ; Hypertension I10 and Cerebrovascular accident (CVA) due to occlusion of left middle cerebral artery I63.512 [facility] [address], [place] [address] Apr, [facility] [id number] [place] [address]- 9580 Apr, [facility] [id number] [place] [address]48- 5971 March, Subclavian steal syndrome G45.8 [facility] [id number] [place] [address]- 9[address] March, Diabetes E11.9 [facility] [address], [place] [address] March, Diabetes E11.9 [facility] [address], [place] [address] March, Diabetes E11.9 [facility] [address], [place] [address] March, Cerebrovascular accident (CVA) due to occlusion of left middle cerebral artery I63.512 ; Hypertension I10 ; Diabetes E11.9 ; Hyperlipidemia E78.5 ; Gastroesophageal reflux disease, esophagitis presence not specified K21.9 and Subclavian steal syndrome G45.8 [facility] [address], [place] [address] March, [facility] [address], [place] [address] Feb, Cerebrovascular accident (CVA) due to occlusion of left middle cerebral artery I63.512 ; Diabetes E11.9 ; Hypertension I10 ; Hyperlipidemia E78.5 and Microalbuminuria R80.9 [facility] [address], [place] [address] Feb, [facility] [id number] [place] [address]- 7[address] Feb, Diabetes E11.9 ; Hypertension I10 ; Microalbuminuria R80.9 and Hyperlipidemia E78.5 [facility] [id number] [place] [address]- 5160 Feb, [facility] [id number] [place] [address]29- 7755 Oct, Diabetes mellitus 250.00 [facility] [id number] [place] [address]47- 7[address] May, Diabetes mellitus 250.00 [facility] [id number] [place] [address] 84990- 4950 May, Fracture of finger of left hand 816.00 [facility] [address] [place] [address] 67[address]- 9738 Feb, [facility] [id number] [place] [address]26- 9785 Jul, [facility] [address], [place] [address] 26[address] Jul, [facility] [id number] [place] [address] 87879- 8252 Jul, [facility] [address], [place] [address] 25[address] Jul, [facility] [id number] [place] [address]126- 6588 Jul, [facility] [address], [place] [address]- [address] Jul, [facility] [address] [place] [address] 77678- 9296 Feb, [facility] [place] [facility] [address] [id number] [place] [address]- 1647 Feb, [facility] [place] [facility] [address] [id number] [place] [address]- 5895 Dec, [facility] [place] [facility] [address] [id number] [place] [address]- 0026 Dec, [facility] [place] [facility] [address] [id number] [place] [address]- 1756 Dec, [facility] [place] [facility] [address] [id number] [place] [address]- 2810 Dec, [facility] [place] [facility] [address] [id number] [place] [address]- 6218 Nov, [facility] [place] [facility] [address] [id number] [place] [address]- 0957 Nov, [facility] [place] [facility] [address] [id number] [place] [address]- 9864 Nov, [facility] [place] [facility] [address] [facility] [id number] [place] [address]- 8544 Nov, [facility] [place] [facility] [address] [facility] [id number], [place] [address]- 1650 Oct, [facility] [place] [facility] [address] [facility] [id number], [place] [address]- 1618 Oct, [facility] [place] [facility] [address] [id number], [place] [address]- 67[address] Oct, [facility] [place] [facility] [address] [id number] [place] [address]- 8434 Oct, [facility] [place] [facility] [address] [id number] [place] [address]- 2616 Oct, [facility] [place] [facility] [address] [facility] [id number], [place] [address]- 2[address] Aug, [facility] [place] [facility] [address] [id number], [place] [address]- 1576 Jul, [facility] [address] [id number] [place] [address]- 2781 May, [facility] [place] [facility] [address] [id number] [place] [address]- 0542 March, [facility] [place] [facility] [address] [id number] [place] [address]- 8905 Jan, [facility] [place] [facility] [address] [id number] [place] [address]- 1145 Jan, [facility] [place] [facility] [address] [id number] [place] [address]- 6588 Dec, [facility] [place] [facility] [address] [id number] [place] [address]- 4401 Sep, [facility] [address] [id number] [place] [address]- 6737 Sep, [facility] [place] [facility] [address] [id number] [place] [address]- 0286 Sep, [facility] [place] [facility] [address] [id number] [place] [address]- 8917 Sep, [facility] [place] [facility] [address] [id number] [place] [address]- 9207 Jul, [facility] [place] [facility] [address] [id number] [place] [address]- 3391 Jun, [facility] [place] [facility] [address] [id number] [place] [address]- 0860 Jun, [facility] [place] [facility] [address] [id number] [place] [address]- 4356 May, [facility] [place] [facility] [address] [id number] [place] [address]- 8179 Apr, [facility] [place] [facility] [address] [id number] [place] [address]- 3923 Feb, [facility] [place] [facility] [address] [facility] [id number], [place] [address]- 2546 Feb, [facility] [id number], [place] [address]- 25[address] Feb, [facility] [id number], [place] [address]- 25[address] Jan, [facility] [id number], [place] [address]- 2546 Nov, [facility] [address], [place] [address]- 25[address] Nov, [facility] [address], [place] [address]- 2546 Oct, [facility] [address], [place] [address]- 2546 Sep, [facility] [address], [place] [address]- 2546 Sep, [facility] [address] [facility] [id number], [place] [address]- 2546 Aug, [facility] [id number], [place] [address]- 2546 Apr, IMMUNIZATIONS No Known Immunizations SOCIAL HISTORY Never Assessed REASON FOR VISIT was in here wednesday for sores on his legs. here today just for a work note to go back to work. assessed sores on legs. none of them are open, no drainage noted. pt instructed he can go back to work tomorrow et note will be given. [email or web address] PLAN OF CARE VITAL SIGNS Height 62 in 2018-08-16 Weight 150.4 lbs 2018-08-16 Temperature 98.0 degrees Fahrenheit 2018-08-16 BMI 27.51 kg/m2 2018-08-16 MEDICATIONS Medication Instructions Dosage Frequency Start Date End Date Duration Status Famotidine 20 mg Orally Twice a day 1 tablet 12h Active HydrOXYzine HCl 25 MG Orally every 8 hrs 1 tablet as needed 8h Aug, Active Aspir-81 Active Lipitor 40 mg Orally Once a day 1 tablet 24h March, Active ReliOn Blood Glucose Test - subcutaneously 4 times a day use 1 strip to check blood sugar 6h Active Lisinopril 10 mg Orally Once a day 1 tablet 24h Apr, 30 day(s) Active Zolpidem Tartrate 5 mg Orally Once a day PRN 1 tablet at bedtime as needed Active MetFORMIN HCl ER 500 mg Orally 2 times a day 1 tablet 12h 30 days Active Insulin Detemir 100 UNIT/ML Subcutaneous Once a day 30 units 24h March, Active NovoLog 100 UNIT/ML Subcutaneous 3 times a day 7 units with meals 8h 90 days Active PredniSONE 20 mg Orally Once a day 2 tablets 24h Aug, Aug, 5 days Active ReliOn Thin Lancets Lancets subcutaneously 4 times a day use 1 lancet to check blood sugar 6h March, Active NovoLog Flexpen 100 UNIT/ML Subcutaneous 3 times a day 7 units 8h March, Active RESULTS No Results PROCEDURES No Known procedures INSTRUCTIONS MEDICATIONS ADMINISTERED No Known Medications MEDICAL (GENERAL) HISTORY Type Description Date Medical History hypertension Medical History pre -diabetes Medical History stroke Surgical History inguinal hernia Surgical History tonsillectomy Surgical History stint placement Hospitalization History Stroke february 2018
--- OUTSIDE RECORDS SUMMARY | 2019-02-02 22:37 | XMS REPORT ---
Author Author DEVAN MENDOZA Organization [facility] Address [address] [place] [address] Care Team Providers Care Optomechanical Engineer Name Role Phone DEVAN MENDOZA Unavailable PROBLEMS Type Condition ICD9-CM Code [id number] Code Onset Dates Condition Status SNOMED Code Problem Hyperlipidemia E78.5 Active 39866908 Problem Gastroesophageal reflux disease, esophagitis presence not specified K21.9 Active 760560992 Problem Subclavian steal syndrome G45.8 Active 29412118 Problem Hypertension I10 Active 21276607 Problem Diabetes E11.9 Active 80527197 Problem Cerebrovascular accident (CVA) due to occlusion of left middle cerebral artery I63.512 Active 970388747 Problem Microalbuminuria R80.9 Active 858033220 ALLERGIES No Information ENCOUNTERS Encounter Location Date Diagnosis [facility] [id number] [place] [address]- 3947 Jun, [facility] [id number] [place] [address] 19130- 1324 Jun, Diabetes E11.9 ; Hypertension I10 and Erythrocytosis D75.1 [facility] [address] [place] [address] 63820- 4686 Jun, [facility] [id number] [place] [address] 63662- 7796 Apr, [facility] [id number] [place] [address] 15351- 0611 Apr, [facility] [id number] [place] [address] 99551- 7501 Apr, Subclavian steal syndrome G45.8 ; Hypertension I10 and Cerebrovascular accident (CVA) due to occlusion of left middle cerebral artery I63.512 [facility] [address], [place] [address]- [address] Apr, [facility] [address] [place] [address] 78631- 0627 Apr, [facility] [id number] [place] [address] 23877- 4605 March, Subclavian steal syndrome G45.8 [facility] [id number] [place] [address] 91689- 1075 March, Diabetes E11.9 [facility] [id number] [place] [address] 01673- 9754 March, Diabetes E11.9 [facility] [id number] [place] [address] 79861- 0653 March, Diabetes E11.9 [facility] [address] [place] [address] 95248- 4555 March, Cerebrovascular accident (CVA) due to occlusion of left middle cerebral artery I63.512 ; Hypertension I10 ; Diabetes E11.9 ; Hyperlipidemia E78.5 ; Gastroesophageal reflux disease, esophagitis presence not specified K21.9 and Subclavian steal syndrome G45.8 [facility] [address], [place] [address]- 5913 March, [facility] [address], [place] [address]- 8618 Feb, Cerebrovascular accident (CVA) due to occlusion of left middle cerebral artery I63.512 ; Diabetes E11.9 ; Hypertension I10 ; Hyperlipidemia E78.5 and Microalbuminuria R80.9 [facility] [address], [place] [address]- 7718 Feb, [facility] [id number] [place] [address] 62203- 1865 Feb, Diabetes E11.9 ; Hypertension I10 ; Microalbuminuria R80.9 and Hyperlipidemia E78.5 [place] [place] [address], [place] [address]- 9365 Feb, [facility] [address], [place] [address]- 6470 Oct, Diabetes mellitus 250.00 [facility] [address], [place] [address]- 6748 May, Diabetes mellitus 250.00 [facility] [id number] [place] [address] 45869- 7788 May, Fracture of finger of left hand 816.00 [facility] [id number], [place] [address]- 6583 Feb, [facility] [address] [place] [address] 71545- 1409 Jul, [facility] [address], [place] [address]- 4567 Jul, [facility] [address], [place] [address]- 4783 Jul, [facility] [address], [place] [address]- 2217 Jul, [facility] [address], [place] [address]- 2390 Jul, [facility] [address], [place] [address]- 9023 Jul, [facility] [address], [place] [address]- 6081 Feb, [facility] [id number], [place] [address]- 4094 Feb, [facility] [address], [place] [address]- 7559 Dec, [facility] [place] [facility] [address], [place] [address]- 9222 Dec, [facility] [id number] [place] [address]- 1332 Dec, [facility] [address] [id number] [place] [address]- 9132 Dec, [facility] [address] [id number] [place] [address]- 7539 Nov, [facility] [address] [id number] [place] [address]- 8839 Nov, [facility] [address] [id number] [place] [address]- 3464 Nov, [facility] [address] [id number] [place] [address]- 1793 Nov, [facility] [address] [id number] [place] [address]- 9850 Oct, [facility] [address] [id number] [place] [address]- 8269 Oct, [facility] [address] [id number] [place] [address]- 1487 Oct, [facility] [address] [id number] [place] [address]- 4830 Oct, [facility] [address] [facility] [id number] [place] [address]- 0506 Oct, [facility] [address] [id number] [place] [address]- 5036 Aug, [facility] [address] [id number] [place] [address]- 2546 Jul, [facility] [address] [id number] [place] [address]- 8986 May, [facility] [address] [id number] [place] [address]- 2546 March, [facility] [address] [id number] [place] [address]- 4946 Jan, [facility] [place] [facility] [address] [id number] [place] [address]- 3176 Jan, [facility] [place] [facility] [address] [id number] [place] [address]- 5636 Dec, [facility] [place] [facility] [address] [id number] [place] [address]- 2043 Sep, [facility] [place] [facility] [address] [id number] [place] [address]- 7213 Sep, [facility] [place] [facility] [address] [id number] [place] [address]- 6354 Sep, [facility] [place] [facility] [address] [id number] [place] [address]- 7481 Sep, [facility] [place] [facility] [address] [id number] [place] [address]- 7652 Jul, [facility] [place] [facility] [address] [id number] [place] [address]- 2011 Jun, [facility] [place] [facility] [address] [id number] [place] [address]- 9416 Jun, [facility] [place] [facility] [address] [id number] [place] [address]- 8648 May, [facility] [place] [facility] [address] [id number] [place] [address]- 1741 Apr, [facility] [place] [facility] [address] [id number], [place] [address]- 2532 Feb, [facility] [place] [facility] [address] [id number] [place] [address]- 6653 Feb, [facility] [place] [facility] [address] [id number] [place] [address]- 5308 Feb, [facility] [place] [facility] [address] [id number] [place] [address]- 2099 Jan, [facility] [place] [facility] [address] [id number], [place] [address]- 2546 Nov, [facility] [id number], [place] [address]- 2546 Nov, [facility] [id number], [place] [address]- 2546 Oct, [facility] [id number], [place] [address]- 2546 Sep, [facility] [id number], [place] [address]- 2546 Sep, [facility] [id number], [place] [address]- 6666 Aug, [facility] [id number], [place] [address] 2546 Apr, IMMUNIZATIONS No Known Immunizations SOCIAL HISTORY Never Assessed REASON FOR VISIT PA-Novolog PLAN OF CARE VITAL SIGNS MEDICATIONS Medication Instructions Dosage Frequency Start Date End Date Duration Status NovoLog 100 UNIT/ML Subcutaneous 3 times a day 7 units with meals 8h 90 days Active RESULTS No Results PROCEDURES No Known procedures INSTRUCTIONS MEDICATIONS ADMINISTERED No Known Medications MEDICAL (GENERAL) HISTORY Type Description Date Medical History hypertension Medical History pre -diabetes Medical History stroke Surgical History inguinal hernia Surgical History tonsillectomy Surgical History stint placement Hospitalization History Stroke february 2018
--- OUTSIDE RECORDS SUMMARY | 2019-02-02 22:37 | XMS REPORT ---
Author Author DEVAN MENDOZA Organization [facility] Address [address] [place] [address] Care Team Providers Care Cutting Machine Fixer Name Role Phone DEVAN MENDOZA Unavailable PROBLEMS Type Condition ICD9-CM Code [id number] Code Onset Dates Condition Status SNOMED Code Problem Diabetes E11.9 Active 47513781 Problem Hyperlipidemia E78.5 Active 56878587 Problem Neurofibromatosis Q85.00 Active 96725106 Problem Subclavian steal syndrome G45.8 Active 28676380 Problem Microalbuminuria R80.9 Active 635708449 Problem Hypertension I10 Active 32924556 Problem Gastroesophageal reflux disease, esophagitis presence not specified K21.9 Active 352994567 Problem Cerebrovascular accident (CVA) due to occlusion of left middle cerebral artery I63.512 Active 272650315 ALLERGIES No Known Allergies ENCOUNTERS Encounter Location Date Diagnosis [place] [id number] [address] Sep, [facility] [address] [address] Sep, Diabetes E11.9 and Hypertension I10 [facility] [address] [address] Aug, [facility] [address] [address] Aug, Allergic contact dermatitis due to plants, except food L23.7 [facility] [address] [address]- 8285 Jul, [place] [address] [address]- [address] Jun, [facility] [address] [address]- [address] Jun, Diabetes E11.9 ; Hypertension I10 and Erythrocytosis D75.1 [facility] [address] [place] [id number] [place] [address] 47733- 8549 Jun, [facility] [address] [place] [id number] [place] [address] 31162- 6475 Apr, [facility] [address] [place] [id number] [place] [address] 98152- 4235 Apr, [facility] [address] [place] [id number] [place] [address] 65334- 0877 Apr, Subclavian steal syndrome G45.8 ; Hypertension I10 and Cerebrovascular accident (CVA) due to occlusion of left middle cerebral artery I63.512 [place] [address] [place] [id number] [place] [address] 07886- 4419 Apr, [facility] [address] [place] [id number] [place] [address] 48738- 5031 Apr, [facility] [address] [place] [address] 03197- 2677 March, Subclavian steal syndrome G45.8 [place] [address] [place] [address] 05786- 9149 March, Diabetes E11.9 [place] [address] [place] [address] 77135- 2247 March, Diabetes E11.9 [facility] [address] [place] [id number] [place] [address] 52782- 3929 March, Diabetes E11.9 [facility] [address] [place] [address] 06301- 2482 March, Cerebrovascular accident (CVA) due to occlusion of left middle cerebral artery I63.512 ; Hypertension I10 ; Diabetes E11.9 ; Hyperlipidemia E78.5 ; Gastroesophageal reflux disease, esophagitis presence not specified K21.9 and Subclavian steal syndrome G45.8 [place] [address] [place] [id number] [place] [address] 26745- 6848 March, [facility] [address] [place] [id number] [place] [address] 09198- 1468 Feb, Cerebrovascular accident (CVA) due to occlusion of left middle cerebral artery I63.512 ; Diabetes E11.9 ; Hypertension I10 ; Hyperlipidemia E78.5 and Microalbuminuria R80.9 [facility] [address] 32[address]- 4868 Feb, [facility] [address] [place] [id number] [place] [address] 71424- 5375 Feb, Diabetes E11.9 ; Hypertension I10 ; Microalbuminuria R80.9 and Hyperlipidemia E78.5 [facility] [address] [place] [id number] [place] [address] 88054- 6974 Feb, [facility] [address] [place] [id number] [place] [address] 41588- 8956 Oct, Diabetes mellitus 250.00 [facility] [address] [place] [id number] [place] [address] 28355- 5747 May, Diabetes mellitus 250.00 [facility] [address] [place] [id number] [place] [address] 39474- 6717 May, Fracture of finger of left hand 816.00 [facility] [address] [place] [id number] [place] [address] 14080- 7561 Feb, [facility] [address] [place] [id number] [place] [address] 48913- 1549 Jul, [facility] [address] [place] [id number] [place] [address] 84566- 3697 Jul, [facility] [address] [place] [id number] [place] [address] 26139- 7813 Jul, [facility] [address] [place] [id number] [place] [address] 57937- 4823 Jul, [facility] [address] [place] [address] [place] [address]- 4273 08 Jul, 2014 [facility] [place] [facility] [address] [id number] [place] [address]- 5986 08 Jul, 2014 [facility] [place] [facility] [address] [id number] [place] [address]- 8736 Feb, [facility] [place] [facility] [address] [id number] [place] [address]- 8916 Feb, [facility] [place] [facility] [address] [id number] [place] [address]- 1434 Dec, [facility] [place] [facility] [address] [id number] [place] [address]- 8856 Dec, [facility] [place] [facility] [address] [id number] [place] [address]- 9796 Dec, [facility] [place] [facility] [address] [id number] [place] [address]- 6821 Dec, [facility] [place] [facility] [address] [id number] [place] [address]- 1214 Nov, [facility] [place] [facility] [address] [id number] [place] [address]- 9119 Nov, [facility] [place] [facility] [address] [facility] [id number] [place] [address]- 8767 Nov, [facility] [place] [facility] [address] [id number] [place] [address]- 0154 Nov, [facility] [place] [facility] [address] [id number] [place] [address]- 0518 Oct, [facility] [place] [facility] [address] [id number] [place] [address]- 0816 Oct, [facility] [place] [facility] [address] [facility] [id number] [place] [address]- 9866 Oct, [facility] [place] [facility] [address] [id number] [place] [address]- 0194 Oct, [facility] [address] [id number] [place] [address]- 7833 Oct, [facility] [place] [facility] [address] [id number] [place] [address]- 7636 Aug, [facility] [place] [facility] [address] [id number] [place] [address]- 1076 Jul, [facility] [place] [facility] [address] [id number] [place] [address]- 9683 May, [facility] [place] [facility] [address] [id number] [place] [address]- 6860 March, [facility] [place] [facility] [address] [id number] [place] [address]- 9339 Jan, [facility] [place] [facility] [address] [id number] [place] [address]- 6854 Jan, [facility] [place] [facility] [address] [id number] [place] [address]- 8644 Dec, [facility] [place] [facility] [address] [id number] [place] [address]- 3148 Sep, [facility] [place] [facility] [address] [id number] [place] [address]- 5955 Sep, [facility] [place] [facility] [address] [id number] [place] [address]- 6188 Sep, [facility] [place] [facility] [address] [id number] [place] [address]- 8836 Sep, [facility] [place] [facility] [address] [id number] [place] [address]- 9787 Jul, [facility] [place] [facility] [address] [id number] [place] [address]- 2655 Jun, [facility] [place] [facility] [address] [id number] [place] [address]- 4547 Jun, [facility] [place] [facility] [address] [place] [address] 2546 May, [facility] [address] [address] 2546 Apr, [facility] [address] [address] 2546 Feb, [facility] [address] [place] [address]- 2546 Feb, [facility] [address] [address]- 2546 Feb, [facility] [address] [place] [address] 28502 2546 Jan, [facility] [address] [place] [id number] [address]- 2546 Nov, [facility] [address] [place] [address] 68482- 8976 Nov, [facility] [address] [place] [address]- 4586 Oct, [facility] [address] [place] [address]- 5944 Sep, [facility] [address] [place] [address]- 2886 Sep, [facility] [address] [place] [id number] [address]- 3263 Aug, [facility] [address] [place] [id number] [address]- 7950 Apr, IMMUNIZATIONS No Known Immunizations SOCIAL HISTORY Never Assessed REASON FOR VISIT 3 mo f/u -Mandeep SUE , feels dizzy occassionally - would check BS but it was ok Mandeep SUE PLAN OF CARE Activity Details Follow Up 4 Months Reason: VITAL SIGNS Height 62 in 2018-09-19 Weight 153.4 lbs 2018-09-19 Temperature 98.9 degrees Fahrenheit 2018-09-19 Heart Rate 101 bpm 2018-09-19 Respiratory Rate 20 2018-09-19 BMI 28.05 kg/m2 2018-09-19 Blood pressure systolic 122 mmHg 2018-09-19 Blood pressure diastolic 68 mmHg 2018-09-19 MEDICATIONS Medication Instructions Dosage Frequency Start Date End Date Duration Status Aspir-81 Active Famotidine 20 mg Orally Twice a day 1 tablet 12h Active Zolpidem Tartrate 5 mg Orally Once a day PRN 1 tablet at bedtime as needed Active HydrOXYzine HCl 25 MG Orally every 8 hrs 1 tablet as needed 8h 06 Aug, 2018 Active ReliOn Blood Glucose Test - subcutaneously 4 times a day use 1 strip to check blood sugar 6h Active NovoLog 100 UNIT/ML Subcutaneous 3 times a day 7 units with meals 8h 90 days Active MetFORMIN HCl ER 500 mg Orally 2 times a day 1 tablet 12h 30 days Active NovoLog Flexpen 100 UNIT/ML Subcutaneous 3 times a day 7 units 8h March, Active Lisinopril 10 mg Orally Once a day 1 tablet 24h 18 Apr, 2018 30 day(s) Active Lipitor 40 mg Orally Once a day 1 tablet 24h March, Active ReliOn Thin Lancets Lancets subcutaneously 4 times a day use 1 lancet to check blood sugar 6h March, Active Insulin Detemir 100 UNIT/ML Subcutaneous Once a day 30 units 24h March, Active RESULTS Name Result Date Reference Range A1C (IN HOUSE) A1C IN HOUSE 6.7 4.3 - 5.6 % Previous A1c 7.1 Lot [id number] Exp date 01/2020 PROCEDURES Procedure Date Ordered Result Body Site GLYCATED HEMOGLOBIN TEST Sep 19, 2018 Billing Notes on claim Sep 19, 2018 INSTRUCTIONS MEDICATIONS ADMINISTERED No Known Medications MEDICAL (GENERAL) HISTORY Type Description Date Medical History hypertension Medical History pre -diabetes Medical History stroke Surgical History inguinal hernia Surgical History tonsillectomy Surgical History stint placement Hospitalization History Stroke february 2018
--- OUTSIDE RECORDS SUMMARY | 2019-02-02 22:37 | XMS REPORT ---
Author Author DEVAN MENDOZA Organization [facility] Address [address] [place] [address] Care Team Providers Care Leaf Stamper Name Role Phone DEVAN MENDOZA Unavailable PROBLEMS Type Condition ICD9-CM Code JHB75-RI Code Onset Dates Condition Status SNOMED Code Problem Diabetes E11.9 Active 27286839 Problem Hyperlipidemia E78.5 Active 01244338 Problem Neurofibromatosis Q85.00 Active 31423150 Problem Subclavian steal syndrome G45.8 Active 15166742 Problem Microalbuminuria R80.9 Active 495337667 Problem Hypertension I10 Active 17007499 Problem Gastroesophageal reflux disease, esophagitis presence not specified K21.9 Active 931881484 Problem Cerebrovascular accident (CVA) due to occlusion of left middle cerebral artery I63.512 Active 921706338 ALLERGIES No Information ENCOUNTERS Encounter Location Date Diagnosis [place] [address] [address] Sep, [place] [address] [address]- 8014 Sep, Diabetes E11.9 and Hypertension I10 [facility] [address] [address] Aug, [facility] [address] [address] Aug, Allergic contact dermatitis due to plants, except food L23.7 [facility] [address] [address]- 0784 Jul, [facility] [address] [address]99- 7884 Jun, [facility] [address] 93882- 8683 Jun, Diabetes E11.9 ; Hypertension I10 and Erythrocytosis D75.1 [facility] [address] [place] [address] 52787- 9749 Jun, [facility] [address] [place] [address] 15878- 4612 Apr, [facility] [address] [place] [address] 11420- 8225 Apr, [facility] [address] [place] [id number] [place] [address] 00144- 9863 Apr, Subclavian steal syndrome G45.8 ; Hypertension I10 and Cerebrovascular accident (CVA) due to occlusion of left middle cerebral artery I63.512 [place] [address] [place] [address] 59052- 3057 Apr, [facility] [address] [place] [address] 08158- 6722 Apr, [facility] [address] [place] [address] 19347- 7149 March, Subclavian steal syndrome G45.8 [place] [address] [place] [address] 12743- 8137 March, Diabetes E11.9 [facility] [address] [place] [address] 04307- 9865 March, Diabetes E11.9 [facility] [address] [place] [address] 18656- 7657 March, Diabetes E11.9 [facility] [address] [place] [address] 69288- 2548 March, Cerebrovascular accident (CVA) due to occlusion of left middle cerebral artery I63.512 ; Hypertension I10 ; Diabetes E11.9 ; Hyperlipidemia E78.5 ; Gastroesophageal reflux disease, esophagitis presence not specified K21.9 and Subclavian steal syndrome G45.8 [facility] [address] [place] [id number] [place] [address] 84338- 1752 March, [facility] [address] [place] [id number] [place] [address] 95318- 2856 Feb, Cerebrovascular accident (CVA) due to occlusion of left middle cerebral artery I63.512 ; Diabetes E11.9 ; Hypertension I10 ; Hyperlipidemia E78.5 and Microalbuminuria R80.9 [facility] [address] 25152- 3653 Feb, [facility] [address] [place] [id number] [place] [address] 24820- 5529 Feb, Diabetes E11.9 ; Hypertension I10 ; Microalbuminuria R80.9 and Hyperlipidemia E78.5 [facility] [address] [place] [id number] [place] [address] 13280- 7905 Feb, [facility] [address] [place] [id number] [place] [address] 90548- 7818 Oct, Diabetes mellitus 250.00 [facility] [address] [place] [id number] [place] [address] 95548- 6858 May, Diabetes mellitus 250.00 [facility] [address] [place] [id number] [place] [address] 96932- 1248 May, Fracture of finger of left hand 816.00 [facility] [address] [place] [id number] [place] [address] 68801- 3364 Feb, [facility] [address] [place] [id number] [place] [address] 81802- 1849 Jul, [facility] [address] [place] [id number] [place] [address] 05346- 3195 Jul, [facility] [address] [place] [id number] [place] [address] 82503- 1787 Jul, [facility] [address] [place] [id number] [place] [address] 81665- 4567 Jul, [facility] [address] [place] [address]- 2140 08 Jul, 2014 [facility] [place] [facility] [address] [id number] [place] [address]- 7576 Jul, [facility] [place] [facility] [address] [id number] [place] [address]- 9756 Feb, [facility] [place] [facility] [address] [id number] [place] [address]- 8086 Feb, [facility] [place] [facility] [address] [id number] [place] [address]- 0852 Dec, [facility] [place] [facility] [address] [id number] [place] [address]- 5184 Dec, [facility] [place] [facility] [address] [id number] [place] [address]- 7420 Dec, [facility] [place] [facility] [address] [facility] [id number] [place] [address]- 7210 Dec, [facility] [place] [facility] [address] [id number] [place] [address]- 8811 Nov, [facility] [place] [facility] [address] [facility] [id number] [place] [address]- 4989 Nov, [facility] [place] [facility] [address] [facility] [id number] [place] [address]- 9431 Nov, [facility] [place] [facility] [address] [id number] [place] [address]- 8441 Nov, [facility] [place] [facility] [address] [id number] [place] [address]- 1788 Oct, [facility] [place] [facility] [address] [id number] [place] [address]- 5707 Oct, [facility] [place] [facility] [address] [facility] [id number] [place] [address]- 0876 Oct, [facility] [place] [facility] [address] [facility] [id number] [place] [address]- 3909 Oct, [facility] [address] [id number] [place] [address]- 3136 Oct, [facility] [place] [facility] [address] [id number] [place] [address]- 7343 Aug, [facility] [place] [facility] [address] [id number] [place] [address]- 6513 Jul, [facility] [place] [facility] [address] [id number] [place] [address]- 2365 May, [facility] [place] [facility] [address] [id number] [place] [address]- 2804 March, [facility] [place] [facility] [address] [id number] [place] [address]- 6890 Jan, [facility] [place] [facility] [address] [id number] [place] [address]- 4345 Jan, [facility] [place] [facility] [address] [id number] [place] [address]- 4038 Dec, [facility] [place] [facility] [address] [id number] [place] [address]- 7495 Sep, [facility] [place] [facility] [address] [id number] [place] [address]- 6206 Sep, [facility] [place] [facility] [address] [id number] [place] [address]- 2505 Sep, [facility] [place] [facility] [address] [id number] [place] [address]- 9491 Sep, [facility] [place] [facility] [address] [id number] [place] [address]- 7686 Jul, [facility] [place] [facility] [address] [id number] [place] [address]- 2666 Jun, [facility] [place] [facility] [address] [id number] [place] [address]- 3206 Jun, [facility] [place] [facility] [address] [id number], [place] [address]- 8376 May, [facility] [address], [place] [address]- 7226 Apr, [facility] [address], [place] [address]- 7996 Feb, [facility] [address], [place] [address]- 2546 Feb, [facility] [address] [place] [address]- 2546 Feb, [facility] [address], [place] [address]- 2546 Jan, [facility] [address], [place] [address]- 7416 Nov, [facility] [address], [place] [address]- 5146 Nov, [facility] [address], [place] [address]- 6816 Oct, [facility] [address], [place] [address]- 6740 Sep, [facility] [address] [id number] [address]- 6296 Sep, [facility] [id number] [address]- 4776 Aug, [facility] [address] [id number] [address]- 6438 Apr, IMMUNIZATIONS No Known Immunizations SOCIAL HISTORY Never Assessed REASON FOR VISIT Repository PLAN OF CARE VITAL SIGNS MEDICATIONS Unknown Medications RESULTS No Results PROCEDURES No Known procedures INSTRUCTIONS MEDICATIONS ADMINISTERED No Known Medications MEDICAL (GENERAL) HISTORY Type Description Date Medical History hypertension Medical History pre -diabetes Medical History stroke Surgical History inguinal hernia Surgical History tonsillectomy Surgical History stint placement Hospitalization History Stroke february 2018
--- OUTSIDE RECORDS SUMMARY | 2019-02-02 22:38 | XMS REPORT ---
Author Author DEVAN MENDOZA Organization [facility] Address [address] [place] [address] Care Team Providers Care Application Architect Name Role Phone DEVAN MENDOZA Unavailable PROBLEMS Type Condition ICD9-CM Code SRL32-OJ Code Onset Dates Condition Status SNOMED Code Problem Hyperlipidemia E78.5 Active 15446259 Problem Gastroesophageal reflux disease, esophagitis presence not specified K21.9 Active 929027607 Problem Subclavian steal syndrome G45.8 Active 62276709 Problem Hypertension I10 Active 22760031 Problem Diabetes E11.9 Active 57033840 Problem Cerebrovascular accident (CVA) due to occlusion of left middle cerebral artery I63.512 Active 259620781 Problem Microalbuminuria R80.9 Active 484216686 ALLERGIES No Information ENCOUNTERS Encounter Location Date Diagnosis [place] [id number] [place] [address] 59092- 8204 Jun, [place] [id number] [place] [address] 57089- 7656 Jun, Diabetes E11.9 ; Hypertension I10 and Erythrocytosis D75.1 [place] [address] [place] [address] 74243- 8777 Jun, [place] [id number] [place] [address] 33276- 7143 Apr, [place] [id number] [place] [address] 19401- 0605 Apr, [place] [id number] [place] [address] 78058- 2475 Apr, Subclavian steal syndrome G45.8 ; Hypertension I10 and Cerebrovascular accident (CVA) due to occlusion of left middle cerebral artery I63.512 [place] [address] [address] 8262 Apr, [facility] [address] [place] [address] 09881- 6170 Apr, [facility] [id number] [place] [address] 86970- 6649 March, Subclavian steal syndrome G45.8 [facility] [id number] [place] [address] 42531- 8183 March, Diabetes E11.9 [facility] [id number] [place] [address] 96755- 9630 March, Diabetes E11.9 [facility] [id number] [place] [address] 32580- 0837 March, Diabetes E11.9 [facility] [address] [place] [address] 48478- 7935 March, Cerebrovascular accident (CVA) due to occlusion of left middle cerebral artery I63.512 ; Hypertension I10 ; Diabetes E11.9 ; Hyperlipidemia E78.5 ; Gastroesophageal reflux disease, esophagitis presence not specified K21.9 and Subclavian steal syndrome G45.8 [place] [address] [address] 09[address] March, [facility] [address] [place] [address] 3167 Feb, Cerebrovascular accident (CVA) due to occlusion of left middle cerebral artery I63.512 ; Diabetes E11.9 ; Hypertension I10 ; Hyperlipidemia E78.5 and Microalbuminuria R80.9 [facility] [address] [place] [address]- 7256 Feb, [facility] [id number] [place] [address] 52451- 8355 Feb, Diabetes E11.9 ; Hypertension I10 ; Microalbuminuria R80.9 and Hyperlipidemia E78.5 [place] [id number] [address] 98[address] Feb, [facility] [address] [address] 4286 Oct, Diabetes mellitus 250.00 [facility] [address], [place] [address]- 6745 May, Diabetes mellitus 250.00 [facility] [id number] [place] [address] 76061- 0019 May, Fracture of finger of left hand 816.00 [facility] [id number] [address]- 8117 Feb, [facility] [address] [place] [address] 49598- 8005 Jul, [facility] [address], [place] [address]- 8253 Jul, [facility] [address] [address]- 6511 Jul, [facility] [address], [place] [address]- 5198 Jul, [facility] [address], [place] [address]- 4380 Jul, [facility] [address], [place] [address]- 1621 Jul, [facility] [address] [address]- 0443 Feb, [facility] [id number], [place] [address]- 4139 Feb, [facility] [address], [place] [address]- 5986 Dec, [facility] [place] [facility] [address], [place] [address]- 7314 Dec, [facility] [id number] [place] [address]- 0955 Dec, [facility] [address] [id number] [place] [address]- 0269 Dec, [facility] [address] [id number] [place] [address]- 0711 Nov, [facility] [address] [id number] [place] [address]- 7887 Nov, [facility] [address] [id number] [place] [address]- 9940 Nov, [facility] [address] [id number] [place] [address]- 3620 Nov, [facility] [address] [id number] [place] [address]- 7480 Oct, [facility] [address] [id number] [place] [address]- 9169 Oct, [facility] [address] [id number] [place] [address]- 4410 Oct, [facility] [address] [id number] [place] [address]- 5830 Oct, [facility] [address] [facility] [id number] [place] [address]- 0848 Oct, [facility] [address] [id number] [place] [address]- 6646 Aug, [facility] [address] [id number] [place] [address]- 2546 Jul, [facility] [address] [id number] [place] [address]- 0436 May, [facility] [address] [id number] [place] [address]- 2546 March, [facility] [address] [id number] [place] [address]- 7766 Jan, [facility] [place] [facility] [address] [id number] [place] [address]- 2571 Jan, [facility] [place] [facility] [address] [id number] [place] [address]- 6757 Dec, [facility] [place] [facility] [address] [id number] [place] [address]- 7345 Sep, [facility] [place] [facility] [address] [id number] [place] [address]- 4025 Sep, [facility] [place] [facility] [address] [id number] [place] [address]- 7880 Sep, [facility] [place] [facility] [address] [id number] [place] [address]- 1522 Sep, [facility] [place] [facility] [address] [id number] [place] [address]- 2786 Jul, [facility] [place] [facility] [address] [id number] [place] [address]- 7210 Jun, [facility] [place] [facility] [address] [id number] [place] [address]- 0951 Jun, [facility] [place] [facility] [address] [id number] [place] [address]- 1809 May, [facility] [place] [facility] [address] [id number] [place] [address]- 4423 Apr, [facility] [place] [facility] [address] [id number] [address]- 0042 Feb, [facility] [place] [facility] [address] [id number] [place] [address]- 9860 Feb, [facility] [place] [facility] [address] [id number] [place] [address]- 8272 Feb, [facility] [place] [facility] [address] [id number] [place] [address]- 4030 Jan, [facility] [place] [facility] [address] [id number], [place] [address] 2546 Nov, [facility] [id number], [place] [address]- 9470 Nov, [facility] [id number], [place] [address]- 6406 Oct, [facility] [id number], [place] [address]- 6176 Sep, [facility] [id number], [place] [address]- 1599 Sep, [facility] [id number], [place] [address]- 7990 Aug, [facility] [id number], [place] [address]- 3296 Apr, IMMUNIZATIONS No Known Immunizations SOCIAL HISTORY Never Assessed REASON FOR VISIT Requests return call PLAN OF CARE VITAL SIGNS MEDICATIONS Unknown Medications RESULTS No Results PROCEDURES No Known procedures INSTRUCTIONS MEDICATIONS ADMINISTERED No Known Medications MEDICAL (GENERAL) HISTORY Type Description Date Medical History hypertension Medical History pre -diabetes Medical History stroke Surgical History inguinal hernia Surgical History tonsillectomy Surgical History stint placement Hospitalization History Stroke february 2018
--- OUTSIDE RECORDS SUMMARY | 2019-02-02 22:38 | XMS REPORT ---
Author Author DEVAN MENDOZA Organization [facility] Address [address] [place] [address] Care Team Providers Care Drop Crew Laborer Name Role Phone DEVAN MENDOZA Unavailable PROBLEMS Type Condition ICD9-CM Code ECM47-LI Code Onset Dates Condition Status SNOMED Code Problem Hyperlipidemia E78.5 Active 14943200 Problem Gastroesophageal reflux disease, esophagitis presence not specified K21.9 Active 794169653 Problem Subclavian steal syndrome G45.8 Active 63029000 Problem Hypertension I10 Active 00375564 Problem Diabetes E11.9 Active 75198760 Problem Cerebrovascular accident (CVA) due to occlusion of left middle cerebral artery I63.512 Active 810594498 Problem Microalbuminuria R80.9 Active 669767403 ALLERGIES No Information ENCOUNTERS Encounter Location Date Diagnosis [place] [id number] [place] [address] 91181- 9561 Jun, [place] [id number] [place] [address] 92791- 4030 Jun, Diabetes E11.9 ; Hypertension I10 and Erythrocytosis D75.1 [place] [address] [place] [address] 33399- 2157 Jun, [place] [id number] [place] [address] 01179- 0548 Apr, [place] [id number] [place] [address] 39036- 0102 Apr, [place] [id number] [place] [address] 84762- 1485 Apr, Subclavian steal syndrome G45.8 ; Hypertension I10 and Cerebrovascular accident (CVA) due to occlusion of left middle cerebral artery I63.512 [place] [address] [address]- 6897 Apr, [facility] [address] [place] [address] 10216- 4849 Apr, [facility] [id number] [place] [address] 36402- 6471 March, Subclavian steal syndrome G45.8 [facility] [id number] [place] [address] 39964- 3353 March, Diabetes E11.9 [facility] [id number] [place] [address] 46648- 7002 March, Diabetes E11.9 [facility] [id number] [place] [address] 15527- 7196 March, Diabetes E11.9 [facility] [address] [place] [address] 74645- 2204 March, Cerebrovascular accident (CVA) due to occlusion of left middle cerebral artery I63.512 ; Hypertension I10 ; Diabetes E11.9 ; Hyperlipidemia E78.5 ; Gastroesophageal reflux disease, esophagitis presence not specified K21.9 and Subclavian steal syndrome G45.8 [place] [address] [address]- 9490 March, [facility] [address] [address]- 5563 Feb, Cerebrovascular accident (CVA) due to occlusion of left middle cerebral artery I63.512 ; Diabetes E11.9 ; Hypertension I10 ; Hyperlipidemia E78.5 and Microalbuminuria R80.9 [facility] [address] [address]- 6960 Feb, [facility] [id number] [place] [address] 03312- 9581 Feb, Diabetes E11.9 ; Hypertension I10 ; Microalbuminuria R80.9 and Hyperlipidemia E78.5 [place] [id number] [address]- 4328 Feb, [facility] [address] [address]- 3093 Oct, Diabetes mellitus 250.[address] [facility] [address] [address]- 2382 May, Diabetes mellitus 250.00 [facility] [id number] [place] [address] 92055- 5217 May, Fracture of finger of left hand 816.00 [facility] [id number] [address]- 3006 Feb, [facility] [id number] [place] [address] 30755- 8516 Jul, [facility] [address] [address]- 6497 Jul, [facility] [address] [address]- 5857 Jul, [facility] [address] [address]- 4067 Jul, [facility] [address] [address]- 1544 Jul, [facility] [address] [address]- 6978 Jul, [facility] [address] [address]- 2528 Feb, [facility] [id number] [address]- 6582 Feb, [facility] [address] [address]- 2162 Dec, [facility] [place] [facility] [address] [address]- 6831 Dec, [facility] [id number] [place] [address]- 4603 Dec, [facility] [address] [id number] [place] [address]- 5543 Dec, [facility] [address] [id number] [place] [address]- 8988 Nov, [facility] [address] [id number] [place] [address]- 4834 Nov, [facility] [address] [id number] [place] [address]- 3002 Nov, [facility] [address] [id number] [place] [address]- 6534 Nov, [facility] [address] [id number] [place] [address]- 4352 Oct, [facility] [address] [id number] [place] [address]- 8649 Oct, [facility] [address] [id number] [place] [address]- 4799 Oct, [facility] [address] [id number] [place] [address]- 4854 Oct, [facility] [address] [facility] [id number] [place] [address]- 9770 Oct, [facility] [address] [id number] [place] [address]- 3366 Aug, [facility] [address] [id number] [place] [address]- 2546 Jul, [facility] [address] [id number] [place] [address]- 4056 May, [facility] [address] [id number] [place] [address]- 2546 March, [facility] [address] [id number] [place] [address]- 2976 Jan, [facility] [place] [facility] [address] [id number] [place] [address]- 8689 Jan, [facility] [place] [facility] [address] [id number] [place] [address]- 0215 Dec, [facility] [place] [facility] [address] [id number] [place] [address]- 3234 Sep, [facility] [place] [facility] [address] [id number] [place] [address]- 5716 Sep, [facility] [place] [facility] [address] [id number] [place] [address]- 7910 Sep, [facility] [place] [facility] [address] [id number] [place] [address]- 7390 Sep, [facility] [place] [facility] [address] [id number] [place] [address]- 4407 Jul, [facility] [place] [facility] [address] [id number] [place] [address]- 4567 Jun, [facility] [place] [facility] [address] [id number] [place] [address]- 2991 Jun, [facility] [place] [facility] [address] [id number] [place] [address]- 2955 May, [facility] [place] [facility] [address] [id number] [place] [address]- 5739 Apr, [facility] [place] [facility] [address] [id number] [place] [address]- 2446 Feb, [facility] [place] [facility] [address] [id number] [place] [address]- 3961 Feb, [facility] [place] [facility] [address] [id number] [place] [address]- 4689 Feb, [facility] [place] [facility] [address] [id number] [place] [address]- 3353 Jan, [facility] [place] [facility] [address] [id number] [place] [address] 2546 Nov, [facility] [id number] [address]- 6696 Nov, [facility] [id number] [address] 2546 Oct, [facility] [id number] [address]- 4236 Sep, [facility] [id number] [address]- 2581 Sep, [facility] [id number] [address]- 5695 Aug, [facility] [id number] [address]- 6583 Apr, IMMUNIZATIONS No Known Immunizations SOCIAL HISTORY Never Assessed REASON FOR VISIT peen needles PLAN OF CARE VITAL SIGNS MEDICATIONS Unknown Medications RESULTS No Results PROCEDURES No Known procedures INSTRUCTIONS MEDICATIONS ADMINISTERED No Known Medications MEDICAL (GENERAL) HISTORY Type Description Date Medical History hypertension Medical History pre -diabetes Medical History stroke Surgical History inguinal hernia Surgical History tonsillectomy Surgical History stint placement Hospitalization History Stroke february 2018
--- OUTSIDE RECORDS SUMMARY | 2019-02-02 22:38 | XMS REPORT ---
Author Author DEVAN MENDOZA Organization [facility] Address [address] [place] [address] Care Team Providers Care Retail Representative Name Role Phone DEVAN MENDOZA Unavailable PROBLEMS Type Condition ICD9-CM Code UED54-EX Code Onset Dates Condition Status SNOMED Code Problem Hyperlipidemia E78.5 Active 39710287 Problem Gastroesophageal reflux disease, esophagitis presence not specified K21.9 Active 104535462 Problem Subclavian steal syndrome G45.8 Active 84725931 Problem Hypertension I10 Active 18354986 Problem Diabetes E11.9 Active 57293675 Problem Cerebrovascular accident (CVA) due to occlusion of left middle cerebral artery I63.512 Active 196561328 Problem Microalbuminuria R80.9 Active 250497346 ALLERGIES No Known Allergies ENCOUNTERS Encounter Location Date Diagnosis [place] [id number] [place] [address] 40950- 6087 Jun, [place] [id number] [place] [address] 11786- 9057 Jun, Diabetes E11.9 ; Hypertension I10 and Erythrocytosis D75.1 [place] [id number] [place] [address] 45901- 2351 Jun, [place] [id number] [place] [address] 90579- 6334 Apr, [place] [id number] [place] [address] 45305- 1563 Apr, [place] [id number] [place] [address] 29525- 7612 Apr, Subclavian steal syndrome G45.8 ; Hypertension I10 and Cerebrovascular accident (CVA) due to occlusion of left middle cerebral artery I63.512 [place] [address] [address] 5692 Apr, [facility] [id number] [place] [address] 57864- 9581 Apr, [facility] [id number] [place] [address] 71106- 3255 March, Subclavian steal syndrome G45.8 [facility] [id number] [place] [address] 47460- 6202 March, Diabetes E11.9 [facility] [id number] [place] [address] 31026- 8741 March, Diabetes E11.9 [facility] [id number] [place] [address] 83791- 9229 March, Diabetes E11.9 [facility] [address] [place] [address] 36343- 6670 March, Cerebrovascular accident (CVA) due to occlusion of left middle cerebral artery I63.512 ; Hypertension I10 ; Diabetes E11.9 ; Hyperlipidemia E78.5 ; Gastroesophageal reflux disease, esophagitis presence not specified K21.9 and Subclavian steal syndrome G45.8 [facility] [address] [address] 3617 March, [facility] [address] [address]- 3789 Feb, Cerebrovascular accident (CVA) due to occlusion of left middle cerebral artery I63.512 ; Diabetes E11.9 ; Hypertension I10 ; Hyperlipidemia E78.5 and Microalbuminuria R80.9 [facility] [address] [address]- 0338 Feb, [facility] [id number] [place] [address] 23231- 2984 Feb, Diabetes E11.9 ; Hypertension I10 ; Microalbuminuria R80.9 and Hyperlipidemia E78.5 [facility] [id number] [address] 3963 Feb, [facility] [address] [address]- 4867 Oct, Diabetes mellitus 250.00 [facility] [address] [address]- 1852 May, Diabetes mellitus 250.00 [facility] [id number] [place] [address] 57654- 1837 May, Fracture of finger of left hand 816.00 [facility] [address] [address]- 2504 Feb, [facility] [id number] [place] [address] 30847- 5762 Jul, [facility] [address] [address]- 7151 Jul, [facility] [address] [address]- 0197 Jul, [facility] [address] [address]- 5533 Jul, [facility] [address] [address]- 5937 Jul, [facility] [address] [address]- 9145 Jul, [facility] [address] [address]- 6001 Feb, [facility] [address] [address]- 7060 Feb, [facility] [address] [address]- 2842 Dec, [facility] [address] [address]- 7395 Dec, [facility] [id number] [place] [address]- 3236 Dec, [facility] [address] [id number] [place] [address]- 9299 Dec, [facility] [address] [id number] [place] [address]- 0982 Nov, [facility] [address] [id number] [place] [address]- 6786 Nov, [facility] [address] [id number] [place] [address]- 4487 Nov, [facility] [address] [id number] [place] [address]- 2571 Nov, [facility] [address] [facility] [id number] [place] [address]- 2222 Oct, [facility] [address] [id number] [place] [address]- 8268 Oct, [facility] [address] [id number] [place] [address]- 4236 Oct, [facility] [address] [id number] [place] [address]- 0571 Oct, [facility] [address] [facility] [id number] [place] [address]- 0011 Oct, [facility] [address] [id number] [place] [address]- 4836 Aug, [facility] [address] [id number] [place] [address]- 2546 Jul, [facility] [address] [id number] [place] [address]- 2546 May, [facility] [place] [facility] [address] [facility] [id number] [place] [address]- 2546 March, [facility] [address] [id number] [place] [address]- 3736 Jan, [facility] [place] [facility] [address] [id number] [place] [address]- 0810 Jan, [facility] [place] [facility] [address] [id number] [place] [address]- 5236 Dec, [facility] [place] [facility] [address] [id number] [place] [address]- 2712 Sep, [facility] [place] [facility] [address] [id number] [place] [address]- 5821 Sep, [facility] [place] [facility] [address] [id number] [place] [address]- 1645 Sep, [facility] [place] [facility] [address] [id number] [place] [address]- 3076 Sep, [facility] [place] [facility] [address] [id number] [place] [address]- 7246 Jul, [facility] [place] [facility] [address] [id number] [place] [address]- 5610 Jun, [facility] [place] [facility] [address] [id number] [place] [address]- 7239 Jun, [facility] [place] [facility] [address] [id number] [place] [address]- 7275 May, [facility] [place] [facility] [address] [id number] [place] [address]- 5156 Apr, [facility] [place] [facility] [address] [id number] [address]- 1772 Feb, [facility] [place] [facility] [address] [id number] [place] [address]- 5786 Feb, [facility] [place] [facility] [address] [id number] [place] [address]- 2616 Feb, [facility] [place] [facility] [address] [id number] [place] [address]- 5406 Jan, [facility] [place] [facility] [address] [id number] [address]- 5446 Nov, [facility] [address] [facility] [id number] [address]- 3067 Nov, [facility] [address] [facility] [id number] [address]- 0126 Oct, [facility] [address] [facility] [id number] [address]- 9606 Sep, [facility] [address] [facility] [id number] [address]- 4141 Sep, [facility] [address] [facility] [id number] [address]- 2815 Aug, [facility] [address] [facility] [id number] [address]- 5770 Apr, IMMUNIZATIONS No Known Immunizations SOCIAL HISTORY Never Assessed REASON FOR VISIT Wanting work release CHAY Pt was wanting to start taking Lisinopril again PLAN OF CARE Activity Details Follow Up 6 Weeks Reason: VITAL SIGNS Height 62 in 2018-04-25 Weight 140.4 lbs 2018-04-25 Temperature 98.4 degrees Fahrenheit 2018-04-25 Heart Rate 89 bpm 2018-04-25 Respiratory Rate 20 2018-04-25 BMI 25.68 kg/m2 2018-04-25 Blood pressure systolic 130 mmHg 2018-04-25 Blood pressure diastolic 76 mmHg 2018-04-25 MEDICATIONS Medication Instructions Dosage Frequency Start Date End Date Duration Status Lipitor 40 mg Orally Once a day 1 tablet 24h March, Active Lisinopril 10 mg Orally Once a day 1 tablet 24h 18 Apr, 2018 30 day(s) Active Ibuprofen 600 MG Orally every 6 hrs PRN 1 tablet with food or milk as needed Active Aspir-81 Active MetFORMIN HCl ER 500 mg Orally 2 times a day 1 tablet 12h 30 days Active NovoLog 100 UNIT/ML Subcutaneous 3 times a day 7 units with meals 8h Active Zolpidem Tartrate 5 mg Orally Once a day PRN 1 tablet at bedtime as needed Active NovoLog Flexpen 100 UNIT/ML Subcutaneous 3 times a day 7 units 8h March, Active ReliOn Thin Lancets Lancets subcutaneously 4 times a day use 1 lancet to check blood sugar 6h March, Active Famotidine 20 mg Orally Twice a day 1 tablet 12h Active ReliOn Blood Glucose Test - subcutaneously 4 times a day use 1 strip to check blood sugar 6h Active Insulin Detemir 100 UNIT/ML Subcutaneous Once a day 30 units 24h March, Active RESULTS No Results PROCEDURES No Known procedures INSTRUCTIONS MEDICATIONS ADMINISTERED No Known Medications MEDICAL (GENERAL) HISTORY Type Description Date Medical History hypertension Medical History pre -diabetes Medical History stroke Surgical History inguinal hernia Surgical History tonsillectomy Surgical History stint placement Hospitalization History Stroke february 2018
--- OUTSIDE RECORDS SUMMARY | 2019-02-02 22:38 | XMS REPORT ---
Author Author DEVAN MENDOZA Organization [facility] Address [address] [place] [address] Care Team Providers Care Dance Instructor Name Role Phone DEVAN MENDOZA Unavailable PROBLEMS Type Condition ICD9-CM Code [id number] Code Onset Dates Condition Status SNOMED Code Problem Hyperlipidemia E78.5 Active 19844421 Problem Gastroesophageal reflux disease, esophagitis presence not specified K21.9 Active 690179851 Problem Subclavian steal syndrome G45.8 Active 14931134 Problem Hypertension I10 Active 38148934 Problem Diabetes E11.9 Active 95837516 Problem Cerebrovascular accident (CVA) due to occlusion of left middle cerebral artery I63.512 Active 252014986 Problem Microalbuminuria R80.9 Active 126307030 ALLERGIES No Information ENCOUNTERS Encounter Location Date Diagnosis [place] [id number] [place] [address] 31497- 1902 Jun, [place] [id number] [place] [address] 67677- 8629 Jun, Diabetes E11.9 ; Hypertension I10 and Erythrocytosis D75.1 [place] [address] [place] [address] 54577- 0108 Jun, [place] [id number] [place] [address] 55191- 0580 Apr, [place] [id number] [place] [address] 14942- 3432 Apr, [place] [id number] [place] [address] 26812- 0227 Apr, Subclavian steal syndrome G45.8 ; Hypertension I10 and Cerebrovascular accident (CVA) due to occlusion of left middle cerebral artery I63.512 [place] [address], [place] [address]- 0803 Apr, [facility] [address] [place] [address] 58923- 4542 Apr, [facility] [id number] [place] [address] 63709- 8085 March, Subclavian steal syndrome G45.8 [facility] [id number] [place] [address] 54931- 6009 March, Diabetes E11.9 [facility] [id number] [place] [address] 33432- 1609 March, Diabetes E11.9 [facility] [id number] [place] [address] 97950- 2900 March, Diabetes E11.9 [facility] [address] [place] [address] 51760- 0998 March, Cerebrovascular accident (CVA) due to occlusion of left middle cerebral artery I63.512 ; Hypertension I10 ; Diabetes E11.9 ; Hyperlipidemia E78.5 ; Gastroesophageal reflux disease, esophagitis presence not specified K21.9 and Subclavian steal syndrome G45.8 [place] [address], [place] [address]- 8913 March, [facility] [address], [place] [address]- 2881 Feb, Cerebrovascular accident (CVA) due to occlusion of left middle cerebral artery I63.512 ; Diabetes E11.9 ; Hypertension I10 ; Hyperlipidemia E78.5 and Microalbuminuria R80.9 [facility] [address], [place] [address]- 6275 Feb, [facility] [id number] [place] [address] 05569- 2759 Feb, Diabetes E11.9 ; Hypertension I10 ; Microalbuminuria R80.9 and Hyperlipidemia E78.5 [place] [id number] [address]- 8759 Feb, [facility] [address], [place] [address]- 9693 Oct, Diabetes mellitus 250.00 [facility] [address], [place] [address]- 0275 May, Diabetes mellitus 250.00 [facility] [id number] [place] [address] 54172- 2011 May, Fracture of finger of left hand 816.00 [facility] [id number], [place] [address]- 3612 Feb, [facility] [address] [place] [address] 64192- 7199 Jul, [facility] [address], [place] [address]- 8618 Jul, [facility] [address], [place] [address]- 9066 Jul, [facility] [address], [place] [address]- 8374 Jul, [facility] [address], [place] [address]- 4457 Jul, [facility] [address], [place] [address]- 8400 Jul, [facility] [address], [place] [address]- 5661 Feb, [facility] [id number], [place] [address]- 5189 Feb, [facility] [address], [place] [address]- 1977 Dec, [facility] [place] [facility] [address], [place] [address]- 8373 Dec, [facility] [id number] [place] [address]- 4131 Dec, [facility] [address] [id number] [place] [address]- 6026 Dec, [facility] [address] [id number] [place] [address]- 4736 Nov, [facility] [address] [id number] [place] [address]- 9215 Nov, [facility] [address] [id number] [place] [address]- 3745 Nov, [facility] [address] [id number] [place] [address]- 1233 Nov, [facility] [address] [id number] [place] [address]- 6908 Oct, [facility] [address] [id number] [place] [address]- 5304 Oct, [facility] [address] [id number] [place] [address]- 4486 Oct, [facility] [address] [id number] [place] [address]- 8941 Oct, [facility] [address] [facility] [id number] [place] [address]- 0579 Oct, [facility] [address] [id number] [place] [address]- 7906 Aug, [facility] [address] [id number] [place] [address]- 2546 Jul, [facility] [address] [id number] [place] [address]- 7366 May, [facility] [address] [id number] [place] [address]- 2546 March, [facility] [address] [id number] [place] [address]- 3156 Jan, [facility] [place] [facility] [address] [id number] [place] [address]- 3833 Jan, [facility] [place] [facility] [address] [id number] [place] [address]- 0961 Dec, [facility] [place] [facility] [address] [id number] [place] [address]- 7799 Sep, [facility] [place] [facility] [address] [id number] [place] [address]- 8567 Sep, [facility] [place] [facility] [address] [id number] [place] [address]- 5028 Sep, [facility] [place] [facility] [address] [id number] [place] [address]- 6799 Sep, [facility] [place] [facility] [address] [id number] [place] [address]- 9233 Jul, [facility] [place] [facility] [address] [id number] [place] [address]- 5299 Jun, [facility] [place] [facility] [address] [id number] [place] [address]- 1948 Jun, [facility] [place] [facility] [address] [id number] [place] [address]- 9664 May, [facility] [place] [facility] [address] [id number] [place] [address]- 1852 Apr, [facility] [place] [facility] [address] [id number], [place] [address]- 1246 Feb, [facility] [place] [facility] [address] [id number] [place] [address]- 8140 Feb, [facility] [place] [facility] [address] [id number] [place] [address]- 0284 Feb, [facility] [place] [facility] [address] [id number] [place] [address]- 3020 Jan, [facility] [place] [facility] [address] [id number], [place] [address] 2546 Nov, [facility] [id number], [place] [address]- 0331 Nov, [facility] [id number], [place] [address]- 9286 Oct, [facility] [id number], [place] [address]- 6076 Sep, [facility] [id number], [place] [address]- 4387 Sep, [facility] [id number], [place] [address]- 4532 Aug, [facility] [id number], [place] [address]- 8785 Apr, IMMUNIZATIONS No Known Immunizations SOCIAL HISTORY [...]
--- OUTSIDE RECORDS SUMMARY | 2019-02-02 22:38 | XMS REPORT ---
Author Author DEVAN MENDOZA Organization [facility] Address [address] [place] [address] Care Team Providers Care Embroidery Worker Name Role Phone DEVAN MENDOZA Unavailable PROBLEMS Type Condition ICD9-CM Code QRW35-PL Code Onset Dates Condition Status SNOMED Code Problem Hyperlipidemia E78.5 Active 51068334 Problem Gastroesophageal reflux disease, esophagitis presence not specified K21.9 Active 751163634 Problem Subclavian steal syndrome G45.8 Active 85391645 Problem Hypertension I10 Active 15058084 Problem Diabetes E11.9 Active 55052905 Problem Cerebrovascular accident (CVA) due to occlusion of left middle cerebral artery I63.512 Active 610141080 Problem Microalbuminuria R80.9 Active 054247153 ALLERGIES No Information ENCOUNTERS Encounter Location Date Diagnosis [place] [id number] [place] [address] 46205- 3847 Jun, [place] [id number] [place] [address] 62306- 3234 Jun, Diabetes E11.9 ; Hypertension I10 and Erythrocytosis D75.1 [place] [address] [place] [address] 28178- 3500 Jun, [place] [id number] [place] [address] 92632- 4580 Apr, [place] [id number] [place] [address] 91442- 0687 Apr, [place] [id number] [place] [address] 56287- 5457 Apr, Subclavian steal syndrome G45.8 ; Hypertension I10 and Cerebrovascular accident (CVA) due to occlusion of left middle cerebral artery I63.512 [place] [address] [address] 68[address] Apr, [facility] [address] [place] [address] 34937- 4377 Apr, [facility] [id number] [place] [address] 32027- 1235 March, Subclavian steal syndrome G45.8 [facility] [id number] [place] [address] 81834- 7945 March, Diabetes E11.9 [facility] [id number] [place] [address] 21357- 1161 March, Diabetes E11.9 [facility] [id number] [place] [address] 73170- 0980 March, Diabetes E11.9 [facility] [address] [place] [address] 47250- 7189 March, Cerebrovascular accident (CVA) due to occlusion of left middle cerebral artery I63.512 ; Hypertension I10 ; Diabetes E11.9 ; Hyperlipidemia E78.5 ; Gastroesophageal reflux disease, esophagitis presence not specified K21.9 and Subclavian steal syndrome G45.8 [place] [address], [place] [address] 3708 March, [facility] [address] [address] Feb, Cerebrovascular accident (CVA) due to occlusion of left middle cerebral artery I63.512 ; Diabetes E11.9 ; Hypertension I10 ; Hyperlipidemia E78.5 and Microalbuminuria R80.9 [facility] [address], [place] [address]- 2134 Feb, [facility] [id number] [place] [address] 58323- 0969 Feb, Diabetes E11.9 ; Hypertension I10 ; Microalbuminuria R80.9 and Hyperlipidemia E78.5 [place] [id number] [address] 2615 Feb, [facility] [address], [place] [address] 8494 Oct, Diabetes mellitus 250.00 [facility] [address], [place] [address]- 8550 May, Diabetes mellitus 250.00 [facility] [id number] [place] [address] 87608- 2935 May, Fracture of finger of left hand 816.00 [facility] [id number] [address]- 4250 Feb, [facility] [address] [place] [address] 16826- 1951 Jul, [facility] [address], [place] [address]- 1827 Jul, [facility] [address], [place] [address]- 7738 Jul, [facility] [address], [place] [address]- 7671 Jul, [facility] [address], [place] [address]- 5813 Jul, [facility] [address], [place] [address]- 2597 Jul, [facility] [address], [place] [address]- 7444 Feb, [facility] [id number], [place] [address]- 0470 Feb, [facility] [address], [place] [address]- 0561 Dec, [facility] [place] [facility] [address], [place] [address]- 1519 Dec, [facility] [id number] [place] [address]- 2607 Dec, [facility] [address] [id number] [place] [address]- 7958 Dec, [facility] [address] [id number] [place] [address]- 3437 Nov, [facility] [address] [id number] [place] [address]- 8119 Nov, [facility] [address] [id number] [place] [address]- 4681 Nov, [facility] [address] [id number] [place] [address]- 8221 Nov, [facility] [address] [id number] [place] [address]- 9250 Oct, [facility] [address] [id number] [place] [address]- 9276 Oct, [facility] [address] [id number] [place] [address]- 5863 Oct, [facility] [address] [id number] [place] [address]- 6955 Oct, [facility] [address] [facility] [id number] [place] [address]- 8570 Oct, [facility] [address] [id number] [place] [address]- 3356 Aug, [facility] [address] [id number] [place] [address]- 2546 Jul, [facility] [address] [id number] [place] [address]- 7746 May, [facility] [address] [id number] [place] [address]- 2546 March, [facility] [address] [id number] [place] [address]- 5506 Jan, [facility] [place] [facility] [address] [id number] [place] [address]- 8779 Jan, [facility] [place] [facility] [address] [id number] [place] [address]- 0517 Dec, [facility] [place] [facility] [address] [id number] [place] [address]- 6987 Sep, [facility] [place] [facility] [address] [id number] [place] [address]- 6206 Sep, [facility] [place] [facility] [address] [id number] [place] [address]- 7416 Sep, [facility] [place] [facility] [address] [id number] [place] [address]- 6663 Sep, [facility] [place] [facility] [address] [id number] [place] [address]- 4054 Jul, [facility] [place] [facility] [address] [id number] [place] [address]- 6470 Jun, [facility] [place] [facility] [address] [id number] [place] [address]- 9417 Jun, [facility] [place] [facility] [address] [id number] [place] [address]- 2997 May, [facility] [place] [facility] [address] [id number] [place] [address]- 0716 Apr, [facility] [place] [facility] [address] [id number], [place] [address]- 5601 Feb, [facility] [place] [facility] [address] [id number] [place] [address]- 3437 Feb, [facility] [place] [facility] [address] [id number] [place] [address]- 5490 Feb, [facility] [place] [facility] [address] [id number] [place] [address]- 0741 Jan, [facility] [place] [facility] [address] [id number], [place] [address] 2546 Nov, [facility] [id number], [place] [address]- 3166 Nov, [facility] [id number], [place] [address] 2546 Oct, [facility] [id number], [place] [address]- 8566 Sep, [facility] [id number], [place] [address]- 3360 Sep, [facility] [id number], [place] [address]- 1304 Aug, [facility] [id number], [place] [address]- 5050 Apr, IMMUNIZATIONS No Known Immunizations SOCIAL HISTORY Never Assessed REASON FOR VISIT LVM PLAN OF CARE VITAL SIGNS MEDICATIONS Unknown Medications RESULTS No Results PROCEDURES No Known procedures INSTRUCTIONS MEDICATIONS ADMINISTERED No Known Medications MEDICAL (GENERAL) HISTORY Type Description Date Medical History hypertension Medical History pre -diabetes Medical History stroke Surgical History inguinal hernia Surgical History tonsillectomy Surgical History stint placement Hospitalization History Stroke february 2018
--- OUTSIDE RECORDS SUMMARY | 2019-02-02 22:39 | XMS REPORT ---
Author Author DEVAN MENDOZA Organization [facility] Address [address] [place] [address] Care Team Providers Care Web Support Engineer Name Role Phone DEVAN MENDOZA Unavailable PROBLEMS Type Condition ICD9-CM Code HAG27-SQ Code Onset Dates Condition Status SNOMED Code Problem Diabetes E11.9 Active 25134391 Problem Hyperlipidemia E78.5 Active 10678090 Problem Erythrocytosis D75.1 Active 791414675 Problem Subclavian steal syndrome G45.8 Active 63501790 Problem Microalbuminuria R80.9 Active 016536367 Problem Hypertension I10 Active 07100151 Problem Gastroesophageal reflux disease, esophagitis presence not specified K21.9 Active 547655242 Problem Cerebrovascular accident (CVA) due to occlusion of left middle cerebral artery I63.512 Active 393087204 ALLERGIES No Known Allergies ENCOUNTERS Encounter Location Date Diagnosis [place] [id number] [place] [address] 12067- 1968 Jun, [place] [id number] [place] [address] 54894- 5734 Jun, Diabetes E11.9 ; Hypertension I10 and Erythrocytosis D75.1 [place] [id number] [place] [address] 02388- 2971 Jun, [place] [id number] [place] [address] 62367- 8081 Apr, [place] [id number] [place] [address] 91302- 5094 Apr, [place] [id number] [place] [address] 93996- 4600 Apr, Subclavian steal syndrome G45.8 ; Hypertension I10 and Cerebrovascular accident (CVA) due to occlusion of left middle cerebral artery I63.512 [facility] [address], [place] [address]- 4916 Apr, [facility] [id number] [place] [address] 50349- 5617 Apr, [facility] [id number] [place] [address] 23497- 4078 March, Subclavian steal syndrome G45.8 [facility] [id number] [place] [address] 47138- 1109 March, Diabetes E11.9 [facility] [id number] [place] [address] 80274- 9781 March, Diabetes E11.9 [facility] [id number] [place] [address] 93045- 8444 March, Diabetes E11.9 [facility] [id number] [place] [address] 46395- 4364 March, Cerebrovascular accident (CVA) due to occlusion of left middle cerebral artery I63.512 ; Hypertension I10 ; Diabetes E11.9 ; Hyperlipidemia E78.5 ; Gastroesophageal reflux disease, esophagitis presence not specified K21.9 and Subclavian steal syndrome G45.8 [facility] [address] [place] [address] 72887- 2429 March, [facility] [address] [place] [address] 01432- 1584 Feb, Cerebrovascular accident (CVA) due to occlusion of left middle cerebral artery I63.512 ; Diabetes E11.9 ; Hypertension I10 ; Hyperlipidemia E78.5 and Microalbuminuria R80.9 [facility] [address] [place] [address] 21927- 0514 Feb, [facility] [address] [place] [address] 72898- 0634 Feb, Diabetes E11.9 ; Hypertension I10 ; Microalbuminuria R80.9 and Hyperlipidemia E78.5 [facility] [address] [facility] [id number] [address]- 9071 Feb, [facility] [address] [place] [address]- 1723 Oct, Diabetes mellitus 250.00 [facility] [address] [address] 2548 May, Diabetes mellitus 250.00 [facility] [address] [place] [address], [place] [address]- 8199 May, Fracture of finger of left hand 816.00 [facility] [address] [place] [address], [place] [address]- 9307 Feb, [facility] [address] [place] [address]- 7398 Jul, [facility] [address] [place] [address]- 3319 Jul, [facility] [address], [place] [address]- 2542 Jul, [facility] [address] [place] [address] 254 Jul, [facility] [address], [place] [address]- 2549 Jul, [facility] [address] [place] [address] 254 Jul, [facility] [address], [place] [address]- 2543 Feb, [facility] [id number] [place] [address] 2547 Feb, [facility] [address], [place] [address]- 5884 Dec, [facility] [id number], [place] [address]- 5980 Dec, [facility] [place] [facility] [address] [id number] [place] [address]- 5608 Dec, [facility] [place] [facility] [address] [id number] [place] [address]- 9105 Dec, [facility] [place] [facility] [address] [id number] [place] [address]- 1269 Nov, [facility] [place] [facility] [address] [id number] [place] [address]- 5956 Nov, [facility] [place] [facility] [address] [id number] [place] [address]- 3306 Nov, [facility] [place] [facility] [address] [id number] [place] [address]- 0581 Nov, [facility] [place] [facility] [address] [id number] [place] [address]- 9319 Oct, [facility] [place] [facility] [address] [id number], [place] [address]- 3786 Oct, [facility] [place] [facility] [address] [id number] [place] [address]- 2418 Oct, [facility] [place] [facility] [address] [id number], [place] [address]- 6921 Oct, [facility] [place] [facility] [address] [id number], [place] [address]- 3630 Oct, [facility] [place] [facility] [address] [id number], [place] [address]- 0703 Aug, [facility] [place] [facility] [address] [id number] [place] [address]- 2548 Jul, [facility] [place] [facility] [address] [id number], [place] [address]- 7766 May, [facility] [place] [facility] [address] [id number], [place] [address]- 2546 March, [facility] [place] [facility] [address] [id number], [place] [address]- 9961 Jan, [facility] [address] [id number] [place] [address]- 3275 Jan, [facility] [place] [facility] [address] [id number] [place] [address]- 1360 Dec, [facility] [address] [id number] [place] [address]- 6410 Sep, [facility] [place] [facility] [address] [id number] [place] [address]- 8173 Sep, [facility] [place] [facility] [address] [id number] [place] [address] Sep, [facility] [place] [facility] [address] [id number] [place] [address]- 7406 Sep, [facility] [address] [id number] [place] [address]- 8883 Jul, [facility] [place] [facility] [address] [id number] [place] [address]- 3998 Jun, [facility] [place] [facility] [address] [id number] [place] [address]- 2762 Jun, [facility] [place] [facility] [address] [facility] [id number] [place] [address]- 8832 May, [facility] [place] [facility] [address] [id number] [place] [address]- 5873 Apr, [facility] [place] [facility] [address] [id number] [place] [address]- 1225 Feb, [facility] [place] [facility] [address] [id number] [place] [address]- 1071 Feb, [facility] [place] [facility] [address] [id number] [place] [address]- 5459 Feb, [facility] [place] [facility] [address] [facility] [id number] [place] [address]- 4287 Jan, [facility] [place] [facility] [address] [facility] [id number], [place] [address]- 8716 Nov, [facility] [id number], [place] [address]- 7247 Nov, [facility] [id number], [place] [address]- 9206 Oct, [facility] [id number], [place] [address]- 1303 Sep, [facility] [address] [facility] [id number], [place] [address]- 3221 Sep, [facility] [id number], [place] [address]- 8764 Aug, [facility] [address] [facility] [id number], [place] [address]- 7385 Apr, IMMUNIZATIONS No Known Immunizations SOCIAL HISTORY Never Assessed REASON FOR VISIT 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-Zainab SUE, Last A1c was done on 02/11 in hospital, result 11.6 PLAN OF CARE Activity Details Follow Up 3 Months Reason: VITAL SIGNS Height 62 in 2018-03-15 Weight 146.8 lbs 2018-03-15 Temperature 98.5 degrees Fahrenheit 2018-03-15 Heart Rate 84 bpm 2018-03-15 Respiratory Rate 18 2018-03-15 BMI 26.85 kg/m2 2018-03-15 Blood pressure systolic 128 mmHg 2018-03-15 Blood pressure diastolic 70 mmHg 2018-03-15 MEDICATIONS Medication Instructions Dosage Frequency Start Date End Date Duration Status ReliOn Blood Glucose Test Active NovoLog 100 UNIT/ML Subcutaneous 3 times a day 7 units with meals 8h Active Zolpidem Tartrate 5 mg Orally Once a day PRN 1 tablet at bedtime as needed Active MetFORMIN HCl ER 500 mg Orally 2 times a day 1 tablet with evening meal 12h Active Insulin Detemir 100 UNIT/ML Subcutaneous Once a day 30 units 24h March, Active Famotidine 20 mg Orally Twice a day 1 tablet 12h Active Aspir-81 Active Ibuprofen 600 MG Orally every 6 hrs PRN 1 tablet with food or milk as needed Active Lipitor 40 mg Orally Once a day 1 tablet 24h March, Active RESULTS No Results PROCEDURES No Known procedures INSTRUCTIONS MEDICATIONS ADMINISTERED No Known Medications MEDICAL (GENERAL) HISTORY Type Description Date Medical History hypertension Medical History pre -diabetes Medical History stroke Surgical History inguinal hernia Surgical History tonsillectomy Surgical History stint placement Hospitalization History Stroke february 2018
--- OUTSIDE RECORDS SUMMARY | 2019-02-02 22:39 | XMS REPORT ---
Author Author DEVAN MENDOZA Organization [facility] Address [address] [place] [address] Care Team Providers Care Jig Grinder Set Up Operator Name Role Phone DEVAN MENDOZA Unavailable PROBLEMS Type Condition ICD9-CM Code [id number] Code Onset Dates Condition Status SNOMED Code Problem Hyperlipidemia E78.5 Active 46148092 Problem Gastroesophageal reflux disease, esophagitis presence not specified K21.9 Active 205932562 Problem Subclavian steal syndrome G45.8 Active 74210489 Problem Hypertension I10 Active 64006872 Problem Diabetes E11.9 Active 37560793 Problem Cerebrovascular accident (CVA) due to occlusion of left middle cerebral artery I63.512 Active 338481319 Problem Microalbuminuria R80.9 Active 521154415 ALLERGIES No Information ENCOUNTERS Encounter Location Date Diagnosis [place] [id number] [place] [address] 23082- 5069 Jun, [place] [id number] [place] [address] 84343- 1092 Jun, Diabetes E11.9 ; Hypertension I10 and Erythrocytosis D75.1 [place] [address] [place] [address] 25553- 8165 Jun, [place] [id number] [place] [address] 61835- 0311 Apr, [place] [id number] [place] [address] 26427- 2410 Apr, [place] [id number] [place] [address] 80001- 4956 Apr, Subclavian steal syndrome G45.8 ; Hypertension I10 and Cerebrovascular accident (CVA) due to occlusion of left middle cerebral artery I63.512 [place] [address] [address] Apr, [facility] [address] [place] [address] 04851- 0112 Apr, [facility] [id number] [place] [address] 76437- 2704 March, Subclavian steal syndrome G45.8 [facility] [id number] [place] [address] 29799- 8169 March, Diabetes E11.9 [facility] [id number] [place] [address] 63658- 6172 March, Diabetes E11.9 [facility] [id number] [place] [address] 70729- 9151 March, Diabetes E11.9 [facility] [address] [place] [address] 46309- 8096 March, Cerebrovascular accident (CVA) due to occlusion of left middle cerebral artery I63.512 ; Hypertension I10 ; Diabetes E11.9 ; Hyperlipidemia E78.5 ; Gastroesophageal reflux disease, esophagitis presence not specified K21.9 and Subclavian steal syndrome G45.8 [place] [address] [address] 7584 March, [facility] [address] [address]- 8217 Feb, Cerebrovascular accident (CVA) due to occlusion of left middle cerebral artery I63.512 ; Diabetes E11.9 ; Hypertension I10 ; Hyperlipidemia E78.5 and Microalbuminuria R80.9 [facility] [address], [place] [address]- 6106 Feb, [facility] [id number] [place] [address] 68266- 0667 Feb, Diabetes E11.9 ; Hypertension I10 ; Microalbuminuria R80.9 and Hyperlipidemia E78.5 [place] [id number] [address]- 5493 Feb, [facility] [address], [place] [address] 9000 Oct, Diabetes mellitus 250.00 [facility] [address] [address]- 2082 May, Diabetes mellitus 250.00 [facility] [id number] [place] [address] 83678- 7672 May, Fracture of finger of left hand 816.00 [facility] [id number] [address]- 7396 Feb, [facility] [address] [place] [address] 00758- 0006 Jul, [facility] [address] [address]- 1409 Jul, [facility] [address] [address]- 4883 Jul, [facility] [address] [address]- 9926 Jul, [facility] [address] [address]- 2332 Jul, [facility] [address], [place] [address]- 1810 Jul, [facility] [address] [address]- 6068 Feb, [facility] [id number] [address]- 6536 Feb, [facility] [address] [address]- 0283 Dec, [facility] [place] [facility] [address] [address]- 0866 Dec, [facility] [id number] [address]- 7407 Dec, [facility] [address] [id number] [place] [address]- 5046 Dec, [facility] [address] [id number] [place] [address]- 4764 Nov, [facility] [address] [id number] [place] [address]- 5926 Nov, [facility] [address] [id number] [place] [address]- 9963 Nov, [facility] [address] [id number] [place] [address]- 5020 Nov, [facility] [address] [id number] [place] [address]- 5061 Oct, [facility] [address] [id number] [place] [address]- 5763 Oct, [facility] [address] [id number] [place] [address]- 7132 Oct, [facility] [address] [id number] [place] [address]- 0770 Oct, [facility] [address] [facility] [id number] [place] [address]- 9178 Oct, [facility] [address] [id number] [place] [address]- 4866 Aug, [facility] [address] [id number] [place] [address]- 2546 Jul, [facility] [address] [id number] [place] [address]- 0836 May, [facility] [address] [id number] [place] [address]- 2546 March, [facility] [address] [id number] [place] [address]- 1196 Jan, [facility] [place] [facility] [address] [id number] [place] [address]- 3388 Jan, [facility] [place] [facility] [address] [id number] [place] [address]- 6805 Dec, [facility] [place] [facility] [address] [id number] [place] [address]- 7467 Sep, [facility] [place] [facility] [address] [id number] [place] [address]- 0471 Sep, [facility] [place] [facility] [address] [id number] [place] [address]- 0705 Sep, [facility] [place] [facility] [address] [id number] [place] [address]- 7395 Sep, [facility] [place] [facility] [address] [id number] [place] [address]- 9863 Jul, [facility] [place] [facility] [address] [id number] [place] [address]- 0899 Jun, [facility] [place] [facility] [address] [id number] [place] [address]- 7534 Jun, [facility] [place] [facility] [address] [id number] [place] [address]- 0674 May, [facility] [place] [facility] [address] [id number] [place] [address]- 1776 Apr, [facility] [place] [facility] [address] [id number] [address]- 9792 Feb, [facility] [place] [facility] [address] [id number] [place] [address]- 4607 Feb, [facility] [place] [facility] [address] [id number] [place] [address]- 5603 Feb, [facility] [place] [facility] [address] [id number] [place] [address]- 9870 Jan, [facility] [place] [facility] [address] [id number] [address] 2546 Nov, [facility] [id number] [address]- 2350 Nov, [facility] [id number] [address]- 6926 Oct, [facility] [id number] [address]- 3619 Sep, [facility] [id number] [address]- 1071 Sep, [facility] [id number] [address]- 1267 Aug, [facility] [id number] [address]- 6218 Apr, IMMUNIZATIONS No Known Immunizations SOCIAL HISTORY [...]
--- OUTSIDE RECORDS SUMMARY | 2019-02-02 22:39 | XMS REPORT ---
Author Author DEVAN MENDOZA Organization [facility] Address [address] [place] [address] Care Team Providers Care Reception Agent Name Role Phone DEVAN MENDOZA Unavailable PROBLEMS Type Condition ICD9-CM Code [id number] Code Onset Dates Condition Status SNOMED Code Problem Diabetes E11.9 Active 24880232 Problem Hyperlipidemia E78.5 Active 93235002 Problem Erythrocytosis D75.1 Active 283568671 Problem Subclavian steal syndrome G45.8 Active 98674902 Problem Microalbuminuria R80.9 Active 384151673 Problem Hypertension I10 Active 80877716 Problem Gastroesophageal reflux disease, esophagitis presence not specified K21.9 Active 589100964 Problem Cerebrovascular accident (CVA) due to occlusion of left middle cerebral artery I63.512 Active 401609402 ALLERGIES No Information ENCOUNTERS Encounter Location Date Diagnosis [place] [id number] [place] [address] 78167- 4395 Jun, [place] [id number] [place] [address] 34714- 0677 Jun, Diabetes E11.9 ; Hypertension I10 and Erythrocytosis D75.1 [place] [id number] [place] [address] 20686- 9823 Jun, [facility] [id number] [place] [address] 50411- 7268 Apr, [place] [id number] [place] [address] 43236- 2743 Apr, [place] [id number] [place] [address] 39366- 7549 Apr, Subclavian steal syndrome G45.8 ; Hypertension I10 and Cerebrovascular accident (CVA) due to occlusion of left middle cerebral artery I63.512 [facility] [address], [place] [address]- 8782 Apr, [facility] [id number] [place] [address] 79604- 0443 Apr, [facility] [id number] [place] [address] 18295- 1152 March, Subclavian steal syndrome G45.8 [facility] [id number] [place] [address] 04938- 0302 March, Diabetes E11.9 [facility] [id number] [place] [address] 13081- 4212 March, Diabetes E11.9 [facility] [address] [place] [address] 91710- 1113 March, Diabetes E11.9 [facility] [id number] [place] [address] 98029- 2097 March, Cerebrovascular accident (CVA) due to occlusion of left middle cerebral artery I63.512 ; Hypertension I10 ; Diabetes E11.9 ; Hyperlipidemia E78.5 ; Gastroesophageal reflux disease, esophagitis presence not specified K21.9 and Subclavian steal syndrome G45.8 [facility] [address], [place] [address]- 4699 March, [facility] [address] [place] [address] 34752- 7843 Feb, Cerebrovascular accident (CVA) due to occlusion of left middle cerebral artery I63.512 ; Diabetes E11.9 ; Hypertension I10 ; Hyperlipidemia E78.5 and Microalbuminuria R80.9 [facility] [address] [place] [address] 11131- 8648 Feb, [facility] [address] [place] [address] 84724- 3811 Feb, Diabetes E11.9 ; Hypertension I10 ; Microalbuminuria R80.9 and Hyperlipidemia E78.5 [facility] [address] [facility] [id number] [place] [address]- 5032 Feb, [facility] [address] [place] [address]- 4247 Oct, Diabetes mellitus 250.00 [facility] [address] [place] [address] 2546 May, Diabetes mellitus 250.00 [facility] [address] [place] [address]- 7477 May, Fracture of finger of left hand 816.00 [facility] [address] [place] [address], [place] [address]- 9646 Feb, [facility] [address] [place] [address]- 2547 Jul, [facility] [address] [place] [address]- 2860 Jul, [facility] [address] [place] [address] 2543 Jul, [facility] [address] [place] [address] 2543 Jul, [facility] [address] [place] [address]- 2542 Jul, [facility] [address] [place] [address] 2545 Jul, [facility] [id number], [place] [address] 2547 Feb, [facility] [address] [place] [address] 2541 Feb, [facility] [id number] [place] [address]- 2543 Dec, [facility] [id number], [place] [address]- 2545 Dec, [facility] [place] [facility] [address] [id number] [place] [address]- 4223 Dec, [facility] [place] [facility] [address] [id number] [place] [address]- 5752 Dec, [facility] [place] [facility] [address] [id number] [place] [address]- 2993 Nov, [facility] [place] [facility] [address] [id number] [place] [address]- 0036 Nov, [facility] [place] [facility] [address] [id number] [place] [address]- 3925 Nov, [facility] [place] [facility] [address] [id number] [place] [address]- 8736 Nov, [facility] [place] [facility] [address] [facility] [id number] [place] [address]- 0857 Oct, [facility] [place] [facility] [address] [id number], [place] [address]- 4713 Oct, [facility] [place] [facility] [address] [id number] [place] [address]- 5088 Oct, [facility] [place] [facility] [address] [id number], [place] [address]- 4644 Oct, [facility] [place] [facility] [address] [id number], [place] [address]- 2583 Oct, [facility] [place] [facility] [address] [id number], [place] [address]- 8427 Aug, [facility] [place] [facility] [address] [id number] [place] [address]- 1810 Jul, [facility] [place] [facility] [address] [id number], [place] [address]- 0316 May, [facility] [place] [facility] [address] [id number], [place] [address]- 2741 March, [facility] [place] [facility] [address] [id number], [place] [address]- 2621 Jan, [facility] [address] [id number] [place] [address]- 1597 Jan, [facility] [place] [facility] [address] [id number] [place] [address]- 6453 Dec, [facility] [place] [facility] [address] [id number] [place] [address]- 0723 Sep, [facility] [place] [facility] [address] [id number] [place] [address]- 9567 Sep, [facility] [place] [facility] [address] [id number] [place] [address]- 7381 Sep, [facility] [place] [facility] [address] [id number] [place] [address]- 7574 Sep, [facility] [address] [id number] [place] [address]- 1818 Jul, [facility] [place] [facility] [address] [id number] [place] [address]- 0505 Jun, [facility] [place] [facility] [address] [id number] [place] [address]- 3681 Jun, [facility] [place] [facility] [address] [id number] [place] [address]- 0993 May, [facility] [place] [facility] [address] [id number] [place] [address]- 6761 Apr, [facility] [place] [facility] [address] [id number] [place] [address]- 2270 Feb, [facility] [place] [facility] [address] [id number] [place] [address]- 1141 Feb, [facility] [place] [facility] [address] [id number] [place] [address]- 6804 Feb, [facility] [place] [facility] [address] [facility] [id number] [place] [address]- 6635 Jan, [facility] [place] [facility] [address] [facility] [id number] [address] 2546 Nov, [facility] [id number], [place] [address]- 4893 Nov, [facility] [address] [facility] [id number][place] [address]- 5876 Oct, [facility] [id number], [place] [address]- 5286 Sep, [facility] [id number], [place] [address]- 6052 Sep, [facility] [id number], [place] [address]- 9394 Aug, [facility] [address] [facility] [id number][place] [address]- 1396 Apr, IMMUNIZATIONS No Known Immunizations SOCIAL HISTORY Never Assessed REASON FOR VISIT Prior Authorization Request PLAN OF CARE VITAL SIGNS MEDICATIONS Medication Instructions Dosage Frequency Start Date End Date Duration Status NovoLog Flexpen 100 UNIT/ML Subcutaneous 3 times [...]
--- OUTSIDE RECORDS SUMMARY | 2019-02-02 22:39 | XMS REPORT ---
Author Author DEVAN MENDOZA Organization [facility] Address [address] [place] [address] Care Team Providers Care Drying Room Attendant Name Role Phone DEVAN MENDOZA Unavailable PROBLEMS Type Condition ICD9-CM Code ZIZ13-FV Code Onset Dates Condition Status SNOMED Code Problem Hyperlipidemia E78.5 Active 93460983 Problem Gastroesophageal reflux disease, esophagitis presence not specified K21.9 Active 288725535 Problem Subclavian steal syndrome G45.8 Active 73816847 Problem Hypertension I10 Active 28621938 Problem Diabetes E11.9 Active 30536353 Problem Cerebrovascular accident (CVA) due to occlusion of left middle cerebral artery I63.512 Active 010614723 Problem Microalbuminuria R80.9 Active 882570342 ALLERGIES No Information ENCOUNTERS Encounter Location Date Diagnosis [facility] [id number] [place] [address] 21812- 7987 Jun, [place] [id number] [place] [address] 18844- 1022 Jun, Diabetes E11.9 ; Hypertension I10 and Erythrocytosis D75.1 [place] [id number] [place] [address] 20785- 9847 Jun, [place] [id number] [place] [address] 23890- 5545 Apr, [place] [id number] [place] [address] 37041- 0185 Apr, [place] [id number] [place] [address] 38624- 2011 Apr, Subclavian steal syndrome G45.8 ; Hypertension I10 and Cerebrovascular accident (CVA) due to occlusion of left middle cerebral artery I63.512 [place] [address] [address] Apr, [facility] [id number] [place] [address] 43539- 7417 Apr, [facility] [id number] [place] [address] 37659- 0265 March, Subclavian steal syndrome G45.8 [facility] [id number] [place] [address] 92026- 0485 March, Diabetes [address].9 [facility] [id number] [place] [address] 75505- 4652 March, [address]9 [facility] [id number] [place] [address] 46682- 0945 March, [address]9 [facility] [id number] [place] [address] 34399- 2284 March, Cerebrovascular accident (CVA) due to occlusion of left middle cerebral artery I63.512 ; Hypertension I10 ; Diabetes E11.9 ; Hyperlipidemia E78.5 ; Gastroesophageal reflux disease, esophagitis presence not specified K21.9 and Subclavian steal syndrome G45.8 [place] [address] [address] 14[address] March, [facility] [address] [address]- 5019 Feb, Cerebrovascular accident (CVA) due to occlusion of left middle cerebral artery I63.512 ; Diabetes E11.9 ; Hypertension I10 ; Hyperlipidemia E78.[address] [facility] [address] [address]- 0480 Feb, [facility] [id number] [place] [address] 72714- 4564 Feb, Diabetes E11.9 ; Hypertension I10 ; Microalbuminuria R80.9 and Hyperlipidemia E78.5 [place] [id number] [address]- 3061 Feb, [facility] [address] [address] 9606 Oct, Diabetes mellitus 250.00 [facility] [address] [address]- 4529 May, Diabetes mellitus 250.00 [facility] [id number] [place] [address] 35745- 9086 May, Fracture of finger of left hand 816.00 [facility] [id number] [address]- 8895 Feb, [facility] [id number] [place] [address] 45797- 0497 Jul, [facility] [address] [address]- 3740 Jul, [facility] [address] [address]- 7011 Jul, [facility] [address] [address]- 3215 Jul, [facility] [address] [address]- 9467 Jul, [facility] [address] [address]- 5201 Jul, [facility] [address] [address]- 2250 Feb, [facility] [id number] [address]- 8732 Feb, [facility] [address] [address]- 3799 Dec, [facility] [place] [facility] [address] [address]- 8798 Dec, [facility] [id number] [address]- 9390 Dec, [facility] [address] [id number] [place] [address]- 5990 Dec, [facility] [address] [id number] [place] [address]- 0681 Nov, [facility] [address] [id number] [place] [address]- 3031 Nov, [facility] [address] [id number] [place] [address]- 9435 Nov, [facility] [address] [id number] [place] [address]- 2564 Nov, [facility] [address] [id number] [place] [address]- 7520 Oct, [facility] [address] [id number] [place] [address]- 2054 Oct, [facility] [address] [id number] [place] [address]- 6778 Oct, [facility] [address] [id number] [place] [address]- 0606 Oct, [facility] [address] [facility] [id number] [place] [address]- 2960 Oct, [facility] [address] [id number] [place] [address]- 8426 Aug, [facility] [address] [id number] [place] [address]- 2546 Jul, [facility] [address] [id number] [place] [address]- 4776 May, [facility] [address] [id number] [place] [address]- 2546 March, [facility] [address] [id number] [place] [address]- 4516 Jan, [facility] [place] [facility] [address] [id number] [place] [address]- 8667 Jan, [facility] [place] [facility] [address] [id number] [place] [address]- 8616 Dec, [facility] [place] [facility] [address] [id number] [place] [address]- 9218 Sep, [facility] [place] [facility] [address] [id number] [place] [address]- 2502 Sep, [facility] [place] [facility] [address] [id number] [place] [address]- 8034 Sep, [facility] [place] [facility] [address] [id number] [place] [address]- 5960 Sep, [facility] [place] [facility] [address] [id number] [place] [address]- 8306 Jul, [facility] [place] [facility] [address] [id number] [place] [address]- 5588 Jun, [facility] [place] [facility] [address] [id number] [place] [address]- 1846 Jun, [facility] [place] [facility] [address] [id number] [place] [address]- 6901 May, [facility] [place] [facility] [address] [id number] [place] [address]- 9585 Apr, [facility] [place] [facility] [address] [id number] [address]- 8653 Feb, [facility] [place] [facility] [address] [id number] [place] [address]- 6415 Feb, [facility] [place] [facility] [address] [id number] [place] [address]- 3207 Feb, [facility] [place] [facility] [address] [id number] [place] [address]- 1255 Jan, [facility] [place] [facility] [address] [id number] [address]- 2546 Nov, [facility] [id number] [address]46 Nov, [facility] [id number] [address]46 Oct, [facility] [id number] [address]- 3[address] Sep, [facility] [id number] [address]46 Sep, [facility] [id number] [address]- 5345 Aug, [facility] [id number] [address]- 0807 Apr, IMMUNIZATIONS No Known Immunizations SOCIAL HISTORY Never Assessed REASON FOR VISIT PLAN OF CARE VITAL SIGNS MEDICATIONS Unknown Medications RESULTS No Results PROCEDURES No Known procedures INSTRUCTIONS MEDICATIONS ADMINISTERED No Known Medications MEDICAL (GENERAL) HISTORY Type Description Date Medical History hypertension Medical History pre -diabetes Medical History stroke Surgical History inguinal hernia Surgical History tonsillectomy Surgical History stint placement Hospitalization History Stroke february 2018
--- OUTSIDE RECORDS SUMMARY | 2019-02-02 22:40 | XMS REPORT ---
Author Author DEVAN MENDOZA Organization [facility] Address [address] [place] [address] Care Team Providers Care Electrical Design Technician Name Role Phone DEVAN MENDOZA Unavailable PROBLEMS Type Condition ICD9-CM Code ZCT74-CP Code Onset Dates Condition Status SNOMED Code Problem Hyperlipidemia E78.5 Active 84768332 Problem Gastroesophageal reflux disease, esophagitis presence not specified K21.9 Active 723036124 Problem Subclavian steal syndrome G45.8 Active 62632773 Problem Hypertension I10 Active 54989470 Problem Diabetes E11.9 Active 08006616 Problem Cerebrovascular accident (CVA) due to occlusion of left middle cerebral artery I63.512 Active 195080166 Problem Microalbuminuria R80.9 Active 751806759 ALLERGIES No Information ENCOUNTERS Encounter Location Date Diagnosis [facility] [id number] [place] [address] 81399- 3948 Jun, [facility] [id number] [place] [address] 51853- 8546 Apr, [facility] [id number] [place] [address] 56089- 6900 Apr, [facility] [id number] [place] [address] 54034- 1157 18 Apr, 2018 Subclavian steal syndrome G45.8 ; Hypertension I10 and Cerebrovascular accident (CVA) due to occlusion of left middle cerebral artery I63.512 [facility] [id number] [place] [address] 04820- 8780 Apr, [facility] [id number] [place] [address] 36279- 7492 07 Apr, 2018 [facility] [address] 83456- 2741 March, Subclavian steal syndrome G45.8 [facility] [id number] [place] [address] 99473- 5573 March, Diabetes E11.9 [facility] [id number] [place] [address] 89705- 6859 March, Diabetes E11.9 [place] [id number] [place] [address] 99191- 2322 March, Diabetes E11.9 [place] [id number] [place] [address] 81881- 2040 March, Cerebrovascular accident (CVA) due to occlusion of left middle cerebral artery I63.512 ; Hypertension I10 ; Diabetes E11.9 ; Hyperlipidemia E78.5 ; Gastroesophageal reflux disease, esophagitis presence not specified K21.9 and Subclavian steal syndrome G45.8 [place] [id number] [place] [address] 99317- 3324 March, [place] [id number] [place] [address] 26768- 9071 Feb, Cerebrovascular accident (CVA) due to occlusion of left middle cerebral artery I63.512 ; Diabetes E11.9 ; Hypertension I10 ; Hyperlipidemia E78.5 and Microalbuminuria R80.9 [place] [id number] [place] [address] 05438- 0230 Feb, [place] [id number] [place] [address] 11191- 7415 Feb, Diabetes E11.9 ; Hypertension I10 ; Microalbuminuria R80.9 and Hyperlipidemia E78.5 [place] [id number] [place] [address] 90370- 1862 Feb, [place] [id number] [place] [address] 37704- 4591 Oct, Diabetes mellitus 250.00 [place] [id number] [place] [address] 01284- 0972 May, Diabetes mellitus 250.00 [facility] [address] [facility] [id number] [place] [address]- 1179 May, Fracture of finger of left hand 816.00 [facility] [address] [id number] [place] [address]- 3311 13 Feb, 2015 [facility] [address] [facility] [id number] [place] [address]- 7455 Jul, [facility] [address] [facility] [id number] [place] [address]- 8528 Jul, [facility] [address] [facility] [id number] [place] [address], [place] [address]- 8082 Jul, [facility] [id number] [address]- 1585 Jul, [facility] [address] [address]- 8126 Jul, [facility] [address] [facility] [id number] [place] [address]- 2628 Jul, [facility] [address] [address]- 5278 Feb, [facility] [id number] [address]- 1404 Feb, [facility] [address] [id number] [address]- 6961 Dec, [facility] [address] [facility] [id number] [place] [address]- 5226 Dec, [facility] [address] [facility] [id number] [place] [address]- 5599 Dec, [facility] [address] [facility] [id number] [place] [address]- 3718 Dec, [facility] [address] [id number] [address]- 5481 Nov, [facility] [address] [id number] [place] [address]- 4041 Nov, [facility] [place] [facility] [address] [id number] [place] [address]- 1438 Nov, [facility] [place] [facility] [address] [id number] [place] [address]- 9346 Nov, [facility] [place] [facility] [address] [id number] [place] [address]- 9891 Oct, [facility] [place] [facility] [address] [id number] [place] [address]- 4185 Oct, [facility] [place] [facility] [address] [id number] [place] [address]- 9947 Oct, [facility] [place] [facility] [address] [id number] [place] [address]- 0032 Oct, [facility] [place] [facility] [address] [id number] [place] [address]- 6726 Oct, [facility] [place] [facility] [address] [id number] [place] [address]- 8850 Aug, [facility] [place] [facility] [address] [id number] [place] [address]- 0537 Jul, [facility] [place] [facility] [address] [id number] [place] [address]- 1845 May, [facility] [place] [facility] [address] [id number] [place] [address]- 2669 March, [facility] [place] [facility] [address] [id number] [place] [address]- 1231 Jan, [facility] [place] [facility] [address] [id number] [place] [address]- 6496 Jan, [facility] [place] [facility] [address] [id number] [place] [address]- 4690 Dec, [facility] [place] [facility] [address] [id number] [place] [address]- 2742 Sep, [facility] [address] [id number] [place] [address]- 1819 Sep, [facility] [place] [facility] [address] [id number] [place] [address]- 2970 Sep, [facility] [place] [facility] [address] [id number] [place] [address]- 1276 Sep, [facility] [place] [facility] [address] [id number] [place] [address]- 8531 Jul, [facility] [place] [facility] [address] [id number] [place] [address]- 5621 Jun, [facility] [place] [facility] [address] [id number] [place] [address] 2546 Jun, [facility] [place] [facility] [address] [id number] [place] [address]- 4767 May, [facility] [place] [facility] [address] [id number] [place] [address]- 7675 Apr, [facility] [place] [facility] [address] [id number] [place] [address]- 5475 Feb, [facility] [place] [facility] [address] [id number] [place] [address]- 1966 Feb, [facility] [place] [facility] [address] [id number] [place] [address]- 8576 Feb, [facility] [place] [facility] [address] [id number] [place] [address]- 2546 Jan, [facility] [place] [facility] [address] [id number] [place] [address]- 6624 Nov, [facility] [place] [facility] [address] [id number] [place] [address]- 2546 Nov, [facility] [place] [facility] [address] [id number] [place] [address]- 9846 Oct, [facility] [address] [facility] [id number] [place] [address]- 8179 14 Sep, 2011 [facility] [address] [facility] [id number] [place] [address]- 8062 14 Sep, 2011 [facility] [address] [facility] [id number] [place] [address]- 5026 13 Aug, 2011 [facility] [address] [facility] [id number] [place] [address]- 9485 13 Apr, 2011 IMMUNIZATIONS No Known Immunizations SOCIAL HISTORY Never [...]
--- OUTSIDE RECORDS SUMMARY | 2019-02-02 22:40 | XMS REPORT ---
Author Author DEVAN MENDOZA Organization [facility] Address [address] [place] [address] Care Team Providers Care Kitchen Helper Name Role Phone DEVAN MENDOZA Unavailable PROBLEMS Type Condition ICD9-CM Code FQT60-KZ Code Onset Dates Condition Status SNOMED Code Problem Diabetes E11.9 Active 43116683 Problem Hyperlipidemia E78.5 Active 14045190 Problem Erythrocytosis D75.1 Active 626446407 Problem Subclavian steal syndrome G45.8 Active 86716736 Problem Microalbuminuria R80.9 Active 342810497 Problem Hypertension I10 Active 45151263 Problem Gastroesophageal reflux disease, esophagitis presence not specified K21.9 Active 958584206 Problem Cerebrovascular accident (CVA) due to occlusion of left middle cerebral artery I63.512 Active 628664848 ALLERGIES No Information ENCOUNTERS Encounter Location Date Diagnosis [place] [id number] [place] [address]39- 8082 Jun, [place] [id number] [place] [address] 31699- 3595 Jun, Diabetes E11.9 ; Hypertension I10 and Erythrocytosis D75.1 [place] [id number] [place] [address] 40807- 8172 Jun, [facility] [id number] [place] [address] 90814- 7277 Apr, [place] [id number] [place] [address] 46686- 5286 Apr, [place] [id number] [place] [address] 70581- 1002 Apr, Subclavian steal syndrome G45.8 ; Hypertension I10 and Cerebrovascular accident (CVA) due to occlusion of left middle cerebral artery I63.512 [facility] [address], [place] [address] 9632 Apr, [facility] [id number] [place] [address] 50389- 5282 Apr, [facility] [id number] [place] [address] 24964- 5652 March, Subclavian steal syndrome G45.8 [facility] [id number] [place] [address] 22215- 1946 March, Diabetes E11.9 [facility] [id number] [place] [address] 44103- 1363 March, Diabetes E11.9 [facility] [id number] [place] [address] 99303- 7978 March, Diabetes E11.9 [facility] [id number] [place] [address] 00871- 8031 March, Cerebrovascular accident (CVA) due to occlusion of left middle cerebral artery I63.512 ; Hypertension I10 ; Diabetes E11.9 ; Hyperlipidemia E78.5 ; Gastroesophageal reflux disease, esophagitis presence not specified K21.9 and Subclavian steal syndrome G45.8 [facility] [address], [place] [address] 0724 March, [facility] [address] [place] [address] 81889- 9846 Feb, Cerebrovascular accident (CVA) due to occlusion of left middle cerebral artery I63.512 ; Diabetes E11.9 ; Hypertension I10 ; Hyperlipidemia E78.5 and Microalbuminuria R80.9 [facility] [address] [place] [address] 19646- 8733 Feb, [facility] [address] [place] [address] 14307- 6842 Feb, Diabetes E11.9 ; Hypertension I10 ; Microalbuminuria R80.9 and Hyperlipidemia E78.5 [facility] [address] [facility] [id number] [place] [address]- 8646 Feb, [facility] [address] [address]- 5345 Oct, Diabetes mellitus 250.00 [facility] [address] [address] 2546 May, Diabetes mellitus 250.00 [facility] [address] [address]- 2708 May, Fracture of finger of left hand 816.00 [facility] [id number] [place] [address], [place] [address]- 7942 Feb, [facility] [address] [address]- 2543 Jul, [facility] [address] [address]- 9852 Jul, [facility] [address] [place] [address] 2547 Jul, [facility] [address] [address] 2543 Jul, [facility] [address] [address]- 2545 Jul, [facility] [address] [place] [address] 2543 Jul, [facility] [id number] [address] 2541 Feb, [facility] [address] [place] [address] 2540 Feb, [facility] [id number] [address]- 2544 Dec, [facility] [id number] [address]- 254 Dec, [facility] [place] [facility] [address] [id number] [place] [address]- 8721 Dec, [facility] [place] [facility] [address] [id number] [place] [address]- 3153 Dec, [facility] [place] [facility] [address] [id number] [place] [address]- 8524 Nov, [facility] [place] [facility] [address] [id number] [place] [address]- 6489 Nov, [facility] [place] [facility] [address] [id number] [place] [address]- 4050 Nov, [facility] [place] [facility] [address] [id number] [place] [address]- 3219 Nov, [facility] [place] [facility] [address] [facility] [id number] [place] [address]- 9482 Oct, [facility] [place] [facility] [address] [id number], [place] [address]- 9127 Oct, [facility] [place] [facility] [address] [id number] [place] [address]- 4831 Oct, [facility] [place] [facility] [address] [id number], [place] [address]- 6902 Oct, [facility] [place] [facility] [address] [id number], [place] [address]- 5547 Oct, [facility] [place] [facility] [address] [id number], [place] [address]- 3593 Aug, [facility] [place] [facility] [address] [id number] [place] [address]- 4262 Jul, [facility] [place] [facility] [address] [id number], [place] [address]- 1506 May, [facility] [place] [facility] [address] [id number], [place] [address]- 4321 March, [facility] [place] [facility] [address] [id number], [place] [address]- 3912 Jan, [facility] [address] [id number] [place] [address]- 1534 Jan, [facility] [place] [facility] [address] [id number] [place] [address]- 3674 Dec, [facility] [place] [facility] [address] [id number] [place] [address]- 2305 Sep, [facility] [place] [facility] [address] [id number] [place] [address]- 3501 Sep, [facility] [place] [facility] [address] [id number] [place] [address]- 0904 Sep, [facility] [place] [facility] [address] [id number] [place] [address]- 4382 Sep, [facility] [address] [id number] [place] [address]- 5322 Jul, [facility] [place] [facility] [address] [id number] [place] [address]- 4579 Jun, [facility] [place] [facility] [address] [id number] [place] [address]- 1293 Jun, [facility] [place] [facility] [address] [id number] [place] [address]- 0682 May, [facility] [place] [facility] [address] [id number] [place] [address]- 6261 Apr, [facility] [place] [facility] [address] [id number] [place] [address]- 9919 Feb, [facility] [place] [facility] [address] [id number] [place] [address]- 5763 Feb, [facility] [place] [facility] [address] [id number] [place] [address]- 7712 Feb, [facility] [place] [facility] [address] [facility] [id number] [place] [address]- 1878 Jan, [facility] [place] [facility] [address] [facility] [id number], [place] [address]- 2546 Nov, [facility] [address] [facility] [id number], [place] [address]- 0226 Nov, [facility] [address] [facility] [id number], [place] [address]- 2546 Oct, [facility] [address] [facility] [id number], [place] [address]- 2146 Sep, [facility] [address] [facility] [id number], [place] [address]- 4543 Sep, [facility] [address] [facility] [id number], [place] [address]- 8676 Aug, [facility] [address] [facility] [id number], [place] [address]- 9864 Apr, IMMUNIZATIONS No Known Immunizations SOCIAL HISTORY Never Assessed REASON FOR VISIT med refill PLAN OF CARE VITAL SIGNS MEDICATIONS Medication Instructions Dosage Frequency Start Date End Date Duration Status ReliOn Blood Glucose Test - subcutaneously 4 times a day use 1 strip to check blood sugar 6h Active ReliOn Thin Lancets Lancets subcutaneously 4 [...]
--- OUTSIDE RECORDS SUMMARY | 2019-02-02 22:40 | XMS REPORT ---
Author Author DEVAN MENDOAZ Organization [facility] Address [address] [place] [address] Care Team Providers Care Format Proofreader Name Role Phone DEVAN MENDOZA Unavailable PROBLEMS Type Condition ICD9-CM Code NWL27-FD Code Onset Dates Condition Status SNOMED Code Problem Hyperlipidemia E78.5 Active 49374586 Problem Gastroesophageal reflux disease, esophagitis presence not specified K21.9 Active 487922843 Problem Subclavian steal syndrome G45.8 Active 97964070 Problem Hypertension I10 Active 89491800 Problem Diabetes E11.9 Active 39655366 Problem Cerebrovascular accident (CVA) due to occlusion of left middle cerebral artery I63.512 Active 078774017 Problem Microalbuminuria R80.9 Active 324785951 ALLERGIES No Known Allergies ENCOUNTERS Encounter Location Date Diagnosis [facility] [address] [address]- [address] Jun, [facility] [address] 8[address]21- 9502 Apr, [facility] [id number] [place] [address] 96298- 6501 Apr, [facility] [id number] [place] [address] 58961- 1347 Apr, Subclavian steal syndrome G45.8 ; Hypertension I10 and Cerebrovascular accident (CVA) due to occlusion of left middle cerebral artery I63.512 [facility] [address] 67494- 7564 Apr, [facility] [address] [address]- 5191 07 Apr, 2018 [facility] [address] 33230- 4487 March, Subclavian steal syndrome G45.8 [facility] [address] [place] [address] 40589- 3998 March, Diabetes E11.9 [facility] [id number] [place] [address] 05518- 7264 March, Diabetes E11.9 [place] [id number] [place] [address] 58259- 3076 March, Diabetes E11.9 [place] [id number] [place] [address] 15508- 0847 March, Cerebrovascular accident (CVA) due to occlusion of left middle cerebral artery I63.512 ; Hypertension I10 ; Diabetes E11.9 ; Hyperlipidemia E78.5 ; Gastroesophageal reflux disease, esophagitis presence not specified K21.9 and Subclavian steal syndrome G45.8 [place] [id number] [place] [address] 78942- 6844 March, [place] [id number] [place] [address] 66589- 6172 Feb, Cerebrovascular accident (CVA) due to occlusion of left middle cerebral artery I63.512 ; Diabetes E11.9 ; Hypertension I10 ; Hyperlipidemia E78.5 and Microalbuminuria R80.9 [place] [id number] [place] [address] 75090- 3624 Feb, [place] [id number] [place] [address] 44646- 1590 Feb, Diabetes E11.9 ; Hypertension I10 ; Microalbuminuria R80.9 and Hyperlipidemia E78.5 [place] [id number] [place] [address] 32346- 1040 Feb, [place] [id number] [place] [address] 97386- 4722 Oct, Diabetes mellitus 250.00 [place] [id number] [place] [address] 28975- 7365 May, Diabetes mellitus 250.00 [facility] [address] [facility] [id number] [place] [address]- 5767 May, Fracture of finger of left hand 816.00 [facility] [address] [id number] [place] [address]- 6748 13 Feb, 2015 [facility] [id number] [place] [address]- 4474 Jul, [facility] [address] [facility] [id number] [place] [address]- 8332 Jul, [facility] [id number] [place] [address], [place] [address]- 7572 Jul, [facility] [id number] [place] [address]- 6961 Jul, [facility] [address] [place] [address]- 0687 Jul, [facility] [id number] [place] [address]- 0750 Jul, [facility] [address] [place] [address]- 4815 Feb, [facility] [id number] [address]- 3495 Feb, [facility] [id number] [place] [address]- 7435 Dec, [facility] [address] [facility] [id number] [place] [address]- 7456 Dec, [facility] [id number] [place] [address]- 0638 Dec, [facility] [id number] [address]- 4033 Dec, [facility] [address] [address]- 0487 Nov, [facility] [address] [id number] [place] [address]- 8393 Nov, [facility] [place] [facility] [address] [id number] [place] [address]- 4467 Nov, [facility] [place] [facility] [address] [id number] [place] [address]- 8074 Nov, [facility] [place] [facility] [address] [id number] [place] [address]- 5792 Oct, [facility] [place] [facility] [address] [id number] [place] [address]- 1818 Oct, [facility] [place] [facility] [address] [id number] [place] [address]- 1451 Oct, [facility] [place] [facility] [address] [id number] [place] [address]- 9525 Oct, [facility] [place] [facility] [address] [id number] [place] [address]- 5751 Oct, [facility] [place] [facility] [address] [id number] [place] [address]- 5648 Aug, [facility] [place] [facility] [address] [id number] [place] [address]- 1963 Jul, [facility] [place] [facility] [address] [id number] [place] [address]- 6571 May, [facility] [place] [facility] [address] [id number] [place] [address]- 1750 March, [facility] [place] [facility] [address] [id number] [place] [address]- 2746 Jan, [facility] [place] [facility] [address] [id number] [place] [address]- 3736 Jan, [facility] [place] [facility] [address] [facility] [id number] [place] [address]- 2546 Dec, [facility] [place] [facility] [address] [id number] [place] [address]- 2040 Sep, [facility] [place] [facility] [address] [id number] [place] [address]- 9941 Sep, [facility] [place] [facility] [address] [id number] [place] [address]- 5171 Sep, [facility] [place] [facility] [address] [id number] [place] [address]- 7906 Sep, [facility] [place] [facility] [address] [id number] [place] [address]- 0849 Jul, [facility] [place] [facility] [address] [id number] [place] [address]- 6647 Jun, [facility] [place] [facility] [address] [id number] [place] [address]- 6946 Jun, [facility] [place] [facility] [address] [id number] [place] [address]- 2770 May, [facility] [place] [facility] [address] [id number] [place] [address]- 2486 Apr, [facility] [place] [facility] [address] [id number] [place] [address]- 7795 Feb, [facility] [place] [facility] [address] [id number] [place] [address]- 0008 Feb, [facility] [place] [facility] [address] [id number] [place] [address]- 2451 Feb, [facility] [place] [facility] [address] [id number] [place] [address]- 2546 Jan, [facility] [place] [facility] [address] [id number] [place] [address]- 8145 Nov, [facility] [place] [facility] [address] [id number] [place] [address]- 2546 Nov, [facility] [place] [facility] [address] [id number] [place] [address]- 4606 Oct, [facility] [address] [facility] [id number] [place] [address]- 8725 Sep, [facility] [address] [facility] [id number] [place] [address]- 3424 Sep, [facility] [address] [facility] [id number] [place] [address]- 0378 Aug, [place] [address] [facility] [id number] [place] [address]- 0643 Apr, IMMUNIZATIONS No Known Immunizations SOCIAL HISTORY Never Assessed REASON FOR VISIT Hospital f/u- [facility]. PT had a stroke-Zainab SUE, A1C was done on 02/11 in [facility], was 11.6 PLAN OF CARE Activity Details Follow Up 3 Months Reason: VITAL SIGNS Height 62 in 2018-02-22 Weight 141.7 lbs 2018-02-22 Temperature 98.7 degrees Fahrenheit 2018-02-22 Heart Rate 78 bpm 2018-02-22 Respiratory Rate 18 2018-02-22 BMI 25.91 kg/m2 2018-02-22 Blood pressure systolic 128 mmHg 2018-02-22 Blood pressure diastolic 78 mmHg 2018-02-22 MEDICATIONS Medication Instructions Dosage Frequency Start Date End Date Duration Status MetFORMIN HCl ER 500 MG Orally 2 times a day 1 tablet with evening meal 12h Active Levemir 100 UNIT/ML Subcutaneous at bedtime 30 units Active Ibuprofen 600 MG Orally every 6 hrs PRN 1 tablet with food or milk as needed Active Zolpidem Tartrate 5 MG Orally Once a day PRN 1 tablet at bedtime as needed Active Lisinopril 10 mg Orally Once a day 1 tablet 24h 21 Feb, 2016 Active GlipiZIDE ER 5 MG Orally Once a day 1 tablet 24h 2016 Unknown Lipitor 40 MG Orally Once a day 1 tablet 24h March, Active Aspir-81 Active Famotidine 20 MG Orally Twice a day 1 tablet 12h Active NovoLog 100 UNIT/ML Subcutaneous with meals 7 units Active ReliOn Blood Glucose Test Active RESULTS No Results PROCEDURES No Known procedures INSTRUCTIONS MEDICATIONS ADMINISTERED No Known Medications MEDICAL (GENERAL) HISTORY Type Description Date Medical History hypertension Medical History pre -diabetes Medical History stroke Surgical History inguinal hernia Surgical History tonsillectomy Surgical History stint placement Hospitalization History Stroke february 2018
--- OUTSIDE RECORDS SUMMARY | 2019-02-02 22:40 | XMS REPORT ---
Author Author DEVAN MENDOZA Organization [facility] Address [address] [place] [address] Care Team Providers Care Nut Steamer Name Role Phone DEVAN MENDOZA Unavailable PROBLEMS Type Condition ICD9-CM Code HCZ23-TD Code Onset Dates Condition Status SNOMED Code Problem Hyperlipidemia E78.5 Active 36842712 Problem Gastroesophageal reflux disease, esophagitis presence not specified K21.9 Active 988440815 Problem Subclavian steal syndrome G45.8 Active 69398224 Problem Hypertension I10 Active 24867740 Problem Diabetes E11.9 Active 86359842 Problem Cerebrovascular accident (CVA) due to occlusion of left middle cerebral artery I63.512 Active 172691724 Problem Microalbuminuria R80.9 Active 718208022 ALLERGIES No Information ENCOUNTERS Encounter Location Date Diagnosis [facility] [id number] [place] [address] 35844- 3043 Jun, [facility] [id number] [place] [address] 76863- 5276 Apr, [facility] [id number] [place] [address] 81844- 8677 Apr, [facility] [id number] [place] [address] 79424- 2864 18 Apr, 2018 Subclavian steal syndrome G45.8 ; Hypertension I10 and Cerebrovascular accident (CVA) due to occlusion of left middle cerebral artery I63.512 [facility] [id number] [place] [address] 56174- 7824 12 Apr, 2018 [facility] [id number] [place] [address] 23249- 8973 07 Apr, 2018 [facility] [address] 52921- 4739 March, Subclavian steal syndrome G45.8 [facility] [id number] [place] [address] 54436- 5687 March, Diabetes E11.9 [facility] [id number] [place] [address] 47173- 0379 March, Diabetes E11.9 [place] [facility] [id number] [place] [address] 62442- 9529 March, Diabetes E11.9 [place] [id number] [place] [address] 67638- 0736 March, Cerebrovascular accident (CVA) due to occlusion of left middle cerebral artery I63.512 ; Hypertension I10 ; Diabetes E11.9 ; Hyperlipidemia E78.5 ; Gastroesophageal reflux disease, esophagitis presence not specified K21.9 and Subclavian steal syndrome G45.8 [place] [id number] [place] [address] 90088- 7250 March, [facility] [facility] [id number] [place] [address] 31213- 0243 Feb, Cerebrovascular accident (CVA) due to occlusion of left middle cerebral artery I63.512 ; Diabetes E11.9 ; Hypertension I10 ; Hyperlipidemia E78.5 and Microalbuminuria R80.9 [place] [id number] [place] [address] 85856- 9259 Feb, [facility] [facility] [id number] [place] [address] 43003- 2215 Feb, Diabetes E11.9 ; Hypertension I10 ; Microalbuminuria R80.9 and Hyperlipidemia E78.5 [place] [id number] [place] [address] 47563- 9964 Feb, [place] [id number] [place] [address] 56015- 8532 Oct, Diabetes mellitus 250.00 [place] [id number] [place] [address] 74481- 7256 May, Diabetes mellitus 250.00 [facility] [address] [facility] [id number] [place] [address]- 8024 May, Fracture of finger of left hand 816.00 [facility] [address] [id number] [place] [address]- 0619 13 Feb, 2015 [facility] [address] [facility] [id number] [place] [address]- 3864 Jul, [facility] [address] [facility] [id number] [place] [address]- 0033 Jul, [facility] [address] [facility] [id number] [place] [address], [place] [address]- 6010 Jul, [facility] [id number] [place] [address]- 9905 Jul, [facility] [id number] [place] [address]- 7199 Jul, [facility] [address] [facility] [id number] [place] [address]- 2359 Jul, [facility] [id number] [place] [address]- 6934 Feb, [facility] [address] [id number] [address]- 8609 Feb, [facility] [id number] [address]- 2856 Dec, [facility] [address] [facility] [id number] [place] [address]- 8320 Dec, [facility] [address] [facility] [id number] [place] [address]- 4928 Dec, [facility] [address] [facility] [id number] [place] [address]- 4907 Dec, [facility] [address] [id number] [address]- 9843 Nov, [facility] [address] [id number] [place] [address]- 9929 Nov, [facility] [place] [facility] [address] [id number] [place] [address]- 8443 Nov, [facility] [place] [facility] [address] [id number] [place] [address]- 5999 Nov, [facility] [place] [facility] [address] [id number] [place] [address]- 0736 Oct, [facility] [place] [facility] [address] [id number] [place] [address]- 3842 Oct, [facility] [place] [facility] [address] [id number] [place] [address]- 2043 Oct, [facility] [place] [facility] [address] [id number] [place] [address]- 7378 Oct, [facility] [place] [facility] [address] [id number] [place] [address]- 6129 Oct, [facility] [place] [facility] [address] [id number] [place] [address]- 8895 Aug, [facility] [place] [facility] [address] [id number] [place] [address]- 9611 Jul, [facility] [place] [facility] [address] [id number] [place] [address]- 9015 May, [facility] [place] [facility] [address] [id number] [place] [address]- 5138 March, [facility] [place] [facility] [address] [id number] [place] [address]- 9909 Jan, [facility] [place] [facility] [address] [id number] [place] [address]- 2316 Jan, [facility] [place] [facility] [address] [id number] [place] [address]- 6651 Dec, [facility] [place] [facility] [address] [id number] [place] [address]- 8084 Sep, [facility] [address] [id number] [place] [address]- 1383 Sep, [facility] [place] [facility] [address] [id number] [place] [address]- 4422 Sep, [facility] [place] [facility] [address] [id number] [place] [address]- 1856 Sep, [facility] [place] [facility] [address] [id number] [place] [address]- 0272 Jul, [facility] [place] [facility] [address] [id number] [place] [address]- 5365 Jun, [facility] [place] [facility] [address] [id number] [place] [address] 2546 Jun, [facility] [place] [facility] [address] [id number] [place] [address]- 3251 May, [facility] [place] [facility] [address] [id number] [place] [address]- 2478 Apr, [facility] [place] [facility] [address] [id number] [place] [address]- 4649 Feb, [facility] [place] [facility] [address] [id number] [place] [address]- 1626 Feb, [facility] [place] [facility] [address] [id number] [place] [address]- 6916 Feb, [facility] [place] [facility] [address] [id number] [place] [address]- 2546 Jan, [facility] [place] [facility] [address] [id number] [place] [address]- 5746 Nov, [facility] [place] [facility] [address] [id number] [place] [address]- 2546 Nov, [facility] [place] [facility] [address] [id number] [place] [address]- 6056 Oct, [facility] [address] [facility] [id number] [place] [address]- 2870 14 Sep, 2011 [facility] [address] [facility] [id number] [place] [address]- 5110 14 Sep, 2011 [facility] [address] [facility] [id number] [place] [address]- 6455 13 Aug, 2011 [facility] [address] [facility] [id number] [place] 9628 13 Apr, 2011 IMMUNIZATIONS No Known Immunizations SOCIAL HISTORY Never Assessed REASON FOR VISIT med clarification PLAN OF CARE VITAL SIGNS MEDICATIONS Medication Instructions Dosage Frequency Start Date End Date Duration Status MetFORMIN HCl ER 500 mg Orally 2 times a day 1 tablet 12h 30 days Active RESULTS No Results PROCEDURES No Known procedures INSTRUCTIONS MEDICATIONS ADMINISTERED No Known Medications MEDICAL (GENERAL) HISTORY Type Description Date Medical History hypertension Medical History pre -diabetes Medical History stroke Surgical History inguinal hernia Surgical History tonsillectomy Surgical History stint placement Hospitalization History Stroke february 2018
--- OUTSIDE RECORDS SUMMARY | 2019-02-02 22:40 | XMS REPORT ---
Author Author DEVAN MENDOZA Organization [facility] Address [address] [place] [address] Care Team Providers Care Rib Bender Name Role Phone DEVAN MENDOZA Unavailable PROBLEMS Type Condition ICD9-CM Code JVN68-AF Code Onset Dates Condition Status SNOMED Code Problem Hyperlipidemia E78.5 Active 94612241 Problem Gastroesophageal reflux disease, esophagitis presence not specified K21.9 Active 141210161 Problem Subclavian steal syndrome G45.8 Active 93064926 Problem Hypertension I10 Active 41758633 Problem Diabetes E11.9 Active 72455453 Problem Cerebrovascular accident (CVA) due to occlusion of left middle cerebral artery I63.512 Active 674968306 Problem Microalbuminuria R80.9 Active 322898875 ALLERGIES No Information ENCOUNTERS Encounter Location Date Diagnosis [facility] [id number] [place] [address] 38779- 1524 Jun, [facility] [id number] [place] [address] 80289- 4013 Apr, [facility] [id number] [place] [address] 24020- 0680 Apr, [facility] [id number] [place] [address] 22685- 9423 18 Apr, 2018 Subclavian steal syndrome G45.8 ; Hypertension I10 and Cerebrovascular accident (CVA) due to occlusion of left middle cerebral artery I63.512 [facility] [id number] [place] [address] 57123- 4268 12 Apr, 2018 [facility] [id number] [place] [address] 25628- 5654 07 Apr, 2018 [facility] [address] 09178- 9995 March, Subclavian steal syndrome G45.8 [facility] [id number] [place] [address] 83587- 2980 March, Diabetes E11.9 [facility] [id number] [place] [address] 58233- 6316 March, Diabetes E11.9 [place] [id number] [place] [address] 93252- 7220 March, Diabetes E11.9 [place] [id number] [place] [address] 89753- 2500 March, Cerebrovascular accident (CVA) due to occlusion of left middle cerebral artery I63.512 ; Hypertension I10 ; Diabetes E11.9 ; Hyperlipidemia E78.5 ; Gastroesophageal reflux disease, esophagitis presence not specified K21.9 and Subclavian steal syndrome G45.8 [place] [id number] [place] [address] 00362- 9514 March, [place] [id number] [place] [address] 17730- 2539 Feb, Cerebrovascular accident (CVA) due to occlusion of left middle cerebral artery I63.512 ; Diabetes E11.9 ; Hypertension I10 ; Hyperlipidemia E78.5 and Microalbuminuria R80.9 [place] [id number] [place] [address] 18005- 4174 Feb, [place] [id number] [place] [address] 69894- 3501 Feb, Diabetes E11.9 ; Hypertension I10 ; Microalbuminuria R80.9 and Hyperlipidemia E78.5 [place] [id number] [place] [address] 18819- 5869 Feb, [facility] [id number] [place] [address] 90588- 5539 Oct, Diabetes mellitus 250.00 [place] [id number] [place] [address] 05316- 5109 May, Diabetes mellitus 250.00 [facility] [address] [facility] [id number] [place] [address]- 9966 May, Fracture of finger of left hand 816.00 [facility] [address] [id number] [place] [address]- 9511 13 Feb, 2015 [facility] [address] [facility] [id number] [place] [address]- 5652 Jul, [facility] [address] [facility] [id number] [place] [address]- 5711 Jul, [facility] [address] [facility] [id number] [place] [address], [place] [address]- 9150 Jul, [facility] [id number] [place] [address]- 4189 Jul, [facility] [id number] [place] [address]- 6108 Jul, [facility] [address] [facility] [id number], [place] [address]- 4975 Jul, [facility] [id number] [place] [address]- 1648 Feb, [facility] [address] [id number] [address]- 2925 Feb, [facility] [address] [id number] [address]- 8166 Dec, [facility] [address] [facility] [id number], [place] [address]- 0969 Dec, [facility] [address] [facility] [id number] [place] [address]- 9349 Dec, [facility] [address] [facility] [id number], [place] [address]- 0501 Dec, [facility] [address] [id number] [address]- 7574 Nov, [facility] [address] [id number] [place] [address]- 3079 Nov, [facility] [place] [facility] [address] [id number] [place] [address]- 1682 Nov, [facility] [place] [facility] [address] [id number] [place] [address]- 4699 Nov, [facility] [place] [facility] [address] [id number] [place] [address]- 0345 Oct, [facility] [place] [facility] [address] [id number] [place] [address]- 3366 Oct, [facility] [place] [facility] [address] [id number] [place] [address]- 3018 Oct, [facility] [place] [facility] [address] [id number] [place] [address]- 4893 Oct, [facility] [place] [facility] [address] [id number], [place] [address]- 3292 Oct, [facility] [place] [facility] [address] [id number] [place] [address]- 5010 Aug, [facility] [place] [facility] [address] [id number], [place] [address]- 1728 Jul, [facility] [place] [facility] [address] [id number], [place] [address]- 4827 May, [facility] [place] [facility] [address] [id number], [place] [address]- 2200 March, [facility] [place] [facility] [address] [id number] [place] [address]- 6917 Jan, [facility] [place] [facility] [address] [id number], [place] [address]- 2946 Jan, [facility] [place] [facility] [address] [id number], [place] [address]- 2196 Dec, [facility] [place] [facility] [address] [id number] [place] [address]- 7868 Sep, [facility] [address] [id number] [place] [address]- 2058 Sep, [facility] [place] [facility] [address] [id number] [place] [address]- 4248 Sep, [facility] [place] [facility] [address] [id number] [place] [address]- 8666 Sep, [facility] [place] [facility] [address] [id number] [place] [address]- 9841 Jul, [facility] [place] [facility] [address] [id number] [place] [address]- 0626 Jun, [facility] [place] [facility] [address] [id number] [place] [address] 2546 Jun, [facility] [place] [facility] [address] [id number] [place] [address]- 6698 May, [facility] [place] [facility] [address] [id number] [place] [address]- 3017 Apr, [facility] [place] [facility] [address] [id number] [place] [address]- 5049 Feb, [facility] [place] [facility] [address] [id number] [place] [address]- 9886 Feb, [facility] [place] [facility] [address] [id number] [place] [address]- 4906 Feb, [facility] [place] [facility] [address] [id number] [place] [address]- 2546 Jan, [facility] [place] [facility] [address] [id number] [place] [address]- 4027 Nov, [facility] [place] [facility] [address] [id number] [place] [address]- 2546 Nov, [facility] [place] [facility] [address] [id number] [place] [address]- 4066 Oct, [facility] [address] [facility] [id number], [place] [address]- 2546 14 Sep, 2011 [facility] [address] [facility] [id number], [place] [address]- 5896 14 Sep, 2011 [facility] [address] [facility] [id number], [place] [address]- 2546 13 Aug, 2011 [facility] [address] [facility] [id number], [place] [address]- 3696 13 Apr, 2011 IMMUNIZATIONS No Known Immunizations SOCIAL HISTORY Never Assessed REASON FOR VISIT PLAN OF CARE VITAL SIGNS MEDICATIONS Medication Instructions Dosage Frequency Start Date End Date Duration Status Levemir 100 UNIT/ML Subcutaneous Once a day at HS 30 units Active Famotidine 20 mg Orally Twice a day 1 tablet 12h Active Ibuprofen 600 MG Orally every 6 hrs PRN 1 tablet with food or milk as needed Active NovoLog 100 UNIT/ML Subcutaneous 3 times a day 7 units with meals 8h Active Zolpidem Tartrate 5 mg Orally Once a day PRN 1 tablet at bedtime as needed Active RESULTS No Results PROCEDURES No Known procedures INSTRUCTIONS MEDICATIONS ADMINISTERED No Known Medications MEDICAL (GENERAL) HISTORY Type Description Date Medical History hypertension Medical History pre -diabetes Medical History stroke Surgical History inguinal hernia Surgical History tonsillectomy Surgical History stint placement Hospitalization History Stroke february 2018
--- OUTSIDE RECORDS SUMMARY | 2019-02-02 22:41 | XMS REPORT | Continuity of Care Document ---
Author Author [facility] Address Unknown Phone Unavailable Allergies Active Description Code Type Severity Reaction Onset Reported/Identified Relationship to Patient Clinical Status Yes No Known Drug Allergies [id number] Drug Allergy Unknown N/A 08/14/2008 Medications There [...] PAIN 02/18/2018 NICOLAS WALLER MD Ot Z79.4 RETIREMENT (CURRENT) USE OF INSULIN 02/18/2018 NICOLAS WALLER [...] PAIN 02/18/2018 NICOLAS WALLER MD Ot Z79.4 RETIREMENT (CURRENT) USE OF INSULIN 03/07/2018 CORBIN MENDOZA MD Ot I69.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 03/24/2018 CORBIN MENDOZA MD Ot I69.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 03/31/2018 BETINA HILLS MD Ot E11.43 TYPE 2 DIABETES W DIABETIC AUTONOMIC (PO 03/31/2018 BETINA HILLS MD Ot E78.2 MIXED HYPERLIPIDEMIA 03/31/2018 BETINA HILLS MD Ot F17.210 NICOTINE DEPENDENCE, CIGARETTES, UNCOMPL 03/31/2018 BETINA HILLS MD Ot I10 ESSENTIAL (PRIMARY) HYPERTENSION 03/31/2018 BETINA HILLS MD Ot I69.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 03/31/2018 BETINA HILLS MD Ot 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 03/31/2018 BETINA HILLS MD Ot 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 03/31/2018 BETINA HILLS MD, Ot Z79.82 RETIREMENT (CURRENT) USE OF ASPIRIN 03/31/2018 BETINA HILLS MD Ot Z79.899 OTHER CONSTRUCTION AREA MANAGER (CURRENT) DRUG THERAPY 04/01/2018 BETINA HILLS MD Ot E11.43 TYPE 2 DIABETES W DIABETIC AUTONOMIC (PO 04/01/2018 BETINA HILLS MD Ot E78.2 MIXED HYPERLIPIDEMIA 04/01/2018 BETINA HILLS MD Ot F17.210 NICOTINE DEPENDENCE, CIGARETTES, UNCOMPL 04/01/2018 BETINA HILLS MD Ot I10 ESSENTIAL (PRIMARY) HYPERTENSION 04/01/2018 BETINA HILLS MD Ot I69.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 04/01/2018 BETINA HILLS MD Ot 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 04/01/2018 BETINA HILLS MD, Ot 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 04/01/2018 BETINA HILLS MD Ot Z79.82 RETIREMENT (CURRENT) USE OF ASPIRIN 04/01/2018 BETINA HILLS MD, Ot Z79.899 OTHER CONSTRUCTION AREA MANAGER (CURRENT) DRUG THERAPY 05/24/2018 CORBIN MENDOZA MD Ot I69.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 05/25/2018 CORBIN MENDOZA MD Ot I69.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 05/25/2018 CORBIN MENDOZA MD Ot I69.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 01/20/2019 RONNI GUPTA MD Ot V72.84 EXAM PRE-OPERATIVE NOS 01/20/2019 RONNI GUPTA MD Ot V72.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 Procedures Code [place] [address] A1C (IN-HOUSE) 10/04/2012 00499 MICRO ALBUMIN-IN HOUSE 01/23/2013 53398 A1C (IN-HOUSE) 01/23/2013 56861 ROUTINE VENIPUNCTURE 01/23/2013 10049 CMP 01/23/2013 49992 LIPID PANEL 01/23/20132011141 GFR CALC (RESULT ONLY) 01/23/2013 32852 ROUTINE VENIPUNCTURE 10/09/2013 05670 A1C (IN-HOUSE) 10/09/2013 4260155 GFR CALC (RESULT ONLY) 10/09/2013 43853 CMP 10/09/2013 53443 LIPID PANEL 10/09/2013 47738 ROUTINE VENIPUNCTURE 02/09/2014 49332 A1C (IN-HOUSE) 02/09/2014 21656 MICRO ALBUMIN-IN HOUSE 02/09/2014 Internal Gupta, Ronni 02/09/2014 24233 CBC 02/09/2014 50226 MICRO ALBUMIN-IN HOUSE 07/17/2014 52748 A1C (IN-HOUSE) 07/17/2014 Results Test Result Range Influenza virus A and B antigen detection - 09/15/17 07:25 FLU RESULT NEGATIVE FOR INFLUENZA A AND B ANTIGENS BY [facility] Complete blood count (CBC) with automated white [...] measurement by glucometer (mass/volume) 97 mg/dL 70-110 Automated blood complete blood count (hemogram) panel - 03/30/18 07:43 Blood leukocytes automated count (number/volume) 9.3 10*3/uL 4.3-11.0 Blood erythrocytes automated count (number/volume) 5.59 10*6/uL 4.35-5.85 Venous blood hemoglobin measurement (mass/volume) 17.2 g/dL 13.3-17.7 Blood hematocrit (volume fraction) 50 % 40-54 Automated erythrocyte mean corpuscular volume 89 [foz_us] 80-99 Automated erythrocyte mean corpuscular hemoglobin (mass per erythrocyte) 31 pg 25-34 Automated erythrocyte mean corpuscular hemoglobin concentration measurement ( mass/volume) 35 g/dL 32-36 Automated erythrocyte distribution width ratio 13.2 % 10.0-14.5 Automated blood platelet count (count/volume) 346 10*3/uL 130-400 Automated blood platelet mean volume measurement 9.8 [foz_us] 7.4-10.4 Comprehensive metabolic panel - 03/30/18 07:43 Serum or plasma sodium measurement (moles/volume) 141 mmol/L 135-145 Serum or plasma potassium measurement (moles/volume) 3.9 mmol/L 3.6-5.0 Serum or plasma chloride measurement (moles/volume) 107 mmol/L 98-107 Carbon dioxide 25 mmol/L 21-32 Serum or plasma anion gap determination (moles/volume) 9 mmol/L 5-14 Serum or plasma urea nitrogen measurement (mass/volume) 9 mg/dL 7-18 Serum or plasma creatinine measurement (mass/volume) 0.83 mg/dL 0.60-1.30 Serum or plasma urea nitrogen/creatinine mass ratio 11 NRG Serum or plasma creatinine measurement with calculation of estimated glomerular filtration rate > NRG Serum or plasma glucose measurement (mass/volume) 116 mg/dL 70-105 Serum or plasma calcium measurement (mass/volume) 9.5 mg/dL 8.5-10.1 Serum or plasma total bilirubin measurement (mass/volume) 0.6 mg/dL 0.1-1.0 Serum or plasma alkaline phosphatase measurement (enzymatic activity/volume) 94 U/L 40-136 Serum or plasma aspartate aminotransferase measurement (enzymatic activity/ volume) 14 U/L 5-34 Serum or plasma alanine aminotransferase measurement (enzymatic activity/volume ) 16 U/L 0-55 Serum or plasma protein measurement (mass/volume) 7.7 g/dL 6.4-8.2 Serum or plasma albumin measurement (mass/volume) 4.5 g/dL 3.2-4.5 Lipid 1996 panel - 03/30/18 07:43 Serum or plasma triglyceride measurement (mass/volume) 143 mg/dL <150 Serum or plasma cholesterol measurement (mass/volume) 154 mg/dL < 200 Serum or plasma cholesterol in HDL measurement (mass/volume) 29 mg/ dL 40-60 Cholesterol in LDL [mass/volume] in serum or plasma by direct assay 105 mg/dL 1-129 Serum or plasma cholesterol in VLDL measurement (mass/volume) 29 mg/ dL 5-40 PT panel in platelet poor plasma by coagulation assay - 03/30/18 07:43 Prothrombin time (PT) in platelet poor plasma by coagulation assay 13.0 s 12.2-14.7 INR in platelet poor plasma or blood by coagulation assay 1.0 0.8-1.4 Activated partial thromboplastin time (aPTT) in platelet poor plasma bycoagulation assay - 03/30/18 07:43 Activated partial thromboplastin time (aPTT) in platelet poor plasma bycoagulation assay 39 s 24-35 Methicillin resistant Staphylococcus aureus (MRSA) screening culture - 07:43 Methicillin resistant Staphylococcus aureus (MRSA) screening culture NEG NRG Capillary blood glucose measurement by glucometer (mass/volume) - 03/30/18 18: 05 Capillary blood glucose measurement by glucometer (mass/volume) 105 mg/dL 70-110 Automated blood complete blood count (hemogram) panel - 03/31/18 03:11 Blood leukocytes automated count (number/volume) 12.6 10*3/uL 4.3-11.0 Blood erythrocytes automated count (number/volume) 5.26 10*6/uL 4.35-5.85 Venous blood hemoglobin measurement (mass/volume) 16.2 g/dL 13.3-17.7 Blood hematocrit (volume fraction) 46 % 40-54 Automated erythrocyte mean corpuscular volume 88 [foz_us] 80-99 Automated erythrocyte mean corpuscular hemoglobin (mass per erythrocyte) 31 pg 25-34 Automated erythrocyte mean corpuscular hemoglobin concentration measurement ( mass/volume) 35 g/dL 32-36 Automated erythrocyte distribution width ratio 13.1 % 10.0-14.5 Automated blood platelet count (count/volume) 365 10*3/uL 130-400 Automated blood platelet mean volume measurement 10.1 [foz_us] 7.4-10.4 Whole blood basic metabolic panel - 03/31/18 03:11 Serum or plasma sodium measurement (moles/volume) 139 mmol/L 135-145 Serum or plasma potassium measurement (moles/volume) 3.9 mmol/L 3.6-5.0 Serum or plasma chloride measurement (moles/volume) 108 mmol/L 98-107 Carbon dioxide 18 mmol/L 21-32 Serum or plasma anion gap determination (moles/volume) 13 mmol/L 5-14 Serum or plasma urea nitrogen measurement (mass/volume) 8 mg/dL 7-18 Serum or plasma creatinine measurement (mass/volume) 0.73 mg/dL 0.60-1.30 Serum or plasma urea nitrogen/creatinine mass ratio 11 NRG Serum or plasma creatinine measurement with calculation of estimated glomerular filtration rate > NRG Serum or plasma glucose measurement (mass/volume) 89 mg/dL 70-105 Serum or plasma calcium measurement (mass/volume) 8.8 mg/dL 8.5-10.1 A1C - 06/17/18 09:46 HEMOGLOBIN A1c 6.5 % of total Hgb <5.7 Whole blood basic metabolic panel - 01/20/19 08:55 Serum or plasma sodium measurement (moles/volume) 139 mmol/L 135-145 Serum or plasma potassium measurement (moles/volume) 4.4 mmol/L 3.6-5.0 Serum or plasma chloride measurement (moles/volume) 105 mmol/L 98-107 Carbon dioxide 24 mmol/L 21-32 Serum or plasma anion gap determination (moles/volume) 10 mmol/L 5-14 Serum or plasma urea nitrogen measurement (mass/volume) 14 mg/dL 7-18 Serum or plasma creatinine measurement (mass/volume) 1.06 mg/dL 0.60-1.30 Serum or plasma urea nitrogen/creatinine mass ratio 13 NRG Serum or plasma creatinine measurement with calculation of estimated glomerular filtration rate > NRG Serum or plasma glucose measurement (mass/volume) 237 mg/dL 70-105 Serum or plasma calcium measurement (mass/volume) 9.6 mg/dL 8.5-10.1 Encounters ACCT No. Visit Date/Time Discharge Status Pt. Type Provider Facility Loc./Unit Complaint [id number] 07/17/2014 08:47:00 07/17/2014 23:59:59 CLS Outpatient CORBIN MENDOZA MD [id number] 02/09/2014 08:50:00 02/09/2014 23:59:59 CLS Outpatient CORBIN MENDOZA MD [id number] 10/09/2013 08:41:00 10/09/2013 23:59:59 CLS Outpatient CORBIN MENDOZA MD [id number] 05/15/2013 14:11:00 05/15/2013 23:59:59 CLS Outpatient CORBIN MENDOZA MD [id number] 01/23/2013 08:52:00 01/23/2013 23:59:59 CLS Outpatient CORBIN MENDOZA MD [id number] 10/04/2012 08:59:00 10/04/2012 23:59:59 CLS Outpatient [id number] 06/14/2012 08:51:00 06/14/2012 23:59:59 CLS Outpatient CORBIN MENDOZA MD [id number] 01/20/2019 08:47:00 01/20/2019 23:59:59 CLS Outpatient SALVADOR CHANEY APRN [facility] RAD CVA [id number] 01/20/2019 07:40:00 01/20/2019 23:59:59 CLS Preadmit SALVADOR CHANEY APRN [facility] RAD CVA [id number] 05/25/2018 00:10:00 05/25/2018 23:59:59 CLS Preadmit CORBIN MENDOZA MD [facility] REHAB CVA [id number] 05/04/2018 09:30:00 05/24/2018 00:01:00 DIS Outpatient CORBIN MENDOZA MD [facility] REHAB CVA [id number] 03/30/2018 07:11:00 03/31/2018 12:00:00 DIS Outpatient BETINA HILLS MD [facility] CATH LEFT SUBCLAVIAN ARTERY STENOSIS [id number] 02/09/2018 16:30:00 02/18/2018 15:30:00 DIS Inpatient NICOLAS WALLER MD [facility] IRF CVA [id number] 02/04/2018 20:17:00 02/09/2018 15:25:00 DIS Inpatient CORINA MAHMOOD MD [facility] 4TH STROKE,L SIDED WEAKNESS, HYPERGLYCEMIA,FALL [id number] 09/15/2017 07:04:00 09/15/2017 08:06:00 DIS Emergency LEXI MARSHA MONTEIRO [facility] ER RUNNY NOSE,COUGH [id number] 04/06/2016 15:55:00 04/06/2016 23:59:59 CLS Outpatient MIMA AMES APRN [facility] QUICK [id number] 05/19/2015 12:09:00 05/19/2015 23:59:59 CLS Outpatient ARNALDO MAHMOOD [facility] QUICK [id number] 02/16/2014 07:41:00 02/16/2014 10:55:00 DIS Outpatient RONNI GUPTA MD [facility] HEMATOCHEZIA [id number] 02/15/2014 07:18:00 02/15/2014 23:59:59 CLS Outpatient RONNI GUPTA MD [facility] PREOP HEMATOCHEZIA [id number] 09/01/2012 07:53:00 Document Registration [id number] 01/19/2019 11:20:00 01/19/2019 23:59:59 CLS Outpatient REJI PERDOMO, [facility] [id number] 06/17/2018 09:20:00 Document Registration
[2019-02-02] MEDS ORDERED: TETANUS,DIPTH,PERTUSS P/F (BOOSTRIX) 0.5 ML VIAL IM ONE (22:45)
--- NOTE | 2019-02-02 22:47 | ED Upper Extremity ---
General Chief Complaint: Laceration Stated Complaint: R HAND LAC Source: patient Exam Limitations: no limitations History of Present Illness Date Seen by Provider: Feb 02, 2019 Time Seen by Provider: 22:44 Initial Comments To ER per private vehicle with a 0.5 cm laceration to the dorsal aspect PIP joint right pointer finger. This occurred about 4 hours ago he's been unable to stop the bleeding at home. History of a stroke and is on a couple of unknown anticoagulants. Onset: just prior to arrival Severity: moderate Pain/Injury Location: right 2nd finger Method of Injury: unknown Modifying Factors: Worse With Movement Allergies and Home Medications Allergies Coded Allergies: No Known Drug Allergies (Verified , 08/14/08) Home Medications Aspirin 81 Mg Tablet.dr, 81 MG PO DAILY Prescribed by: BETINA HILLS on 03/31/18738 Atorvastatin Calcium 40 Mg Tablet, 40 MG PO DAILY, (Reported) Clopidogrel Bisulfate 75 Mg Tablet, 75 MG PO DAILY Prescribed by: BETINA HILLS on 03/31/18738 Famotidine 20 Mg Tablet, 20 MG PO BID, (Reported) Insulin Aspart 100 Unit/1 Ml Susp, 7 UNIT SQ AC, (Reported) Insulin Detemir 100 Unit/1 Ml Insuln.pen, 30 UNIT SQ HS, (Reported) Lisinopril 10 Mg Tablet, 10 MG PO DAILY, (Reported) Zolpidem Tartrate 5 Mg Tablet, 5 MG PO HS PRN for SLEEP, (Reported) Patient Home Medication List Home Medication List Reviewed: Yes Review of Systems Constitutional: see HPI EENTM: see HPI Respiratory: no symptoms reported Cardiovascular: no symptoms reported Genitourinary: no symptoms reported Musculoskeletal: no symptoms reported Skin: no symptoms reported Psychiatric/Neurological: No Symptoms Reported Past Sihsxft-Frsspw-Fywdkq Hx Patient Social History Alcohol Beverage of Choice: Beer Type Used: Cigarettes Recent Foreign Travel: No Contact w/Someone Who Travel: No Recent Hopitalizations: Yes Immunizations Up To Date Date of Influenza Vaccine: Aug 08, 2017 Seasonal Allergies Seasonal Allergies: No Past Medical History Surgeries: Yes (RIGHT KNEE SCOPE) Abdominal, Adenoidectomy, Tonsillectomy Respiratory: Yes (Tobaccoism) Pneumonia Cardiac: Yes Hypertension Neurological: Yes Reproductive Disorders: No Sexually Transmitted Disease: No Genitourinary: Yes Kidney Stones Gastrointestinal: No Gastroesophageal Reflux Musculoskeletal: No Endocrine: Yes (Borderline diabetes, not treated) HEENT: Yes Cataract Loss of Vision: Denies Hearing Impairment: Denies Cancer: No Psychosocial: No (pt denies) Anxiety, Depression Integumentary: No Blood Disorders: No Family Medical History Congenital heart disease Diabetes mellitus 19 FATHER 19 MOTHER Physical Exam Vital Signs Capillary Refill : Less Than 3 Seconds Height, Weight, BMI Height: 5'1.00" Weight: 148lbs. 0.0oz. 67.262857wd; 28.0 BMI Method:Stated General Appearance: WD/WN, no apparent distress HEENT: PERRL/EOMI, normal ENT inspection Respiratory: no respiratory distress, no accessory muscle use Shoulder: normal inspection, non-tender Elbow/Forearm: normal inspection, non-tender Wrist: Yes normal inspection, Yes non-tender Hand: Right, laceration (0.5 semi-laceration dorsal aspect PIP joint right pointer finger. Full flexion and extension abilities of the finger, no evidence of a extensor tendon injury. This occurred from a knife at home.) Neurologic/Psychiatric: alert, normal mood/affect, oriented x 3 Skin: normal color, warm/dry Progress/Results/Core Measures Results/Orders My Orders Orders - MADDIE ARREAGA APRN Dipht,Pertuss(Acell),Tet Adult (Boostrix (02/02/19 22:45) Departure Communication (Admissions) Tourniquet applied to the finger, scrubbed with chlorhexidine/saline solution, closed with skin adhesive. Impression Primary Impression: Finger laceration Qualified Codes: S61.210A - Laceration without foreign body of right index finger without damage to nail, initial encounter Disposition: 01 HOME, SELF-CARE Condition: Stable Departure-Patient Inst. Decision time for Depature: 22:46 Referrals: [facility] (PCP/Family) Primary Care Physician Patient Instructions: Laceration Repair With Glue (DC) Add. Discharge Instructions: 1. Wear the finger splint tonight so that you cannot bend the finger and prematurely peel off the glue 2. Return to ER for any concerns All discharge instructions reviewed with patient and/or family. Voiced understanding. MADDIE ARREAGA APRN Feb 02, 2019 22:46
[2019-02-02 23:06] VITALS: BP 121/80
== END 2019-02-02 23:07 | disposition home or self-care (01) ==
LOC: EDUNIT# 22:32 → ER 22:33
DX: S61.210A Laceration without foreign body of right index finger without damage to nail, initial encounter (principal); I10 Essential (primary) hypertension; K21.9 Gastro-esophageal reflux disease without esophagitis; F41.9 Anxiety disorder, unspecified; F32.9 Major depressive disorder, single episode, unspecified; R73.03 Prediabetes; Z87.442 Personal history of urinary calculi; Z87.01 Personal history of pneumonia (recurrent); Z86.73 Personal history of transient ischemic attack (TIA), and cerebral infarction without residual deficits; Z79.82 Long term (current) use of aspirin; Z79.4 Long term (current) use of insulin; Z90.89 Acquired absence of other organs; Z83.3 Family history of diabetes mellitus; X58.XXXA Exposure to other specified factors, initial encounter
CPT/HCPCS: 12001; 90715

== ENCOUNTER → 2019-02-13 | Outpatient (CLI) | payer OTHER | LOC: CARD 12:58 | PROVIDERS: ATTEND Physician Assistant | DX: I10 Essential (primary) hypertension (principal); E78.2 Mixed hyperlipidemia; I07.1 Rheumatic tricuspid insufficiency; Z72.0 Tobacco use | CPT/HCPCS: 93306 ==

== ENCOUNTER → 2019-02-15 | Outpatient (CLI) | payer OTHER ==
[~2019-02-15] VITALS: Ht 154.9 cm; Wt 70.8 kg
[~2019-02-15] MED LIST changes: +CATHETER FLUSH 10 ML SYR IV PRN; +REGADENOSON 0.4 MG/5 ML SYR (LEXISCAN) IV ONE
[2019-02-15 09:20] VITALS: BP 150/79
[2019-02-15 09:22] VITALS: BP 110/69
[2019-02-15 09:23] VITALS: BP 143/83
--- NOTE | 2019-02-15 12:08 | STRESS TEST ---
DATE OF SERVICE: LEXISCAN MYOVIEW STRESS TEST REFERRING PHYSICIAN: [facility]. Baseline heart rate is 75. Baseline blood pressure 150/79. Baseline EKG is sinus rhythm with no ischemic changes. In summary, the patient was injected with 10.92 mCi of technetium-99 Myoview and the resting images were obtained. Then, the patient received 0.4 mg of Lexiscan followed by 31.3 mCi of technetium-99 Myoview. Throughout the test, there were no EKG changes. The resting and stress images were reviewed and compared in the short axis, horizontal long axis, and vertical long axis views. Review of the images showed motion artifact affecting the quality of the images. There is mild decreased uptake involving the basal to mid anterior wall with mild reversibility. SSS is 4, SDS 2, TID value is 1.16. On the gated images, the left ventricle appeared to be normal size with normal contractility. Calculated ejection fraction 67%. CONCLUSION: 1. The patient tolerated Lexiscan well. 2. Motion artifact affecting the quality of the images with questionable mild ischemia involving the basal to mid anterior wall. 3. Normal left ventricular size with normal contractility. Calculated ejection fraction 67%. Job ID: [id number] DocumentID: [id number] Dictated Date: 02/15/2019 11:27:24 Validation Scientist Date: 02/15/2019 12:08:03 Dictated By: BETINA HILLS MD
== END ==
LOC: CARD 07:46
PROVIDERS: ATTEND Physician Assistant
DX: I10 Essential (primary) hypertension (principal); E78.2 Mixed hyperlipidemia; I63.9 Cerebral infarction, unspecified; Z72.0 Tobacco use
CPT/HCPCS: 78452; 93017

== ENCOUNTER 2019-03-25 07:29 | Inpatient (IN) | payer OTHER | END 2019-03-26 13:24 | disposition home or self-care (01) | LOC: ER 07:29 → 4TH 09:16 ==

== ENCOUNTER 2019-04-19 11:05 | Day surgery (SDC) | payer OTHER ==
[~2019-04-19] VITALS: Ht 154.9 cm; Wt 68.9 kg
[2019-04-19] VITALS (10 sets, daily range): BP systolic 101–121; BP diastolic 60–90
[~2019-04-19 11:05] MED LIST changes: -CATHETER FLUSH 10 ML SYR IV PRN; +METF-478 PO; -REGADENOSON 0.4 MG/5 ML SYR (LEXISCAN) IV ONE
[2019-04-19] MEDS ORDERED: LIDOCAINE 1% INJ 20 ML 20 ML VIAL ONE (11:08)
[2019-04-19] MEDS ORDERED: HEParin (CATH LAB) 2,000 ML IV ONE (11:08)
--- OUTSIDE RECORDS SUMMARY | 2019-04-19 11:13 | XMS REPORT ---
Author Author Migration, Doctor Organization [facility] Address Unknown Phone Unavailable Care Team Providers Care Funeral Director Name Role Phone Migration, Doctor Unavailable Unavailable PROBLEMS Type Condition ICD9-CM Code [id number] Code Onset Dates Condition Status SNOMED Code Problem Diabetes E11.9 Active 10483255 Problem Hypertension I10 Active 33330506 Problem Microalbuminuria R80.9 Active 390645711 Problem Cerebrovascular accident (CVA), unspecified mechanism I63.9 Active 303599898 Problem Hyperlipidemia E78.5 Active 37053070 Problem Cerebrovascular disease I67.9 Active 52700773 Problem Cerebrovascular accident (CVA) due to occlusion of left middle cerebral artery I63.512 Active 972000772 Problem Gastroesophageal reflux disease, esophagitis presence not specified K21.9 Active 765335747 Problem Subclavian steal syndrome G45.8 Active 74247428 Problem Neurofibromatosis Q85.00 Active 30384929 ALLERGIES No Information ENCOUNTERS Encounter Location Date Diagnosis [facility] [address] [address] March, Cellulitis of right external ear H60.11 [facility] [id number] [place] [address] March, 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 [facility] [id number] [place] [address] Feb, Diabetes E11.9 ; Hypertension I10 and Cerebrovascular disease I67.9 [facility] [id number] [place] [address] 20 Jan, 2019 [facility] [address] [address] 14 Jan, 2019 Cerebrovascular accident (CVA), unspecified mechanism I63.9 [facility] [address] [address] Jan, Cerebrovascular accident (CVA), unspecified mechanism I63.9 [facility] [id number] [place] [address] Dec, [facility] [id number] [place] [address] Sep, [place] [address] [address] Sep, Diabetes E11.9 and Hypertension I10 [facility] [address] [address] Aug, [facility] [address] [address] Aug, Allergic contact dermatitis due to plants, except food L23.7 [place] [address] [address] Jul, [place] [address] [address] Jun, [place] [address] [address] Jun, Diabetes E11.9 ; Hypertension I10 and Erythrocytosis D75.1 [place] [id number] [place] [address] Jun, [place] [id number] [place] [address] Apr, [place] [id number] [place] [address] Apr, [place] [address] [address] Apr, Subclavian steal syndrome G45.8 ; Hypertension I10 and Cerebrovascular accident (CVA) due to occlusion of left middle cerebral artery I63.512 [place] [address] [address] Apr, [facility] [address] [address] Apr, [facility] [id number] [place] [address] March, Subclavian steal syndrome G45.8 [facility] [id number] [place] [address] March, Diabetes E11.9 [facility] [id number] [place] [address] March, Diabetes E11.9 [facility] [id number] [place] [address] March, Diabetes E11.9 [facility] [id number] [place] [address] March, Cerebrovascular accident (CVA) due to occlusion of left middle cerebral artery I63.512 ; Hypertension I10 ; Diabetes E11.9 ; Hyperlipidemia E78.5 ; Gastroesophageal reflux disease, esophagitis presence not specified K21.9 and Subclavian steal syndrome G45.8 [facility] [id number] [place] [address] March, [facility] [address] [address] Feb, Cerebrovascular accident (CVA) due to occlusion of left middle cerebral artery I63.512 ; Diabetes E11.9 ; Hypertension I10 ; Hyperlipidemia E78.5 and Microalbuminuria R80.9 [facility] [address] [address] Feb, [facility] [id number] [place] [address] Feb, Diabetes E11.9 ; Hypertension I10 ; Microalbuminuria R80.9 and Hyperlipidemia E78.5 [facility] [id number] [place] [address] Feb, [facility] [address] [facility] [id number] [place] [address] Oct, Diabetes mellitus 250.00 [facility] [id number] [place] [address] May, Diabetes mellitus 250.00 [facility] [id number] [place] [address] 13 May, 2015 Fracture of finger of left hand 816.00 [facility] [address] [facility] [id number] [place] [address] Feb, [facility] [address] [place] [address] 09 Jul, 2014 [facility] [id number] [place] [address] Jul, 2013 [facility] [address] [place] [address] Jul, 2013 [facility] [id number] [place] [address] Jul, [facility] [id number] [place] [address] Jul, [facility] [id number] [place] [address] Jul, [facility] [id number] [place] [address] Feb, [facility] [address] [facility] [id number] [place] [address] Feb, [facility] [id number] [place] [address] Dec, [facility] [address] [facility] [id number], [place] [address] Dec, [facility] [address] [address] Dec, [facility] [place] [facility] [address] [id number] [place] [address] Dec, [facility] [place] [facility] [address] [id number] [place] [address] Nov, [facility] [place] [facility] [address] [id number] [place] [address] Nov, [facility] [place] [facility] [address] [id number] [place] [address] Nov, [facility] [place] [facility] [address] [id number] [place] [address] Nov, [facility] [place] [facility] [address] [id number] [place] [address] Oct, [facility] [place] [facility] [address] [id number] [place] [address] Oct, [facility] [place] [facility] [address] [id number] [place] [address] Oct, [facility] [place] [facility] [address] [id number] [place] [address] Oct, [facility] [place] [facility] [address] [id number] [place] [address] Oct, [facility] [place] [facility] [address] [id number], [place] [address] Aug, [facility] [place] [facility] [address] [id number], [place] [address] Jul, [facility] [place] [facility] [address] [id number] [place] [address] May, [facility] [place] [facility] [address] [id number], [place] [address] March, [facility] [place] [facility] [address] [id number] [place] [address] Jan, [facility] [place] [facility] [address] [id number] [place] [address] Jan, [facility] [address] [id number] [place] [address] Dec, [facility] [address] [id number] [place] [address] Sep, [facility] [address] [id number] [place] [address] Sep, [facility] [address] [id number] [place] [address] Sep, [facility] [address] [id number] [place] [address] Sep, [facility] [address] [id number] [place] [address] Jul, [facility] [address] [id number] [place] [address] Jun, [facility] [address] [id number] [place] [address] Jun, [facility] [address] [id number] [place] [address] May, [facility] [address] [id number] [place] [address] Apr, [facility] [address] [id number] [place] [address] Feb, [facility] [address] [id number] [place] [address] Feb, [facility] [place] [facility] [address] [id number] [place] [address] Feb, [facility] [place] [facility] [address] [id number] [place] [address] Jan, [facility] [place] [facility] [address] [id number] [place] [address] Nov, [facility] [id number] [address] Nov, [facility] [id number] [address] Oct, [facility] [address], [place] [address] Sep, [facility] [address], [place] [address] Sep, [facility] [id number], [place] [address] Aug, [facility] [id number] [address] Apr, IMMUNIZATIONS No Known Immunizations SOCIAL HISTORY Never Assessed REASON FOR VISIT EMR-[facility] PLAN OF CARE VITAL SIGNS MEDICATIONS No Known Medications RESULTS No Results PROCEDURES No Known procedures INSTRUCTIONS MEDICATIONS ADMINISTERED No Known Medications MEDICAL (GENERAL) HISTORY Type Description Date Medical History hypertension Medical History pre -diabetes Medical History stroke Surgical History inguinal hernia Surgical History tonsillectomy Surgical History stint placement Hospitalization History Stroke february 2018
[2019-04-19] MEDS ORDERED: NS IV 1000 ML 1,000 ML IV SCH (11:15)
--- OUTSIDE RECORDS SUMMARY | 2019-04-19 11:17 | XMS REPORT | Continuity of Care Document ---
Author Organization Unknown Address Unknown Allergies Active Description Code Type Severity Reaction Onset Reported/Identified Relationship to Patient Clinical Status Yes No Known Drug Allergies [id number] Drug Allergy Unknown N/A 08/14/2008 Medications There is no data. 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 02/09/2018 CORINA MAHMOOD MD, Ot R47.1 DYSARTHRIA AND ANARTHRIA 02/09/2018 CORINA MAHMOOD MD, Ot S49.92XA UNSP INJURY OF LEFT SHOULDER [...] MD Ot I77.1 STRICTURE OF ARTERY 02/18/2018 NICOALS WALLER MD Ot R10.13 EPIGASTRIC PAIN 02/18/2018 NICOLAS WALLER MD Ot Z79.4 DYED YARN OPERATOR (CURRENT) USE OF INSULIN 02/18/2018 NICOLAS WALLER [...] Ot R10.13 EPIGASTRIC PAIN 02/18/2018 NICOLAS WALLER MD, Ot Z79.4 DYED YARN OPERATOR (CURRENT) USE OF INSULIN 03/07/2018 CORBIN MENDOZA [...] ARTERIES 03/31/2018 BETINA HILLS MD Ot Z79.4 DYED YARN OPERATOR (CURRENT) USE OF INSULIN 03/31/2018 BETINA HILLS MD, Ot Z79.82 PENITENTIARY (CURRENT) USE OF ASPIRIN 03/31/2018 BETINA HILLS MD, Ot Z79.899 OTHER DYED YARN OPERATOR (CURRENT) DRUG THERAPY 04/01/2018 BETINA HILLS MD Ot E11.43 TYPE 2 DIABETES W DIABETIC AUTONOMIC (PO 04/01/2018 BETINA HILLS MD Ot E78.2 MIXED HYPERLIPIDEMIA 04/01/2018 BETIAN HILLS MD Ot F17.210 NICOTINE DEPENDENCE, CIGARETTES, UNCOMPL 04/01/2018 BETINA HILLS MD, Ot I10 ESSENTIAL (PRIMARY) HYPERTENSION 04/01/2018 BETINA HILLS MD Ot I69.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 04/01/2018 BETINA HILLS MD Ot 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 04/01/2018 BETINA HILLS MD, Ot Z79.4 DYED YARN OPERATOR (CURRENT) USE OF INSULIN 04/01/2018 BETINA HILLS MD, Ot Z79.82 DYED YARN OPERATOR (CURRENT) USE OF ASPIRIN 04/01/2018 BETINA HILLS MD, Ot Z79.899 OTHER DYED YARN OPERATOR (CURRENT) DRUG THERAPY 05/24/2018 CORBIN MENDOZA MD Ot I69.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 05/25/2018 CORBIN MENDOZA MD Ot I69.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 05/25/2018 CORBIN MENDOZA MD Ot I69.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 01/20/2019 RONNI MAY MD Ot V72.84 EXAM PRE-OPERATIVE NOS 01/20/2019 RONNI MAY MD Ot V72.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 02/02/2019 MADDIE ARREAGA APRN Ot F32.9 MAJOR DEPRESSIVE DISORDER, SINGLE EPISOD 02/02/2019 MADDIE ARREAGA APRN Ot F41.9 ANXIETY DISORDER, UNSPECIFIED 02/02/2019 MADDIE ARREAGA APRN Ot I10 ESSENTIAL (PRIMARY) HYPERTENSION 02/02/2019 MADDIE ARREAGA APRN Ot K21.9 GASTRO-ESOPHAGEAL REFLUX DISEASE WITHOUT 02/02/2019 MADDIE ARREAGA APRN Ot R73.03 PREDIABETES 02/02/2019 MADDIE ARREAGA APRN Ot S61.210A LACERATION W/O FB OF R IDX FNGR W/O ULISES 02/02/2019 MADDIE ARREAGA APRN Ot X58.XXXA EXPOSURE TO OTHER SPECIFIED FACTORS, INI 02/02/2019 MADDIE ARREAGA APRN Ot Z79.4 PENITENTIARY (CURRENT) USE OF INSULIN 02/02/2019 MADDIE ARREAGA APRN Ot Z79.82 PENITENTIARY (CURRENT) USE OF ASPIRIN 02/02/2019 MADDIE ARREAGA APRN Ot Z83.3 FAMILY HISTORY OF DIABETES MELLITUS 02/02/2019 MADDIE ARREAGA APRN Ot Z86.73 PRSNL HX OF TIA (TIA), AND CEREB INFRC W 02/02/2019 MADDIE ARREAGA APRN Ot Z87.01 PERSONAL HISTORY OF PNEUMONIA (RECURRENT 02/02/2019 MADDIE ARREAGA APRN Ot Z87.442 PERSONAL HISTORY OF URINARY CALCULI 02/02/2019 MADDIE ARREAGA APRN Ot Z90.89 ACQUIRED ABSENCE OF OTHER ORGANS 02/04/2019 MADDIE ARREAGA APRN Ot F32.9 MAJOR DEPRESSIVE DISORDER, SINGLE EPISOD 02/04/2019 MADDIE ARREAGA APRN Ot F41.9 ANXIETY DISORDER, UNSPECIFIED 02/04/2019 MADDIE ARREAGA APRN Ot I10 ESSENTIAL (PRIMARY) HYPERTENSION 02/04/2019 MADDIE ARREAGA APRN Ot K21.9 GASTRO-ESOPHAGEAL REFLUX DISEASE WITHOUT 02/04/2019 MADDIE ARREAGA APRN Ot R73.03 PREDIABETES 02/04/2019 MADDIE ARREAGA APRN Ot S61.210A LACERATION W/O FB OF R IDX FNGR W/O ULISES 02/04/2019 MADDIE ARREAGA APRN Ot X58.XXXA EXPOSURE TO OTHER SPECIFIED FACTORS, INI 02/04/2019 MADDIE ARREAGA APRN Ot Z79.4 PENITENTIARY (CURRENT) USE OF INSULIN 02/04/2019 MADDIE ARREAGA APRN Ot Z79.82 DYED YARN OPERATOR (CURRENT) USE OF ASPIRIN 02/04/2019 MADDIE ARREAGA APRN Ot Z83.3 FAMILY HISTORY OF DIABETES MELLITUS 02/04/2019 MADDIE ARREAGA APRN Ot Z86.73 PRSNL HX OF TIA (TIA), AND CEREB INFRC W 02/04/2019 MADDIE ARREAGA APRN Ot Z87.01 PERSONAL HISTORY OF PNEUMONIA (RECURRENT 02/04/2019 MADDIE ARREAGA APRN Ot Z87.442 PERSONAL HISTORY OF URINARY CALCULI 02/04/2019 MADDIE ARREAGA APRN Ot Z90.89 ACQUIRED ABSENCE OF OTHER ORGANS 02/09/2019 SALVADOR CHANEY APRN Ot 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84 EXAM PRE-OPERATIVE NOS 02/13/2019 SALVADOR CHANEY APRN Ot 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 2019 LALO PERDOMO, RONNI Sewell Ot V72.84 EXAM PRE-OPERATIVE NOS 2019 SALVADOR CHANEY APRN Ot 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 02/15/2019 JEFF WILSON Ot E78.2 MIXED HYPERLIPIDEMIA 02/15/2019 JEFF WILSON Ot I07.1 RHEUMATIC TRICUSPID INSUFFICIENCY 02/15/2019 JEFF WILSON Ot I10 ESSENTIAL (PRIMARY) HYPERTENSION 02/15/2019 JEFF WILSON Ot Z72.0 TOBACCO USE 03/07/2019 JEFF WILSON Ot E78.2 MIXED HYPERLIPIDEMIA 03/07/2019 JEFF WILSON Ot I10 ESSENTIAL (PRIMARY) HYPERTENSION 03/07/2019 JEFF WILSON Ot I63.9 CEREBRAL INFARCTION, UNSPECIFIED 03/07/2019 JEFF WILSON Ot Z72.0 TOBACCO USE 03/26/2019 LINA SEVILLA DO Ot F17.210 NICOTINE DEPENDENCE, CIGARETTES, UNCOMPL 03/26/2019 LINA SEVILLA DO Ot F32.9 MAJOR DEPRESSIVE DISORDER, SINGLE EPISOD 03/26/2019 LINA SEVILLA DO Ot F41.9 ANXIETY DISORDER, UNSPECIFIED 03/26/2019 SONIA SEVILLA DOA Keila Ot 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 03/26/2019 SEVILLA DO, LINA K Ot I10 ESSENTIAL (PRIMARY) HYPERTENSION 03/26/2019 ROEL MONTEIRO, LINA K Ot K21.9 GASTRO-ESOPHAGEAL REFLUX DISEASE WITHOUT 03/26/2019 SEVILLA DO, LINA K Ot Z79.4 DYED YARN OPERATOR (CURRENT) USE OF INSULIN 03/26/2019 ROEL MONTEIRO, LINA K Ot Z79.82 PENITENTIARY (CURRENT) USE OF ASPIRIN 03/26/2019 ROEL MONTEIRO, LINA K Ot Z79.899 OTHER PENITENTIARY (CURRENT) DRUG THERAPY 03/26/2019 ROEL MONTEIRO LINA K Ot Z86.73 PRSNL HX OF TIA (TIA), AND CEREB INFRC W 03/26/2019 SEVILLA , LINA K Ot Z87.442 PERSONAL HISTORY OF URINARY CALCULI 03/26/2019 SEVILLA LINA K Ot F17.210 NICOTINE DEPENDENCE, CIGARETTES, UNCOMPL 03/26/2019 ROEL MONTEIRO LINA K Ot F32.9 MAJOR DEPRESSIVE DISORDER, SINGLE EPISOD 03/26/2019 SEVILLA SONIAA K Ot F41.9 ANXIETY DISORDER, UNSPECIFIED 03/26/2019 ROEL MONTEIRO LINA K Ot 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 03/26/2019 ROEL MONTEIRO, LINA K Ot I10 ESSENTIAL (PRIMARY) HYPERTENSION 03/26/2019 ROEL MONTEIRO LINA K Ot K21.9 GASTRO-ESOPHAGEAL REFLUX DISEASE WITHOUT 03/26/2019 SEVILLA DO, LINA K Ot Z79.4 DYED YARN OPERATOR (CURRENT) USE OF INSULIN 03/26/2019 ROEL MONTEIRO LINA K Ot Z79.82 DYED YARN OPERATOR (CURRENT) USE OF ASPIRIN 03/26/2019 ROEL MONTEIRO LINA K Ot Z79.899 OTHER DYED YARN OPERATOR (CURRENT) DRUG THERAPY 03/26/2019 SEVILLA LINA K Ot Z86.73 PRSNL HX OF TIA (TIA), AND CEREB INFRC W 03/26/2019 SEVILLA , LINA K Ot Z87.442 PERSONAL HISTORY OF URINARY CALCULI Procedures Code Description [place] [address] A1C (IN-HOUSE) 10/04/2012 80198 MICRO ALBUMIN-IN HOUSE 01/23/2013 47364 A1C (IN-HOUSE) 01/23/2013 18760 ROUTINE VENIPUNCTURE 01/23/2013 99549 CMP 01/23/2013 34026 LIPID PANEL 01/23/20133848435 GFR CALC (RESULT ONLY) 01/23/2013 11373 ROUTINE VENIPUNCTURE 10/09/2013 44534 A1C (IN-HOUSE) 10/09/2013 [id number] GFR CALC (RESULT ONLY) 10/09/2013 08943 CMP 10/09/2013 74006 LIPID PANEL 10/09/2013 87031 ROUTINE VENIPUNCTURE 02/09/2014 46416 A1C (IN-HOUSE) 02/09/2014 12895 MICRO ALBUMIN-IN HOUSE 02/09/2014 Internal May, Ronni 02/09/2014 00727 CBC 02/09/2014 83705 MICRO ALBUMIN-IN HOUSE 07/17/2014 57677 A1C (IN-HOUSE) 07/17/2014 Results Test Result Range Influenza virus A and B antigen detection - 09/15/17 07:25 FLU RESULT NEGATIVE FOR INFLUENZA A AND B ANTIGENS BY [facility] Complete blood count (CBC) with automated white [...] Automated erythrocyte mean corpuscular hemoglobin concentration measurement (mass/volume) 36 g/dL 32-36 Automated erythrocyte distribution width ratio 12.8 % 10.0- 14.5 Automated blood platelet count (count/volume) 348 10*3/uL [...] Blood monocytes automated count (number/volume) 0.6 10*3 0.0- 1.0 Automated eosinophil count 0.1 10*3/uL 0.0-0.3 Automated [...] measurement in platelet poor plasma (mass/volume) - 02/04/18 13:11 Fibrin D-dimer FEU measurement in platelet [...] Serum or plasma aspartate aminotransferase measurement (enzymatic activity/volume) 15 U/L 5-34 Serum or plasma alanine aminotransferase measurement (enzymatic activity/volume) 26 U/L 0-55 Serum or plasma protein measurement (mass/volume) 7.7 g/dL 6.4-8.2 Serum or plasma albumin measurement (mass/volume) 4.4 g/dL 3.2-4.5 Serum or plasma troponin i.cardiac measurement (mass/volume) - 02/04/18 13:11 Serum or plasma troponin i.cardiac measurement (mass/volume) < ng/mL <0.30 Capillary blood glucose measurement by glucometer (mass/volume) - 02/04/18 13:19 Capillary blood glucose measurement by glucometer (mass/volume) 294 mg/dL 70-110 Complete urinalysis with reflex to culture - 02/04/18 14:00 Urine color determination YELLOW NRG Urine clarity determination CLEAR NRG Urine pH measurement by test strip 5 5-9 Specific gravity of urine by test strip 1.020 1.016-1.022 Urine protein assay by test strip, semi-quantitative [...] sediment leukocyte count by microscopy (number/high power field) RARE NRG Bacteria detection in urine sediment [...] glucose measurement by glucometer (mass/volume) - 02/05/18 06:07 Capillary blood glucose measurement by glucometer (mass/volume) [...] Automated erythrocyte mean corpuscular hemoglobin concentration measurement (mass/volume) 36 g/dL 32-36 Automated erythrocyte distribution width ratio 13.0 % 10.0- 14.5 Automated blood platelet count (count/volume) 328 10*3/uL [...] Blood monocytes automated count (number/volume) 0.7 10*3 0.0- 1.0 Automated eosinophil count 0.1 10*3/uL 0.0-0.3 Automated [...] plasma cholesterol in HDL measurement (mass/volume) 27 mg/dL 40-60 Cholesterol in LDL [mass/volume] in serum or plasma by direct assay 159 mg/dL 1-129 Serum or plasma cholesterol in VLDL measurement (mass/volume) 63 mg/dL 5-40 Hemoglobin A1c - 02/05/18 06:10 Blood hemoglobin A1C measurement (mass/volume) 11.6 % 4.0- 5.6 MEAN BLOOD GLUCOSE 286 % <=126 Capillary blood glucose measurement by glucometer (mass/volume) - 02/05/18 11:18 Capillary blood glucose measurement by glucometer (mass/volume) 394 mg/dL 70-110 Capillary blood glucose measurement by glucometer (mass/volume) - 02/05/18 15:19 Capillary blood glucose measurement by glucometer (mass/volume) 228 mg/dL 70-110 Capillary blood glucose measurement by glucometer (mass/volume) - 02/05/18 21:23 Capillary blood glucose measurement by glucometer (mass/volume) 223 mg/dL 70-110 Capillary blood glucose measurement by glucometer (mass/volume) - 02/06/18 05:51 Capillary blood glucose measurement by glucometer (mass/volume) 171 mg/dL 70-110 Capillary blood glucose measurement by glucometer (mass/volume) - 02/06/18 11:04 Capillary blood glucose measurement by glucometer (mass/volume) 220 mg/dL 70-110 Capillary blood glucose measurement by glucometer (mass/volume) - 02/06/18 15:35 Capillary blood glucose measurement by glucometer (mass/volume) 152 mg/dL 70-110 Capillary blood glucose measurement by glucometer (mass/volume) - 02/06/18 17:40 Capillary blood glucose measurement by glucometer (mass/volume) 194 mg/dL 70-110 Capillary blood glucose measurement by glucometer (mass/volume) - 02/07/18 05:34 Capillary blood glucose measurement by glucometer (mass/volume) 220 mg/dL 70-110 Capillary blood glucose measurement by glucometer (mass/volume) - 02/07/18 10:34 Capillary blood glucose measurement by glucometer (mass/volume) 272 mg/dL 70-110 Capillary blood glucose measurement by glucometer (mass/volume) - 02/07/18 14:53 Capillary blood glucose measurement by glucometer (mass/volume) 279 mg/dL 70-110 Capillary blood glucose measurement by glucometer (mass/volume) - 02/07/18 20:29 Capillary blood glucose measurement by glucometer (mass/volume) 206 mg/dL 70-110 Capillary blood glucose measurement by glucometer (mass/volume) - 02/08/18 05:50 Capillary blood glucose measurement by glucometer (mass/volume) 173 mg/dL 70-110 Capillary blood glucose measurement by glucometer (mass/volume) - 02/08/18 09:39 Capillary blood glucose measurement by glucometer (mass/volume) 319 mg/dL 70-110 Capillary blood glucose measurement by glucometer (mass/volume) - 02/08/18 15:14 Capillary blood glucose measurement by glucometer (mass/volume) 245 mg/dL 70-110 Capillary blood glucose measurement by glucometer (mass/volume) - 02/08/18 19:31 Capillary blood glucose measurement by glucometer (mass/volume) 258 mg/dL 70-110 Capillary blood glucose measurement by glucometer (mass/volume) - 02/09/18 05:22 Capillary blood glucose measurement by glucometer (mass/volume) 138 mg/dL 70-110 Capillary blood glucose measurement by glucometer (mass/volume) - 02/09/18 11:03 Capillary blood glucose measurement by glucometer (mass/volume) 144 mg/dL 70-110 Capillary blood glucose measurement by glucometer (mass/volume) - 02/09/18 15:23 Capillary blood glucose measurement by glucometer (mass/volume) 148 mg/dL 70-110 Capillary blood glucose measurement by glucometer (mass/volume) - 02/09/18 21:01 Capillary blood glucose measurement by glucometer (mass/volume) 278 mg/dL 70-110 Capillary blood glucose measurement by glucometer (mass/volume) - 02/10/18 05:20 Capillary blood glucose measurement by glucometer (mass/volume) 103 mg/dL 70-110 Capillary blood glucose measurement by glucometer (mass/volume) - 02/10/18 09:16 Capillary blood glucose measurement by glucometer (mass/volume) 99 mg/dL 70-110 Capillary blood glucose measurement by glucometer (mass/volume) - 02/10/18 14:23 Capillary blood glucose measurement by glucometer (mass/volume) 119 mg/dL 70-110 Capillary blood glucose measurement by glucometer (mass/volume) - 02/10/18 20:45 Capillary blood glucose measurement by glucometer (mass/volume) 99 mg/dL 70-110 Capillary blood glucose measurement by glucometer (mass/volume) - 02/11/18 05:43 Capillary blood glucose measurement by glucometer (mass/volume) 88 mg/dL 70-110 Capillary blood glucose measurement by glucometer (mass/volume) - 02/11/18 10:50 Capillary blood glucose measurement by glucometer (mass/volume) 92 mg/dL 70-110 Capillary blood glucose measurement by glucometer (mass/volume) - 02/11/18 14:49 Capillary blood glucose measurement by glucometer (mass/volume) 178 mg/dL 70-110 Capillary blood glucose measurement by glucometer (mass/volume) - 02/11/18 19:56 Capillary blood glucose measurement by glucometer (mass/volume) 105 mg/dL 70-110 Capillary blood glucose measurement by glucometer (mass/volume) - 02/12/18 05:15 Capillary blood glucose measurement by glucometer (mass/volume) 103 mg/dL 70-110 Capillary blood glucose measurement by glucometer (mass/volume) - 02/12/18 09:50 Capillary blood glucose measurement by glucometer (mass/volume) 84 mg/dL 70-110 Capillary blood glucose measurement by glucometer (mass/volume) - 02/12/18 14:36 Capillary blood glucose measurement by glucometer (mass/volume) 64 mg/dL 70-110 Capillary blood glucose measurement by glucometer (mass/volume) - 02/12/18 15:07 Capillary blood glucose measurement by glucometer (mass/volume) 92 mg/dL 70-110 Capillary blood glucose measurement by glucometer (mass/volume) - 02/12/18 19:45 Capillary blood glucose measurement by glucometer (mass/volume) 74 mg/dL 70-110 Capillary blood glucose measurement by glucometer (mass/volume) - 02/12/18 21:13 Capillary blood glucose measurement by glucometer (mass/volume) 185 mg/dL 70-110 Capillary blood glucose measurement by glucometer (mass/volume) - 02/13/18 05:15 Capillary blood glucose measurement by glucometer (mass/volume) 65 mg/dL 70-110 Capillary blood glucose measurement by glucometer (mass/volume) - 02/13/18 06:24 Capillary blood glucose measurement by glucometer (mass/volume) 155 mg/dL 70-110 Capillary blood glucose measurement by glucometer (mass/volume) - 02/13/18 10:19 Capillary blood glucose measurement by glucometer (mass/volume) 80 mg/dL 70-110 Capillary blood glucose measurement by glucometer (mass/volume) - 02/13/18 14:25 Capillary blood glucose measurement by glucometer (mass/volume) 89 mg/dL 70-110 Capillary blood glucose measurement by glucometer (mass/volume) - 02/13/18 20:11 Capillary blood glucose measurement by glucometer (mass/volume) 204 mg/dL 70-110 Capillary blood glucose measurement by glucometer (mass/volume) - 02/14/18 05:11 Capillary blood glucose measurement by glucometer (mass/volume) 89 mg/dL 70-110 Capillary blood glucose measurement by glucometer (mass/volume) - 02/14/18 10:53 Capillary blood glucose measurement by glucometer (mass/volume) 127 mg/dL 70-110 Capillary blood glucose measurement by glucometer (mass/volume) - 02/14/18 15:04 Capillary blood glucose measurement by glucometer (mass/volume) 88 mg/dL 70-110 Capillary blood glucose measurement by glucometer (mass/volume) - 02/14/18 21:11 Capillary blood glucose measurement by glucometer (mass/volume) 191 mg/dL 70-110 Capillary blood glucose measurement by glucometer (mass/volume) - 02/15/18 06:42 Capillary blood glucose measurement by glucometer (mass/volume) 89 mg/dL 70-110 Capillary blood glucose measurement by glucometer (mass/volume) - 02/15/18 09:59 Capillary blood glucose measurement by glucometer (mass/volume) 70 mg/dL 70-110 Capillary blood glucose measurement by glucometer (mass/volume) - 02/15/18 11:30 Capillary blood glucose measurement by glucometer (mass/volume) 75 mg/dL 70-110 Capillary blood glucose measurement by glucometer (mass/volume) - 02/15/18 15:22 Capillary blood glucose measurement by glucometer (mass/volume) 136 mg/dL 70-110 Capillary blood glucose measurement by glucometer (mass/volume) - 02/15/18 20:37 Capillary blood glucose measurement by glucometer (mass/volume) 188 mg/dL 70-110 Capillary blood glucose measurement by glucometer (mass/volume) - 02/16/18 05:33 Capillary blood glucose measurement by glucometer (mass/volume) 110 mg/dL 70-110 Capillary blood glucose measurement by glucometer (mass/volume) - 02/16/18 11:27 Capillary blood glucose measurement by glucometer (mass/volume) 92 mg/dL 70-110 Capillary blood glucose measurement by glucometer (mass/volume) - 02/16/18 16:00 Capillary blood glucose measurement by glucometer (mass/volume) 113 mg/dL 70-110 Capillary blood glucose measurement by glucometer (mass/volume) - 02/16/18 20:56 Capillary blood glucose measurement by glucometer (mass/volume) 133 mg/dL 70-110 Capillary blood glucose measurement by glucometer (mass/volume) - 02/17/18 05:08 Capillary blood glucose measurement by glucometer (mass/volume) 104 mg/dL 70-110 Capillary blood glucose measurement by glucometer (mass/volume) - 02/17/18 11:28 Capillary blood glucose measurement by glucometer (mass/volume) 77 mg/dL 70-110 Capillary blood glucose measurement by glucometer (mass/volume) - 02/17/18 16:31 Capillary blood glucose measurement by glucometer (mass/volume) 72 mg/dL 70-110 Capillary blood glucose measurement by glucometer (mass/volume) - 02/17/18 20:36 Capillary blood glucose measurement by glucometer (mass/volume) 150 mg/dL 70-110 Capillary blood glucose measurement by glucometer (mass/volume) - 02/18/18 05:04 Capillary blood glucose measurement by glucometer (mass/volume) 87 mg/dL 70-110 Capillary blood glucose measurement by glucometer (mass/volume) - 02/18/18 11:36 Capillary blood glucose measurement by glucometer (mass/volume) [...] Automated erythrocyte mean corpuscular hemoglobin concentration measurement (mass/volume) 35 g/dL 32-36 Automated erythrocyte distribution width ratio 13.2 % 10.0- 14.5 Automated blood platelet count (count/volume) 346 10*3/uL [...] Serum or plasma aspartate aminotransferase measurement (enzymatic activity/volume) 14 U/L 5-34 Serum or plasma alanine aminotransferase measurement (enzymatic activity/volume) 16 U/L 0-55 Serum or plasma protein measurement (mass/volume) 7.7 g/dL 6.4-8.2 Serum or plasma albumin measurement (mass/volume) 4.5 g/dL 3.2-4.5 Lipid 1996 panel - 03/30/18 07:43 Serum or plasma triglyceride measurement (mass/volume) 143 mg/dL <150 Serum or plasma cholesterol measurement (mass/volume) 154 mg/dL < 200 Serum or plasma cholesterol in HDL measurement (mass/volume) 29 mg/dL 40-60 Cholesterol in LDL [mass/volume] in serum or plasma by direct assay 105 mg/dL 1-129 Serum or plasma cholesterol in VLDL measurement (mass/volume) 29 mg/dL 5-40 PT panel in platelet poor plasma [...] resistant Staphylococcus aureus (MRSA) screening culture - 03/30/18 07:43 Methicillin resistant Staphylococcus aureus (MRSA) screening culture NEG NRG Capillary blood glucose measurement by glucometer (mass/volume) - 03/30/18 18:05 Capillary blood glucose measurement by glucometer (mass/volume) [...] Automated erythrocyte mean corpuscular hemoglobin concentration measurement (mass/volume) 35 g/dL 32-36 Automated erythrocyte distribution width ratio 13.1 % 10.0- 14.5 Automated blood platelet count (count/volume) 365 10*3/uL [...] plasma calcium measurement (mass/volume) 9.6 mg/dL 8.5-10.1 CMP - 02/20/19 11:36 GLUCOSE 159 mg/dL 65-99 UREA NITROGEN (BUN) 10 mg/dL 7-25 CREATININE 0.87 mg/dL 0.70-1.33 eGFR NON-AFR. MACANESE 95 mL/min/1.73m2 > OR=60 eGFR 110 mL/min/1.73m2 > OR=60 BUN/CREATININE RATIO NOT APPLICABLE (calc) 6-22 SODIUM 139 mmol/L 135-146 POTASSIUM 4.4 mmol/L 3.5-5.3 CHLORIDE 104 mmol/L 98-110 CARBON DIOXIDE 28 mmol/L 20-32 CALCIUM 9.7 mg/dL 8.6-10.3 PROTEIN, TOTAL 7.0 g/dL 6.1-8.1 ALBUMIN 4.6 g/dL 3.6-5.1 GLOBULIN 2.4 g/dL (calc) 1.9-3.7 ALBUMIN/GLOBULIN RATIO 1.9 (calc) 1.0-2.5 BILIRUBIN, TOTAL 0.5 mg/dL 0.2-1.2 ALKALINE PHOSPHATASE 89 U/L 40-115 AST 17 U/L 10-35 ALT 22 U/L 9-46 Complete blood count (CBC) with automated white blood cell (WBC) differential - 03/25/19 07:42 Blood leukocytes automated count (number/volume) 10.5 10*3/uL 4.3-11.0 Blood erythrocytes automated count (number/volume) 5.71 10*6/uL 4.35-5.85 Venous blood hemoglobin measurement (mass/volume) 17.4 g/dL 13.3-17.7 Blood hematocrit (volume fraction) 50 % 40-54 Automated erythrocyte mean corpuscular volume 88 [foz_us] 80-99 Automated erythrocyte mean corpuscular hemoglobin (mass per erythrocyte) 31 pg 25-34 Automated erythrocyte mean corpuscular hemoglobin concentration measurement (mass/volume) 35 g/dL 32-36 Automated erythrocyte distribution width ratio 13.3 % 10.0- 14.5 Automated blood platelet count (count/volume) 339 10*3/uL 130-400 Automated blood platelet mean volume measurement 9.5 [foz_us] 7.4-10.4 Automated blood neutrophils/100 leukocytes 76 % 42-75 Automated blood lymphocytes/100 leukocytes 13 % 12-44 Blood monocytes/100 leukocytes 8 % 0-12 Automated blood eosinophils/100 leukocytes 2 % 0-10 Automated blood basophils/100 leukocytes 1 % 0-10 Blood neutrophils automated count (number/volume) 8.0 10*3 1.8-7.8 Blood lymphocytes automated count (number/volume) 1.3 10*3 1.0-4.0 Blood monocytes automated count (number/volume) 0.9 10*3 0.0- 1.0 Automated eosinophil count 0.2 10*3/uL 0.0-0.3 Automated blood basophil count (count/volume) 0.1 10*3/uL 0.0-0.1 PT panel in platelet poor plasma by coagulation assay - 03/25/19 07:42 Prothrombin time (PT) in platelet poor plasma by coagulation assay 13.5 s 12.2-14.7 INR in platelet poor plasma or blood by coagulation assay 1.0 0.8-1.4 Comprehensive metabolic panel - 03/25/19 07:42 Serum or plasma sodium measurement (moles/volume) 137 mmol/L 135-145 Serum or plasma potassium measurement (moles/volume) 4.1 mmol/L 3.6-5.0 Serum or plasma chloride measurement (moles/volume) 106 mmol/L 98-107 Carbon dioxide 19 mmol/L 21-32 Serum or plasma anion gap determination (moles/volume) 12 mmol/L 5-14 Serum or plasma urea nitrogen measurement (mass/volume) 13 mg/dL 7-18 Serum or plasma creatinine measurement (mass/volume) 0.99 mg/dL 0.60-1.30 Serum or plasma urea nitrogen/creatinine mass ratio 13 NRG Serum or plasma creatinine measurement with calculation of estimated glomerular filtration rate > NRG Serum or plasma glucose measurement (mass/volume) 174 mg/dL 70-105 Serum or plasma calcium measurement (mass/volume) 9.4 mg/dL 8.5-10.1 Serum or plasma total bilirubin measurement (mass/volume) 0.7 mg/dL 0.1-1.0 Serum or plasma alkaline phosphatase measurement (enzymatic activity/volume) 90 U/L 40-136 Serum or plasma aspartate aminotransferase measurement (enzymatic activity/volume) 15 U/L 5-34 Serum or plasma alanine aminotransferase measurement (enzymatic activity/volume) 23 U/L 0-55 Serum or plasma protein measurement (mass/volume) 7.2 g/dL 6.4-8.2 Serum or plasma albumin measurement (mass/volume) 4.3 g/dL 3.2-4.5 CALCIUM CORRECTED 9.2 mg/dL 8.5-10.1 Serum or plasma troponin i.cardiac measurement (mass/volume) - 03/25/19 07:42 Serum or plasma troponin i.cardiac measurement (mass/volume) < ng/mL <0.028 Capillary blood glucose measurement by glucometer (mass/volume) - 03/25/19 21:17 Capillary blood glucose measurement by glucometer (mass/volume) 133 mg/dL 70-110 Capillary blood glucose measurement by glucometer (mass/volume) - 03/26/19 06:11 Capillary blood glucose measurement by glucometer (mass/volume) 120 mg/dL 70-110 Capillary blood glucose measurement by glucometer (mass/volume) - 03/26/19 11:17 Capillary blood glucose measurement by glucometer (mass/volume) 105 mg/dL 70-110 Encounters ACCT No. Visit Date/Time Discharge Status Pt. Type Provider Facility Loc./Unit Complaint [id number] 03/31/2019 15:50:00 03/31/2019 23:59:59 CLS Outpatient REJI PERDOMO, CORBIN ROQUE [facility] [id number] 02/20/2019 11:00:00 Document Registration [id number] 06/17/2018 09:20:00 Document Registration [id number] 03/25/2019 11:00:00 03/26/2019 12:21:00 DIS Inpatient SONIA SEVILLA DOA [facility] 4TH CVA [id number] 02/15/2019 07:46:00 02/15/2019 23:59:59 CLS Outpatient JEFF WILSON [facility] CARD CVA, HTN, MIXED HYPERLIPIDEMIA [id number] 02/13/2019 12:58:00 02/13/2019 23:59:59 CLS Outpatient JEFF WILSON [facility] CARD CVA [id number] 02/02/2019 22:33:00 02/02/2019 23:07:00 DIS Emergency MADDIE ARREAGA SCENE PAINTER [facility] ER R HAND LAC [id number] 01/20/2019 08:47:00 01/20/2019 23:59:59 CLS Outpatient SALVADOR CHANEY APRN [facility] RAD CVA [id number] 01/20/2019 07:40:00 01/20/2019 23:59:59 CLS Preadmit SALVADOR CHANEY APRN [facility] RAD CVA [id number] 05/25/2018 00:10:00 05/25/2018 23:59:59 CLS Preadmit CORBIN MENDOZA MD [facility] REHAB CVA [id number] 05/04/2018 09:30:00 05/24/2018 00:01:00 DIS Outpatient CORBIN MENDOZA MD [facility] REHAB CVA [id number] 03/30/2018 07:11:00 03/31/2018 12:00:00 DIS Outpatient BETINA HILLS MD [facility] CATH LEFT SUBCLAVIAN ARTERY STENOSIS [id number] 02/09/2018 16:30:00 02/18/2018 15:30:00 DIS Inpatient NICOLAS WALLER MD [facility] IRF CVA [id number] 02/04/2018 20:17:00 02/09/2018 15:25:00 DIS Inpatient CORINA MAHMOOD MD [facility] 4TH STROKE,L SIDED WEAKNESS,HYPERGLYCEMIA,FALL [id number] 09/15/2017 07:04:00 09/15/2017 08:06:00 DIS Emergency LEXI DO, MARSHA K [facility] ER RUNNY NOSE,COUGH [id number] 04/06/2016 15:55:00 04/06/2016 23:59:59 CLS Outpatient MIMA AMES APRN [facility] QUICK [id number] 05/19/2015 12:09:00 05/19/2015 23:59:59 CLS Outpatient ARNALDO MAHMOOD [facility] QUICK [id number] 02/16/2014 07:41:00 02/16/2014 10:55:00 DIS Outpatient RONNI MAY MD [facility] SDC HEMATOCHEZIA [id number] 02/15/2014 07:18:00 02/15/2014 23:59:59 CLS Outpatient RONNI MAY MD [facility] PREOP HEMATOCHEZIA [id number] 04/19/2019 13:00:00 PEN Preadmit BETINA HILLS MD [facility] CATH LT SUBCLAVIAN ARTERY STENOSIS,HTN,SOB [id number] 09/01/2012 07:53:00 Document Registration [id number] 07/17/2014 08:47:00 07/17/2014 23:59:59 CLS Outpatient CORBIN MENDOZA MD [id number] 02/09/2014 08:50:00 02/09/2014 23:59:59 CLS Outpatient CORBIN MENDOZA MD [id number] 10/09/2013 08:41:00 10/09/2013 23:59:59 CLS Outpatient CORBIN MENDOZA MD [id number] 05/15/2013 14:11:00 05/15/2013 23:59:59 CLS Outpatient CORBIN MENDOZA MD [id number] 01/23/2013 08:52:00 01/23/2013 23:59:59 CLS Outpatient CORBIN MENDOZA MD [id number] 10/04/2012 08:59:00 10/04/2012 23:59:59 CLS Outpatient [id number] 06/14/2012 08:51:00 06/14/2012 23:59:59 CLS Outpatient CORBIN MENDOZA MD
[2019-04-19 11:40] LABS: HEMOGLOBIN 16.8 G/DL (13.3-17.7); MEAN PLATELET VOLUME 9.3 FL (7.4-10.4); RED CELL DISTRIBUTION WIDTH 13.3 % (10.0-14.5)
[2019-04-19 11:44] LABS: BILIRUBIN,URINE NEGATIVE (NEGATIVE); CLARITY,URINE CLEAR; COLOR,URINE YELLOW; GLUCOSE, URINE (UA) NEGATIVE (NEGATIVE); KETONES,URINE 1+ (NEGATIVE); LEUKOCYTE ESTERASE ,URINE 1+ (NEGATIVE); NITRITE,URINE NEGATIVE (NEGATIVE); PH,URINE 6 (5-9); PROTEIN,URINE NEGATIVE (NEGATIVE); UROBILINOGEN,URINE 1 MG/DL (NORMAL)
[2019-04-19 11:56] LABS: BACTERIA,URINE TRACE /HPF; SQUAMOUS EPITHELIAL CELL,UR RARE /HPF
[2019-04-19 11:57] LABS: PROTHROMBIN TIME PATIENT 13.2 SEC (12.2-14.7)
--- NOTE | 2019-04-19 11:59 | Cardiac Procedure Note-CS/ASA ---
Pre-Procedure Note Pre-Op Procedure Note H&P Reviewed The H&P was reviewed, patient examined and no changes noted. Date H&P Reviewed: Apr 19, 2019 Time H&P Reviewed: 11:59 Conscious Sedation Pre-Proced Time 11:59 ASA Score 3 For ASA 3 and 4: Consider anesthesia and medical clearance. Also, for patients with a history of failed moderate sedation consider anesthesia. Airway Lungs Heart ASA score ASA 1: a normal healthy patient ASA 2: a patient with a mild systemic disease (mid diabetes, controlled hypertension, obesity x ASA 3: a patient with a severe systemic disease that limits activity (angina, COPD, prior Myocardial infarction) ASA 4: a patient with an incapacitating disease that is a constant threat to life (CHF, renal failure) ASA 5: a moribund patient not expected to survive 24 hrs. (ruptured aneurysm) ASA 6: a declared brain- patient whose organs are being harvested. For emergent operations, add the letter E after the classification Mallampati Classification Grade 3 Sedation Plan Analgesia, Amnesia, Plan communicated to team members, Discussed options with patient/fam, Discussed risks with patient/fam The patient is an appropriate candidate to undergo the planned procedure, sedation, and anesthesia. The patient immediately re-assessed prior to indication. BETINA HILLS MD Apr 19, 2019 11:59
--- NOTE | 2019-04-19 12:01 | Diagnostic Imaging Report ---
Indication: Cardiac disease Compared with 03/25/2019. The heart size and its configuration normal. No vascular congestion. No edema, pneumonia, effusion or pneumothorax. Impression: Stable unremarkable frontal chest. Dictated by: Dictated on workstation # [id number]
[2019-04-19 12:55] LABS: ALANINE AMINOTRANSFERASE 34 U/L (0-55); ALBUMIN 4.7 GM/DL (3.2-4.5); ALKALINE PHOSPHATASE 96 U/L (40-136); BILIRUBIN,TOTAL 0.8 MG/DL (0.1-1.0); BUN/CREATININE RATIO 11; CALCIUM 9.8 MG/DL (8.5-10.1); CARBON DIOXIDE 23 MMOL/L (21-32); CHLORIDE 105 MMOL/L (98-107); CHOLESTEROL 205 MG/DL (< 200); CREATININE SERUM 1.01 MG/DL (0.60-1.30); GFR ESTIMATED > 60; GLUCOSE 142 MG/DL (70-105); HDL CHOLESTEROL 33 MG/DL (40-60); POTASSIUM 4.1 MMOL/L (3.6-5.0); SODIUM 140 MMOL/L (135-145); TOTAL PROTEIN 7.7 GM/DL (6.4-8.2); TRIGLYCERIDES 172 MG/DL (<150); VLDL CHOLESTEROL 34 MG/DL (5-40)
[2019-04-19] MEDS ORDERED: MIDAZOLAM 5 MG/5 ML (VERSED) VIAL ONE (13:23)
[2019-04-19] MEDS ORDERED: fentaNYL INJECTION 100 MCG/2 ML AMP ONE (13:24)
[2019-04-19] MEDS ORDERED: HEParin 1000 UNIT/ML (10ML VIAL) FOR BOLUS ONE (14:07)
--- NOTE | 2019-04-19 14:43 | Cardiac Cath Report ---
Cardiac Cath Report Physician (s)/Brass Sorter (s) Physician BETINA HILLS MD Pre-Procedure Diagnosis Pre-Procedure Diagnosis: CVA, coronary artery disease Post-Procedure Note Procedure Start Date: Apr 19, 2019 Name of Procedure: Left heart catheterization Left ventriculogram Aortic arch angiogram Selective left subclavian angiogram Abdominal aortogram Findings/Procedure Note PROCEDURE NOTE: 59 years old gentleman with history of subclavian artery stenosis had stenting done last year, has been having increasing symptoms of poor balance, chest pain. Generalized fatigue and shortness of breath. Decided to proceed with coronary angiogram and evaluate the aortic arch and the subclavian artery. After explaining the procedure to the patient, all pros and cons were explained, all questions were answered. The patient signed the consent and then he was placed on the cardiac catheterization laboratory. Groin was prepped SL fashion local anesthesia was used. Sheath placed in the artery. Lurdes right and left catheter were used to access the coronary system. Pigtail was used to access the left ventricular cavity. Left ventriculogram was done then aortic arch angiogram was done. I readvanced the Lurdes right catheter, had difficulty advancing it through the iliac artery, intubated the left subclavian artery and performed angiogram in multiple views then there was a lesion in the circumflex artery that I felt that was significant, patient was given 7000 units of heparin, FL guide was advanced over a long exchange J-wire to the left system, patient has small left system. Angiogram showed the lesion to be borderline nonobstructive lesion. I decided to continue with conservative management and the procedure was aborted. At the end of the procedure the sheath was removed. Closure device was used FINDINGS: Hemodynamics LV 125/16 end-diastolic pressure of 16 Aorta 126/77 mean of 101 ANATOMY: Left Main is small with no obstructive disease Left Anterior Descending is small and tortuous with mild disease nonobstructive disease Left Circumflex is small with 50 percent stenosis proximally, nonobstructive disease Right Coronory Artery is tortuous artery moderate in size dominant artery with no obstructive disease LV Gram is normal in size with normal contraction. Estimated ejection fraction 60 percent Aortic arch angiogram showed normal aortic arch, origin of the right innominate artery is normal, the left carotid artery share the origin with the right innominate artery with no obstructive disease, patient had separate ostium of the left vertebral artery off the aorta and it is patent, the stent in the proximal subclavian artery has sluggish flow, selective angiogram in the left subclavian artery showed patent stent with no obstructive disease Abdominal aortogram done in the AP position showing normal abdominal aorta, normal renal arteries normal. An inferior mesenteric artery, normal bifur cation, slightly tortuous iliac arteries CONCLUSION: 1. 50 percent stenosis in the proximal circumflex artery, fairly small artery about 2 mm in diameter, moderate disease, medical therapy is recommended 2. Otherwise mild coronary artery disease with normal obstructive disease. 3. Normal left ventricular size and systolic function is in ejection fraction 60 percent. 4. Normal aortic arch and normal innominate artery, the left carotid artery showing her the ostium with the right innominate artery, nonobstructive disease. Left vertebral artery originated directly from the aorta. 5. Patent stent in the left subclavian artery with good flow 6. Normal abdominal aorta, no dissection or aneurysm, normal renal arteries DISCUSSION AND RECOMMENDATION: continue to maximize medical therapy. Anesthesia Type: Conscious Sedation Estimated blood loss (mL): 25 ml Contrast Amount: 125 ml Total Radiation Dose: 504 mGy Post-Procedure Diagnosis Post-operative diagnosis: Chest pain Coronary artery disease Left subclavian stenosis Hypertension Hyperlipidemia BETINA HILLS MD Apr 19, 2019 14:43
[2019-04-19] MEDS ORDERED: PATIENT MAY USE OWN MEDS, ALL PO SCH (14:45)
[2019-04-19] MEDS ORDERED: insulin ASPART vial for Pump (NovoLOG) SQ SCH (17:00)
[2019-04-19] MEDS: NS IV 1000 ML 1,000 ML IV SCH ×2 (17:38→18:43)
[2019-04-19] MEDS: inSUlin ASPART (NovoLOG) 1 UNIT/0.01 ML (CHARGE PER UNIT) SC SCH (17:58)
[2019-04-19] MEDS: FAMOTIDINE 20 MG (PEPCID) TABLET PO SCH (20:45)
[2019-04-19] MEDS ORDERED: NON-FORMULARY MEDICATION 1 EA EA (Famotidine (Acid Reducer (FAMOTIDINE)) 20 MG) PO SCH (21:00)
[2019-04-19] MEDS ORDERED: NON-FORMULARY MEDICATION 1 EA EA (Insulin Detemir (Levemir Flextouch) 30 UNIT) SQ SCH (21:00)
--- NOTE | 2019-04-19 22:00 | NUR ---
REPORT GIVEN TO RAPHAEL AVILA ON FOURTH FLOOR. RIGHT GROIN SITE EXAMINED TOGETHER-SITE SOFT AND DRESSING DRY/INTACT. INFORMED HER THAT LEVEMIR WAS ADMINISTERED AND PATIENT DID EAT THREE PACKAGES OF RITU CRACKERS FOR A SNACK FOLLOWING LEVEMIR ADMINISTRATION AND TO WATCH FOR S/S OF HYPOGLYCEMIA.
--- NOTE | 2019-04-19 22:15 | NUR ---
PT TRANSFER FROM ICU REPORT, REPORT RECEIVED FROM RAPHAEL ASKEW. RIGHT GROIN SITE EXAMINED SITE SOFT AND DRESSING DRY/INTACT. PT VOICES NO COMPLAINS AT THIS TIME. WILL CONTINUO TO MONITOR
[2019-04-20] VITALS: BP 138/73
[2019-04-20 04:00] VITALS: BP 96/55
[2019-04-20 05:40] VITALS: BP 103/63
[2019-04-20 06:04] LABS: HEMOGLOBIN 14.9 G/DL (13.3-17.7); MEAN PLATELET VOLUME 9.6 FL (7.4-10.4); RED CELL DISTRIBUTION WIDTH 13.1 % (10.0-14.5); WHITE BLOOD COUNT 8.3 10^3/uL (4.3-11.0)
[2019-04-20 06:29] LABS: BUN/CREATININE RATIO 13; CALCIUM 8.5 MG/DL (8.5-10.1); CARBON DIOXIDE 21 MMOL/L (21-32); CHLORIDE 110 MMOL/L (98-107); CREATININE SERUM 0.82 MG/DL (0.60-1.30); GFR ESTIMATED > 60; GLUCOSE 87 MG/DL (70-105); SODIUM 138 MMOL/L (135-145)
[2019-04-20 08:00] VITALS: BP 114/74
[2019-04-20] MEDS: inSUlin ASPART (NovoLOG) 1 UNIT/0.01 ML (CHARGE PER UNIT) SC SCH (08:22)
[2019-04-20] MEDS: FAMOTIDINE 20 MG (PEPCID) TABLET PO SCH (08:22)
--- NOTE | 2019-04-20 08:28 | Cardiology Progress Note ---
Subjective Date Seen by Provider: Apr 20, 2019 Time Seen by Provider: 08:26 Subjective/Events-last exam patient is sitting in a chair, feeling better, no new complaint, groin is healing well Review of Systems General: No Chills, No Night Sweats, No Fatigue, No Malaise, No Appetite, No Other HEENT: No Head Aches, No Visual Changes, No Eye Pain, No Ear Pain, No Dyspha jeremías, No Sinus Congestion, No Post Nasal Drip, No Sore Throat, No Other Pulmonary: No Dyspnea, No Cough, No Pleuritic Chest Pain, No Other Cardiovascular: No: Chest Pain, Palpitations, Orthopnea, Paroxysmal Noc. Dyspnea, Edema, Lt Headedness, Other Objective-Cardiology Exam Last Set of Vital Signs Vital Signs 04/20/19 04/20/19 04/20/19 04:00 05:40 07:00 Temp 97.9 Pulse 87 Resp 20 B/P (MAP) 103/63 (76) Pulse Ox 94 O2 Delivery Room Air Capillary Refill : Less Than 3 Seconds I&O Intake and Output 04/20/19 00:00 Intake Total 1400 ml Output Total 300 ml Balance 1100 ml Intake Oral 400 ml IV Total 1000 ml Output Urine Total 300 ml General: Alert, Oriented X3, Cooperative HEENT: Atraumatic, PERRLA Neck: Supple, No JVD, No Thyromegaly Lungs: Clear to Auscultation, Normal Air Movement Heart: Regular Rate, Normal S1, Normal S2, No Murmurs Abdomen: Normal Bowel Sounds, Soft, No Tenderness, No Hepatosplenomegaly, No Masses Extremities: No Clubbing, No Cyanosis, No Edema, Normal Pulses, No Tenderness/Swelling Skin: No Rashes, No Breakdown, No Significant Lesion Neuro: Normal Gait, Normal Speech, Strength at 5/5 X4 Ext, Normal Tone, Sensation Intact Psych/Mental Status: Mental Status NL, Mood NL Results Lab Laboratory Tests 04/19/19 11:26 04/20/19 05:50 A/P-Cardiology Admission Diagnosis Coronary artery disease Peripheral arterial disease Left subclavian stenosis Hypertension Hyperlipidemia Assessment/Plan Coronary artery disease moderate disease per catheterization, monitor Left subclavian stenosis, stent is patent with mild to moderate in-stent resten osis nonobstructive disease. Peripheral arterial disease, nonobstructive disease. Hypertension, controlled, borderline hypotension, monitor blood pressure Hyperlipidemia, continue to monitor lipids BETINA HILLS MD Apr 20, 2019 08:28
[2019-04-20] MEDS ORDERED: LISI-556 PO (08:30)
[2019-04-20] MEDS ORDERED: METF-478 PO (08:30)
--- NOTE | 2019-04-20 08:31 | Discharge Inst-Post CATH ---
Discharge Inst-CATH/EP Post Cardiac Cath/EP D/C Inst Follow Up/Plan Hold metformin for [address] HILLS's office in 2-4 weeks <b>CARDIAC CATH/EP PROCEDURE DISCHARGE INSTRUCTIONS</b> Cardiac Rehab Please be expecting a follow up call from Cardiac Rehab within in one week. ACTIVITY * Go Home directly and rest. * Limit activity of the leg (or wrist if it was used) for 7 days including aerobics, swimming, jogging, bicycling, etc. * Restrict stair-climbing for 7 days if possible, if not, climb up with your non-cath leg, then bring together on the same step. * Avoid lifting, pushing, pulling or excessive movement of the affected extremity for 7 days. * Customary sexual activity may be resumed after 2 days-use caution not to use a position that strains or causes pain to the affected extremity. * No driving for 24 hours. * NO SMOKING. * Avoid straining for bowel movements for 7 days. * Gentle walking on level ground is allowed. * Returning to work will depend on the type of procedure and the results. Your doctor will discuss this with you. CALL YOUR DOCTOR FOR ANY OF THE FOLLOWING: *If bleeding from the puncture site occurs- Apply gentle pressure to site with clean cloth and call your doctor or EMS. * If a knot or lump forms under the skin, increases in size, or causes pain. * If bruising appears to be worsening or moving further down your leg instead of disappearing. * Temperature above 101 F. CARE OF YOUR GROIN INCISION; * Bruising or purple discoloration of the skin near the puncture site is common. * You may shower only, no bathtub bathing for 5 days. Be careful to avoid slipping as your leg may feel stiff. * If a closure device was used on your femoral artery, please see the attached guide regarding care of the device and your leg. * Leave dressing on FOR 24 hours. CARE OF YOUR WRIST INCISION; * Bruising or purple discoloration of the skin near the puncture site is common. * You may shower. * DO NOT submerge wrist. * Leave dressing on FOR 24 hours. BETINA HILLS MD Apr 20, 2019 08:31
[2019-04-20] MEDS ORDERED: lisINopril 10 MG (PRINIVIL) TABLET PO SCH (09:00)
[2019-04-20] MEDS ORDERED: ATORVASTATIN 40 MG (LIPITOR) TABLET PO SCH (09:00)
[2019-04-20] MEDS ORDERED: CLOPIDOGREL 75 MG (PLAVIX) TABLET PO SCH (09:00)
[2019-04-20] MEDS ORDERED: ASPIRIN E.C. 81 MG (ECOTRIN) TAB PO SCH (09:00)
[2019-04-20] MEDS: NS IV 1000 ML 1,000 ML IV SCH (10:43)
[2019-04-20 12:00] VITALS: BP 108/64
== END 2019-04-20 12:15 | disposition home or self-care (01) ==
LOC: CATH 11:05 → ICU 14:55 → 4TH 21:51 → CATH 04-20 12:15
PROVIDERS: ATTEND Internal Medicine Cardiovascular Disease
DX: I25.10 Atherosclerotic heart disease of native coronary artery without angina pectoris (principal); I70.8 Atherosclerosis of other arteries; I10 Essential (primary) hypertension; E11.9 Type 2 diabetes mellitus without complications; E78.2 Mixed hyperlipidemia; I69.351 Hemiplegia and hemiparesis following cerebral infarction affecting right dominant side; I65.23 Occlusion and stenosis of bilateral carotid arteries; I73.9 Peripheral vascular disease, unspecified; Z79.82 Long term (current) use of aspirin; Z79.899 Other long term (current) drug therapy; Z79.4 Long term (current) use of insulin; Z87.891 Personal history of nicotine dependence
CPT/HCPCS: 36215; 36221; 36415; 71045; 75625; 80048; 80053; 80061; 81000; 82962; 85027; 85347; 85610; 85730; 87081; 87088; 93458

== ENCOUNTER → 2019-12-21 | Outpatient (CLI) | payer OTHER ==
[~2019-12-21] MED LIST changes: +LISI-556 PO; +METF500T19 PO; -METF500T8 PO
[2019-12-21 11:10] LABS: ALANINE AMINOTRANSFERASE 43 U/L (0-55); ALBUMIN 4.4 GM/DL (3.2-4.5); ALKALINE PHOSPHATASE 98 U/L (40-136); BILIRUBIN,TOTAL 0.7 MG/DL (0.1-1.0); BUN/CREATININE RATIO 12; CALCIUM 9.3 MG/DL (8.5-10.1); CARBON DIOXIDE 22 MMOL/L (21-32); CHLORIDE 105 MMOL/L (98-107); CHOLESTEROL 193 MG/DL (< 200); GFR ESTIMATED > 60; GLUCOSE 140 MG/DL (70-105); HDL CHOLESTEROL 32 MG/DL (40-60); POTASSIUM 4.2 MMOL/L (3.6-5.0); SODIUM 136 MMOL/L (135-145); TOTAL PROTEIN 7.3 GM/DL (6.4-8.2); TRIGLYCERIDES 202 MG/DL (<150); VLDL CHOLESTEROL 40 MG/DL (5-40)
== END ==
LOC: LAB 10:40
PROVIDERS: ATTEND Physician Assistant
DX: I10 Essential (primary) hypertension (principal); I65.22 Occlusion and stenosis of left carotid artery; E78.2 Mixed hyperlipidemia; I63.9 Cerebral infarction, unspecified
CPT/HCPCS: 36415; 80053; 80061

== ENCOUNTER 2020-03-22 08:01 | Outpatient (RCR) | payer OTHER ==
[2020-03-20 11:19] LABS: BASOPHILS # (AUTO) 0.1 10^3/uL (0.0-0.1); BASOPHILS % (AUTO) 1 % (0-10); EOSINOPHILS # (AUTO) 0.2 10^3/uL (0.0-0.3); EOSINOPHILS % (AUTO) 2 % (0-10); HEMATOCRIT 49 % (40-54); LYMPHOCYTES # (AUTO) 1.8 X 10^3 (1.0-4.0); LYMPHOCYTES % (AUTO) 15 % (12-44); MEAN CORPUSCULAR HEMOGLOBIN 31 PG (25-34); MEAN CORPUSCULAR HGB CONC 35 G/DL (32-36); MEAN CORPUSCULAR VOLUME 88 FL (80-99); MEAN PLATELET VOLUME 9.6 FL (7.4-10.4); MONOCYTES # (AUTO) 0.7 X 10^3 (0.0-1.0); MONOCYTES % (AUTO) 6 % (0-12); NEUTROPHILS % (AUTO) 76 % (42-75); PLATELET COUNT 380 10^3/uL (130-400); WHITE BLOOD COUNT 11.8 10^3/uL (4.3-11.0)
[~2020-03-22] VITALS: Ht 154 cm; Wt 69.6 kg
[~2020-03-22 08:01] MED LIST changes: +ATOR80TA76 PO; +EZET10TA49 PO; +METF-397 PO; +METF-865 PO; -METF500T19 PO
[2020-03-27] MEDS ORDERED: HYDR-4226 PO (12:43)
== END 2020-03-22 16:00 | disposition home or self-care (01) ==
LOC: PREOP 08:01
PROVIDERS: ATTEND Surgery
DX: Z01.818 Encounter for other preprocedural examination (principal); K40.90 Unilateral inguinal hernia, without obstruction or gangrene, not specified as recurrent
CPT/HCPCS: 36415; 85025; 87081; 87635

== ENCOUNTER 2020-03-27 08:57 | Day surgery (SDC) | payer OTHER ==
[~2020-03-27] VITALS: Ht 154 cm; Wt 69.6 kg
[2020-03-27] VITALS (11 sets, daily range): BP systolic 117–154; BP diastolic 55–97
[2020-03-27] MEDS ORDERED: LACTATED RINGERS 1,000 ML IV PRN (09:12)
[2020-03-27] MEDS ORDERED: ceFAZolin INJECTION 1,000 MG in WATER (STERILE) FOR INJECTION 10 ML IV ONE (09:15)
--- OUTSIDE RECORDS SUMMARY | 2020-03-27 09:21 | XMS REPORT ---
Author Author Corbin MENDOZA Organization [facility] Address [address] [place] [address] Care Team Providers Care Painter And Paperhanger Apprentice Name Role Phone CORBIN MENDOZA Unavailable PROBLEMS Type Condition ICD9-CM Code KBF62-PL Code Onset Dates Condition S tatus SNOMED Code Problem Hypertension I10 Active 4027896 3 Problem Microalbuminuria R80.9 Active 312 709228 Problem Cerebrovascular accident (CV A) due to occlusion of left middle cerebral artery I63.512 Active 469828192 Problem Cerebrovascular disease I67.9 Active 47007203 Problem Diabetes E11.9 Active 24820453 Problem Cigarette nicotine dependence without complication F17.210 Active 82956134 Problem Hyperlipidemia E78.5 Active 37942 004 Problem Subclavian steal syndrome G45.8 Acti ve 74024765 Problem Gastroesophageal reflux disease, esophagitis pre sence not specified K21.9 Active 706983288 Problem Neurofibromatosis Q85.00 Active 19 533275 Problem Cerebrovascular accident (CVA), unspecified mechanism I63.9 Active 541626153 ALLERGIES No Information ENCOUNTERS Encounter Location Date Diagnosis [place] [id number] [place] [phone] May, [place] [id number] [place] [address] Feb, [place] [address] [facility] [id number] [address] [place] [address] Feb, [place] [address] [address] [place] [id number] [place] [address] Jan, Diabetes E11.9 ; Hypertensio n I10 ; Hyperlipidemia E78.5 ; Gastroesophageal reflux disease, esophagitis presence not specified K21.9 ; Cerebrovascular disease I67.9 and Cigarette nicotine dependence without complication F17.210 [facility] [address] [facility] [id number] [address] [place] [phone] Oct, [facility] [address] [facility] [place] [address] Oct, OUTREACH [facility] [address] [facility] [place] [address] Oct, [facility] [address] [id number] [address] [place] [phone] Jul, [facility] [address] [id number] [address] [place] [id number] May, [facility] [address] [id number] [address] [place] [id number] Apr, [facility] [address] [id number] [address] [place] [phone] March, Cellulitis of right external ear H60.11 [facility] [address] [id number] [address] [place] [phone] March, 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 [facility] [address] [id number] [address] [place] [phone] Feb, Diabetes E11.9 ; Hypertensio n I10 and Cerebrovascular disease I67.9 [facility] [address] [id number] [address] [place] [phone] Jan, [facility] [address] [id number] [address] [place] [phone] Jan, Cerebrovascular accident (CV A), unspecified mechanism I63.9 [facility] [address] [id number] [address] [place] [address] Jan, Cerebrovascular accident (CV A), unspecified mechanism I63.9 [facility] [address] [id number] [address] [place] [phone] Dec, [facility] [address] [facility] [id number] [address] [place] [phone] Sep, [facility] [address] [id number] [address] [place] [phone] Sep, Diabetes E11.9 and Hypertens ion I10 [facility] [address] [id number] [address] [place] [phone] Aug, [facility] [address] [facility] [id number] [address] [place] [id number] Aug, Allergic contact dermatitis due to plants, except food L23.7 [facility] [address] [id number] [address] [place] [phone] Jul, [facility] [address] [facility] [id number] [address] [place] [id number] Jun, [facility] [address] [facility] [id number] [address] [place] [id number] Jun, Diabetes E11.9 ; Hypertensio n I10 and Erythrocytosis D75.1 [facility] [address] [facility] [id number] [address] [place] [address] Jun, [facility] [address] [facility] [id number] [address] [place] [phone] Apr, [facility] [address] [facility] [id number] [address] [place] [id number] Apr, [facility] [address] [facility] [id number] [address] [place] [phone] Apr, Subclavian steal syndrome G4 5.8 ; Hypertension I10 and Cerebrovascular accident (CVA) due to occlusion of left middle cerebral artery I63.512 [facility] [address] [facility] [id number] [address] [place] [phone] Apr, [facility] [address] [facility] [id number] [address] [place] [address] Apr, [facility] [address] [facility] [id number] [address] [place] [phone] March, Subclavian steal syndrome G4 5.8 [facility] [address] [facility] [id number] [address] [place] [phone] March, Diabetes E11.9 [facility] [address] [facility] [id number] [address] [place] [phone] March, Diabetes E11.9 [facility] [address] [facility] [id number] [address] [place] [address] March, Diabetes E11.9 [facility] [address] [facility] [id number] [address] [place] [phone] March, Cerebrovascular accident (CV A) due to occlusion of left middle cerebral artery I63.512 ; Hypertension I10 ; Diabetes E11.9 ; Hyperlipidemia E78.5 ; Gastroesophageal reflux disease, esophagitis presence not specified K21.9 and Subclavian steal syndrome G45.8 [facility] [address] [facility] [id number] [address] [place] [address] March, [facility] [address] [facility] [id number] [address] [place] [phone] Feb, Cerebrovascular accident (CV A) due to occlusion of left middle cerebral artery I63.512 ; Diabetes E11.9 ; Hypertension I10 ; Hyperlipidemia E78.5 and Microalbuminuria R80.9 [facility] [address] [facility] [id number] [address] [place] [phone] Feb, [facility] [address] [facility] [id number] [address] [place] [phone] Feb, Diabetes E11.9 ; Hypertensio n I10 ; Microalbuminuria R80.9 and Hyperlipidemia E78.5 [facility] [address] [facility] [id number] [address] [place] [phone] Feb, [facility] [address] [facility] [id number] [address] [place] [phone] Oct, Diabetes mellitus 250.00 [facility] [address] [facility] [id number] [address] [place] [phone] May, Diabetes mellitus 250.00 [facility] [address] [id number] [address] [place] [address], [place] [address] 13 May, 2015 Fracture of finger of left h and 816.00 [facility] [address] [id number] [address] [place] [address], [place] [address] 13 Feb, 2015 [facility] [address] [id number] [address] [place] [address], [place] [address] 09 Jul, 2013 [facility] [address] [id number] [address] [place] [address], [place] [address] Jul, [facility] [address] [id number] [address] [place] [address], [place] [address] 08 Jul, 2014 [facility] [address] [id number] [address] [place] [address], [place] [address] Jul, [facility] [address] [id number] [address] [place] [address], [place] [address] Jul, [facility] [address] [id number] [address] [place] [address], [place] [address] Jul, [facility] [address] [id number] [address] [place] [address], [place] [address] Feb, [facility] [address] [id number] [address] [place] [address], [place] [address] Feb, [facility] [address] [id number] [address] [place] [address], [place] [address] Dec, [facility] [address] [id number] [address] [place] [address], [place] [address] Dec, [facility] [address] [id number] [address] [place] [address], [place] [address] Dec, [facility] [address] [id number] [address] [place] [address], [place] [address] Dec, [facility] [address] [id number] [address] [place] [address], [place] [address] Nov, [facility] [address] [id number] [address] [place] [address], [place] [address] Nov, [facility] [address] [id number] [address] [place] [address], [place] [address] Nov, [facility] [address] [id number] [address] [place] [address], [place] [address] Nov, [facility] [address] [id number] [address] [place] [address], [place] [address] Oct, [facility] [address] [id number] [address] [place] [address], [place] [address] Oct, [facility] [address] [id number] [address] [place] [address], [place] [address] Oct, [facility] [address] [id number] [address] [place] [address], [place] [address] Oct, [facility] [address] [id number] [address] [place] [address], [place] [address] Oct, [facility] [address] [id number] [address] [place] [address], [place] [address] Aug, [facility] [address] [id number] [address] [place] [address], [place] [address] Jul, [facility] [address] [id number] [address] [place] [address], [place] [address] May, [facility] [address] [id number] [address] [place] [address], [place] [address] March, [facility] [address] [id number] [address] [place] [address], [place] [address] Jan, [facility] [address] [id number] [address] [place] [address], [place] [address] Jan, [facility] [address] [id number] [address] [place] [address], [place] [address] Dec, [facility] [address] [id number] [address] [place] [address], [place] [address] Sep, [facility] [address] [id number] [address] [place] [address], [place] [address] Sep, [facility] [address] [id number] [address] [place] [address], [place] [address] Sep, [facility] [address] [id number] [address] [place] [address], [place] [address] Sep, [facility] [address] [id number] [address] [place] [address], [place] [address] Jul, [facility] [address] [id number] [address] [place] [address], [place] [address] Jun, [facility] [address] [id number] [address] [place] [address], [place] [address] Jun, [facility] [address] [id number] [address] [place] [address], [place] [address] May, [facility] [address] [id number] [address] [place] [address], [place] [address] Apr, [facility] [address] [id number] [address] [place] [address], [place] [address] Feb, [facility] [address] [id number] [address] [place] [address], [place] [address] Feb, [facility] [address] [id number] [address] [place] [address], [place] [address] Feb, [facility] [address] [id number] [address] [place] [address], [place] [address] Jan, [facility] [address] [id number] [address] [place] [address], [place] [address] Nov, [facility] [address] [id number] [address] [place] [address], [place] [address] Nov, [facility] [address] [id number] [address] [place] [address], [place] [address] Oct, [facility] [address] [id number] [address] [place] [address] 14 Sep, 2011 [facility] [address] [facility] [id number] [address] [place] [address] 14 Sep, 2011 [facility] [address] [facility] [id number] [address] [place] [address] 13 Aug, 2011 [facility] [address] [facility] [id number] [address] [place] [address] 13 Apr, 2011 IMMUNIZATIONS No Known Immunizations SOCIAL HISTORY Never Assessed REASON FOR VISIT PLAN OF CARE VITAL SIGNS MEDICATIONS Unknown Medications RESULTS No Results PROCEDURES No Known procedures INSTRUCTIONS MEDICATIONS ADMINISTERED No Known Medications MEDICAL (GENERAL) HISTORY Type Description Date Medical History hypertension Medical History pre -diabetes Medical History stroke Surgical History inguinal hernia Surgical History tonsillectomy Surgical History stint placement Surgical History colonoscopy 02/16/2014 Hospitalization History Stroke february 2018
--- OUTSIDE RECORDS SUMMARY | 2020-03-27 09:21 | XMS REPORT ---
Author Author Corbin MENDOZA Organization [facility] Address [address] [place] [address] Care Team Providers Care Boiler Setter Name Role Phone CORBIN MENDOZA Unavailable PROBLEMS Type Condition ICD9-CM Code [id number] Code Onset Dates Condition S tatus SNOMED Code Problem Hypertension I10 Active 8464554 3 Problem Microalbuminuria R80.9 Active 312 238585 Problem Cerebrovascular accident (CV A) due to occlusion of left middle cerebral artery I63.512 Active 821015522 Problem Cerebrovascular disease I67.9 Active 21952517 Problem Diabetes E11.9 Active 37580266 Problem Cigarette nicotine dependence without complication F17.210 Active 19930227 Problem Hyperlipidemia E78.5 Active 94080 004 Problem Subclavian steal syndrome G45.8 Acti ve 31282962 Problem Gastroesophageal reflux disease, esophagitis pre sence not specified K21.9 Active 309965851 Problem Neurofibromatosis Q85.00 Active 19 102221 Problem Cerebrovascular accident (CVA), unspecified mechanism I63.9 Active [id number] ALLERGIES No Information ENCOUNTERS Encounter Location Date Diagnosis [place] [id number] [place] [phone] May, [facility] [id number] [place] [phone] Feb, [facility] [address] [facility] [id number] [address] [place] [phone] Feb, [place] [address] [place] [id number] [place] [phone] Jan, Diabetes E11.9 ; Hypertensio n I10 ; Hyperlipidemia E78.5 ; Gastroesophageal reflux disease, esophagitis presence not specified K21.9 ; Cerebrovascular disease I67.9 and Cigarette nicotine dependence without complication F17.210 [facility] [address] [facility] [id number] [address] [place] [phone] Oct, OUTREACH [facility] [address] [facility] [place] [id number] Oct, OUTREACH [facility] [place] [facility] [address] [facility] [place] [address] Oct, [facility] [address] [id number] [address] [place] [phone] Jul, [facility] [address] [id number] [address] [place] [phone] May, [facility] [address] [id number] [address] [place] [phone] Apr, [facility] [address] [id number] [address] [place] [phone] March, Cellulitis of right external ear H60.11 [facility] [address] [id number] [address] [place] [phone] March, 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 [facility] [address] [id number] [address] [place] [phone] Feb, Diabetes E11.9 ; Hypertensio n I10 and Cerebrovascular disease I67.9 [facility] [address] [id number] [address] [place] [phone] Jan, [facility] [address] [id number] [address] [place] [id number] Jan, Cerebrovascular accident (CV A), unspecified mechanism I63.9 [facility] [address] [id number] [address] [place] [phone] Jan, Cerebrovascular accident (CV A), unspecified mechanism I63.9 [facility] [address] [id number] [address] [place] [phone] Dec, [facility] [address] [facility] [id number] [address] [place] [phone] Sep, [facility] [address] [id number] [address] [place] [phone] Sep, Diabetes E11.9 and Hypertens ion I10 [facility] [address] [id number] [address] [place] [phone] Aug, [facility] [address] [facility] [id number] [address] [place] [phone] Aug, Allergic contact dermatitis due to plants, except food L23.7 [facility] [address] [id number] [address] [place] [phone] Jul, [facility] [address] [facility] [id number] [address] [place] [phone] Jun, [facility] [address] [facility] [id number] [address] [place] [phone] Jun, Diabetes E11.9 ; Hypertensio n I10 and Erythrocytosis D75.1 [facility] [address] [facility] [id number] [address] [place] [phone] Jun, [facility] [address] [facility] [id number] [address] [place] [phone] Apr, [facility] [address] [facility] [id number] [address] [place] [phone] Apr, [facility] [address] [facility] [id number] [address] [place] [phone] Apr, Subclavian steal syndrome G4 5.8 ; Hypertension I10 and Cerebrovascular accident (CVA) due to occlusion of left middle cerebral artery I63.512 [facility] [address] [facility] [id number] [address] [place] [phone] Apr, [facility] [address] [facility] [id number] [address] [place] [phone] Apr, [facility] [address] [facility] [id number] [address] [place] [phone] March, Subclavian steal syndrome G4 5.8 [facility] [address] [facility] [id number] [address] [place] [phone] March, Diabetes E11.9 [facility] [address] [facility] [id number] [address] [place] [phone] March, Diabetes E11.9 [facility] [address] [facility] [id number] [address] [place] [phone] March, Diabetes E11.9 [facility] [address] [facility] [id number] [address] [place] [phone] March, Cerebrovascular accident (CV A) due to occlusion of left middle cerebral artery I63.512 ; Hypertension I10 ; Diabetes E11.9 ; Hyperlipidemia E78.5 ; Gastroesophageal reflux disease, esophagitis presence not specified K21.9 and Subclavian steal syndrome G45.8 [facility] [address] [facility] [id number] [address] [place] [phone] March, [facility] [address] [facility] [id number] [address] [place] [phone] Feb, Cerebrovascular accident (CV A) due to occlusion of left middle cerebral artery I63.512 ; Diabetes E11.9 ; Hypertension I10 ; Hyperlipidemia E78.5 and Microalbuminuria R80.9 [facility] [address] [facility] [id number] [address] [place] [phone] Feb, [facility] [address] [facility] [id number] [address] [place] [phone] Feb, Diabetes E11.9 ; Hypertensio n I10 ; Microalbuminuria R80.9 and Hyperlipidemia E78.5 [facility] [address] [facility] [id number] [address] [place] [phone] Feb, [facility] [address] [facility] [id number] [address] [place] [phone] Oct, Diabetes mellitus 250.00 [facility] [address] [facility] [id number] [address] [place] [phone] May, Diabetes mellitus 250.00 [facility] [address] [id number] [address] [place] [address], [place] [id number] 13 May, 2015 Fracture of finger of left h and 816.00 [facility] [address] [id number] [address] [place] [address], [place] [id number] 13 Feb, 2015 [facility] [address] [id number] [address] [place] [address], [place] [id number] 09 Jul, 2013 [facility] [address] [id number] [address] [place] [address], [place] [id number] Jul, [facility] [address] [id number] [address] [place] [address], [place] [id number] 08 Jul, 2014 [facility] [address] [id number] [address] [place] [address], [place] [id number] Jul, [facility] [address] [id number] [address] [place] [address], [place] [id number] Jul, [facility] [address] [id number] [address] [place] [address], [place] [id number] Jul, [facility] [address] [id number] [address] [place] [address], [place] [id number] Feb, [facility] [address] [id number] [address] [place] [address], [place] [id number] Feb, [facility] [address] [id number] [address] [place] [address], [place] [id number] Dec, [facility] [address] [id number] [address] [place] [address], [place] [id number] Dec, [facility] [address] [id number] [address] [place] [address], [place] [id number] Dec, [facility] [address] [id number] [address] [place] [address], [place] [id number] Dec, [facility] [address] [id number] [address] [place] [address], [place] [id number] Nov, [facility] [address] [id number] [address] [place] [address], [place] [id number] Nov, [facility] [address] [id number] [address] [place] [address], [place] [id number] Nov, [facility] [address] [id number] [address] [place] [address], [place] [id number] Nov, [facility] [address] [id number] [address] [place] [address], [place] [id number] Oct, [facility] [address] [id number] [address] [place] [address], [place] [id number] Oct, [facility] [address] [id number] [address] [place] [address], [place] [id number] Oct, [facility] [address] [id number] [address] [place] [address], [place] [id number] Oct, [facility] [address] [id number] [address] [place] [address], [place] [id number] Oct, [facility] [address] [id number] [address] [place] [address], [place] [id number] Aug, [facility] [address] [id number] [address] [place] [address], [place] [id number] Jul, [facility] [address] [id number] [address] [place] [address], [place] [id number] May, [facility] [address] [id number] [address] [place] [address], [place] [id number] March, [facility] [address] [id number] [address] [place] [address], [place] [id number] Jan, [facility] [address] [id number] [address] [place] [address], [place] [id number] Jan, [facility] [address] [id number] [address] [place] [address], [place] [id number] Dec, [facility] [address] [id number] [address] [place] [address], [place] [id number] Sep, [facility] [address] [id number] [address] [place] [address], [place] [id number] Sep, [facility] [address] [id number] [address] [place] [address], [place] [id number] Sep, [facility] [address] [id number] [address] [place] [address], [place] [id number] Sep, [facility] [address] [id number] [address] [place] [address], [place] [id number] Jul, [facility] [address] [id number] [address] [place] [address], [place] [id number] Jun, [facility] [address] [id number] [address] [place] [address], [place] [id number] Jun, [facility] [address] [id number] [address] [place] [address], [place] [id number] May, [facility] [address] [id number] [address] [place] [address], [place] [id number] Apr, [facility] [address] [id number] [address] [place] [address], [place] [id number] Feb, [facility] [address] [id number] [address] [place] [address], [place] [id number] Feb, [facility] [address] [id number] [address] [place] [address], [place] [id number] Feb, [facility] [address] [id number] [address] [place] [address], [place] [id number] Jan, [facility] [address] [id number] [address] [place] [address], [place] [id number] Nov, [facility] [address] [id number] [address] [place] [address], [place] [id number] Nov, [facility] [address] [id number] [address] [place] [address], [place] [id number] Oct, [facility] [address] [id number] [address] [place] [id number] 14 Sep, 2011 [facility] [address] [facility] [id number] [address] [place] [id number] 14 Sep, 2011 [facility] [address] [facility] [id number] [address] [place] [id number] 13 Aug, 2011 [facility] [address] [facility] [id number] [address] [place] [id number] 13 Apr, 2011 IMMUNIZATIONS No Known Immunizations [...]
--- OUTSIDE RECORDS SUMMARY | 2020-03-27 09:21 | XMS REPORT ---
Author Author Corbin MENDOZA Organization [facility] Address [address] [place] [address] Care Team Providers Care Premium Card Cancellation Clerk Name Role Phone CORBIN MENDOZA Unavailable PROBLEMS Type Condition ICD9-CM Code [id number] Code Onset Dates Condition S tatus SNOMED Code Problem Hypertension I10 Active 2168110 3 Problem Microalbuminuria R80.9 Active 312 003796 Problem Cerebrovascular accident (CV A) due to occlusion of left middle cerebral artery I63.512 Active 741754584 Problem Cerebrovascular disease I67.9 Active 84804113 Problem Diabetes E11.9 Active 13114516 Problem Cigarette nicotine dependence without complication F17.210 Active 58506662 Problem Hyperlipidemia E78.5 Active 93483 004 Problem Subclavian steal syndrome G45.8 Acti ve 55576389 Problem Gastroesophageal reflux disease, esophagitis pre sence not specified K21.9 Active 300928833 Problem Neurofibromatosis Q85.00 Active 19 226366 Problem Cerebrovascular accident (CVA), unspecified mechanism I63.9 Active 459598307 ALLERGIES No Information ENCOUNTERS Encounter Location Date Diagnosis [place] [address] [place] [address] May, [place] [address] [place] [address] Feb, [place] [address] [facility] [id number] [address] [place] [address] Feb, [place] [address] [address] [place] [id number] [address] [place] [address] Jan, Diabetes E11.9 ; Hypertensio n I10 ; Hyperlipidemia E78.5 ; Gastroesophageal reflux disease, esophagitis presence not specified K21.9 ; Cerebrovascular disease I67.9 and Cigarette nicotine dependence without complication F17.210 [facility] [address] [facility] [id number] [address] [place] [address] Oct, OUTREACH [facility] [address] [facility] [place] [address] Oct, OUTREACH [facility] [address] [facility] [place] [address] Oct, [facility] [address] [id number] [address] [place] [address] Jul, [facility] [address] [id number] [address] [place] [address] May, [facility] [address] [id number] [address] [place] [address] Apr, [facility] [address] [id number] [address] [place] [address] March, Cellulitis of right external ear H60.11 [facility] [address] [id number] [address] [place] [address] March, 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 [facility] [address] [id number] [address] [place] [address] Feb, Diabetes E11.9 ; Hypertensio n I10 and Cerebrovascular disease I67.9 [facility] [address] [id number] [address] [place] [address] Jan, [facility] [address] [id number] [address] [place] [address] Jan, Cerebrovascular accident (CV A), unspecified mechanism I63.9 [facility] [address] [id number] [address] [place] [address] Jan, Cerebrovascular accident (CV A), unspecified mechanism I63.9 [facility] [address] [id number] [address] [place] [address] Dec, [facility] [address] [facility] [id number] [address] [place] [address] Sep, [facility] [address] [id number] [address] [place] [address] Sep, Diabetes E11.9 and Hypertens ion I10 [facility] [address] [id number] [address] [place] [address] Aug, [facility] [address] [facility] [id number] [address] [place] [address] Aug, Allergic contact dermatitis due to plants, except food L23.7 [facility] [address] [id number] [address] [place] [address] Jul, [facility] [address] [facility] [id number] [address] [place] [address] Jun, [facility] [address] [facility] [id number] [address] [place] [address] Jun, Diabetes E11.9 ; Hypertensio n I10 and Erythrocytosis D75.1 [facility] [address] [facility] [id number] [address] [place] [address] Jun, [facility] [address] [facility] [id number] [address] [place] [address] Apr, [facility] [address] [facility] [id number] [address] [place] [address] Apr, [facility] [address] [facility] [id number] [address] [place] [address] Apr, Subclavian steal syndrome G4 5.8 ; Hypertension I10 and Cerebrovascular accident (CVA) due to occlusion of left middle cerebral artery I63.512 [facility] [address] [facility] [id number] [address] [place] [address] Apr, [facility] [address] [facility] [id number] [address] [place] [address] Apr, [facility] [address] [facility] [id number] [address] [place] [address] March, Subclavian steal syndrome G4 5.8 [facility] [address] [facility] [id number] [address] [place] [address] March, Diabetes E11.9 [facility] [address] [facility] [id number] [address] [place] [address] March, Diabetes E11.9 [facility] [address] [facility] [id number] [address] [place] [address] March, Diabetes E11.9 [facility] [address] [facility] [id number] [address] [place] [address] March, Cerebrovascular accident (CV A) due to occlusion of left middle cerebral artery I63.512 ; Hypertension I10 ; Diabetes E11.9 ; Hyperlipidemia E78.5 ; Gastroesophageal reflux disease, esophagitis presence not specified K21.9 and Subclavian steal syndrome G45.8 [facility] [address] [facility] [id number] [address] [place] [address] March, [facility] [address] [facility] [id number] [address] [place] [address] Feb, Cerebrovascular accident (CV A) due to occlusion of left middle cerebral artery I63.512 ; Diabetes E11.9 ; Hypertension I10 ; Hyperlipidemia E78.[address] [facility] [address] [facility] [id number] [address] [place] [address] Feb, [facility] [address] [facility] [id number] [address] [place] [address] Feb, Diabetes E11.9 ; Hypertensio n I10 ; Microalbuminuria R80.[address] [facility] [address] [facility] [id number] [address] [place] [address] Feb, [facility] [address] [facility] [id number] [address] [place] [address] Oct, Diabetes mellitus 250.00 [facility] [address] [facility] [id number] [address] [place] [address] May, Diabetes mellitus 250.00 [facility] [address] [id number] [address] [place] [address], [place] [address] 13 May, 2015 Fracture of finger of left h and 816.00 [facility] [address] [id number] [address] [place] [address], [place] [address] 13 Feb, 2015 [facility] [address] [id number] [address] [place] [address], [place] [address] 09 Jul, 2013 [facility] [address] [id number] [address] [place] [address], [place] [address] Jul, [facility] [address] [id number] [address] [place] [address], [place] [address] 08 Jul, 2014 [facility] [address] [id number] [address] [place] [address], [place] [address] Jul, [facility] [address] [id number] [address] [place] [address], [place] [address] Jul, [facility] [address] [id number] [address] [place] [address], [place] [address] Jul, [facility] [address] [id number] [address] [place] [address], [place] [address] Feb, [facility] [address] [id number] [address] [place] [address], [place] [address] Feb, [facility] [address] [id number] [address] [place] [address], [place] [address] Dec, [facility] [address] [id number] [address] [place] [address], [place] [address] Dec, [facility] [address] [id number] [address] [place] [address], [place] [address] Dec, [facility] [address] [id number] [address] [place] [address], [place] [address] Dec, [facility] [address] [id number] [address] [place] [address], [place] [address] Nov, [facility] [address] [id number] [address] [place] [address], [place] [address] Nov, [facility] [address] [id number] [address] [place] [address], [place] [address] Nov, [facility] [address] [id number] [address] [place] [address], [place] [address] Nov, [facility] [address] [id number] [address] [place] [address], [place] [address] Oct, [facility] [address] [id number] [address] [place] [address], [place] [address] Oct, [facility] [address] [id number] [address] [place] [address], [place] [address] Oct, [facility] [address] [id number] [address] [place] [address], [place] [address] Oct, [facility] [address] [id number] [address] [place] [address], [place] [address] Oct, [facility] [address] [id number] [address] [place] [address], [place] [address] Aug, [facility] [address] [id number] [address] [place] [address], [place] [address] Jul, [facility] [address] [id number] [address] [place] [address], [place] [address] May, [facility] [address] [id number] [address] [place] [address], [place] [address] March, [facility] [address] [id number] [address] [place] [address], [place] [address] Jan, [facility] [address] [id number] [address] [place] [address], [place] [address] Jan, [facility] [address] [id number] [address] [place] [address], [place] [address] Dec, [facility] [address] [id number] [address] [place] [address], [place] [address] Sep, [facility] [address] [id number] [address] [place] [address], [place] [address] Sep, [facility] [address] [id number] [address] [place] [address], [place] [address] Sep, [facility] [address] [id number] [address] [place] [address], [place] [address] Sep, [facility] [address] [id number] [address] [place] [address], [place] [address] Jul, [facility] [address] [id number] [address] [place] [address], [place] [address] Jun, [facility] [address] [id number] [address] [place] [address], [place] [address] Jun, [facility] [address] [id number] [address] [place] [address], [place] [address] May, [facility] [address] [id number] [address] [place] [address], [place] [address] Apr, [facility] [address] [id number] [address] [place] [address], [place] [address] Feb, [facility] [address] [id number] [address] [place] [address], [place] [address] Feb, [facility] [address] [id number] [address] [place] [address], [place] [address] Feb, [facility] [address] [id number] [address] [place] [address], [place] [address] Jan, [facility] [address] [id number] [address] [place] [address], [place] [address] Nov, [facility] [address] [id number] [address] [place] [address], [place] [address] Nov, [facility] [address] [id number] [address] [place] [address], [place] [address] Oct, [facility] [address] [id number] [address] [place] [address] 14 Sep, 2011 [facility] [address] [facility] [id number] [address] [place] [address] 14 Sep, 2011 [facility] [address] [facility] [id number] [address] [place] [address] 13 Aug, 2011 [facility] [address] [facility] [id number] [address] [place] [address] 13 Apr, 2011 IMMUNIZATIONS No Known Immunizations [...]
--- OUTSIDE RECORDS SUMMARY | 2020-03-27 09:22 | XMS REPORT ---
Author Author Devan MENDOZA Organization [facility] Address [address] [place] [address] Care Team Providers Care Supervisor Byproducts Name Role Phone DEVAN MENDOZA Unavailable PROBLEMS Type Condition ICD9-CM Code JTF76-TS Code Onset Dates Condition S tatus SNOMED Code Problem Diabetes E11.9 Active 25484930 Problem Hypertension I10 Active 7922389 3 Problem Microalbuminuria R80.9 Active 312 651493 Problem Cerebrovascular accident (CVA), unspecified mechanism I63.9 Active 437926724 Problem Hyperlipidemia E78.5 Active 81836 004 Problem Cerebrovascular disease I67.9 Active 77543468 Problem Cerebrovascular accident (CV A) due to occlusion of left middle cerebral artery I63.512 Active 666301555 Problem Gastroesophageal reflux disease, esophagitis pre sence not specified K21.9 Active 986472819 Problem Subclavian steal syndrome G45.8 Acti ve 54245056 Problem Neurofibromatosis Q85.00 Active 19 994400 ALLERGIES No Information ENCOUNTERS Encounter Location Date Diagnosis [facility] [address] [id number] [place] [address] Oct, OUTREACH [address] [address] Oct, OUTREACH [address] [address] Oct, [facility] [address] [id number] [place] [address] Jul, [facility] [address] [id number] [place] [address] May, [facility] [address] [id number] [place] [address] Apr, [facility] [address] [facility] [id number] [address] [place] [address] March, Cellulitis of right external ear H60.11 [place] [address] [address] March, 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 [place] [address] [address] Feb, Diabetes E11.9 ; Hypertension I10 and Ce rebrovascular disease I67.9 [place] [address] [address] Jan, [place] [address] [address] Jan, Cerebrovascular accident (CVA), unspecif ied mechanism I63.9 [place] [address] [address] Jan, Cerebrovascular accident (CVA), unspecif ied mechanism I63.9 [place] [address] [address] Dec, [place] [address] [address] Sep, [place] [address] [address] Sep, Diabetes E11.9 and Hypertension I10 [facility] [address] [place] [id number] [address] [place] [address] Aug, [facility] [address] [place], [place] [id number] [address] [place] [address] Aug, Allergic contact dermatitis due to plants, except food L23.7 [place] [address] [address] Jul, [place] [address] [address] Jun, [place] [address] [address] Jun, Diabetes E11.9 ; Hypertension I10 and Er ythrocytosis D75.1 [place] [address] [address] Jun, [facility] [address] [address] Apr, [place] [address] [address] Apr, [place] [address] [address] Apr, Subclavian steal syndrome G45.8 ; Hypert ension I10 and Cerebrovascular accident (CVA) due to occlusion of left middle cerebral artery I63.512 [place] [address] [address] Apr, [place] [address] [address] Apr, [place] [address] [address] March, Subclavian steal syndrome G45.8 [place] [address] [address] March, Diabetes E11.9 [place] [address] [address] March, Diabetes E11.9 [place] [address] [address] March, Diabetes E11.9 [place] [address] [address] March, Cerebrovascular accident (CVA) due to oc clusion of left middle cerebral artery I63.512 ; Hypertension I10 ; Diabetes E11.9 ; Hyperlipidemia E78.5 ; Gastroesophageal reflux disease, esophagitis presence not specified K21.9 and Subclavian steal syndrome G45.8 [place] [address] [address] March, [place] [address] [address] Feb, Cerebrovascular accident (CVA) due to oc clusion of left middle cerebral artery I63.512 ; Diabetes E11.9 ; Hypertension I10 ; Hyperlipidemia E78.5 and Microalbuminuria R80.9 [facility] [address] [address] Feb, [facility] [address] [address] Feb, Diabetes E11.9 ; Hypertension I10 ; Micr oalbuminuria R80.9 and Hyperlipidemia E78.5 [facility] [address] [address] Feb, [facility] [address] [address] Oct, Diabetes mellitus 250.00 [facility] [address] [address] May, Diabetes mellitus 250.00 [facility] [address] [address] May, Fracture of finger of left hand 816.00 [facility] [address] [address] Feb, [facility] [address] [address] Jul, [facility] [address] [address] Jul, [facility] [address] [address] Jul, [facility] [address] [address] Jul, [facility] [address] [address] Jul, [facility] [address] [address] Jul, [facility] [address] [id number] [place] [address] Feb, [facility] [address] [id number] [place] [address] Feb, [facility] [address] [id number] [place] [address] Dec, [facility] [address] [place] [id number] [place] [address] Dec, [facility] [address] [id number] [place] [address] Dec, [facility] [address] [place] [id number] [place] [address] Dec, [facility] [address] [place] [id number] [place] [address] Nov, [facility] [address] [place] [id number] [place] [address] Nov, [facility] [address] [id number] [place] [address] Nov, [facility] [address] [place] [id number] [place] [address] Nov, [facility] [address] [place] [id number] [place] [address] Oct, [facility] [address] [place] [id number] [place] [address] Oct, [facility] [address] [id number] [place] [address] Oct, [facility] [address] [id number] [place] [address] Oct, [facility] [address] [id number] [place] [address] Oct, [facility] [address] [id number] [place] [address] Aug, [facility] [address] [place] [id number] [place] [address] Jul, [facility] [address] [id number] [place] [address] May, [facility] [address] [id number] [place] [address] March, [facility] [address] [id number] [place] [address] Jan, [facility] [address] [id number] [place] [address] Jan, [facility] [address] [id number] [place] [address] Dec, [facility] [address] [id number] [place] [address] Sep, [facility] [address] [id number] [place] [address] Sep, [facility] [address] [id number] [place] [address] Sep, [facility] [address] [id number] [place] [address] Sep, [facility] [id number] [place] [address] Jul, [facility] [address] [id number] [place] [address] Jun, [facility] [address] [id number] [place] [address] Jun, [facility] [address] [id number] [place] [address] May, [facility] [address] [id number] [place] [address] Apr, [facility] [address] [id number] [place] [address] Feb, [facility] [address] [id number] [place] [address] Feb, [facility] [address] [id number] [place] [address] Feb, [facility] [address] [id number] [place] [address] Jan, [facility] [address] [id number] [place] [address] Nov, [facility] [address] [id number] [place] [address] Nov, [facility] [id number] [place] [address] Oct, [facility] [address] [id number] [place] [address] Sep, [facility] [address] [id number] [place] [address] Sep, [facility] [address] [id number] [place] [address] Aug, [facility] [address] [id number] [place] [address] Apr, IMMUNIZATIONS No Known Immunizations SOCIAL HISTORY [...]
--- OUTSIDE RECORDS SUMMARY | 2020-03-27 09:22 | XMS REPORT ---
Author Author Devan MENDOZA Organization [facility] Address [address] [place] [address] Care Team Providers Care [employer] Finisher Name Role Phone DEVAN MENODZA Unavailable PROBLEMS Type Condition ICD9-CM Code [id number] Code Onset Dates Condition S tatus SNOMED Code Problem Hypertension I10 Active 8698407 3 Problem Microalbuminuria R80.9 Active 312 185180 Problem Cerebrovascular accident (CV A) due to occlusion of left middle cerebral artery I63.512 Active 646554073 Problem Cerebrovascular disease I67.9 Active 21096876 Problem Diabetes E11.9 Active 22917353 Problem Cigarette nicotine dependence without complication F17.210 Active 00288049 Problem Hyperlipidemia E78.5 Active 06864 004 Problem Subclavian steal syndrome G45.8 Acti ve 41680647 Problem Gastroesophageal reflux disease, esophagitis pre sence not specified K21.9 Active 796375128 Problem Neurofibromatosis Q85.00 Active 19 614127 Problem Cerebrovascular accident (CVA), unspecified mechanism I63.9 Active [id number] ALLERGIES No Information ENCOUNTERS Encounter Location Date Diagnosis [facility] [address] [facility] [id number] [address] [place] [address] May, [facility] [address] [place] [id number] [address] [place] [address] Jan, Diabetes E11.9 ; Hypertensio n I10 ; Hyperlipidemia E78.5 ; Gastroesophageal reflux disease, esophagitis presence not specified K21.9 ; Cerebrovascular disease I67.9 and Cigarette nicotine dependence without complication F17.210 [facility] [address] [facility] [id number] [address] [place] [address] Oct, [facility] [address] [address] Oct, [facility] [address] [place] [address] Oct, [facility] [address] [id number] [address] [place] [address] Jul, [facility] [address] [facility] [id number] [address] [place] [address] May, [facility] [address] [id number] [address] [place] [address] Apr, [facility] [address] [id number] [address] [place] [address] March, Cellulitis of right external ear H60.11 [facility] [address] [facility] [id number] [address] [place] [address] March, 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 [facility] [address] [facility] [id number] [address] [place] [address] Feb, Diabetes E11.9 ; Hypertensio n I10 and Cerebrovascular disease I67.9 [facility] [address] [id number] [address] [place] [address] Jan, [facility] [address] [facility] [id number] [address] [place] [address] Jan, Cerebrovascular accident (CV A), unspecified mechanism I63.9 [facility] [address] [facility] [id number] [address] [place] [address] Jan, Cerebrovascular accident (CV A), unspecified mechanism I63.9 [facility] [address] [id number] [address] [place] [address] Dec, [facility] [address] [facility] [id number] [address] [place] [address] Sep, [facility] [address] [facility] [id number] [address] [place] [address] Sep, Diabetes E11.9 and Hypertens ion I10 [facility] [address] [facility] [id number] [address] [place] [address] Aug, [facility] [address] [facility] [id number] [address] [place] [address] Aug, Allergic contact dermatitis due to plants, except food L23.7 [facility] [address] [id number] [address] [place] [address] Jul, [facility] [address] [facility] [id number] [address] [place] [address] Jun, [facility] [address] [facility] [id number] [address] [place] [address] Jun, Diabetes E11.9 ; Hypertensio n I10 and Erythrocytosis D75.1 [facility] [address] [facility] [id number] [address] [place] [address] Jun, [facility] [address] [facility] [id number] [address] [place] [address] Apr, [facility] [address] [facility] [id number] [address] [place] [address] Apr, [facility] [address] [facility] [id number] [address] [place] [address] Apr, Subclavian steal syndrome G4 5.8 ; Hypertension I10 and Cerebrovascular accident (CVA) due to occlusion of left middle cerebral artery I63.512 [facility] [address] [facility] [id number] [address] [place] [address] Apr, [facility] [address] [facility] [id number] [address] [place] [address] Apr, [facility] [address] [facility] [id number] [address] [place] [address] March, Subclavian steal syndrome G4 5.8 [facility] [address] [facility] [id number] [address] [place] [address] March, Diabetes E11.9 [facility] [address] [place] [id number] [address] [place] [address] March, Diabetes E11.9 [facility] [address] [place] [id number] [address] [place] [address] March, Diabetes E11.9 [place] [address] [place] [id number] [address] [place] [address] March, Cerebrovascular accident (CV A) due to occlusion of left middle cerebral artery I63.512 ; Hypertension I10 ; Diabetes E11.9 ; Hyperlipidemia E78.5 ; Gastroesophageal reflux disease, esophagitis presence not specified K21.9 and Subclavian steal syndrome G45.8 [place] [address] [address] March, [place] [address] [address] Feb, Cerebrovascular accident (CV A) due to occlusion of left middle cerebral artery I63.512 ; Diabetes E11.9 ; Hypertension I10 ; Hyperlipidemia E78.5 and Microalbuminuria R80.9 [place] [address] [place] [address] Feb, [place] [address] [address] Feb, Diabetes E11.9 ; Hypertensio n I10 ; Microalbuminuria R80.9 and Hyperlipidemia E78.5 [place] [address] [place] [id number] [address] [place] [address] Feb, [place] [address] [place] [id number] [address] [place] [address] Oct, Diabetes mellitus 250.00 [place] [address] [place] [id number] [address] [place] [address] 28 May, 2015 Diabetes mellitus 250.00 [place] [address] [place] [id number] [address] [place] [address] 13 May, 2015 Fracture of finger of left h and 816.00 [place] [address] [place] [id number] [address] [place] [address] 13 Feb, 2015 [facility] [address] [id number] [address] [place] [address], [place] [address] 09 Jul, 2013 [facility] [address] [id number] [address] [place] [address], [place] [address] 09 Jul, 2013 [facility] [address] [id number] [address] [place] [address], [place] [address] 08 Jul, 2013 [facility] [address] [id number] [address] [place] [address], [place] [address] 08 Jul, 2013 [facility] [address] [id number] [address] [place] [address], [place] [address] 08 Jul, 2013 [facility] [address] [id number] [address] [place] [address], [place] [address] Jul, 2013 [facility] [address] [id number] [address] [place] [address], [place] [address] Feb, [facility] [address] [id number] [address] [place] [address], [place] [address] Feb, [facility] [address] [id number] [address] [place] [address], [place] [address] Dec, [facility] [address] [id number] [address] [place] [address], [place] [address] Dec, [facility] [address] [id number] [address] [place] [address], [place] [address] Dec, [facility] [address] [id number] [address] [place] [address], [place] [address] Dec, [facility] [address] [id number] [address] [place] [address], [place] [address] Nov, [facility] [address] [id number] [address] [place] [address], [place] [address] Nov, [facility] [address] [id number] [address] [place] [address], [place] [address] Nov, [facility] [address] [id number] [address] [place] [address], [place] [address] Nov, [facility] [address] [id number] [address] [place] [address], [place] [address] Oct, [facility] [address] [id number] [address] [place] [address], [place] [address] Oct, [facility] [address] [id number] [address] [place] [address], [place] [address] Oct, [facility] [address] [id number] [address] [place] [address], [place] [address] Oct, [facility] [address] [id number] [address] [place] [address], [place] [address] Oct, [facility] [address] [id number] [address] [place] [address], [place] [address] Aug, [facility] [address] [id number] [address] [place] [address], [place] [address] Jul, [facility] [address] [id number] [address] [place] [address], [place] [address] May, [facility] [address] [id number] [address] [place] [address], [place] [address] March, [facility] [address] [id number] [address] [place] [address], [place] [address] Jan, [facility] [address] [id number] [address] [place] [address], [place] [address] Jan, [facility] [address] [id number] [address] [place] [address], [place] [address] Dec, [facility] [address] [id number] [address] [place] [address], [place] [address] Sep, [facility] [address] [id number] [address] [place] [address], [place] [address] Sep, [facility] [address] [id number] [address] [place] [address], [place] [address] Sep, [facility] [address] [id number] [address] [place] [address], [place] [address] Sep, [facility] [address] [id number] [address] [place] [address], [place] [address] Jul, [facility] [address] [id number] [address] [place] [address], [place] [address] Jun, [facility] [address] [id number] [address] [place] [address], [place] [address] Jun, [facility] [address] [id number] [address] [place] [address], [place] [address] May, [facility] [address] [id number] [address] [place] [address], [place] [address] Apr, [facility] [address] [id number] [address] [place] [address], [place] [address] Feb, [facility] [address] [id number] [address] [place] [address], [place] [address] Feb, [facility] [address] [id number] [address] [place] [address], [place] [address] Feb, [facility] [address] [id number] [address] [place] [address], [place] [address] Jan, [facility] [address] [id number] [address] [place] [address], [place] [address] Nov, [facility] [address] [id number] [address] [place] [address], [place] [address] Nov, [facility] [address] [id number] [address] [place] [address], [place] [address] Oct, [facility] [address] [id number] [address] [place] [address], [place] [address] 14 Sep, 2011 [facility] [address] [id number] [address] [place] [address], [place] [address] Sep, [facility] [address] [id number] [address] [place] [address] 13 Aug, 2011 [facility] [address] [facility] [id number] [address] [place] [address] 13 Apr, 2011 IMMUNIZATIONS No Known Immunizations [...]
--- OUTSIDE RECORDS SUMMARY | 2020-03-27 09:22 | XMS REPORT ---
Author Author Devan MENDOZA Organization [facility] Address [address] [place] [address] Care Team Providers Care Bag Patcher Name Role Phone DEVAN MENDOZA Unavailable PROBLEMS Type Condition ICD9-CM Code [id number] Code Onset Dates Condition S tatus SNOMED Code Problem Diabetes E11.9 Active 22560757 Problem Hypertension I10 Active 3611366 3 Problem Microalbuminuria R80.9 Active 312 278247 Problem Cerebrovascular accident (CVA), unspecified mechanism I63.9 Active 096337723 Problem Hyperlipidemia E78.5 Active 48948 004 Problem Cerebrovascular disease I67.9 Active 49250831 Problem Cerebrovascular accident (CV A) due to occlusion of left middle cerebral artery I63.512 Active 175744292 Problem Gastroesophageal reflux disease, esophagitis pre sence not specified K21.9 Active 568724181 Problem Subclavian steal syndrome G45.8 Acti ve 77491960 Problem Neurofibromatosis Q85.00 Active 19 503571 ALLERGIES No Information ENCOUNTERS Encounter Location Date Diagnosis [facility] [address] [id number] [place] [address] Oct, [facility] [address] [address] Oct, OUT[address] [address] [address] Oct, [facility] [address] [id number] [place] [address] Jul, [facility] [address] [id number] [place] [address] May, [facility] [address] [id number] [place] [address] Apr, [facility] [address] [facility] [id number] [address] [place] [address] March, Cellulitis of right external ear H60.11 [place] [address] [address] March, 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 [place] [address] [address] Feb, Diabetes E11.9 ; Hypertension I10 and Ce rebrovascular disease I67.9 [place] [address] [address] Jan, [place] [address] [address] Jan, Cerebrovascular accident (CVA), unspecif ied mechanism I63.9 [place] [address] [address] Jan, Cerebrovascular accident (CVA), unspecif ied mechanism I63.9 [place] [address] [address] Dec, [place] [address] [address] Sep, [place] [address] [address] Sep, Diabetes E11.9 and Hypertension I10 [facility] [address] [place] [id number] [address] [place] [address] Aug, [facility] [address] [place] [id number] [address] [place] [address] Aug, Allergic contact dermatitis due to plants, except food L23.7 [place] [address] [address] Jul, [place] [address] [address] Jun, [place] [address] [address] Jun, Diabetes E11.9 ; Hypertension I10 and Er ythrocytosis D75.1 [place] [address] [address] Jun, [facility] [address] [address] Apr, [place] [address] [address] Apr, [place] [address] [address] Apr, Subclavian steal syndrome G45.8 ; Hypert ension I10 and Cerebrovascular accident (CVA) due to occlusion of left middle cerebral artery I63.512 [place] [address] [address] Apr, [place] [address] [address] Apr, [place] [address] [address] March, Subclavian steal syndrome G45.8 [place] [address] [address] March, Diabetes E11.9 [place] [address] [address] March, Diabetes E11.9 [place] [address] [address] March, Diabetes E11.9 [place] [address] [address] March, Cerebrovascular accident (CVA) due to oc clusion of left middle cerebral artery I63.512 ; Hypertension I10 ; Diabetes E11.9 ; Hyperlipidemia E78.5 ; Gastroesophageal reflux disease, esophagitis presence not specified K21.9 and Subclavian steal syndrome G45.8 [place] [address] [address] March, [place] [address] [address] Feb, Cerebrovascular accident (CVA) due to oc clusion of left middle cerebral artery I63.512 ; Diabetes E11.9 ; Hypertension I10 ; Hyperlipidemia E78.5 and Microalbuminuria R80.9 [facility] [address] [address] Feb, [facility] [address] [address] Feb, Diabetes E11.9 ; Hypertension I10 ; Micr oalbuminuria R80.9 and Hyperlipidemia E78.5 [facility] [address] [address] Feb, [facility] [address] [address] Oct, Diabetes mellitus 250.00 [facility] [address] [address] May, Diabetes mellitus 250.00 [facility] [address] [address] May, Fracture of finger of left hand 816.00 [facility] [address] [address] Feb, [facility] [address] [address] Jul, [facility] [address] [address] Jul, [facility] [address] [address] Jul, [facility] [address] [address] Jul, [facility] [address] [address] Jul, [facility] [address] [address] Jul, [facility] [address] [id number] [place] [address] Feb, [facility] [address] [id number] [place] [address] Feb, [facility] [address] [id number] [place] [address] Dec, [facility] [address] [place] [id number] [place] [address] Dec, [facility] [address] [id number] [place] [address] Dec, [facility] [address] [place] [id number] [place] [address] Dec, [facility] [address] [place] [id number] [place] [address] Nov, [facility] [address] [place] [id number] [place] [address] Nov, [facility] [address] [id number] [place] [address] Nov, [facility] [address] [place] [id number] [place] [address] Nov, [facility] [address] [place] [id number] [place] [address] Oct, [facility] [address] [place] [id number] [place] [address] Oct, [facility] [address] [id number] [place] [address] Oct, [facility] [address] [id number] [place] [address] Oct, [facility] [address] [id number] [place] [address] Oct, [facility] [address] [id number] [place] [address] Aug, [facility] [address] [place] [id number] [place] [address] Jul, [facility] [address] [id number] [place] [address] May, [facility] [address] [id number] [place] [address] March, [facility] [address] [id number] [place] [address] Jan, [facility] [address] [id number] [place] [address] Jan, [facility] [address] [id number] [place] [address] Dec, [facility] [address] [id number] [place] [address] Sep, [facility] [address] [id number] [place] [address] Sep, [facility] [address] [id number] [place] [address] Sep, [facility] [address] [id number] [place] [address] Sep, [facility] [address] [place] [id number] [place] [address] Jul, [facility] [address] [id number] [place] [address] Jun, [facility] [address] [id number] [place] [address] Jun, [facility] [address] [id number] [place] [address] May, [facility] [address] [id number] [place] [address] Apr, [facility] [address] [id number] [place] [address] Feb, [facility] [address] [id number] [place] [address] Feb, [facility] [address] [id number] [place] [address] Feb, [facility] [address] [id number] [place] [address] Jan, [facility] [address] [id number] [place] [address] Nov, [facility] [address] [id number] [place] [address] Nov, [facility] [id number] [place] [address] Oct, [facility] [address] [id number] [place] [address] Sep, [facility] [address] [id number] [place] [address] Sep, [facility] [address] [id number] [place] [address] Aug, [facility] [address] [id number] [place] [address] Apr, IMMUNIZATIONS No Known Immunizations SOCIAL HISTORY [...]
--- OUTSIDE RECORDS SUMMARY | 2020-03-27 09:22 | XMS REPORT ---
Author Author Devan CHANEY [facility] Address [address] [place] [address] Care Team Providers Care Human Resources Operations Coordinator Name Role Phone SALVADOR CHANEY Unavailable PROBLEMS Type Condition ICD9-CM Code UQT07-LT Code Onset Dates Condition S tatus SNOMED Code Problem Diabetes E11.9 Active 99791609 Problem Hypertension I10 Active 9006575 3 Problem Microalbuminuria R80.9 Active 312 472980 Problem Cerebrovascular accident (CVA), unspecified mechanism I63.9 Active 901682018 Problem Hyperlipidemia E78.5 Active 45689 004 Problem Cerebrovascular disease I67.9 Active 06412240 Problem Cerebrovascular accident (CV A) due to occlusion of left middle cerebral artery I63.512 Active 701613352 Problem Gastroesophageal reflux disease, esophagitis pre sence not specified K21.9 Active 644173898 Problem Subclavian steal syndrome G45.8 Acti ve 96175004 Problem Neurofibromatosis Q85.00 Active 19 897528 ALLERGIES No Information ENCOUNTERS Encounter Location Date Diagnosis [facility] [id number] [place] [address] 14 Apr, 2019 [facility] [address] [place] [id number] [address] [place] [address] March, Cellulitis of right external ear H60.11 [facility] [address] [id number] [address] [place] [address] March, 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 [facility] [address] [place] [id number] [address] [place] [address] 15 Feb, 2019 Diabetes E11.9 ; Hypertensio n I10 and Cerebrovascular disease I67.9 [facility] [address] [place] [id number] [address] [place] [address] Jan, [facility] [address] [facility] [id number] [address] [place] [address] Jan, Cerebrovascular accident (CV A), unspecified mechanism I63.9 [facility] [address] [facility] [id number] [address] [place] [address] Jan, Cerebrovascular accident (CV A), unspecified mechanism I63.9 [facility] [address] [place] [id number] [address] [place] [address] Dec, [facility] [address] [place] [place] [id number] [address] [place] [address] Sep, [facility] [address] [address] Sep, Diabetes E11.9 and Hypertens ion I10 [facility] [address] [address] Aug, [facility] [address] [address] Aug, Allergic contact dermatitis due to plants, except food L23.7 [facility] [address] [place] [id number] [address] [place] [address] Jul, [facility] [address] [id number] [address] [place] [address] Jun, [facility] [address] [address] Jun, Diabetes E11.9 ; Hypertensio n I10 and Erythrocytosis D75.1 [facility] [address] [id number] [address] [place] [address] Jun, [facility] [address] [place] [id number] [address] [place] [address] Apr, [facility] [address] [id number] [address] [place] [address] Apr, [facility] [address] [facility] [id number] [address] [place] [address] Apr, Subclavian steal syndrome G4 5.8 ; Hypertension I10 and Cerebrovascular accident (CVA) due to occlusion of left middle cerebral artery I63.512 [facility] [address] [id number] [address] [place] [address] Apr, [facility] [address] [facility] [id number] [address] [place] [address] Apr, [facility] [address] [id number] [address] [place] [address] March, Subclavian steal syndrome G4 5.8 [place] [address] [facility] [id number] [address] [place] [address] March, Diabetes E11.9 [place] [id number] [facility] [id number] [address] [place] [address] March, Diabetes E11.9 [place] [address] [facility] [id number] [address] [place] [address] March, Diabetes E11.9 [facility] [address] [facility] [id number] [address] [place] [address] March, Cerebrovascular accident (CV A) due to occlusion of left middle cerebral artery I63.512 ; Hypertension I10 ; Diabetes E11.9 ; Hyperlipidemia E78.5 ; Gastroesophageal reflux disease, esophagitis presence not specified K21.9 and Subclavian steal syndrome G45.8 [facility] [address] [facility] [id number] [address] [place] [address] March, [facility] [address] [facility] [id number] [address] [place] [address] Feb, Cerebrovascular accident (CV A) due to occlusion of left middle cerebral artery I63.512 ; Diabetes E11.9 ; Hypertension I10 ; Hyperlipidemia E78.[address] [facility] [address] [facility] [id number] [address] [place] [address] Feb, [facility] [address] [id number] [address] [place] [address] Feb, Diabetes E11.9 ; Hypertensio n I10 ; Microalbuminuria R80.[address] [facility] [address] [id number] [address] [place] [address] Feb, [facility] [address] [id number] [address] [place] [address] Oct, Diabetes mellitus 250.00 [facility] [address] [id number] [address] [place] [address] May, Diabetes mellitus 250.00 [facility] [address] [id number] [address] [place] [address] May, Fracture of finger of left h and 816.00 [facility] [address] [id number] [address] [place] [address] Feb, [facility] [address] [id number] [address] [place] [address] Jul, [facility] [address] [id number] [address] [place] [address] Jul, [facility] [address] [id number] [address] [place] [address] Jul, [facility] [address] [id number] [address] [place] [address] Jul, [facility] [address] [id number] [address] [place] [address] Jul, [facility] [address] [id number] [address] [place] [address] Jul, [facility] [address] [id number] [address] [place] [address] Feb, [facility] [address] [id number] [address] [place] [address] Feb, [facility] [address] [id number] [address] [place] [address], [place] [address] Dec, [facility] [address] [id number] [address] [place] [address], [place] [address] Dec, [facility] [address] [id number] [address] [place] [address], [place] [address] Dec, [facility] [address] [id number] [address] [place] [address], [place] [address] Dec, [facility] [address] [id number] [address] [place] [address], [place] [address] Nov, [facility] [address] [id number] [address] [place] [address], [place] [address] Nov, [facility] [address] [id number] [address] [place] [address], [place] [address] Nov, [facility] [address] [id number] [address] [place] [address], [place] [address] Nov, [facility] [address] [id number] [address] [place] [address], [place] [address] Oct, [facility] [address] [id number] [address] [place] [address], [place] [address] Oct, [facility] [address] [id number] [address] [place] [address], [place] [address] Oct, [facility] [address] [id number] [address] [place] [address], [place] [address] Oct, [facility] [address] [id number] [address] [place] [address], [place] [address] Oct, [facility] [address] [id number] [address] [place] [address], [place] [address] Aug, [facility] [address] [id number] [address] [place] [address], [place] [address] 03 Jul, 2013 [facility] [address] [id number] [address] [place] [address] [address] May, [facility] [address] [id number] [address] [place] [address], [place] [address] March, [facility] [address] [id number] [address] [place] [address], [place] [address] Jan, [facility] [address] [id number] [address] [place] [address], [place] [address] Jan, [facility] [address] [id number] [address] [place] [address], [place] [address] Dec, [facility] [address] [id number] [address] [place] [address], [place] [address] Sep, [facility] [address] [id number] [address] [place] [address], [place] [address] Sep, [facility] [address] [id number] [address] [place] [address], [place] [address] Sep, [facility] [address] [id number] [address] [place] [address], [place] [address] Sep, [facility] [address] [id number] [address] [place] [address], [place] [address] Jul, [facility] [address] [id number] [address] [place] [address], [place] [address] Jun, [facility] [address] [id number] [address] [place] [address], [place] [address] Jun, [facility] [address] [id number] [address] [place] [address], [place] [address] May, [facility] [address] [id number] [address] [place] [address], [place] [address] Apr, [facility] [address] [id number] [address] [place] [address], [place] [address] Feb, [facility] [address] [id number] [address] [place] [address], [place] [address] Feb, [facility] [address] [id number] [address] [place] [address] Feb, [facility] [address] [id number] [address] [place] [address] Jan, [facility] [address] [id number] [address] [place] [address] Nov, [facility] [address] [id number] [address] [place] [address] Nov, [facility] [address] [id number] [address] [place] [address] Oct, [facility] [address] [facility] [id number] [address] [place] [address] Sep, [facility] [address] [facility] [id number] [address] [place] [address] Sep, [facility] [address] [facility] [id number] [address] [place] [address] Aug, [facility] [address] [id number] [address] [place] [address] Apr, IMMUNIZATIONS No Known Immunizations SOCIAL HISTORY Never Assessed REASON FOR VISIT STAT CT PLAN OF CARE VITAL SIGNS MEDICATIONS Unknown Medications RESULTS Name Result Date Reference Range CT Scan : Brain w/o & w/ Contrast 2019-01-20 PROCEDURES No Known procedures INSTRUCTIONS MEDICATIONS ADMINISTERED No Known Medications MEDICAL (GENERAL) HISTORY Type Description Date Medical History hypertension Medical History pre -diabetes Medical History stroke Surgical History inguinal hernia Surgical History tonsillectomy Surgical History stint placement Hospitalization History Stroke february 2018
--- OUTSIDE RECORDS SUMMARY | 2020-03-27 09:22 | XMS REPORT ---
Author Author Devan MENDOZA Organization [facility] [place] Address [address] [place] [address] Care Team Providers Care Calendering Machine Operator Name Role Phone DEVAN MENDOZA Unavailable PROBLEMS Type Condition ICD9-CM Code [id number] Code Onset Dates Condition S tatus SNOMED Code Problem Diabetes E11.9 Active 42012406 Problem Hypertension I10 Active 7812581 3 Problem Microalbuminuria R80.9 Active 312 927682 Problem Cerebrovascular accident (CVA), unspecified mechanism I63.9 Active 482774639 Problem Hyperlipidemia E78.5 Active 06573 004 Problem Cerebrovascular disease I67.9 Active 72238475 Problem Cerebrovascular accident (CV A) due to occlusion of left middle cerebral artery I63.512 Active 403122680 Problem Gastroesophageal reflux disease, esophagitis pre sence not specified K21.9 Active 292603820 Problem Subclavian steal syndrome G45.8 Acti ve 83350501 Problem Neurofibromatosis Q85.00 Active 19 [id number] ALLERGIES No Information ENCOUNTERS Encounter Location Date Diagnosis [facility] [place] [address] [id number] [address] [place] [id number] 14 Apr, 2019 [facility] [address] [facility] [id number] [address] [place] [phone] March, Cellulitis of right external ear H60.11 [facility] [place] [address] [facility] [id number] [address] [place] [phone] March, 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 [facility] [place] [address] [id number] [address] [place] [id number] 15 Feb, 2019 Diabetes E11.9 ; Hypertensio n I10 and Cerebrovascular disease I67.9 [facility] [place] [address] [id number] [address] [place] [phone] Jan, [facility] [place] [address] [facility] [id number] [address] [place] [phone] Jan, Cerebrovascular accident (CV A), unspecified mechanism I63.9 [facility] [place] [address] [facility] [id number] [address] [place] [phone] Jan, Cerebrovascular accident (CV A), unspecified mechanism I63.9 [facility] [place] [address] [facility] [id number] [address] [place] [id number] Dec, [facility] [place] [address] [facility] [id number] [address] [place] [id number] Sep, [facility] [place] [address] [facility] [id number] [address] [place] [phone] Sep, Diabetes E11.9 and Hypertens ion I10 [facility] [address] [facility] [id number] [address] [place] [phone] Aug, [facility] [address] [facility] [id number] [address] [place] [phone] Aug, Allergic contact dermatitis due to plants, except food L23.7 [facility] [place] [address] [facility] [id number] [address] [place] [phone] Jul, [facility] [place] [address] [facility] [id number] [address] [place] [phone] Jun, [facility] [place] [address] [facility] [id number] [address] [place] [phone] Jun, Diabetes E11.9 ; Hypertensio n I10 and Erythrocytosis D75.1 [facility] [place] [address] [facility] [id number] [address] [place] [phone] Jun, [facility] [place] [address] [facility] [id number] [address] [place] [phone] Apr, [facility] [place] [address] [facility] [id number] [address] [place] [phone] Apr, [facility] [place] [address] [facility] [id number] [address] [place] [phone] Apr, Subclavian steal syndrome G4 5.8 ; Hypertension I10 and Cerebrovascular accident (CVA) due to occlusion of left middle cerebral artery I63.512 [facility] [place] [address] [facility] [id number] [address] [place] [phone] Apr, [facility] [place] [address] [facility] [id number] [address] [place] [phone] Apr, [facility] [place] [address] [facility] [id number] [address] [place] [id number] March, Subclavian steal syndrome G4 5.8 [facility] [place] [address] [facility] [id number] [address] [place] [phone] March, Diabetes E11.9 [place] [address] [id number] [address] [place] [phone] March, Diabetes E11.9 [place] [address] [id number] [address] [place] [phone] March, Diabetes E11.9 [facility] [place] [address] [facility] [id number] [address] [place] [phone] March, Cerebrovascular accident (CV A) due to occlusion of left middle cerebral artery I63.512 ; Hypertension I10 ; Diabetes E11.9 ; Hyperlipidemia E78.5 ; Gastroesophageal reflux disease, esophagitis presence not specified K21.9 and Subclavian steal syndrome G45.8 [place] [id number] [facility] [id number] [address] [place] [phone] March, [facility] [place] [address] [facility] [id number] [address] [place] [phone] Feb, Cerebrovascular accident (CV A) due to occlusion of left middle cerebral artery I63.512 ; Diabetes E11.9 ; Hypertension I10 ; Hyperlipidemia E78.5 and Microalbuminuria R80.9 [facility] [place] [address] [facility] [id number] [address] [place] [id number] Feb, [facility] [place] [address] [id number] [address] [place] [phone] Feb, Diabetes E11.9 ; Hypertensio n I10 ; Microalbuminuria R80.9 and Hyperlipidemia E78.5 [facility] [place] [address] [id number] [address] [place] [phone] Feb, [facility] [place] [address] [id number] [address] [place] [phone] Oct, Diabetes mellitus 250.00 [facility] [place] [address] [id number] [address] [place] [phone] May, Diabetes mellitus 250.00 [facility] [place] [address] [id number] [address] [place] [phone] May, Fracture of finger of left h and 816.00 [facility] [place] [address] [facility] [id number] [address] [place] [phone] Feb, [facility] [place] [address] [id number] [address] [place] [phone] Jul, [facility] [place] [address] [id number] [address] [place] [phone] Jul, [facility] [place] [address] [id number] [address] [place] [id number] Jul, [facility] [place] [address] [id number] [address] [place] [phone] Jul, [facility] [place] [address] [id number] [address] [place] [phone] Jul, [facility] [place] [address] [id number] [address] [place] [phone] Jul, [facility] [place] [address] [id number] [address] [place] [phone] Feb, [facility] [place] [address] [id number] [address] [place] [phone] Feb, [facility] [place] [address] [id number] [address] [place] [address], [place] [address] Dec, [facility] [address] [id number] [address] [place] [address], [place] [address] Dec, [facility] [address] [id number] [address] [place] [address], [place] [address] Dec, [facility] [address] [id number] [address] [place] [address], [place] [address] Dec, [facility] [address] [id number] [address] [place] [address], [place] [address] Nov, [facility] [address] [id number] [address] [place] [address], [place] [address] Nov, [facility] [address] [id number] [address] [place] [address], [place] [address] Nov, [facility] [address] [id number] [address] [place] [address], [place] [address] Nov, [facility] [address] [id number] [address] [place] [address], [place] [address] Oct, [facility] [address] [id number] [address] [place] [address], [place] [address] Oct, [facility] [address] [id number] [address] [place] [address], [place] [address] Oct, [facility] [address] [id number] [address] [place] [address], [place] [address] Oct, [facility] [address] [id number] [address] [place] [address], [place] [address] Oct, [facility] [address] [id number] [address] [place] [address], [place] [address] Aug, [facility] [address] [id number] [address] [place] [address], [place] [address] Jul, [facility] [address] [id number] [address] [place] [address], [place] [address] May, [facility] [address] [id number] [address] [place] [address], [place] [address] March, [facility] [address] [id number] [address] [place] [address], [place] [address] Jan, [facility] [address] [id number] [address] [place] [address], [place] [address] Jan, [facility] [address] [id number] [address] [place] [address], [place] [address] Dec, [facility] [address] [id number] [address] [place] [address], [place] [address] Sep, [facility] [address] [id number] [address] [place] [address], [place] [address] Sep, [facility] [address] [id number] [address] [place] [address], [place] [address] Sep, [facility] [address] [id number] [address] [place] [address], [place] [address] Sep, [facility] [address] [id number] [address] [place] [address], [place] [address] Jul, [facility] [address] [id number] [address] [place] [address], [place] [address] Jun, [facility] [address] [id number] [address] [place] [address], [place] [address] Jun, [facility] [address] [id number] [address] [place] [address], [place] [address] May, [facility] [address] [id number] [address] [place] [address], [place] [address] Apr, [facility] [address] [id number] [address] [place] [address], [place] [address] Feb, [facility] [address] [id number] [address] [place] [address], [place] [address] Feb, [facility] [address] [id number] [address] [place] [phone] Feb, [facility] [place] [address] [facility] [id number] [address] [place] [phone] Jan, [facility] [place] [address] [facility] [id number] [address] [place] [phone] Nov, [facility] [place] [address] [facility] [id number] [address] [place] [phone] Nov, [facility] [place] [address] [facility] [id number] [address] [place] [phone] Oct, [facility] [place] [address] [facility] [id number] [address] [place] [phone] Sep, [facility] [place] [address] [facility] [id number] [address] [place] [phone] Sep, [facility] [place] [address] [facility] [id number] [address] [place] [phone] Aug, [facility] [place] [address] [facility] [id number] [address] [place] [address] Apr, IMMUNIZATIONS No Known Immunizations SOCIAL HISTORY [...]
--- OUTSIDE RECORDS SUMMARY | 2020-03-27 09:22 | XMS REPORT ---
Author Author Devan MENDOZA Organization [facility] Address [address] [place] [address] Care Team Providers Care Hub Lead Name Role Phone DEVAN MENDOZA Unavailable PROBLEMS Type Condition ICD9-CM Code DBR18-RY Code Onset Dates Condition S tatus SNOMED Code Problem Diabetes E11.9 Active 34594693 Problem Hypertension I10 Active 6738925 3 Problem Microalbuminuria R80.9 Active 312 792174 Problem Cerebrovascular accident (CVA), unspecified mechanism I63.9 Active 637748681 Problem Hyperlipidemia E78.5 Active 86112 004 Problem Cerebrovascular disease I67.9 Active 33189381 Problem Cerebrovascular accident (CV A) due to occlusion of left middle cerebral artery I63.512 Active 090832095 Problem Gastroesophageal reflux disease, esophagitis pre sence not specified K21.9 Active 565094970 Problem Subclavian steal syndrome G45.8 Acti ve 83332784 Problem Neurofibromatosis Q85.00 Active 19 634044 ALLERGIES No Information ENCOUNTERS Encounter Location Date Diagnosis [facility] [address] [id number] [place] [address] Oct, OUTREACH [address] [address] Oct, [facility] [address] [address] Oct, [facility] [address] [id number] [place] [address] Jul, [facility] [address] [id number] [place] [address] May, [facility] [address] [id number] [place] [address] 14 Apr, 2019 [facility] [address] [facility] [id number] [address] [place] [address] March, Cellulitis of right external ear H60.11 [place] [address] [address] March, 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 [place] [address] [address] Feb, Diabetes E11.9 ; Hypertension I10 and Ce rebrovascular disease I67.9 [place] [address] [address] Jan, [place] [address] [address] Jan, Cerebrovascular accident (CVA), unspecif ied mechanism I63.9 [place] [address] [address] Jan, Cerebrovascular accident (CVA), unspecif ied mechanism I63.9 [place] [address] [address] Dec, [place] [address] [address] Sep, [place] [address] [address] Sep, Diabetes E11.9 and Hypertension I10 [facility] [address] [place] [id number] [address] [place] [address] Aug, [facility] [address] [place] [id number] [address] [place] [address] Aug, Allergic contact dermatitis due to plants, except food L23.7 [place] [address] [address] Jul, [place] [address] [address] Jun, [place] [address] [address] Jun, Diabetes E11.9 ; Hypertension I10 and Er ythrocytosis D75.1 [place] [address] [address] Jun, [facility] [address] [address] Apr, [place] [address] [address] Apr, [place] [address] [address] Apr, Subclavian steal syndrome G45.8 ; Hypert ension I10 and Cerebrovascular accident (CVA) due to occlusion of left middle cerebral artery I63.512 [place] [address] [address] Apr, [place] [address] [address] Apr, [place] [address] [address] March, Subclavian steal syndrome G45.8 [place] [address] [address] March, Diabetes E11.9 [place] [address] [address] March, Diabetes E11.9 [place] [address] [address] March, Diabetes E11.9 [place] [address] [address] March, Cerebrovascular accident (CVA) due to oc clusion of left middle cerebral artery I63.512 ; Hypertension I10 ; Diabetes E11.9 ; Hyperlipidemia E78.5 ; Gastroesophageal reflux disease, esophagitis presence not specified K21.9 and Subclavian steal syndrome G45.8 [place] [address] [address] March, [place] [address] [address] Feb, Cerebrovascular accident (CVA) due to oc clusion of left middle cerebral artery I63.512 ; Diabetes E11.9 ; Hypertension I10 ; Hyperlipidemia E78.5 and Microalbuminuria R80.9 [facility] [address] [address] Feb, [facility] [address] [address] Feb, Diabetes E11.9 ; Hypertension I10 ; Micr oalbuminuria R80.9 and Hyperlipidemia E78.5 [facility] [address] [address] Feb, [facility] [address] [address] Oct, Diabetes mellitus 250.00 [facility] [address] [address] May, Diabetes mellitus 250.00 [facility] [address] [address] May, Fracture of finger of left hand 816.00 [facility] [address] [address] Feb, [facility] [address] [address] Jul, [facility] [address] [address] Jul, [facility] [address] [address] Jul, [facility] [address] [address] Jul, [facility] [address] [address] Jul, [facility] [address] [address] Jul, [facility] [address] [id number] [place] [address] Feb, [facility] [address] [id number] [place] [address] Feb, [facility] [address] [id number] [place] [address] Dec, [facility] [address] [place] [id number] [place] [address] Dec, [facility] [address] [id number] [place] [address] Dec, [facility] [address] [place] [id number] [place] [address] Dec, [facility] [address] [place] [id number] [place] [address] Nov, [facility] [address] [place] [id number] [place] [address] Nov, [facility] [address] [id number] [place] [address] Nov, [facility] [address] [place] [id number] [place] [address] Nov, [facility] [address] [place] [id number] [place] [address] Oct, [facility] [address] [place] [id number] [place] [address] Oct, [facility] [address] [id number] [place] [address] Oct, [facility] [address] [id number] [place] [address] Oct, [facility] [address] [id number] [place] [address] Oct, [facility] [address] [id number] [place] [address] Aug, [facility] [address] [place] [id number] [place] [address] Jul, [facility] [address] [id number] [place] [address] May, [facility] [address] [id number] [place] [address] March, [facility] [address] [id number] [place] [address] Jan, [facility] [address] [id number] [place] [address] Jan, [facility] [address] [id number] [place] [address] Dec, [facility] [address] [id number] [place] [address] Sep, [facility] [address] [id number] [place] [address] Sep, [facility] [address] [id number] [place] [address] Sep, [facility] [address] [id number] [place] [address] Sep, [facility] [address] [place] [id number] [place] [address] Jul, [facility] [address] [id number] [place] [address] Jun, [facility] [address] [id number] [place] [address] Jun, [facility] [address] [id number] [place] [address] May, [facility] [address] [id number] [place] [address] Apr, [facility] [address] [id number] [place] [address] Feb, [facility] [address] [id number] [place] [address] Feb, [facility] [address] [id number] [place] [address] Feb, [facility] [address] [id number] [place] [address] Jan, [facility] [address] [id number] [place] [address] Nov, [facility] [address] [id number] [place] [address] Nov, [facility] [address] [id number] [place] [address] Oct, [facility] [address] [id number] [place] [address] Sep, [facility] [address] [id number] [place] [address] Sep, [facility] [address] [id number] [place] [address] Aug, [facility] [address] [id number] [place] [address] Apr, IMMUNIZATIONS No Known Immunizations SOCIAL HISTORY Never Assessed REASON FOR VISIT PLAN OF CARE VITAL SIGNS Height 62 in 2014-02-09 Weight 158.3 lbs 2014-02-09 Temperature 98.9 degrees Fahrenheit 2014-02-09 Heart Rate 74 bpm 2014-02-09 Respiratory Rate 18 2014-02-09 Blood pressure systolic 112 mmHg 2014-02-09 Blood pressure diastolic 60 mmHg 2014-02-09 MEDICATIONS Unknown Medications RESULTS No Results PROCEDURES Procedure Date Ordered Result Body Site COMPLETE CBC W/AUTO DIFF WBC February 09, 2014 GLYCATED HEMOGLOBIN TEST February 09, 2014 MICROALBUMIN, SEMIQUANT February 09, 2014 VENIPUNCT, ROUTINE* February 09, 2014 INSTRUCTIONS MEDICATIONS ADMINISTERED No Known Medications MEDICAL (GENERAL) HISTORY Type Description Date Medical History hypertension Medical History pre -diabetes Medical History stroke Surgical History inguinal hernia Surgical History tonsillectomy Surgical History stint placement Hospitalization History Stroke february 2018
--- OUTSIDE RECORDS SUMMARY | 2020-03-27 09:22 | XMS REPORT ---
Author Author Devan MENDOZA Organization [facility] Address [address] [place] [address] Care Team Providers Care Supervisor Electronic Coils Name Role Phone DEVAN MENDOZA Unavailable PROBLEMS Type Condition ICD9-CM Code UVO67-BH Code Onset Dates Condition S tatus SNOMED Code Problem Diabetes E11.9 Active 30905857 Problem Hypertension I10 Active 1193914 3 Problem Microalbuminuria R80.9 Active 312 725711 Problem Cerebrovascular accident (CVA), unspecified mechanism I63.9 Active 311501624 Problem Hyperlipidemia E78.5 Active 98885 004 Problem Cerebrovascular disease I67.9 Active 34015570 Problem Cerebrovascular accident (CV A) due to occlusion of left middle cerebral artery I63.512 Active 512495491 Problem Gastroesophageal reflux disease, esophagitis pre sence not specified K21.9 Active 179427691 Problem Subclavian steal syndrome G45.8 Acti ve 94313944 Problem Neurofibromatosis Q85.00 Active 19 301893 ALLERGIES No Information ENCOUNTERS Encounter Location Date Diagnosis [facility] [address] [facility] [id number] [address] [place] [id number] May, [facility] [address] [place] [id number] [address] [place] [address] Apr, [facility] [address] [facility] [id number] [address] [place] [address] March, Cellulitis of right external ear H60.11 [facility] [address] [id number] [address] [place] [address] March, 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 [facility] [address] [facility] [id number] [address] [place] [address] Feb, Diabetes E11.9 ; Hypertensio n I10 and Cerebrovascular disease I67.9 [facility] [address] [facility] [id number] [address] [place] [phone] Jan, [facility] [address] [facility] [id number] [address] [place] [address] Jan, Cerebrovascular accident (CV A), unspecified mechanism I63.9 [facility] [address] [facility] [id number] [address] [place] [phone] 14 Jan, 2019 Cerebrovascular accident (CV A), unspecified mechanism I63.9 [facility] [address] [facility] [id number] [address] [place] [phone] Dec, [facility] [address] [facility] [id number] [address] [place] [phone] Sep, [facility] [address] [facility] [id number] [address] [place] [address] Sep, Diabetes E11.9 and Hypertens ion I10 [facility] [address] [facility] [id number] [address] [place] [phone] Aug, [facility] [address] [facility] [id number] [address] [place] [phone] Aug, Allergic contact dermatitis due to plants, except food L23.7 [facility] [address] [facility] [id number] [address] [place] [phone] Jul, [facility] [address] [facility] [id number] [address] [place] [phone] Jun, [facility] [address] [facility] [id number] [address] [place] [address] Jun, Diabetes E11.9 ; Hypertensio n I10 and Erythrocytosis D75.1 [facility] [address] [facility] [id number] [address] [place] [phone] Jun, [facility] [address] [facility] [id number] [address] [place] [phone] Apr, [facility] [address] [id number] [address] [place] [phone] Apr, [facility] [address] [id number] [address] [place] [address] Apr, Subclavian steal syndrome G4 5.8 ; Hypertension I10 and Cerebrovascular accident (CVA) due to occlusion of left middle cerebral artery I63.512 [facility] [address] [facility] [id number] [address] [place] [phone] Apr, [facility] [address] [facility] [id number] [address] [place] [phone] Apr, [facility] [address] [facility] [id number] [address] [place] [phone] March, Subclavian steal syndrome G4 5.8 [facility] [address] [facility] [id number] [address] [place] [address] March, Diabetes E11.9 [facility] [address] [facility] [id number] [address] [place] [phone] March, Diabetes E11.9 [facility] [address] [facility] [id number] [address] [place] [address] March, Diabetes E11.9 [facility] [address] [facility] [id number] [address] [place] [phone] March, Cerebrovascular accident (CV A) due to occlusion of left middle cerebral artery I63.512 ; Hypertension I10 ; Diabetes E11.9 ; Hyperlipidemia E78.5 ; Gastroesophageal reflux disease, esophagitis presence not specified K21.9 and Subclavian steal syndrome G45.8 [facility] [address] [facility] [id number] [address] [place] [phone] March, [facility] [address] [facility] [id number] [address] [place] [address] Feb, Cerebrovascular accident (CV A) due to occlusion of left middle cerebral artery I63.512 ; Diabetes E11.9 ; Hypertension I10 ; Hyperlipidemia E78.5 and Microalbuminuria R80.9 [facility] [address] [id number] [address] [place] [phone] Feb, [facility] [address] [facility] [id number] [address] [place] [address] Feb, Diabetes E11.9 ; Hypertensio n I10 ; Microalbuminuria R80.9 and Hyperlipidemia E78.5 [facility] [address] [id number] [address] [place] [phone] Feb, [facility] [address] [id number] [address] [place] [address] Oct, Diabetes mellitus 250.00 [facility] [address] [facility] [id number] [address] [place] [address] May, Diabetes mellitus 250.00 [facility] [address] [facility] [id number] [address] [place] [address] May, Fracture of finger of left h and 816.00 [facility] [address] [id number] [address] [place] [phone] Feb, [facility] [address] [facility] [id number] [address] [place] [phone] Jul, [facility] [address] [facility] [id number] [address] [place] [phone] Jul, [facility] [address] [id number] [address] [place] [phone] 08 Jul, 2013 [facility] [address] [id number] [address] [place] [phone] 08 Jul, 2014 [facility] [address] [id number] [address] [place] [phone] Jul, [facility] [address] [id number] [address] [place] [phone] Jul, [facility] [address] [facility] [id number] [address] [place] [phone] Feb, [facility] [address] [id number] [address] [place] [address], [place] [address] Feb, [facility] [address] [id number] [address] [place] [address], [place] [address] Dec, [facility] [address] [id number] [address] [place] [address], [place] [address] Dec, [facility] [address] [id number] [address] [place] [address], [place] [address] Dec, [facility] [address] [id number] [address] [place] [address], [place] [address] Dec, [facility] [address] [id number] [address] [place] [address], [place] [address] Nov, [facility] [address] [id number] [address] [place] [address], [place] [address] Nov, [facility] [address] [id number] [address] [place] [address], [place] [address] Nov, [facility] [address] [id number] [address] [place] [address], [place] [address] Nov, [facility] [address] [id number] [address] [place] [address], [place] [address] Oct, [facility] [address] [id number] [address] [place] [address], [place] [address] Oct, [facility] [address] [id number] [address] [place] [address], [place] [address] Oct, [facility] [address] [id number] [address] [place] [address], [place] [address] Oct, [facility] [address] [id number] [address] [place] [address], [place] [address] Oct, [facility] [address] [id number] [address] [place] [address], [place] [address] Aug, [facility] [address] [id number] [address] [place] [address], [place] [address] Jul, [facility] [address] [id number] [address] [place] [address], [place] [address] May, [facility] [address] [id number] [address] [place] [address], [place] [address] March, [facility] [address] [id number] [address] [place] [address], [place] [address] Jan, [facility] [address] [id number] [address] [place] [address], [place] [address] Jan, [facility] [address] [id number] [address] [place] [address], [place] [address] Dec, [facility] [address] [id number] [address] [place] [address], [place] [address] Sep, [facility] [address] [id number] [address] [place] [address], [place] [address] Sep, [facility] [address] [id number] [address] [place] [address], [place] [address] Sep, [facility] [address] [id number] [address] [place] [address], [place] [address] Sep, [facility] [address] [id number] [address] [place] [address], [place] [address] Jul, [facility] [address] [id number] [address] [place] [address], [place] [address] Jun, [facility] [address] [id number] [address] [place] [address], [place] [address] Jun, [facility] [address] [id number] [address] [place] [address], [place] [address] May, [facility] [address] [id number] [address] [place] [address], [place] [address] Apr, [facility] [address] [id number] [address] [place] [address], [place] [address] Feb, [facility] [address] [id number] [address] [place] [address] Feb, [facility] [address] [id number] [address] [place] [address] Feb, [facility] [address] [id number] [address] [place] [address] Jan, [facility] [address] [id number] [address] [place] [address] Nov, [facility] [address] [id number] [address] [place] [phone] Nov, [facility] [address] [id number] [address] [place] [address] Oct, [facility] [address] [id number] [address] [place] [address] Sep, [facility] [address] [id number] [address] [place] [address] Sep, [facility] [address] [id number] [address] [place] [phone] Aug, [facility] [address] [id number] [address] [place] [address] Apr, IMMUNIZATIONS No Known Immunizations SOCIAL HISTORY Never Assessed REASON FOR VISIT PLAN OF CARE VITAL SIGNS Height 62 in 2014-07-17 Weight 156.38 lbs 2014-07-17 Temperature 98.2 degrees Fahrenheit 2014-07-17 Heart Rate 72 bpm 2014-07-17 Respiratory Rate 20 2014-07-17 Blood pressure systolic 118 mmHg 2014-07-17 Blood pressure diastolic 78 mmHg 2014-07-17 MEDICATIONS Unknown Medications RESULTS No Results PROCEDURES Procedure Date Ordered Result Body Site GLYCATED HEMOGLOBIN TEST Jul 17, 2014 MICROALBUMIN, SEMIQUANT Jul 17, 2014 INSTRUCTIONS MEDICATIONS ADMINISTERED No Known Medications MEDICAL (GENERAL) HISTORY Type Description Date Medical History hypertension Medical History pre -diabetes Medical History stroke Surgical History inguinal hernia Surgical History tonsillectomy Surgical History stint placement Hospitalization History Stroke february 2018
--- OUTSIDE RECORDS SUMMARY | 2020-03-27 09:24 | XMS REPORT | Continuity of Care Document ---
Author Organization Unknown Address Unknown Phone Unavailable Allergies Active Description Code Type Severity Reaction Onset Reported/Identified Relationship to Patient Clinical Status Yes No Known Drug Allergies [id number] Drug Allergy Unknown N/A 03/20/2020 Medications There is no data. Problems Date Dx Coded Attending Type Code Diagnosis Diagnosed By 10/07/1599 NICOLAS PETERS DO Ot K40.9 0 UNIL INGUINAL HERNIA, W/O OBST OR GANGR, 10/07/1599 NICOLAS PETERS DO Ot Z01.8 18 ENCOUNTER FOR OTHER PREPROCEDURAL EXAMIN 04/20/2011 237.70 NOELLE ROFIBROMATOSIS 04/20/2011 401.9 HYPE RTENSION (SYSTEMIC) 04/20/2011 CORBIN MENDOZA MD 237.7 0 NEUROFIBROMATOSIS 04/20/2011 CORBIN MENDOZA MD 401.9 HYPERTENSION (SYSTEMIC) 04/20/2011 CORBIN MENDOZA MD 237.7 0 NEUROFIBROMATOSIS 04/20/2011 CORBIN MENDOZA MD 401.9 HYPERTENSION (SYSTEMIC) 04/20/2011 CORBIN MENDOZA MD 237.7 0 NEUROFIBROMATOSIS 04/20/2011 CORBIN MENDOZA MD 401.9 HYPERTENSION (SYSTEMIC) 04/20/2011 CORBIN MENDOZA MD 237.7 0 NEUROFIBROMATOSIS 04/20/2011 CORBIN MENDOZA MD 401.9 HYPERTENSION (SYSTEMIC) 04/20/2011 CORBIN MENDOZA MD 237.7 0 NEUROFIBROMATOSIS 04/20/2011 CORBIN MENDOZA MD 401.9 HYPERTENSION (SYSTEMIC) 04/20/2011 CORBIN MENDOZA MD 237.7 0 NEUROFIBROMATOSIS 04/20/2011 CORBIN MENDOZA MD 401.9 HYPERTENSION (SYSTEMIC) 04/28/2011 790.29 Oth er Abnormal Glucose 04/28/2011 CORBIN MENDOZA MD 790.2 9 Other Abnormal Glucose 04/28/2011 CORBIN MENDOZA MD 790.2 9 Other Abnormal Glucose 04/28/2011 CORBIN MENDOZA MD 790.2 9 Other Abnormal Glucose 04/28/2011 CORBIN MENDOZA MD 790.2 9 Other Abnormal Glucose 04/28/2011 CORBIN MENDOZA MD 790.2 9 Other Abnormal Glucose 04/28/2011 CORBIN MENDOZA MD 790.2 9 Other Abnormal Glucose 04/29/2011 250.00 MARIA ISABEL BETES MELLITUS TYPE 2 04/29/2011 CORBIN MENDOZA MD 250.0 0 DIABETES MELLITUS TYPE 2 04/29/2011 CORBIN MENDOZA MD 250.0 0 DIABETES MELLITUS TYPE 2 04/29/2011 CORBIN MENDOZA MD 250.0 0 DIABETES MELLITUS TYPE 2 04/29/2011 CORBIN MENDOZA MD 250.0 0 DIABETES MELLITUS TYPE 2 04/29/2011 CORBIN MENDOZA MD 250.0 0 DIABETES MELLITUS TYPE 2 04/29/2011 CORBIN MENDOZA MD 250.0 0 DIABETES MELLITUS TYPE 2 06/29/2011 272.4 OTHE R AND UNSPECIFIED HYPERLIPIDEMIA 06/29/2011 311 DEPRES SIVE DISORDER NOT ELSEWHERE CLASSIFIED 06/29/2011 CORBIN MENDOZA [...] DEPRESSIVE DISORDER NOT ELSEWHERE CLASSIFIED 06/29/2011 CORBIN MEDNOZA MD 272.4 OTHER AND UNSPECIFIED HYPERLIPIDEMIA 06/29/2011 CORBIN MENDOZA MD 311 DEPRESSIVE DISORDER NOT ELSEWHERE CLASSIFIED 09/21/2011 386.30 Lab yrinthitis Unspecified 09/21/2011 OCRBIN MENDOZA MD 386.3 0 Labyrinthitis Unspecified 09/21/2011 CORBIN MENDOZA MD 386.3 0 Labyrinthitis Unspecified 09/21/2011 CORBIN MENDOZA MD 386.3 0 Labyrinthitis Unspecified 09/21/2011 CORBIN MENDOZA MD 386.3 0 Labyrinthitis Unspecified 09/21/2011 CORBIN MENDOZA MD 386.3 0 Labyrinthitis Unspecified 09/21/2011 CORBIN MENDOZA MD 386.3 0 Labyrinthitis Unspecified 11/16/2011 465.9 Acut e Upper Respiratory Infections Of Unspecified Site 11/16/2011 [...] Respiratory Infections Of Unspecified Site 10/04/2012 386.30 LAB YRINTHITIS UNSPECIFIED 10/04/2012 CORBIN MENDOZA MD 386.3 0 LABYRINTHITIS UNSPECIFIED 10/04/2012 CORBIN MENDOZA MD 386.3 0 LABYRINTHITIS UNSPECIFIED 10/04/2012 CORBIN MENDOZA MD 386.3 0 LABYRINTHITIS UNSPECIFIED 10/04/2012 CORBIN MENDOZA MD 386.3 0 LABYRINTHITIS UNSPECIFIED 10/04/2012 CORBIN MENDOZA MD 386.3 0 LABYRINTHITIS UNSPECIFIED 10/04/2012 CORBIN MENDOZA MD 386.3 0 LABYRINTHITIS UNSPECIFIED 02/09/2014 CORBIN MENDOZA MD 578.1 BLOOD IN STOOL 02/09/2014 CORBIN MENDOZA MD 578.1 BLOOD IN STOOL 02/16/2014 LALO PERDOMO, RONNI Sewell Ot 211. 3 BENIGN NEOPLASM LG BOWEL 02/16/2014 RONNI MAY MD Ot 600. 00 HYPERTROPHY (BENIGN) OF PROSTATE W/O URI 02/16/2014 LALO PERDOMO, RONNI Sewell Ot V76. 51 SCREEN MAL NEOP-COLON 09/15/2017 MARSHA ELLIOTT DO, Ot F17.210 NICOTINE DEPENDENCE, CIGARETTES, UNCOMPL 09/15/2017 MARSHA ELLIOTT DO Ot J06.9 ACUTE UPPER RESPIRATORY INFECTION, UNSPE 09/15/2017 MARSHA ELLIOTT DO Ot R05 COUGH 09/15/2017 MARSHA ELLIOTT DO Ot Z90.89 ACQUIRED ABSENCE OF OTHER ORGANS 09/15/2017 Ot 250.00 MARIA ISABEL SALINAS COMPL, TYPE II OR UNSPEC TY 09/15/2017 LALO PERDOMO, RONNI Sewell Ot V72. 84 EXAM PRE-OPERATIVE NOS 09/17/2017 MARSHA ELLIOTT DO Ot F17.210 NICOTINE DEPENDENCE, CIGARETTES, UNCOMPL 09/17/2017 MARSHA ELLIOTT DO Ot J06.9 ACUTE UPPER RESPIRATORY INFECTION, UNSPE 09/17/2017 MARSHA ELLIOTT DO Ot R05 COUGH 09/17/2017 MARSHA ELLIOTT DO Ot Z90.89 ACQUIRED ABSENCE OF OTHER ORGANS 02/09/2018 CORINA MAHMOOD MD Ot E11. 65 TYPE 2 DIABETES MELLITUS WITH HYPERGLYCE 02/09/2018 CORINA MAHMOOD MD Ot E78. 5 HYPERLIPIDEMIA, UNSPECIFIED 02/09/2018 CORINA MAHMOOD MD Ot F17.210 NICOTINE DEPENDENCE, CIGARETTES, UNCOMPL 02/09/2018 CORINA MAHMOOD MD Ot G83. 21 MONOPLEGIA OF UPPER LIMB AFFECTING RIGHT 02/09/2018 CORINA MAHMOOD MD Ot I10 ESSENTIAL (PRIMARY) HYPERTENSION 02/09/2018 CORINA MAHMOOD MD, Ot I63. 9 CEREBRAL INFARCTION, UNSPECIFIED 02/09/2018 CORINA MAHMOOD MD Ot I70. 8 ATHEROSCLEROSIS OF OTHER ARTERIES 02/09/2018 CORINA MAHMOOD MD Ot R47. 1 DYSARTHRIA AND ANARTHRIA 02/09/2018 CORINA MAHMOOD MD Ot S49.92XA UNSP INJURY OF LEFT SHOULDER AND UPPER A 02/09/2018 CORINA MAHMOOD MD Ot W01.0XXA FALL SAME LEV FROM SLIP/TRIP W/O STRIKE 02/09/2018 CORINA MAHMOOD MD Ot Y92.231 PATIENT BATHROOM IN HOSPITAL PLACE 02/18/2018 CHRISTIN PERDOMO, NICOLAS Moy Ot E11.9 TYPE 2 DIABETES MELLITUS WITHOUT COMPLIC 02/18/2018 NICOLAS WALLER MD Ot E78.5 HYPERLIPIDEMIA, UNSPECIFIED 02/18/2018 NICOLAS WALLER MD Ot F17.2 10 NICOTINE DEPENDENCE, CIGARETTES, UNCOMPL 02/18/2018 NICOLAS WALLER MD Ot I10 ESSENTIAL (PRIMARY) HYPERTENSION 02/18/2018 NICOLAS WALLER MD Ot 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 02/18/2018 NICOLAS WALLER MD Ot 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 02/18/2018 NICOLAS WALLER MD Ot I69.3 51 HEMIPLGA FOLLOWING CEREBRAL INFRC AFF RI 02/18/2018 NICOLAS WALLER MD Ot I77.1 STRICTURE OF ARTERY 02/18/2018 NICOLAS WALLER MD Ot R10.1 3 EPIGASTRIC PAIN 02/18/2018 NICOLAS WALLER MD Ot Z79.4 GENERAL NEUROLOGIST (CURRENT) USE OF INSULIN 02/18/2018 NICOLAS WALLER MD Ot E11.9 TYPE 2 DIABETES MELLITUS WITHOUT COMPLIC 02/18/2018 NICOLAS WALLER MD Ot E78.5 HYPERLIPIDEMIA, UNSPECIFIED 02/18/2018 NICOLAS WALLER MD Ot F17.2 10 NICOTINE DEPENDENCE, CIGARETTES, UNCOMPL 02/18/2018 NICOLAS WALLER MD Ot I10 ESSENTIAL (PRIMARY) HYPERTENSION 02/18/2018 NICOLAS WALLER MD Ot 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 43 TYPE 2 DIABETES W DIABETIC AUTONOMIC (PO 03/31/2018 BETINA HILLS MD Ot E78. 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 8 ATHEROSCLEROSIS OF OTHER ARTERIES 03/31/2018 BETINA HILLS MD Ot Z79. 4 PENITENTIARY (CURRENT) USE OF INSULIN 03/31/2018 BETINA HILLS MD Ot Z79. 82 GENERAL NEUROLOGIST (CURRENT) USE OF ASPIRIN 03/31/2018 BETINA HILLS MD Ot Z79.899 OTHER GENERAL NEUROLOGIST (CURRENT) DRUG THERAPY 04/01/2018 BETINA HILLS MD Ot E11. 43 TYPE 2 DIABETES W DIABETIC AUTONOMIC (PO 04/01/2018 BETINA HILLS MD Ot E78. 2 MIXED HYPERLIPIDEMIA 04/01/2018 BETINA HILLS MD Ot F17.210 NICOTINE DEPENDENCE, CIGARETTES, UNCOMPL 04/01/2018 BETINA HILLS MD Ot I10 ESSENTIAL (PRIMARY) HYPERTENSION 04/01/2018 BETINA HILLS MD Ot I69.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 04/01/2018 BETINA HILLS MD Ot I70. 8 ATHEROSCLEROSIS OF OTHER ARTERIES 04/01/2018 BETINA HILLS MD Ot Z79. 4 GENERAL NEUROLOGIST (CURRENT) USE OF INSULIN 04/01/2018 BETINA HILLS MD Ot Z79. 82 GENERAL NEUROLOGIST (CURRENT) USE OF ASPIRIN 04/01/2018 BETINA HILLS MD Ot Z79.899 OTHER PENITENTIARY (CURRENT) DRUG THERAPY 05/24/2018 CORBIN MENDOZA MD Ot I69.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 05/25/2018 CORBIN MENDOZA MD Ot I69.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 05/25/2018 CORBIN MENDOZA MD Ot I69.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 01/20/2019 RONNI MAY MD Ot V72. 84 EXAM PRE-OPERATIVE NOS 01/20/2019 RONNI MAY MD Ot V72. 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 02/02/2019 MADDIE ARREAGA APRN Ot F32 .9 MAJOR DEPRESSIVE DISORDER, SINGLE EPISOD 02/02/2019 MADDIE ARREAGA APRN Ot F41 .9 ANXIETY DISORDER, UNSPECIFIED 02/02/2019 MADDIE ARREAGA APRN Ot I10 ESSENTIAL (PRIMARY) HYPERTENSION 02/02/2019 MADDIE ARREAGA APRN Ot K21 .9 GASTRO-ESOPHAGEAL REFLUX DISEASE WITHOUT 02/02/2019 MADDIE ARREAGA APRN Ot R73.03 PREDIABETES 02/02/2019 MADDIE ARREAGA APRN Ot S61.210A LACERATION W/O FB OF R IDX FNGR W/O ULISES 02/02/2019 MADDIE ARREAGA APRN Ot X58.XXXA EXPOSURE TO OTHER SPECIFIED FACTORS, INI 02/02/2019 MADDIE ARREAGA APRN Ot Z79 .4 PENITENTIARY (CURRENT) USE OF INSULIN 02/02/2019 MADDIE ARREAGA APRN Ot Z79.82 GENERAL NEUROLOGIST (CURRENT) USE OF ASPIRIN 02/02/2019 MADDIE ARREAGA APRN Ot Z83 .3 FAMILY HISTORY OF DIABETES MELLITUS 02/02/2019 MADDIE ARREAGA APRN Ot Z86.73 PRSNL HX OF TIA (TIA), AND CEREB INFRC W 02/02/2019 MADDIE ARREAGA APRN Ot Z87.01 PERSONAL HISTORY OF PNEUMONIA (RECURRENT 02/02/2019 MADDIE ARREAGA APRN Ot Z87.442 PERSONAL HISTORY OF URINARY CALCULI 02/02/2019 MADDIE ARREAGA APRN Ot Z90.89 ACQUIRED ABSENCE OF OTHER ORGANS 02/04/2019 MADDIE ARREAGA APRN Ot F32 .9 MAJOR DEPRESSIVE DISORDER, SINGLE EPISOD 02/04/2019 MADDIE ARREAGA APRN Ot F41 .9 ANXIETY DISORDER, UNSPECIFIED 02/04/2019 MADDIE ARREAGA APRN Ot I10 ESSENTIAL (PRIMARY) HYPERTENSION 02/04/2019 MADDIE ARREAGA APRN Ot K21 .9 GASTRO-ESOPHAGEAL REFLUX DISEASE WITHOUT 02/04/2019 MADDIE ARREAGA APRN Ot R73.03 PREDIABETES 02/04/2019 MADDIE ARREAGA APRN Ot S61.210A LACERATION W/O FB OF R IDX FNGR W/O ULISES 02/04/2019 MADDIE ARREAGA APRN Ot X58.XXXA EXPOSURE TO OTHER SPECIFIED FACTORS, INI 02/04/2019 MADDIE ARREAGA APRN Ot Z79 .4 GENERAL NEUROLOGIST (CURRENT) USE OF INSULIN 02/04/2019 MADDIE ARREAGA APRN Ot Z79.82 PENITENTIARY (CURRENT) USE OF ASPIRIN 02/04/2019 MADDIE ARREAGA APRN Ot Z83 .3 FAMILY HISTORY OF DIABETES MELLITUS 02/04/2019 MADDIE ARREAGA APRN Ot Z86.73 PRSNL HX OF TIA (TIA), AND CEREB INFRC W 02/04/2019 MADDIE ARREAGA APRN Ot Z87.01 PERSONAL HISTORY OF PNEUMONIA (RECURRENT 02/04/2019 MADDIE ARREAGA APRN Ot Z87.442 PERSONAL HISTORY OF URINARY CALCULI 02/04/2019 AMDDIE ARREAGA APRN Ot Z90.89 ACQUIRED ABSENCE OF OTHER ORGANS 02/09/2019 SALVADOR CHANEY APRN Ot 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21 0 NICOTINE DEPENDENCE, CIGARETTES, UNCOMPL 03/26/2019 SEVILLA DO, LINA K Ot F32.9 MAJOR DEPRESSIVE DISORDER, SINGLE EPISOD 03/26/2019 SEVILLA DO, LINA K Ot F41.9 ANXIETY DISORDER, UNSPECIFIED 03/26/2019 SEVILLA DO, LINA K Ot 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 03/26/2019 SEVILLA DO, LINA K Ot I10 ESSENTIAL (PRIMARY) HYPERTENSION 03/26/2019 SEVILLA DO, LINA K Ot K21.9 GASTRO-ESOPHAGEAL REFLUX DISEASE WITHOUT 03/26/2019 SEVILLA DO, LINA K Ot Z79.4 GENERAL NEUROLOGIST (CURRENT) USE OF INSULIN 03/26/2019 SEVILLA DO, LINA K Ot Z79.82 PENITENTIARY (CURRENT) USE OF ASPIRIN 03/26/2019 SEVILLA DO, LINA K Ot Z79.89 9 OTHER GENERAL NEUROLOGIST (CURRENT) DRUG THERAPY 03/26/2019 SEVILLA DO, LINA K Ot Z86.73 PRSNL HX OF TIA (TIA), AND CEREB INFRC W 03/26/2019 LINA SEVILLA DO Keila Ot Z87.44 2 PERSONAL HISTORY OF URINARY CALCULI 04/20/2019 BETINA HILLS MD Ot E11. 9 TYPE 2 DIABETES MELLITUS WITHOUT COMPLIC 04/20/2019 BETINA HILLS MD Ot E78. 2 MIXED HYPERLIPIDEMIA 04/20/2019 BETINA HILLS MD Ot I10 ESSENTIAL (PRIMARY) HYPERTENSION 04/20/2019 BETINA HILLS MD Ot I25. 10 ATHSCL HEART DISEASE OF [place] CORONARY 04/20/2019 BETINA HILLS MD Ot I65. 23 OCCLUSION AND STENOSIS OF BILATERAL [place] 04/20/2019 BETINA HILLS MD Ot I69.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 04/20/2019 BETINA HILLS MD Ot I70. 8 ATHEROSCLEROSIS OF OTHER ARTERIES 04/20/2019 BETINA HILLS MD Ot I73. 9 PERIPHERAL VASCULAR DISEASE, UNSPECIFIED 04/20/2019 BETINA HILLS MD Ot Z79. 4 GENERAL NEUROLOGIST (CURRENT) USE OF INSULIN 04/20/2019 BETINA HILLS MD Ot Z79. 82 PENITENTIARY (CURRENT) USE OF ASPIRIN 04/20/2019 BETINA HILLS MD, Ot Z79.899 OTHER PENITENTIARY (CURRENT) DRUG THERAPY 04/20/2019 BETINA HILLS MD, Ot Z87.891 PERSONAL HISTORY OF NICOTINE DEPENDENCE 04/20/2019 BETINA HILLS MD Ot Z95.828 PRESENCE OF OTHER VASCULAR IMPLANTS AND 05/18/2019 BETINA HILLS MD Ot E11. 9 TYPE 2 DIABETES MELLITUS WITHOUT COMPLIC 05/18/2019 BETINA HILLS MD Ot E78. 2 MIXED HYPERLIPIDEMIA 05/18/2019 BETINA HILLS MD Ot I10 ESSENTIAL (PRIMARY) HYPERTENSION 05/18/2019 BETINA HILLS MD Ot I25. 10 ATHSCL HEART DISEASE OF [place] CORONARY 05/18/2019 BETINA HILLS MD Ot I65. 23 OCCLUSION AND STENOSIS OF [place] 05/18/2019 BETINA HILLS MD Ot I69.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 05/18/2019 BETINA HILLS MD Ot I70. 8 ATHEROSCLEROSIS OF OTHER ARTERIES 05/18/2019 BETINA HILLS MD Ot I73. 9 PERIPHERAL VASCULAR DISEASE, UNSPECIFIED 05/18/2019 BETINA HILLS MD, Ot Z79. 4 PENITENTIARY (CURRENT) USE OF INSULIN 05/18/2019 BETINA HILLS MD Ot Z79. 82 PENITENTIARY (CURRENT) USE OF ASPIRIN 05/18/2019 BETINA HILLS MD Ot Z79.899 OTHER GENERAL NEUROLOGIST (CURRENT) DRUG THERAPY 05/18/2019 BETINA HILLS MD, Ot Z87.891 PERSONAL HISTORY OF NICOTINE DEPENDENCE 05/18/2019 BETINA HILLS MD, Ot Z95.828 PRESENCE OF OTHER VASCULAR IMPLANTS AND 06/14/2019 JEFF WILSON Ot E66.9 OBESITY, UNSPECIFIED 06/14/2019 JEFF WILSON Ot E78.2 MIXED HYPERLIPIDEMIA 06/14/2019 JEFF WILSON Ot I10 ESSENTIAL (PRIMARY) HYPERTENSION 06/14/2019 JEFF WILSON Ot I63.9 CEREBRAL INFARCTION, UNSPECIFIED 06/14/2019 JEFF WILSNO Ot I65.22 OCCLUSION AND STENOSIS OF LEFT CAROTID A 06/14/2019 JEFF WILSON Ot Z72.0 TOBACCO USE 12/22/2019 JEFF WILSON Ot E78.2 MIXED HYPERLIPIDEMIA 12/22/2019 JEFF WILSON Ot I10 ESSENTIAL (PRIMARY) HYPERTENSION 12/22/2019 JEFF WILSON Ot I63.9 CEREBRAL INFARCTION, UNSPECIFIED 12/22/2019 JEFF WILSON Ot I65.22 OCCLUSION AND STENOSIS OF LEFT CAROTID A 01/09/2020 JEFF WILSON Ot E78.2 MIXED HYPERLIPIDEMIA 01/09/2020 JEFF WILSON Ot I10 ESSENTIAL (PRIMARY) HYPERTENSION 01/09/2020 JEFF WILSON Ot I63.9 CEREBRAL INFARCTION, UNSPECIFIED 01/09/2020 JEFF WILSON Ot I65.22 OCCLUSION AND STENOSIS OF LEFT CAROTID A 03/20/2020 SALVADOR CHANEY APRN Ot 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 03/20/2020 [facility] Ped[facility] Ot E78.2 MIXED HYPERLIPIDEMIA 03/20/2020 [facility] PA, JEFF K Ot I10 ESSENTIAL (PRIMARY) HYPERTENSION 03/20/2020 [facility], JEFF K Ot I63.9 CEREBRAL INFARCTION, UNSPECIFIED 03/20/2020 DOMINIQUE-SADI PA, JEFF K Ot Z72.0 TOBACCO USE 03/20/2020 DOMINIQUECAMILA PA, JEFF Pedraza Ot E78.2 MIXED HYPERLIPIDEMIA 03/20/2020 [facility] PA, JEFF K Ot I07.1 RHEUMATIC TRICUSPID INSUFFICIENCY 03/20/2020 [facility] JEFF K Ot I10 ESSENTIAL (PRIMARY) HYPERTENSION 03/20/2020 [facility], JEFF Pedraza Ot Z72.0 TOBACCO USE 03/20/2020 [facility], JEFF Pedraza Ot E66.9 OBESITY, UNSPECIFIED 03/20/2020 [facility], JEFF K Ot E78.2 MIXED HYPERLIPIDEMIA 03/20/2020 [facility], JEFF K Ot I10 ESSENTIAL (PRIMARY) HYPERTENSION 03/20/2020 DOMINIQUE-SADI PA, JEFF Pedraza Ot I63.9 CEREBRAL INFARCTION, UNSPECIFIED 03/20/2020 [facility], JEFF K Ot I65.22 OCCLUSION AND STENOSIS OF LEFT CAROTID A 03/20/2020 DHIRAJ SOLANO, JEFF Pedraza Ot Z72.0 TOBACCO USE 03/20/2020 [facility], JEFF Pedraza Ot E78.2 MIXED HYPERLIPIDEMIA 03/20/2020 [facility], JEFF K Ot I10 ESSENTIAL (PRIMARY) HYPERTENSION 03/20/2020 [facility], JEFF Pedraza Ot I63.9 CEREBRAL INFARCTION, UNSPECIFIED 03/20/2020 [facility] XIOMARA, JEFF Pedraza Ot I65.22 OCCLUSION AND STENOSIS OF LEFT CAROTID A Procedures Code Description [place] [address] A1C (IN-HOUSE) 10/04/2012 14427 MICR O ALBUMIN-IN HOUSE 01/23/2013 75093 A1C (IN-HOUSE) 01/23/2013 60333 ROUT INE VENIPUNCTURE 01/23/2013 10350 CMP 01/23/2013 05376 LIPI D PANEL 01/23/[id number] GF R CALC (RESULT ONLY) 01/23/2013 14196 ROUT INE VENIPUNCTURE 10/09/2013 91266 A1C (IN-HOUSE) 10/09/[id number] GF R CALC (RESULT ONLY) 10/09/2013 57880 CMP 10/09/2013 24012 LIPI D PANEL 10/09/2013 22357 ROUT INE VENIPUNCTURE 02/09/2014 96047 A1C (IN-HOUSE) 02/09/2014 83828 MICR O ALBUMIN-IN HOUSE 02/09/2014 Internal C jaciel, Ronni 02/09/2014 50636 CBC 02/09/2014 10808 MICR O ALBUMIN-IN HOUSE 07/17/2014 20619 A1C (IN-HOUSE) 07/17/2014 Results Test Result Range Influenza virus A and B antigen detectio n - 09/15/17 07:25 FLU RESULT NEGATIVE FOR INFLUENZA A AND B ANTIGENS BY IA NRG Complete blood count (CBC) with automate d white blood cell (WBC) differential - 02/04/18 13:11 Blood leukocytes automated count (number/volume) 9.8 10*3/uL 4.3-11.0 Blood erythrocytes automated count (number/volume) 5.95 10*6/uL 4.35-5.85 Venous blood hemoglobin measurement (mass/volume) 18.3 g/dL 13.3-17.7 Blood hematocrit (volume fraction) 51 % 40-54 Automated erythrocyte mean corpuscular volume 85 [ foz_us] 80-99 Automated erythrocyte mean corpuscular h emoglobin (mass per erythrocyte) 31 pg 25-34 Automated erythrocyte mean corpuscular h emoglobin concentration measurement (mass/volume) 36 g/dL 32-36 Automated erythrocyte distribution width ratio 12. 8 % 10.0- 14.5 Automated blood platelet count [...] 10*3 1.0-4.0 Blood monocytes automated count (number/volume) 0. 6 10*3 0.0-1.0 Automated eosinophil count 0.1 10*3/uL 0 .0-0.3 Automated blood basophil count (count/volume) 0.1 10*3/uL 0.0-0.1 PT panel in platelet poor plasma by coag ulation assay - 02/04/18 13:11 Prothrombin time (PT) in platelet poor plasma by coagu lation assay 12.5 s 12.2-14.7 INR in platelet poor plasma or blood by coagulation as say 0.9 0.8-1.4 Activated partial thromboplastin time (a PTT) in platelet poor plasma bycoagulation assay - 02/04/18 13:11 Activated partial thromboplastin time (a PTT) in platelet poor plasma bycoagulation assay 35 s 24-35 Fibrin D-dimer FEU measurement in platel et poor plasma (mass/volume) - 02/04/18 13:11 Fibrin [...] 5-14 Serum or plasma urea nitrogen measurement (mass/volume ) 10 mg/dL 7-18 Serum or plasma creatinine measurement (mass/volume) 0.93 mg/dL 0.60-1.30 Serum or plasma urea nitrogen/creatinine mass ratio 11 NRG Serum or plasma creatinine measurement w ith calculation of estimated glomerular filtration rate > NRG Serum or plasma glucose measurement (mass/volume) 327 mg/dL 70-105 Serum or plasma calcium measurement (mass/volume) 9.6 mg/dL 8.5-10.1 Serum or plasma total bilirubin measurement (mass/volu me) 0.7 mg/dL 0.1-1.0 Serum or plasma alkaline phosphatase valerie surement (enzymatic activity/volume) 132 U/L 40-136 Serum or plasma aspartate aminotransfera se measurement (enzymatic activity/volume) 15 U/L 5-34 Serum or plasma alanine aminotransferase measurement (enzymatic activity/volume) 26 U/L 0-55 Serum or plasma protein measurement (mass/volume) 7.7 g/dL 6.4-8.2 Serum or plasma albumin measurement (mass/volume) 4.4 g/dL 3.2-4.5 Serum or plasma troponin i.cardiac measu rement (mass/volume) - 02/04/18 13:11 Serum or plasma troponin i.cardiac measurement (mass/v olume) < ng/mL <0.30 Capillary blood glucose measurement by g lucometer (mass/volume) - 02/04/18 13:19 Capillary blood glucose measurement by glucometer (mas s/volume) 294 mg/dL 70-110 Complete urinalysis with reflex to cultu re - 02/04/18 14:00 Urine color determination YELLOW NRG Urine clarity determination CLEAR NR G Urine pH measurement by test strip 5 5-9 Specific gravity of urine by test strip 1.020 1.016-1.022 Urine protein assay by test strip, semi-quantitative 2+ NEGATIVE Urine glucose detection by automated test strip 4+ NEGATIVE Erythrocytes detection in urine sediment by light micr oscopy 1+ NEGATIVE Urine ketones detection by automated test strip NE GATIVE NEGATIVE Urine nitrite detection by test strip NEGATIVE NEGATIVE Urine total bilirubin detection by test strip NEGA TIVE NEGATIVE Urine urobilinogen measurement by automated test strip (mass/volume) NORMAL NORMAL Urine leukocyte esterase detection by dipstick 1+ NEGATIVE Automated urine sediment erythrocyte cou nt by microscopy (number/high power field) NONE NRG Automated urine sediment leukocyte count by microscopy (number/high power field) RARE NRG Bacteria detection in urine sediment by light microsco py NEGATIVE NRG Squamous epithelial cells detection in u rine sediment by light microscopy NONE NRG Crystals detection in urine sediment by light microsco py NONE NRG Casts detection in urine sediment by light microscopy NONE NRG Mucus detection in urine sediment by light microscopy NEGATIVE NRG Complete urinalysis with reflex to culture NO NRG Capillary blood glucose measurement by g lucometer (mass/volume) - 02/05/18 06:07 Capillary blood glucose measurement by glucometer (mas s/volume) 233 mg/dL 70-110 Complete blood count (CBC) with automate d white blood cell (WBC) differential - 02/05/18 06:10 Blood leukocytes automated count (number/volume) 12.5 10*3/uL 4.3-11.0 Blood erythrocytes automated count (number/volume) 5.46 10*6/uL 4.35-5.85 Venous blood hemoglobin measurement (mass/volume) 17.0 g/dL 13.3-17.7 Blood hematocrit (volume fraction) 48 % 40-54 Automated erythrocyte mean corpuscular volume 88 [ foz_us] 80-99 Automated erythrocyte mean corpuscular h emoglobin (mass per erythrocyte) 31 pg 25-34 Automated erythrocyte mean corpuscular h emoglobin concentration measurement (mass/volume) 36 g/dL 32-36 Automated erythrocyte distribution width ratio 13. 0 % 10.0- 14.5 Automated blood platelet count [...] 10*3 1.0-4.0 Blood monocytes automated count (number/volume) 0. 7 10*3 0.0-1.0 Automated eosinophil count 0.1 10*3/uL 0 .0-0.3 Automated blood basophil count (count/volume) 0.1 10*3/uL 0.0-0.1 Whole blood basic metabolic panel - 01/08 11/25 06:10 Serum or plasma sodium measurement (moles/volume) 137 mmol/L 135-145 Serum or plasma potassium measurement (moles/volume) 3.9 mmol/L 3.6-5.0 Serum or plasma chloride measurement (moles/volume) 107 mmol/L 98-107 Carbon dioxide 24 mmol/L 21-32 Serum or plasma anion gap determination (moles/volume) 6 mmol/L 5-14 Serum or plasma urea nitrogen measurement (mass/volume ) 9 mg/dL 7-18 Serum or plasma creatinine measurement (mass/volume) 0.78 mg/dL 0.60-1.30 Serum or plasma urea nitrogen/creatinine mass ratio 12 NRG Serum or plasma creatinine measurement w ith calculation of estimated glomerular filtration rate > NRG Serum or plasma glucose measurement (mass/volume) 237 mg/dL 70-105 Serum or plasma calcium measurement (mass/volume) 8.2 mg/dL 8.5-10.1 Lipid 1996 panel - 02/05/18 06:10 Serum or plasma triglyceride measurement (mass/volume) 316 mg/dL <150 Serum or plasma cholesterol measurement (mass/volume) 233 mg/dL < 200 Serum or plasma cholesterol in HDL measurement (mass/v olume) 27 mg/dL 40-60 Cholesterol in LDL [mass/volume] in serum or plasma by direct assay 159 mg/dL 1-129 Serum or plasma cholesterol in VLDL measurement (mass/ volume) 63 mg/dL 5-40 Hemoglobin A1c - 02/05/18 06:10 Blood hemoglobin A1C measurement (mass/volume) 11. 6 % 4.0- 5.6 MEAN BLOOD GLUCOSE 286 % <=126 Capillary blood glucose measurement by g lucometer (mass/volume) - 02/05/18 11:18 Capillary blood glucose measurement by glucometer (mas s/volume) 394 mg/dL 70-110 Capillary blood glucose measurement by g lucometer (mass/volume) - 02/05/18 15:19 Capillary blood glucose measurement by glucometer (mas s/volume) 228 mg/dL 70-110 Capillary blood glucose measurement by g lucometer (mass/volume) - 02/05/18 21:23 Capillary blood glucose measurement by glucometer (mas s/volume) 223 mg/dL 70-110 Capillary blood glucose measurement by g lucometer (mass/volume) - 02/06/18 05:51 Capillary blood glucose measurement by glucometer (mas s/volume) 171 mg/dL 70-110 Capillary blood glucose measurement by g lucometer (mass/volume) - 02/06/18 11:04 Capillary blood glucose measurement by glucometer (mas s/volume) 220 mg/dL 70-110 Capillary blood glucose measurement by g lucometer (mass/volume) - 02/06/18 15:35 Capillary blood glucose measurement by glucometer (mas s/volume) 152 mg/dL 70-110 Capillary blood glucose measurement by g lucometer (mass/volume) - 02/06/18 17:40 Capillary blood glucose measurement by glucometer (mas s/volume) 194 mg/dL 70-110 Capillary blood glucose measurement by g lucometer (mass/volume) - 02/07/18 05:34 Capillary blood glucose measurement by glucometer (mas s/volume) 220 mg/dL 70-110 Capillary blood glucose measurement by g lucometer (mass/volume) - 02/07/18 10:34 Capillary blood glucose measurement by glucometer (mas s/volume) 272 mg/dL 70-110 Capillary blood glucose measurement by g lucometer (mass/volume) - 02/07/18 14:53 Capillary blood glucose measurement by glucometer (mas s/volume) 279 mg/dL 70-110 Capillary blood glucose measurement by g lucometer (mass/volume) - 02/07/18 20:29 Capillary blood glucose measurement by glucometer (mas s/volume) 206 mg/dL 70-110 Capillary blood glucose measurement by g lucometer (mass/volume) - 02/08/18 05:50 Capillary blood glucose measurement by glucometer (mas s/volume) 173 mg/dL 70-110 Capillary blood glucose measurement by g lucometer (mass/volume) - 02/08/18 09:39 Capillary blood glucose measurement by glucometer (mas s/volume) 319 mg/dL 70-110 Capillary blood glucose measurement by g lucometer (mass/volume) - 02/08/18 15:14 Capillary blood glucose measurement by glucometer (mas s/volume) 245 mg/dL 70-110 Capillary blood glucose measurement by g lucometer (mass/volume) - 02/08/18 19:31 Capillary blood glucose measurement by glucometer (mas s/volume) 258 mg/dL 70-110 Capillary blood glucose measurement by g lucometer (mass/volume) - 02/09/18 05:22 Capillary blood glucose measurement by glucometer (mas s/volume) 138 mg/dL 70-110 Capillary blood glucose measurement by g lucometer (mass/volume) - 02/09/18 11:03 Capillary blood glucose measurement by glucometer (mas s/volume) 144 mg/dL 70-110 Capillary blood glucose measurement by g lucometer (mass/volume) - 02/09/18 15:23 Capillary blood glucose measurement by glucometer (mas s/volume) 148 mg/dL 70-110 Capillary blood glucose measurement by g lucometer (mass/volume) - 02/09/18 21:01 Capillary blood glucose measurement by glucometer (mas s/volume) 278 mg/dL 70-110 Capillary blood glucose measurement by g lucometer (mass/volume) - 02/10/18 05:20 Capillary blood glucose measurement by glucometer (mas s/volume) 103 mg/dL 70-110 Capillary blood glucose measurement by g lucometer (mass/volume) - 02/10/18 09:16 Capillary blood glucose measurement by glucometer (mas s/volume) 99 mg/dL 70-110 Capillary blood glucose measurement by g lucometer (mass/volume) - 02/10/18 14:23 Capillary blood glucose measurement by glucometer (mas s/volume) 119 mg/dL 70-110 Capillary blood glucose measurement by g lucometer (mass/volume) - 02/10/18 20:45 Capillary blood glucose measurement by glucometer (mas s/volume) 99 mg/dL 70-110 Capillary blood glucose measurement by g lucometer (mass/volume) - 02/11/18 05:43 Capillary blood glucose measurement by glucometer (mas s/volume) 88 mg/dL 70-110 Capillary blood glucose measurement by g lucometer (mass/volume) - 02/11/18 10:50 Capillary blood glucose measurement by glucometer (mas s/volume) 92 mg/dL 70-110 Capillary blood glucose measurement by g lucometer (mass/volume) - 02/11/18 14:49 Capillary blood glucose measurement by glucometer (mas s/volume) 178 mg/dL 70-110 Capillary blood glucose measurement by g lucometer (mass/volume) - 02/11/18 19:56 Capillary blood glucose measurement by glucometer (mas s/volume) 105 mg/dL 70-110 Capillary blood glucose measurement by g lucometer (mass/volume) - 02/12/18 05:15 Capillary blood glucose measurement by glucometer (mas s/volume) 103 mg/dL 70-110 Capillary blood glucose measurement by g lucometer (mass/volume) - 02/12/18 09:50 Capillary blood glucose measurement by glucometer (mas s/volume) 84 mg/dL 70-110 Capillary blood glucose measurement by g lucometer (mass/volume) - 02/12/18 14:36 Capillary blood glucose measurement by glucometer (mas s/volume) 64 mg/dL 70-110 Capillary blood glucose measurement by g lucometer (mass/volume) - 02/12/18 15:07 Capillary blood glucose measurement by glucometer (mas s/volume) 92 mg/dL 70-110 Capillary blood glucose measurement by g lucometer (mass/volume) - 02/12/18 19:45 Capillary blood glucose measurement by glucometer (mas s/volume) 74 mg/dL 70-110 Capillary blood glucose measurement by g lucometer (mass/volume) - 02/12/18 21:13 Capillary blood glucose measurement by glucometer (mas s/volume) 185 mg/dL 70-110 Capillary blood glucose measurement by g lucometer (mass/volume) - 02/13/18 05:15 Capillary blood glucose measurement by glucometer (mas s/volume) 65 mg/dL 70-110 Capillary blood glucose measurement by g lucometer (mass/volume) - 02/13/18 06:24 Capillary blood glucose measurement by glucometer (mas s/volume) 155 mg/dL 70-110 Capillary blood glucose measurement by g lucometer (mass/volume) - 02/13/18 10:19 Capillary blood glucose measurement by glucometer (mas s/volume) 80 mg/dL 70-110 Capillary blood glucose measurement by g lucometer (mass/volume) - 02/13/18 14:25 Capillary blood glucose measurement by glucometer (mas s/volume) 89 mg/dL 70-110 Capillary blood glucose measurement by g lucometer (mass/volume) - 02/13/18 20:11 Capillary blood glucose measurement by glucometer (mas s/volume) 204 mg/dL 70-110 Capillary blood glucose measurement by g lucometer (mass/volume) - 02/14/18 05:11 Capillary blood glucose measurement by glucometer (mas s/volume) 89 mg/dL 70-110 Capillary blood glucose measurement by g lucometer (mass/volume) - 02/14/18 10:53 Capillary blood glucose measurement by glucometer (mas s/volume) 127 mg/dL 70-110 Capillary blood glucose measurement by g lucometer (mass/volume) - 02/14/18 15:04 Capillary blood glucose measurement by glucometer (mas s/volume) 88 mg/dL 70-110 Capillary blood glucose measurement by g lucometer (mass/volume) - 02/14/18 21:11 Capillary blood glucose measurement by glucometer (mas s/volume) 191 mg/dL 70-110 Capillary blood glucose measurement by g lucometer (mass/volume) - 02/15/18 06:42 Capillary blood glucose measurement by glucometer (mas s/volume) 89 mg/dL 70-110 Capillary blood glucose measurement by g lucometer (mass/volume) - 02/15/18 09:59 Capillary blood glucose measurement by glucometer (mas s/volume) 70 mg/dL 70-110 Capillary blood glucose measurement by g lucometer (mass/volume) - 02/15/18 11:30 Capillary blood glucose measurement by glucometer (mas s/volume) 75 mg/dL 70-110 Capillary blood glucose measurement by g lucometer (mass/volume) - 02/15/18 15:22 Capillary blood glucose measurement by glucometer (mas s/volume) 136 mg/dL 70-110 Capillary blood glucose measurement by g lucometer (mass/volume) - 02/15/18 20:37 Capillary blood glucose measurement by glucometer (mas s/volume) 188 mg/dL 70-110 Capillary blood glucose measurement by g lucometer (mass/volume) - 02/16/18 05:33 Capillary blood glucose measurement by glucometer (mas s/volume) 110 mg/dL 70-110 Capillary blood glucose measurement by g lucometer (mass/volume) - 02/16/18 11:27 Capillary blood glucose measurement by glucometer (mas s/volume) 92 mg/dL 70-110 Capillary blood glucose measurement by g lucometer (mass/volume) - 02/16/18 16:00 Capillary blood glucose measurement by glucometer (mas s/volume) 113 mg/dL 70-110 Capillary blood glucose measurement by g lucometer (mass/volume) - 02/16/18 20:56 Capillary blood glucose measurement by glucometer (mas s/volume) 133 mg/dL 70-110 Capillary blood glucose measurement by g lucometer (mass/volume) - 02/17/18 05:08 Capillary blood glucose measurement by glucometer (mas s/volume) 104 mg/dL 70-110 Capillary blood glucose measurement by g lucometer (mass/volume) - 02/17/18 11:28 Capillary blood glucose measurement by glucometer (mas s/volume) 77 mg/dL 70-110 Capillary blood glucose measurement by g lucometer (mass/volume) - 02/17/18 16:31 Capillary blood glucose measurement by glucometer (mas s/volume) 72 mg/dL 70-110 Capillary blood glucose measurement by g lucometer (mass/volume) - 02/17/18 20:36 Capillary blood glucose measurement by glucometer (mas s/volume) 150 mg/dL 70-110 Capillary blood glucose measurement by g lucometer (mass/volume) - 02/18/18 05:04 Capillary blood glucose measurement by glucometer (mas s/volume) 87 mg/dL 70-110 Capillary blood glucose measurement by g lucometer (mass/volume) - 02/18/18 11:36 Capillary blood glucose measurement by glucometer (mas s/volume) 97 mg/dL 70-110 Automated blood complete blood count (he mogram) panel - 03/30/18 07:43 Blood leukocytes automated count (number/volume) 9.3 10*3/uL 4.3-11.0 Blood erythrocytes automated count (number/volume) 5.59 10*6/uL 4.35-5.85 Venous blood hemoglobin measurement (mass/volume) 17.2 g/dL 13.3-17.7 Blood hematocrit (volume fraction) 50 % 40-54 Automated erythrocyte mean corpuscular volume 89 [ foz_us] 80-99 Automated erythrocyte mean corpuscular h emoglobin (mass per erythrocyte) 31 pg 25-34 Automated erythrocyte mean corpuscular h emoglobin concentration measurement (mass/volume) 35 g/dL 32-36 Automated erythrocyte distribution width ratio 13. 2 % 10.0- 14.5 Automated blood platelet count [...] 5-14 Serum or plasma urea nitrogen measurement (mass/volume ) 9 mg/dL 7-18 Serum or plasma creatinine measurement (mass/volume) 0.83 mg/dL 0.60-1.30 Serum or plasma urea nitrogen/creatinine mass ratio 11 NRG Serum or plasma creatinine measurement w ith calculation of estimated glomerular filtration rate > NRG Serum or plasma glucose measurement (mass/volume) 116 mg/dL 70-105 Serum or plasma calcium measurement (mass/volume) 9.5 mg/dL 8.5-10.1 Serum or plasma total bilirubin measurement (mass/volu me) 0.6 mg/dL 0.1-1.0 Serum or plasma alkaline phosphatase valerie surement (enzymatic activity/volume) 94 U/L 40-136 Serum or plasma aspartate aminotransfera se measurement (enzymatic activity/volume) 14 U/L 5-34 Serum [...] Serum or plasma cholesterol in HDL measurement (mass/v olume) 29 mg/dL 40-60 Cholesterol in LDL [mass/volume] in serum or plasma by direct assay 105 mg/dL 1-129 Serum or plasma cholesterol in VLDL measurement (mass/ volume) 29 mg/dL 5-40 PT panel in platelet poor plasma by coag ulation assay - 03/30/18 07:43 Prothrombin time (PT) in platelet poor plasma by coagu lation assay 13.0 s 12.2-14.7 INR in platelet poor plasma or blood by coagulation as say 1.0 0.8-1.4 Activated partial thromboplastin time (a PTT) in platelet poor plasma bycoagulation assay - 03/30/18 07:43 Activated partial thromboplastin time (a PTT) in platelet poor plasma bycoagulation assay 39 s 24-35 Methicillin resistant Staphylococcus aur eus (MRSA) screening culture - 03/30/18 07:43 Methicillin resistant Staphylococcus aureus (MRSA) scr eening culture NEG NRG Capillary blood glucose measurement by g lucometer (mass/volume) - 03/30/18 18:05 Capillary blood glucose measurement by glucometer (mas s/volume) 105 mg/dL 70-110 Automated blood complete blood count (he mogram) panel - 03/31/18 03:11 Blood leukocytes automated count (number/volume) 12.6 10*3/uL 4.3-11.0 Blood erythrocytes automated count (number/volume) 5.26 10*6/uL 4.35-5.85 Venous blood hemoglobin measurement (mass/volume) 16.2 g/dL 13.3-17.7 Blood hematocrit (volume fraction) 46 % 40-54 Automated erythrocyte mean corpuscular volume 88 [ foz_us] 80-99 Automated erythrocyte mean corpuscular h emoglobin (mass per erythrocyte) 31 pg 25-34 Automated erythrocyte mean corpuscular h emoglobin concentration measurement (mass/volume) 35 g/dL 32-36 Automated erythrocyte distribution width ratio 13. 1 % 10.0- 14.5 Automated blood platelet count (count/volume) 365 10*3/uL 130-400 Automated blood platelet mean volume measurement 10.1 [foz_us] 7.4-10.4 Whole blood basic metabolic panel - 03/09 02/23 03:11 Serum or plasma sodium measurement (moles/volume) 139 mmol/L 135-145 Serum or plasma potassium measurement (moles/volume) 3.9 mmol/L 3.6-5.0 Serum or plasma chloride measurement (moles/volume) 108 mmol/L 98-107 Carbon dioxide 18 mmol/L 21-32 Serum or plasma anion gap determination (moles/volume) 13 mmol/L 5-14 Serum or plasma urea nitrogen measurement (mass/volume ) 8 mg/dL 7-18 Serum or plasma creatinine measurement (mass/volume) 0.73 mg/dL 0.60-1.30 Serum or plasma urea nitrogen/creatinine mass ratio 11 NRG Serum or plasma creatinine measurement w ith calculation of estimated glomerular filtration rate > NRG Serum or plasma glucose measurement (mass/volume) 89 mg/dL 70-105 Serum or plasma calcium measurement (mass/volume) 8.8 mg/dL 8.5-10.1 A1C - 06/17/18 09:46 HEMOGLOBIN A1c 6.5 % of total Hgb <5.7 Whole blood basic metabolic panel - 01/06 03/26 08:55 Serum or plasma sodium measurement (moles/volume) 139 mmol/L 135-145 Serum or plasma potassium measurement (moles/volume) 4.4 mmol/L 3.6-5.0 Serum or plasma chloride measurement (moles/volume) 105 mmol/L 98-107 Carbon dioxide 24 mmol/L 21-32 Serum or plasma anion gap determination (moles/volume) 10 mmol/L 5-14 Serum or plasma urea nitrogen measurement (mass/volume ) 14 mg/dL 7-18 Serum or plasma creatinine measurement (mass/volume) 1.06 mg/dL 0.60-1.30 Serum or plasma urea nitrogen/creatinine mass ratio 13 NRG Serum or plasma creatinine measurement w ith calculation of estimated glomerular filtration rate > NRG Serum or plasma glucose measurement (mass/volume) 237 mg/dL 70-105 Serum or plasma calcium measurement (mass/volume) 9.6 mg/dL 8.5-10.1 CMP - 02/20/19 11:36 GLUCOSE 159 mg/dL 65-99 UREA NITROGEN (BUN) 10 mg/dL 7-25 CREATININE 0.87 mg/dL 0.70-1.33 eGFR NON-AFR. [place] 95 mL/min/1.73m2 > OR = 60 eGFR 110 mL/min/1.73m2 > OR = 60 BUN/CREATININE RATIO NOT APPLICABLE (calc) 6-22 SODIUM 139 mmol/L 135-146 POTASSIUM 4.4 mmol/L 3.5-5.3 CHLORIDE 104 mmol/L 98-110 CARBON DIOXIDE 28 mmol/L 20-32 CALCIUM 9.7 mg/dL 8.6-10.3 PROTEIN, TOTAL 7.0 g/dL 6.1-8.1 ALBUMIN 4.6 g/dL 3.6-5.1 GLOBULIN 2.4 g/dL (calc) 1.9-3.7 ALBUMIN/GLOBULIN RATIO 1.9 (calc) 1.0-2. 5 BILIRUBIN, TOTAL 0.5 mg/dL 0.2-1.2 ALKALINE PHOSPHATASE 89 U/L 40-115 AST 17 U/L 10-35 ALT 22 U/L 9-46 Complete blood count (CBC) with automate d white blood cell (WBC) differential - 03/25/19 07:42 Blood leukocytes automated count (number/volume) 10.5 10*3/uL 4.3-11.0 Blood erythrocytes automated count (number/volume) 5.71 10*6/uL 4.35-5.85 Venous blood hemoglobin measurement (mass/volume) 17.4 g/dL 13.3-17.7 Blood hematocrit (volume fraction) 50 % 40-54 Automated erythrocyte mean corpuscular volume 88 [ foz_us] 80-99 Automated erythrocyte mean corpuscular h emoglobin (mass per erythrocyte) 31 pg 25-34 Automated erythrocyte mean corpuscular h emoglobin concentration measurement (mass/volume) 35 g/dL 32-36 Automated erythrocyte distribution width ratio 13. 3 % 10.0- 14.5 Automated blood platelet count [...] 10*3 1.0-4.0 Blood monocytes automated count (number/volume) 0. 9 10*3 0.0-1.0 Automated eosinophil count 0.2 10*3/uL 0 .0-0.3 Automated blood basophil count (count/volume) 0.1 10*3/uL 0.0-0.1 PT panel in platelet poor plasma by coag ulation assay - 03/25/19 07:42 Prothrombin time (PT) in platelet poor plasma by coagu lation assay 13.5 s 12.2-14.7 INR in platelet poor plasma or blood by coagulation as say 1.0 0.8-1.4 Comprehensive metabolic panel - 03/25/19 07:42 Serum or plasma sodium measurement (moles/volume) 137 mmol/L 135-145 Serum or plasma potassium measurement (moles/volume) 4.1 mmol/L 3.6-5.0 Serum or plasma chloride measurement (moles/volume) 106 mmol/L 98-107 Carbon dioxide 19 mmol/L 21-32 Serum or plasma anion gap determination (moles/volume) 12 mmol/L 5-14 Serum or plasma urea nitrogen measurement (mass/volume ) 13 mg/dL 7-18 Serum or plasma creatinine measurement (mass/volume) 0.99 mg/dL 0.60-1.30 Serum or plasma urea nitrogen/creatinine mass ratio 13 NRG Serum or plasma creatinine measurement w ith calculation of estimated glomerular filtration rate > NRG Serum or plasma glucose measurement (mass/volume) 174 mg/dL 70-105 Serum or plasma calcium measurement (mass/volume) 9.4 mg/dL 8.5-10.1 Serum or plasma total bilirubin measurement (mass/volu me) 0.7 mg/dL 0.1-1.0 Serum or plasma alkaline phosphatase valerie surement (enzymatic activity/volume) 90 U/L 40-136 Serum or plasma aspartate aminotransfera se measurement (enzymatic activity/volume) 15 U/L 5-34 Serum or plasma alanine aminotransferase measurement (enzymatic activity/volume) 23 U/L 0-55 Serum or plasma protein measurement (mass/volume) 7.2 g/dL 6.4-8.2 Serum or plasma albumin measurement (mass/volume) 4.3 g/dL 3.2-4.5 CALCIUM CORRECTED 9.2 mg/dL 8.5-10.1 Serum or plasma troponin i.cardiac measu rement (mass/volume) - 03/25/19 07:42 Serum or plasma troponin i.cardiac measurement (mass/v olume) < ng/mL <0.028 Capillary blood glucose measurement by g lucometer (mass/volume) - 03/25/19 21:17 Capillary blood glucose measurement by glucometer (mas s/volume) 133 mg/dL 70-110 Capillary blood glucose measurement by g lucometer (mass/volume) - 03/26/19 06:11 Capillary blood glucose measurement by glucometer (mas s/volume) 120 mg/dL 70-110 Capillary blood glucose measurement by g lucometer (mass/volume) - 03/26/19 11:17 Capillary blood glucose measurement by glucometer (mas s/volume) 105 mg/dL 70-110 Automated blood complete blood count (he mogram) panel - 04/19/19 11:26 Blood leukocytes automated count (number/volume) 9.0 10*3/uL 4.3-11.0 Blood erythrocytes automated count (number/volume) 5.65 10*6/uL 4.35-5.85 Venous blood hemoglobin measurement (mass/volume) 16.8 g/dL 13.3-17.7 Blood hematocrit (volume fraction) 49 % 40-54 Automated erythrocyte mean corpuscular volume 87 [ foz_us] 80-99 Automated erythrocyte mean corpuscular h emoglobin (mass per erythrocyte) 30 pg 25-34 Automated erythrocyte mean corpuscular h emoglobin concentration measurement (mass/volume) 34 g/dL 32-36 Automated erythrocyte distribution width ratio 13. 3 % 10.0- 14.5 Automated blood platelet count (count/volume) 377 10*3/uL 130-400 Automated blood platelet mean volume measurement 9.3 [foz_us] 7.4-10.4 Complete urinalysis with reflex to cultu re - 04/19/19 11:26 Urine color determination YELLOW NRG Urine clarity determination CLEAR NR G Urine pH measurement by test strip 6 5-9 Specific gravity of urine by test strip 1.025 1.016-1.022 Urine protein assay by test strip, semi-quantitative NEGATIVE NEGATIVE Urine glucose detection by automated test strip NE GATIVE NEGATIVE Erythrocytes detection in urine sediment by light micr oscopy NEGATIVE NEGATIVE Urine ketones detection by automated test strip 1+ NEGATIVE Urine nitrite detection by test strip NEGATIVE NEGATIVE Urine total bilirubin detection by test strip NEGA TIVE NEGATIVE Urine urobilinogen measurement by automated test strip (mass/volume) 1 mg/dL NORMAL Urine leukocyte esterase detection by dipstick 1+ NEGATIVE Automated urine sediment erythrocyte cou nt by microscopy (number/high power field) NONE NRG Automated urine sediment leukocyte count by microscopy (number/high power field) [HPF] NRG Bacteria detection in urine sediment by light microsco py TRACE NRG Squamous epithelial cells detection in u rine sediment by light microscopy RARE NRG Crystals detection in urine sediment by light microsco py NONE NRG Casts detection in urine sediment by light microscopy NONE NRG Mucus detection in urine sediment by light microscopy MODERATE NRG Complete urinalysis with reflex to culture YES NRG PT panel in platelet poor plasma by coag ulation assay - 04/19/19 11:26 Prothrombin time (PT) in platelet poor plasma by coagu lation assay 13.2 s 12.2-14.7 INR in platelet poor plasma or blood by coagulation as say 1.0 0.8-1.4 Activated partial thromboplastin time (a PTT) in platelet poor plasma bycoagulation assay - 04/19/19 11:26 Activated partial thromboplastin time (a PTT) in platelet poor plasma bycoagulation assay 42 s 24-35 Comprehensive metabolic panel - 04/19/19 11:26 Serum or plasma sodium measurement (moles/volume) 140 mmol/L 135-145 Serum or plasma potassium measurement (moles/volume) 4.1 mmol/L 3.6-5.0 Serum or plasma chloride measurement (moles/volume) 105 mmol/L 98-107 Carbon dioxide 23 mmol/L 21-32 Serum or plasma anion gap determination (moles/volume) 12 mmol/L 5-14 Serum or plasma urea nitrogen measurement (mass/volume ) 11 mg/dL 7-18 Serum or plasma creatinine measurement (mass/volume) 1.01 mg/dL 0.60-1.30 Serum or plasma urea nitrogen/creatinine mass ratio 11 NRG Serum or plasma creatinine measurement w ith calculation of estimated glomerular filtration rate > NRG Serum or plasma glucose measurement (mass/volume) 142 mg/dL 70-105 Serum or plasma calcium measurement (mass/volume) 9.8 mg/dL 8.5-10.1 Serum or plasma total bilirubin measurement (mass/volu me) 0.8 mg/dL 0.1-1.0 Serum or plasma alkaline phosphatase valerie surement (enzymatic activity/volume) 96 U/L 40-136 Serum or plasma aspartate aminotransfera se measurement (enzymatic activity/volume) 21 U/L 5-34 Serum or plasma alanine aminotransferase measurement (enzymatic activity/volume) 34 U/L 0-55 Serum or plasma protein measurement (mass/volume) 7.7 g/dL 6.4-8.2 Serum or plasma albumin measurement (mass/volume) 4.7 g/dL 3.2-4.5 Lipid 1996 panel - 04/19/19 11:26 Serum or plasma triglyceride measurement (mass/volume) 172 mg/dL <150 Serum or plasma cholesterol measurement (mass/volume) 205 mg/dL < 200 Serum or plasma cholesterol in HDL measurement (mass/v olume) 33 mg/dL 40-60 Cholesterol in LDL [mass/volume] in serum or plasma by direct assay 157 mg/dL 1-129 Serum or plasma cholesterol in VLDL measurement (mass/ volume) 34 mg/dL 5-40 Bacterial urine culture - 04/19/19 11:26 Bacterial urine culture NG NRG Methicillin resistant Staphylococcus aur eus (MRSA) screening culture - 04/19/19 11:26 Methicillin resistant Staphylococcus aureus (MRSA) scr eening culture NEG NRG Capillary blood glucose measurement by g lucometer (mass/volume) - 04/19/19 17:34 Capillary blood glucose measurement by glucometer (mas s/volume) 113 mg/dL 70-110 Capillary blood glucose measurement by g lucometer (mass/volume) - 04/19/19 20:37 Capillary blood glucose measurement by glucometer (mas s/volume) 123 mg/dL 70-110 Capillary blood glucose measurement by g lucometer (mass/volume) - 04/20/19 05:39 Capillary blood glucose measurement by glucometer (mas s/volume) 105 mg/dL 70-110 Automated blood complete blood count (he mogram) panel - 04/20/19 05:50 Blood leukocytes automated count (number/volume) 8.3 10*3/uL 4.3-11.0 Blood erythrocytes automated count (number/volume) 4.96 10*6/uL 4.35-5.85 Venous blood hemoglobin measurement (mass/volume) 14.9 g/dL 13.3-17.7 Blood hematocrit (volume fraction) 44 % 40-54 Automated erythrocyte mean corpuscular volume 88 [ foz_us] 80-99 Automated erythrocyte mean corpuscular h emoglobin (mass per erythrocyte) 30 pg 25-34 Automated erythrocyte mean corpuscular h emoglobin concentration measurement (mass/volume) 34 g/dL 32-36 Automated erythrocyte distribution width ratio 13. 1 % 10.0- 14.5 Automated blood platelet count (count/volume) 308 10*3/uL 130-400 Automated blood platelet mean volume measurement 9.6 [foz_us] 7.4-10.4 Whole blood basic metabolic panel - 04/08 01/24 05:50 Serum or plasma sodium measurement (moles/volume) 138 mmol/L 135-145 Serum or plasma potassium measurement (moles/volume) 4.0 mmol/L 3.6-5.0 Serum or plasma chloride measurement (moles/volume) 110 mmol/L 98-107 Carbon dioxide 21 mmol/L 21-32 Serum or plasma anion gap determination (moles/volume) 7 mmol/L 5-14 Serum or plasma urea nitrogen measurement (mass/volume ) 11 mg/dL 7-18 Serum or plasma creatinine measurement (mass/volume) 0.82 mg/dL 0.60-1.30 Serum or plasma urea nitrogen/creatinine mass ratio 13 NRG Serum or plasma creatinine measurement w ith calculation of estimated glomerular filtration rate > NRG Serum or plasma glucose measurement (mass/volume) 87 mg/dL 70-105 Serum or plasma calcium measurement (mass/volume) 8.5 mg/dL 8.5-10.1 Capillary blood glucose measurement by g lucometer (mass/volume) - 04/20/19 11:11 Capillary blood glucose measurement by glucometer (mas s/volume) 112 mg/dL 70-110 Complete blood count (CBC) with automate d white blood cell (WBC) differential - 03/20/20 11:05 Blood leukocytes automated count (number/volume) 11.8 10*3/uL 4.3-11.0 Blood erythrocytes automated count (number/volume) 5.53 10*6/uL 4.35-5.85 Venous blood hemoglobin measurement (mass/volume) 17.0 g/dL 13.3-17.7 Blood hematocrit (volume fraction) 49 % 40-54 Automated erythrocyte mean corpuscular volume 88 [ foz_us] 80-99 Automated erythrocyte mean corpuscular h emoglobin (mass per erythrocyte) 31 pg 25-34 Automated erythrocyte mean corpuscular h emoglobin concentration measurement (mass/volume) 35 g/dL 32-36 Automated erythrocyte distribution width ratio 13. 0 % 10.0- 14.5 Automated blood platelet count (count/volume) 380 10*3/uL 130-400 Automated blood platelet mean volume measurement 9.6 [foz_us] 7.4-10.4 Automated blood neutrophils/100 leukocytes 76 % 42-75 Automated blood lymphocytes/100 leukocytes 15 % 12-44 Blood monocytes/100 leukocytes 6 % 0-12 Automated blood eosinophils/100 leukocytes 2 % 0-10 Automated blood basophils/100 leukocytes 1 % 0-10 Blood neutrophils automated count (number/volume) 9.0 10*3 1.8-7.8 Blood lymphocytes automated count (number/volume) 1.8 10*3 1.0-4.0 Blood monocytes automated count (number/volume) 0. 7 10*3 0.0-1.0 Automated eosinophil count 0.2 10*3/uL 0 .0-0.3 Automated blood basophil count (count/volume) 0.1 10*3/uL 0.0-0.1 Methicillin resistant Staphylococcus aur eus (MRSA) screening culture - 03/20/20 11:05 Methicillin resistant Staphylococcus aureus (MRSA) scr eening culture NEG NRG Coronavirus SARS-CoV-2 SO 2018 - 0 13:41 Coronavirus Ab [Units/volume] in Serum Negative Negative Encounters ACCT No. Visit Date/Time Discharge Status Pt. Type Provider Facility Loc./Unit Complaint [id number] 03/31/2019 15:50:00 03/31/2019 23:59: 59 CLS [facility] [id number] 02/20/2019 11:00:00 Document Registration [id number] 06/17/2018 09:20:00 Document Registration [id number] 03/22/2020 08:01:00 23:59:59 CLS Outpatient NICOLAS PETERS DO [facility] PREOP RIGHT INGUINAL HERNIA [id number] 12/21/2019 10:40:00 23:59:59 CLS Outpatient EDIN WILSON [facility] LAB I10,I65.22, E78.2,I63.9 [id number] 06/12/2019 07:25:00 23:59:59 CLS Outpatient EDIN WILSON [facility] LAB I63.9,I10 [id number] 04/19/2019 11:05:00 019 12:15:00 DIS Outpatient REINIER PERDOMO, BETINA Miller [facility] CATH LT SUBCLAVIAN ARTERY STENOSIS,HTN,SOB [id number] 03/25/2019 11:00:00 12:21:00 DIS Inpatient LINA SEVILLA DO, V [facility] 4TH CVA [id number] 02/15/2019 07:46:00 23:59:59 CLS Outpatient EDIN WILSON [facility] CARD CVA, HTN, M IXED HYPERLIPIDEMIA [id number] 02/13/2019 12:58:00 019 23:59:59 CLS Outpatient EDIN WILSON [facility] CARD CVA [id number] 02/02/2019 22:33:00 23:07:00 DIS Emergency MADDIE ARREAGA BOILER REPAIR SUPERVISOR [facility] ER R HAND LAC [id number] 01/20/2019 08:47:00 23:59:59 CLS Outpatient SALVADOR CHANEY [employer]PA[employer] SUPERVISOR [facility] RAD CVA [id number] 01/20/2019 07:40:00 23:59:59 CLS Preadmit ASLVADOR CHANEY BOIL[employer] REPAIR SUPERVISOR [facility] RAD CVA [id number] 05/25/2018 00:10:00 018 23:59:59 CLS Preadmit CORBIN MENDOZA MD [facility] REHAB CVA [id number] 05/04/2018 09:30:00 018 00:01:00 DIS Outpatient CORBIN MENDOZA MD [facility] REHAB CVA [id number] 03/30/2018 07:11:00 018 12:00:00 DIS Outpatient BETINA HILLS MD [facility] CATH LEFT SUBCLAVIAN ARTERY STENOSIS [id number] 02/09/2018 16:30:00 018 15:30:00 DIS Inpatient NICOLAS WALLER MD [facility] IRF CVA [id number] 02/04/2018 20:17:00 018 15:25:00 DIS Inpatient ELA PERDOMO, CORINA Miller [facility] 4TH STROKE,L SIDED WEAKNESS,HYPERGLYCEMIA,FALL [id number] 09/15/2017 07:04:00 017 08:06:00 DIS Emergency LEXI DOMARSHA Vi [facility] ER RUNNY NOSE,COUGH [id number] 04/06/2016 15:55:00 016 23:59:59 CLS Outpatient KWAKU MIMA Valladares AMY [facility] QUICK [id number] 05/19/2015 12:09:00 015 23:59:59 CLS Outpatient FRANCISCO ARNALDO [facility] QUICK [id number] 02/16/2014 07:41:00 014 10:55:00 DIS Outpatient RONNI MAY MD [facility] SDC HEMATOCHEZIA [id number] 02/15/2014 07:18:00 014 23:59:59 CLS Outpatient RONNI MAY MD [facility] PREOP HEMATOCHEZIA [id number] 03/20/2020 10:38:00 Document Registration [id number] 09/01/2012 07:53:00 Document Registration [id number] 07/17/2014 08:47:00 07/17/2014 23:59: 59 CLS Outpatient CORBIN MENDOZA MD [id number] 02/09/2014 08:50:00 02/09/2014 23:59: 59 CLS Outpatient CORBIN MENDOZA MD [id number] 10/09/2013 08:41:00 10/09/2013 23:59: 59 CLS Outpatient CORBIN MENDOZA MD [id number] 05/15/2013 14:11:00 05/15/2013 23:59: 59 CLS Outpatient CORBIN MENDOZA MD [id number] 01/23/2013 08:52:00 01/23/2013 23:59: 59 CLS Outpatient CORBIN MENDOZA MD [id number] 10/04/2012 08:59:00 10/04/2012 23:59: 59 CLS Outpatient [id number] 06/14/2012 08:51:00 06/14/2012 23:59:5 9 CLS Outpatient CORBIN MENDOZA MD
--- NOTE | 2020-03-27 09:29 | Progress Note-Pre Operative ---
Pre-Operative Progress Note H&P Reviewed The H&P was reviewed, patient examined and no changes noted. Time Seen by Provider: 09:27 Date H&P Reviewed: March 27, 2020 Time H&P Reviewed: 09:28 Pre-Operative Diagnosis: Left inguinal hernia - incarcerated NICOLAS PETERS DO March 27, 2020 09:29
[2020-03-27] MEDS ORDERED: LIDOCAINE/EPI 1%-1:100,000 (XYLOCAINE) 20ML ONE (09:37)
[2020-03-27] MEDS ORDERED: proPOfol 200 MG/20 ML (DIPRIVAN) VIAL IV ONE (09:49)
[2020-03-27] MEDS ORDERED: fentaNYL INJECTION 100 MCG/2 ML AMP ONE ×2 (09:52→12:31)
[2020-03-27] MEDS ORDERED: MIDAZOLAM 2 MG/2 ML (VERSED) VIAL ONE (09:52)
[2020-03-27] MEDS ORDERED: SEVOFLURANE (ULTANE) 15 ML INHAL SOLN ONE ×10 (09:54→12:54)
[2020-03-27] MEDS ORDERED: ONDANSETRON 4 MG/2 ML (SDV) Z0FRAN ONE (09:54)
[2020-03-27] MEDS ORDERED: DEXAMETHASONE 10 MG/ML (DECADRON) 1 ML VIAL ONE (09:54)
[2020-03-27] MEDS ORDERED: ROCURONIUM 10 MG/ML 5 ML SYRINGE IV ONE (12:29)
[2020-03-27] MEDS ORDERED: NEOSTIGMINE 3 MG/3 ML VIAL ONE (12:29)
[2020-03-27] MEDS ORDERED: GLYCOPYRROLATE 0.2 MG/ML (ROBINUL) 2 ML VIAL ONE (12:29)
--- NOTE | 2020-03-27 12:42 | Progress Note-Post Operative ---
Post-Operative Progess Note Surgeon (s)/Solar Energy Installation Manager (s) Surgeon NICOLAS PETERS DO Solar Energy Installation Manager: Shakira Pre-Operative Diagnosis Left inguinal hernia - incarcerated Post-Operative Diagnosis same Procedure & Operative Findings Date of Procedure 03/27/20 Procedure Performed/Findings Lap LIH with mesh; robotic assistance Anesthesia Type GET Estimated Blood Loss Estimated blood loss (mL): less than 20 ml Specimens/Packing Specimens Removed none NICOLAS PETERS DO March 27, 2020 12:42
[2020-03-27] MEDS ORDERED: HYDR-4226 PO (12:43)
--- NOTE | 2020-03-27 12:44 | Discharge Inst-Surgical ---
Discharge Inst-Surgical Depart Medication/Instructions New, Converted or Re-Newed RX: RX Given to Pt/Family Patient Instructions Follow up Appt: Make appointment for 1 week. [phone] Instructions: No lifting greater than 20 pounds. No strenuous activity. May shower in 24 hours, no tub bath or soaking. Use incentive spirometer at home as directed. No Smoking Skin/Wound Care: May remove bandages in am. You need to leave the Dermabond on incision it will fall off on it's own. Symptoms to Report: Appetite Changes, Extremity Discoloration, Numbness/Tingling, Swelling Increased, Bleeding Excessive, Eyesight Changes, Pain Increased, Urine Color Change, Constipation(Persistent), Fever over 101 degree F, Pain/Pressure in chest, Urinating Difficulty, Cough Up/Vomit Blood, Heart Beat Irreg/Pounding, Pain/Pressure in jaw, Cramps in feet or legs, Lightheadedness, Pain/Pressure in shoulder, Diarrhea(Persistent), Memory Changes Suddenly, Questions/Concerns, Weight gain consecutive days, Dizziness/Fainting, Nausea/Vomiting, Shortness of Breath, Weight gain over 2 pounds If questions or concerns contact your physician Or seek help at emergency department. Activity Activity as Tolerated: Yes Activity Instructions: Avoid Stress to Incision Driving Instructions: No Driving/Refer to Dr. Moore Discharge Diet: No Restrictions Diet After 24 Hours: Clear Liquid if Nauseous If Any Problems/Questions/Issu: Contact Your Physician, Go to Emergency Room Skin/Wound Care Infection Signs and Symptoms: Increased Redness, Foul Odor of Wound, Increased Drainage, Skin Itchy or Has a Rash, Increased Swelling, Temperature Above 101 F Bathing Instructions: Shower Stitches/Dion/Dermabond Dis: Dermabond Ice Pack: Ice On and Off Site NICOLAS PETERS DO March 27, 2020 12:44
[2020-03-27] MEDS ORDERED: RT-ALBUTEROL SULF 2.5 MG/3 ML PRE-MIX VIAL ONE (12:47)
[2020-03-27] MEDS ORDERED: RT-ALBUTEROL HFA (PROAIR HFA) 8.5 GM IH ONE (12:54)
[2020-03-27] MEDS ORDERED: morphine INJ 10 MG/ML 1ML (SYR OR VIAL) ONE (12:59)
[2020-03-27] MEDS ORDERED: morphine INJ 10 MG/ML 1ML (SYR OR VIAL) IVP ONE (13:15)
[2020-03-27] MEDS ORDERED: RT-ALBUTEROL SULF 2.5 MG/3 ML PRE-MIX VIAL INH ONE (13:15)
[2020-03-27] MEDS ORDERED: ONDANSETRON 4 MG/2 ML (SDV) Z0FRAN IVP PRN (13:15)
--- NOTE | 2020-03-27 13:38 | Anesthesia-General Post-Op ---
General Patient Condition Mental Status/LOC: Same as Preop Cardiovascular: Satisfactory Nausea/Vomiting: Absent Respiratory: Satisfactory Pain: Controlled Complications: Absent Post Op Complications Complications None Follow Up Care/Instructions Patient Instructions None needed. Anesthesia/Patient Condition Patient Condition Patient is doing well, no complaints, stable vital signs, no apparent adverse anesthesia problems. No complications reported per nursing. CAR BURKS CRNA March 27, 2020 13:38
[2020-03-27] MEDS ORDERED: HYDROcodone/APAP 5 MG/325 MG (LORTAB) TAB ONE (14:47)
[2020-03-27] MEDS ORDERED: HYDROcodone/APAP 5 MG/325 MG (LORTAB) TAB PO ONE (15:00)
--- NOTE | 2020-03-27 19:12 | OPERATIVE REPORT ---
DATE OF SERVICE: 03/27/2020 PREOPERATIVE DIAGNOSIS: Left incarcerated inguinal hernia. POSTOPERATIVE DIAGNOSIS: Left incarcerated inguinal hernia, indirect. PROCEDURE: Laparoscopic left inguinal herniorrhaphy with mesh placement robotically assisted. SURGEON: Nicolas Phelps DO FOOD OR BAGGAGE HANDLING RAMPMAN: Agus Rosenberg DO ANESTHESIA: General endotracheal tube. SPECIMENS: None. BLOOD LOSS: Scant. FLUIDS: Per anesthesia. POSTOPERATIVE CONDITION: Stable. INDICATION FOR PROCEDURE: The patient is a 60-year-old male who has a large incarcerated left inguinal hernia, wanted to get this repaired. FINDINGS: The patient had a large left indirect inguinal hernia. PROCEDURE NOTE: After informed consent was obtained, the patient was brought to the operating room, placed on the operating table in supine position. He was sterilely prepped and draped in normal fashion. Local lidocaine was used to infiltrate the skin above the umbilicus. I made the incision with #11 blade, carried down through the skin into subcutaneous tissue, then deepened down to subcutaneous tissue with Bovie electrocautery down to the fascia. Fascia was incised with Bovie electrocautery, bluntly entered the abdomen, swept a finger around, placed 0 Vicryl [id number] suture and placed limited trocar port under direct visualization. Created pneumoperitoneum, then placed 2 more ports to the right and left by about 10 cm and used a local lidocaine, 11 blade for stab incision and then placed the 8 mm robotic port under direct visualization. The patient was placed in Trendelenburg. The robot was then docked. Upon entering, noted a very large left inguinal hernia, incarcerated with the sigmoid colon, able to carefully pull this out and attached it and then able to see a large indirect inguinal hernia, started 6 to 8 cm above the hernia defect and then came across the peritoneum and then through the medial umbilical ligament and then dissected in the parietal portion just below the muscle and bringing the bladder down, dissected down into the pubic tubercle, then able to get 2 cm across the midline and 2 cm posterior to the Gabriel's ligament and then started dissecting laterally, staying in the visceral plane carefully just above the peritoneum going out laterally to create a pocket and then taking the peritoneum down with blunt dissection with Bovie electrocautery, able to then identify the start of the vas and spermatic vessels coming down, able to then pull the large indirect hernia sac out, able to get completely out. Picture taken afterwards and then elected to place a large Bard 3D mesh, placed this into the abdomen, sutured once at the pubic tubercle with a 3-0 Vicryl and then sutured laterally with another 3-0 Vicryl, able to see the direct hernia space, and femoral space. No direct or femoral hernia seen. Cord lipoma had been reduced and then once it was noted that it was laid in nicely, then closed the peritoneal reflection with the 2-0 V-Loc suture, 6-inch, used one suture from the inferior to the superior and then one from lateral to medial being together to close this peritoneal defect, closed nicely, picture was taken and then removed all ports under direct visualization, allowed pneumoperitoneum to escape. Closed the supraumbilical incision, closing the fascia with 0 Vicryl suture previously placed and then closed the 2 small 8 mm incisions with a two 4-0 undyed Monocryl subcuticular stitches. Area was cleaned and then closed the supraumbilical incision with 3 interrupted 4-0 undyed Monocryl subcuticular stitches. Area was cleaned and dried. Skin Affix was placed and then Band-Aids. The patient tolerated the procedure. Sponge, instrument and needle count correct at the end of the case. Job ID: [id number] DocumentID: [id number] Dictated Date: 03/27/2020 12:39:11 Care Program Resident Date: 03/27/2020 19:11:24 Dictated By: NIOCLAS PHELPS DO
== END 2020-03-27 15:05 | disposition home or self-care (01) ==
LOC: SDC 08:57
PROVIDERS: ATTEND Surgery
DX: K40.30 Unilateral inguinal hernia, with obstruction, without gangrene, not specified as recurrent (principal); I10 Essential (primary) hypertension; K21.9 Gastro-esophageal reflux disease without esophagitis; I65.22 Occlusion and stenosis of left carotid artery; I63.9 Cerebral infarction, unspecified; E11.9 Type 2 diabetes mellitus without complications; E78.2 Mixed hyperlipidemia; F41.9 Anxiety disorder, unspecified; F32.9 Major depressive disorder, single episode, unspecified; Z79.4 Long term (current) use of insulin; Z79.899 Other long term (current) drug therapy; Z90.89 Acquired absence of other organs; Z79.82 Long term (current) use of aspirin; Z79.02 Long term (current) use of antithrombotics/antiplatelets; Z87.891 Personal history of nicotine dependence
CPT/HCPCS: 82962; 94664

== ENCOUNTER → 2020-07-09 | Outpatient (CLI) | payer OTHER ==
[~2020-07-09] MED LIST changes: +HYDR-4226 PO
[2020-07-09 10:10] LABS: ALANINE AMINOTRANSFERASE 21 U/L (0-55); ALBUMIN 4.2 GM/DL (3.2-4.5); ALKALINE PHOSPHATASE 85 U/L (40-136); BILIRUBIN,TOTAL 0.4 MG/DL (0.1-1.0); BUN/CREATININE RATIO 12; CALCIUM 8.9 MG/DL (8.5-10.1); CARBON DIOXIDE 22 MMOL/L (21-32); CHLORIDE 107 MMOL/L (98-107); CHOLESTEROL 160 MG/DL (< 200); CREATININE SERUM 0.93 MG/DL (0.60-1.30); GFR ESTIMATED > 60; GLUCOSE 156 MG/DL (70-105); HDL CHOLESTEROL 32 MG/DL (40-60); POTASSIUM 3.9 MMOL/L (3.6-5.0); SODIUM 138 MMOL/L (135-145); TOTAL PROTEIN 7.1 GM/DL (6.4-8.2); TRIGLYCERIDES 118 MG/DL (<150); VLDL CHOLESTEROL 24 MG/DL (5-40)
== END ==
LOC: LAB 09:34
PROVIDERS: ATTEND Physician Assistant
DX: I63.9 Cerebral infarction, unspecified (principal); I10 Essential (primary) hypertension; E78.2 Mixed hyperlipidemia; E66.9 Obesity, unspecified; Z72.0 Tobacco use
CPT/HCPCS: 36415; 80053; 80061

== ENCOUNTER → 2021-01-09 | Outpatient (CLI) | payer OTHER ==
[~2021-01-09] MED LIST changes: -ACET-1783 PO; +ACET-2870 PO; +ASPI-1238 PO; -ASPI-983 PO; -LISI-556 PO; +LISI-729 PO; -LISI10TA2 PO; +LISI10TA25 PO
[2021-01-09 11:13] LABS: ALANINE AMINOTRANSFERASE 43 U/L (0-55); ALBUMIN 4.6 GM/DL (3.2-4.5); ALKALINE PHOSPHATASE 96 U/L (40-136); BILIRUBIN,TOTAL 0.5 MG/DL (0.1-1.0); BUN/CREATININE RATIO 12; CALCIUM 9.4 MG/DL (8.5-10.1); CARBON DIOXIDE 21 MMOL/L (21-32); CHLORIDE 106 MMOL/L (98-107); CHOLESTEROL 250 MG/DL (< 200); CREATININE SERUM 1.01 MG/DL (0.60-1.30); GFR ESTIMATED > 60; GLUCOSE 203 MG/DL (70-105); HDL CHOLESTEROL 38 MG/DL (40-60); POTASSIUM 4.5 MMOL/L (3.6-5.0); SODIUM 137 MMOL/L (135-145); TOTAL PROTEIN 7.9 GM/DL (6.4-8.2); TRIGLYCERIDES 331 MG/DL (<150); VLDL CHOLESTEROL 66 MG/DL (5-40)
== END ==
LOC: LAB 10:38
PROVIDERS: ATTEND Physician Assistant
DX: E78.2 Mixed hyperlipidemia (principal)
CPT/HCPCS: 36415; 80053; 80061; 84443

== ENCOUNTER → 2021-01-14 | Outpatient (CLI) | payer OTHER ==
[~2021-01-14] MED LIST changes: +CATHETER FLUSH 10 ML SYR IV PRN; +HOLD METFORMIN - RECEIVED CONTRAST 20 ML VIAL IV SCH; +IOHEXOL 350 MG/ML 100 ML (OMNIPAQUE 350) VIAL IV ONE; +NS 100 ML (IVPB) BAG IV ONE
--- NOTE | 2021-01-14 18:11 | Diagnostic Imaging Report ---
CLINICAL INDICATION: Patient with right-sided weakness. Patient has dizziness and blurred vision. Patient with history of previous stroke. EXAMS: 1: Head CT with and without IV contrast. Auto Exposure Controls were utilized during the CT exam to meet ALARA standards for radiation dose reduction. 2: CT angiogram of the head and neck performed with 100 cc of Omnipaque 350 IV contrast. Sagittal and coronal MIP reformations were created for better visualization of vascular anatomy. CT angiogram was post-processed using RAPID LVO detection to include quantitative measurements of cerebral blood flow and automated results notification to the stroke and/or neurointerventional team. COMPARISON: CT angiogram of the head/neck dated 02/04/2018. FINDINGS: Head CT: There is interval evolution of the previously seen small infarct involving the posterior limb of the left internal capsule/batres radiata region which is now chronic. The remainder of the brain parenchyma is stable with no evidence of acute cerebral infarct, intracranial hemorrhage, brain herniation or midline shift. There is no abnormal IV contrast enhancement. There is no hydrocephalus. Basal cisterns are unremarkable. There is mild mucosal thickening involving the ethmoid sinus. Mastoid air cells are clear. CT Angiogram: There is dense contrast bolus seen within the right subclavian vein and portions of the superior vena cava. There is interval placement of endovascular stent within the proximal left subclavian vein which is patent with resolution of previously seen severe stenosis in the region. Of note, the origins of the left subclavian artery and origin of the left common carotid arteries are not completely imaged. The origin of the brachiocephalic artery is not completely imaged. The remainder of the bilateral subclavian arteries are patent. The visualized portions of brachiocephalic artery are patent. There is mild narrowing of the proximal right ECA which is stable. Otherwise, the right common carotid artery, right ECA and cervical right ICA are patent without significant stenosis. There is roughly 50% stenosis of the origin of the cervical left ICA which has slightly progressed. The remainder of the cervical ICA is patent. The left ECA is patent. The bilateral petrous, cavernous, and paraclinoid ICA are patent. Of note, the origin of the cervical left vertebral artery is not imaged. The bilateral cervical vertebral arteries are patent. Dominant right cervical vertebral artery is seen. The intradural bilateral vertebral arteries and PICA are patent. The basilar artery, superior cerebellar artery, and bilateral [employer] SALES [employer]OCIATE are patent and stable. The bilateral ACAs and their distal branches, MCAs and their distal branches are patent. The dural venous sinus is patent. The neck soft tissue structures show no significant interval abnormality. Visualized upper lung lux show emphysematous disease. Cervical spine degenerative disease is again seen. IMPRESSION: 1: There is no evidence of acute intracranial process. There is interval evolution of the now chronic infarct involving the posterior limb of the left internal capsule/batres radiata region. 2: Of note, the aortic arch and proximal great vessels are not completely imaged on this exam and the correlating vessels are not able to be evaluated. 3: There is interval placement of endovascular stent within the left subclavian vein. The proximal portion is not completely visualized and cannot be evaluated. The visualized portion of the left subclavian artery stent is patent. If the left subclavian artery stent needs to be re-evaluated, repeat CT angiogram of the neck with images starting lower in the mediastinum would better evaluate. This was discussed with the histotechnologist supervisor who performed this exam. 4: There is slight progression of now moderate stenosis of the origin of the cervical left ICA bulb. 5: The remainder of the major arterial neck and clark's point of Martins vascular structures are patent. Dictated by: Dictated on workstation # [id number]
== END ==
LOC: RAD 10:15
PROVIDERS: ATTEND Physician Assistant
DX: I70.8 Atherosclerosis of other arteries (principal); G81.91 Hemiplegia, unspecified affecting right dominant side; H53.8 Other visual disturbances; R42 Dizziness and giddiness
CPT/HCPCS: 70498

== ENCOUNTER 2021-03-10 06:14 | Outpatient (CLI) | payer OTHER ==
[~2021-03-10] VITALS: Ht 154.9 cm; Wt 71.8 kg
[~2021-03-10 06:14] MED LIST changes: -CATHETER FLUSH 10 ML SYR IV PRN; -HOLD METFORMIN - RECEIVED CONTRAST 20 ML VIAL IV SCH; -IOHEXOL 350 MG/ML 100 ML (OMNIPAQUE 350) VIAL IV ONE; -NS 100 ML (IVPB) BAG IV ONE
[2021-03-11] MEDS ORDERED: INSU100I14 SQ (11:53)
[2021-03-11] MEDS ORDERED: LISI10TA25 PO (11:53)
[2021-03-11] MEDS ORDERED: ACET250T3 PO (11:53)
[2021-03-11] MEDS ORDERED: CLOP75TA69 PO (11:53)
[2021-03-11] MEDS ORDERED: ATOR40TA70 PO (11:53)
[2021-03-11] MEDS ORDERED: ASPI-999 PO (11:53)
== END 2021-03-11 11:56 | disposition home or self-care (01) ==
LOC: PREOP 06:14
PROVIDERS: ATTEND Specialist
DX: Z01.818 Encounter for other preprocedural examination (principal)

== ENCOUNTER 2021-03-14 08:54 | Day surgery (SDC) | payer OTHER ==
[~2021-03-14 08:54] MED LIST changes: +ACET250T3 PO; +ASPI-999 PO; +CLOP75TA69 PO; +INSU100I14 SQ
[2021-03-14] MEDS ORDERED: TETRACAINE 0.5% OPHTH SOLN 4 ML BTL (SINGLE DOSE ONLY) OU ONE (09:00)
[2021-03-14] MEDS ORDERED: TIMOLOL MALEATE 0.5% 5 ML (TIMOPTIC) BTL OU ONE (09:00)
[2021-03-14] MEDS ORDERED: PILOCARPINE 4% OPHTH SOLN (ISOPTO CARPINE) 15 ML BTL OP ONE (09:00)
[2021-03-14 09:12] VITALS: BP 128/80
--- NOTE | 2021-03-14 10:13 | Ophthalmologist Pre-Op Note ---
Pre-Operative Progress Note H&P Reviewed The H&P was reviewed, patient examined and no changes noted. Date H&P Reviewed: March 14, 2021 Time H&P Reviewed: 10:13 Pre-Op Dx Narrow angle glaucoma, Right Eye YESY POPE MD March 14, 2021 10:13
--- NOTE | 2021-03-14 10:45 | Ophthalmology Operative Report ---
YAG Iridotomy PREOPERATIVE DIAGNOSIS: Narrow angle glaucoma, Right Eye POSTOPERATIVE DIAGNOSIS: Narrow angle glaucoma, Right Eye PROCEDURE: YAG Iridotomy right eye SURGEON: Willian Pope ANESTHESIA: Topical anesthesia COMPLICATIONS: None ESTIMATED BLOOD LOSS: Minimal DESCRIPTION OF PROCEDURE: After proper informed consent was obtained, that patients right eye received one drop of tetracaine and one drop of pilocarpine 4%. The patient received 1 drop of timolol 0.5% five minutes after the pilocarpine. The iridotomy lens was placed on the patients eye. The patient was then placed at the argon laser and using a power of [ ] milliwatts, duration of [ ], and spot size of [ ], [ ] burst were used to flatten the iris. After this the patient was moved to the YAG laser and using a power of [ 7.0] millijoules [ 5] bursts were used to fashion a patent iridotomy. The patient tolerated the procedure well without complications. WILLIAN POPE MD March 14, 2021 10:45
== END 2021-03-14 10:15 ==
LOC: SDC 08:54
PROVIDERS: ATTEND Specialist
DX: H40.20X0 Unspecified primary angle-closure glaucoma, stage unspecified (principal); E11.9 Type 2 diabetes mellitus without complications; F17.200 Nicotine dependence, unspecified, uncomplicated; Z90.89 Acquired absence of other organs; Z98.890 Other specified postprocedural states; Z86.73 Personal history of transient ischemic attack (TIA), and cerebral infarction without residual deficits; Z87.19 Personal history of other diseases of the digestive system

== ENCOUNTER → 2021-05-15 | Outpatient (CLI) | payer OTHER ==
[~2021-05-15] MED LIST changes: +CATHETER FLUSH 10 ML SYR IV PRN; +HOLD METFORMIN - RECEIVED CONTRAST 20 ML VIAL IV SCH; +IOHEXOL 350 MG/ML 100 ML (OMNIPAQUE 350) VIAL IV ONE; +NS 100 ML (IVPB) BAG IV ONE
[2021-05-15 08:24] LABS: HEMATOCRIT 45 % (40-54); HEMOGLOBIN 14.7 g/dL (13.3-17.7); MEAN CORPUSCULAR HEMOGLOBIN 31 pg (25-34); MEAN CORPUSCULAR HGB CONC 33 g/dL (32-36); MEAN CORPUSCULAR VOLUME 94 fL (80-99); MEAN PLATELET VOLUME 9.2 fL (9.0-12.2); PLATELET COUNT 331 10^3/uL (130-400); WHITE BLOOD COUNT 8.7 10^3/uL (4.3-11.0)
[2021-05-15 08:50] LABS: ALANINE AMINOTRANSFERASE 26 U/L (0-55); ALBUMIN 4.1 GM/DL (3.2-4.5); ALKALINE PHOSPHATASE 83 U/L (40-136); BILIRUBIN,TOTAL 0.6 MG/DL (0.1-1.0); BUN/CREATININE RATIO 10; CALCIUM 9.3 MG/DL (8.5-10.1); CARBON DIOXIDE 21 MMOL/L (21-32); CHLORIDE 114 MMOL/L (98-107); CHOLESTEROL 64 MG/DL (< 200); CREATININE SERUM 0.99 MG/DL (0.60-1.30); GFR ESTIMATED > 60; GLUCOSE 158 MG/DL (70-105); HDL CHOLESTEROL 33 MG/DL (40-60); POTASSIUM 4.5 MMOL/L (3.6-5.0); SODIUM 141 MMOL/L (135-145); TOTAL PROTEIN 6.9 GM/DL (6.4-8.2); TRIGLYCERIDES 98 MG/DL (<150); VLDL CHOLESTEROL 20 MG/DL (5-40)
== END ==
LOC: CARD 09:45
PROVIDERS: ATTEND Internal Medicine Cardiovascular Disease
DX: I34.0 Nonrheumatic mitral (valve) insufficiency (principal); I10 Essential (primary) hypertension; R55 Syncope and collapse
CPT/HCPCS: 36415; 80053; 80061; 83036; 84443; 85027; 93306

== ENCOUNTER 2021-05-19 06:46 | Outpatient (CLI) | payer OTHER ==
[~2021-05-19] VITALS: Ht 154.9 cm; Wt 71.8 kg
[~2021-05-19 06:46] MED LIST changes: -CATHETER FLUSH 10 ML SYR IV PRN; -HOLD METFORMIN - RECEIVED CONTRAST 20 ML VIAL IV SCH; -IOHEXOL 350 MG/ML 100 ML (OMNIPAQUE 350) VIAL IV ONE; -NS 100 ML (IVPB) BAG IV ONE
== END 2021-05-20 09:12 | disposition home or self-care (01) ==
LOC: PREOP 06:46
PROVIDERS: ATTEND Specialist
DX: Z01.818 Encounter for other preprocedural examination (principal)

== ENCOUNTER 2021-05-23 07:52 | Day surgery (SDC) | payer OTHER ==
[~2021-05-23] VITALS: Ht 154 cm; Wt 71.8 kg
[2021-05-23] MEDS ORDERED: TIMOLOL MALEATE 0.5% 5 ML (TIMOPTIC) BTL OU PRN (08:00)
[2021-05-23] MEDS ORDERED: LIDOCAINE PF 1% 2 ML VIAL IR PRN (08:00)
[2021-05-23] MEDS ORDERED: MOXIFLOXACIN OPHTH SOLN 5 MG/ML 0.3 ML SYRINGE OP ONE (08:00)
[2021-05-23] MEDS ORDERED: POVIDONE (BETADINE) OPHTH SOLN 5% 30 ML OP ONE (08:00)
[2021-05-23] MEDS: TETRACAINE 0.5% OPHTH SOLN 4 ML BTL (SINGLE DOSE ONLY) OU PRN ×4 (08:16→08:33)
[2021-05-23] MEDS: PHENYLEPHRINE 10% OPHTH (NEO-SYN) 5 ML BTL OU SCH ×3 (08:22→08:33)
[2021-05-23] MEDS: TROPICAMIDE 1% OPH SOLN (MYDRIACYL) 15 ML BTL OP SCH ×3 (08:22→08:33)
[2021-05-23 08:24] VITALS: BP 132/84
[2021-05-23] MEDS ORDERED: MIDAZOLAM 2 MG/2 ML (VERSED) VIAL ONE (08:47)
--- NOTE | 2021-05-23 08:58 | Ophthalmologist Pre-Op Note ---
Pre-Operative Progress Note H&P Reviewed The H&P was reviewed, patient examined and no changes noted. Date H&P Reviewed: May 23, 2021 Time H&P Reviewed: 08:58 Pre-Op Dx Cataract, Right Eye YESY POPE MD May 23, 2021 08:58
--- NOTE | 2021-05-23 09:25 | Ophthalmology Operative Report ---
Cataract removal/placement IOL PREOPERATIVE DIAGNOSIS: Cataract Right Eye POSTOPERATIVE DIAGNOSIS: Cataract Right Eye PROCEDURE: Cataract removal and placement of posterior chamber implant, right eye SURGEON: Willian Pope ANESTHESIA: Topical with sedation COMPLICATIONS: None ESTIMATED BLOOD LOSS: Minimal DESCRIPTION OF PROCEDURE: After proper informed consent was obtained, the patient, a 61 male, was taken to the Operating Room and the right eye was anesthetized with tetracaine. The right eye was then prepped and draped in the usual manner. A wire lid speculum was placed. A paracentesis was made at the left hand position. Preservative free lidocaine was injected into the anterior chamber followed by viscoelastic. A clear corneal incision was made in the temporal position. A capsulorrhexis was preformed and the central nuclear and cortical material were removed. The posterior capsule was polished and Samuel 22.0 AU00T0 IOL was placed into the capsular bag. The residual viscoelastic was aspirated and balanced saline solution was injected into the anterior chamber. Moxifloxacin was injected into the anterior chamber. The wound was checked and found to be water tight. The patient tolerated the procedure well without complications. WILLIAN POPE MD May 23, 2021 09:25
[2021-05-23 09:30] VITALS: BP 141/81
[2021-05-23] MEDS ORDERED: acetaZOLAMIDE ER 500 MG CAP (DIAMOX SEQUELS) PO ONE (09:30)
--- NOTE | 2021-05-23 13:15 | Anesthesia-General Post-Op ---
MAC Patient Condition Mental Status/LOC: Same as Preop Cardiovascular: Satisfactory Nausea/Vomiting: Absent Respiratory: Satisfactory Pain: Controlled Complications: Absent Post Op Complications Complications None Follow Up Care/Instructions Patient Instructions None needed. Anesthesiology Discharge Order Discharge Order Patient was doing well after the procedure with no complaints, stable vital signs, no apparent adverse anesthesia problems. YOGI WINSTON DO May 23, 2021 13:15
== END 2021-05-23 09:34 ==
LOC: SDC 07:52
PROVIDERS: ATTEND Specialist
DX: E11.36 Type 2 diabetes mellitus with diabetic cataract (principal); H25.11 Age-related nuclear cataract, right eye; I25.10 Atherosclerotic heart disease of native coronary artery without angina pectoris; R03.0 Elevated blood-pressure reading, without diagnosis of hypertension; F17.200 Nicotine dependence, unspecified, uncomplicated; Z79.899 Other long term (current) drug therapy; Z79.82 Long term (current) use of aspirin; Z79.4 Long term (current) use of insulin; Z79.02 Long term (current) use of antithrombotics/antiplatelets; Z86.73 Personal history of transient ischemic attack (TIA), and cerebral infarction without residual deficits; Z98.890 Other specified postprocedural states
CPT/HCPCS: 66984; 82947; V2632

== ENCOUNTER → 2021-06-02 | Outpatient (CLI) | payer OTHER ==
[~2021-06-02] MED LIST changes: +CATHETER FLUSH 10 ML SYR IV PRN; +HOLD METFORMIN - RECEIVED CONTRAST 20 ML VIAL IV SCH; +IOHEXOL 350 MG/ML 100 ML (OMNIPAQUE 350) VIAL IV ONE; +NS 100 ML (IVPB) BAG IV ONE
[2021-06-02 15:59] LABS: CREATININE SERUM 0.77 MG/DL (0.60-1.30)
--- NOTE | 2021-06-02 18:12 | Diagnostic Imaging Report ---
INDICATION: Carotid stenosis. COMPARISON: Exam is compared with CT angio neck 01/14/2021. FINDINGS: There is a dense stent within the takeoff of the left subclavian artery. Luminal opacification distal to the stent is maintained, and the vessel is stable in caliber. 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 The right subclavian is patent. The bilateral cervical vertebral arteries are nonfocal, the right dominant, the left somewhat small but not pathologic. The intrathecal vertebral arteries, the basilar, and the proximal [employer] are unremarkable. The [employer] were predominantly provided via the widely patent P-comms. The right common carotid is patent. There is some intimal thickening and soft plaque in the distal common carotid extending into the bulb. The right ECAs are proximally stenosed by about 80%, unchanged. The right common and proximal internal carotid showed no hemodynamically significant degree of stenosis. The remaining right cervical ICA is widely patent, and the intracranial ICA is patent. The A1 segments of the A-Comm, the paired anterior cerebral arteries, and the proximal bilateral middle cerebral arterial segments and primary branches are patent. No large vessel occlusion, thrombus, or demonstrated aneurysm. The left common carotid was patent. There is mixed soft and hard plaque at the left carotid bulb and bifurcation extending into the proximal internal and external carotids. The bulb itself is narrowed by about 50%, unchanged. The proximal internal and external carotids are narrowed approximately 50%. This is unchanged. The remaining cervical internal carotid assumes a tortuous course but was widely patent. The left intracranial ICA is patent. IMPRESSION: No real change in left greater than right mixed soft and hard plaque resulting in [id number] bulb and proximal internal carotid stenoses. More substantial stenosis in the right external carotid unchanged. Patent vertebrals. No appreciable intracranial arterial stenosis. No critical stenosis or segmental occlusion. No dissection or acute abnormalities. Dictated by: Dictated on workstation # [id number]
== END ==
LOC: RAD 16:15
PROVIDERS: ATTEND Internal Medicine Cardiovascular Disease
DX: I65.23 Occlusion and stenosis of bilateral carotid arteries (principal); I10 Essential (primary) hypertension; R55 Syncope and collapse
CPT/HCPCS: 36415; 70498; 82565; 84520

== ENCOUNTER → 2021-09-02 | Outpatient (CLI) | payer OTHER ==
[~2021-09-02] MED LIST changes: -CATHETER FLUSH 10 ML SYR IV PRN; -HOLD METFORMIN - RECEIVED CONTRAST 20 ML VIAL IV SCH; -IOHEXOL 350 MG/ML 100 ML (OMNIPAQUE 350) VIAL IV ONE; -NS 100 ML (IVPB) BAG IV ONE
--- NOTE | 2021-09-02 16:47 | Diagnostic Imaging Report ---
PROCEDURE: US Venous Lower Ext Donnie. TECHNIQUE: Multiple real-time grayscale images were obtained over the lower extremities in various projections, bilaterally. Additional duplex Doppler and color Doppler images were also obtained. INDICATION: Pain and swelling in the lower extremities. FINDINGS: There is normal augmentation, compression, and color Doppler flow in the veins of the lower extremities with no thrombosis seen. There is a 1 x 3 x 4 cm slightly heterogeneous fluid collection which corresponds with the palpable abnormality. There may be a seroma. If this is associated with warmth and redness, an abscess could be considered. IMPRESSION: No deep venous thrombosis is seen. There is a slightly complex fluid collection which corresponds with the palpable abnormality which may be a seroma. Dictated by: Dictated on workstation # [id number]
== END ==
LOC: RAD 16:15
PROVIDERS: ATTEND Internal Medicine Cardiovascular Disease
DX: M79.89 Other specified soft tissue disorders (principal); M79.669 Pain in unspecified lower leg
CPT/HCPCS: 93970

== ENCOUNTER → 2021-12-04 | Outpatient (CLI) | payer OTHER ==
[~2021-12-04] MED LIST changes: -LISI-729 PO; +LISI5TAB20 PO
[2021-12-04 09:11] LABS: ALBUMIN 4.1 GM/DL (3.2-4.5); BILIRUBIN,TOTAL 0.5 MG/DL (0.1-1.0); CALCIUM 8.9 MG/DL (8.5-10.1); CREATININE SERUM 1.08 MG/DL (0.60-1.30); POTASSIUM 3.9 MMOL/L (3.6-5.0); TOTAL PROTEIN 7.5 GM/DL (6.4-8.2)
== END ==
LOC: LAB 08:22
PROVIDERS: ATTEND Internal Medicine Cardiovascular Disease
DX: E78.2 Mixed hyperlipidemia (principal)
CPT/HCPCS: 36415; 80053; 80061